=== PATIENT | female | born 1975 | race American Indian/Alaskan Native ===

== ENCOUNTER 2016-09-28 01:53 | Emergency (ER) | payer MEDICAID, OTHER ==
[2016-09-28] MEDS ORDERED: LORazepam 0.5 MG Tab PO ONE (02:17)
--- NOTE | 2016-09-28 02:38 | EDM.PDOC ---
ED HISTORY OF PRESENT ILLNESS - General Chief Complaint: Chest Pain Stated Complaint: CHEST PAINS Time Seen by Provider: 09/28/16 02:25 Source of Information: Reports: Patient History Limitations: Reports: No limitations - History of Present Illness INITIAL COMMENTS - FREE TEXT/NARRATIVE: This 40 yo female patient reports to the ED due to chest pain. The patient reports her chest pain started at about 2300 last night while she was at home. The patient reports she started to get anxious about her pains and they got worse. The patient reports she had similar pain last Wednesday prior to getting dialysis. The pain on Wednesday went away as soon as she started to get dialysis. The patient reports she thinks she is over on her amount of fluid causing increased shortness of breath and chest pain. The patient describes her chest pain as a sharp pain in the inside of her left chest. The patient is scheduled to have dialysis this morning at 0600. Symptom Onset Date: 09/27/16 Symptom Onset Time: 23:00 Timing/Duration: Reports: Constant, Getting worse Severity: moderate Location, General: Reports: chest (left lateral chest, spreading to the middle of her chest) Quality: Reports: Ache, Dull Improves with: Reports: None Worsens with: Reports: Other (increased anxiety) Context, General: Reports: Other Associated Symptoms (General): Reports: chest pain - Related Data Allergies/ADRs: Allergies Allergy/AdvReac Type Severity Reaction Status Date / Time acetaminophen Allergy Rash Verified 09/28/16 02:05 [From Darvocet-N 100] aspirin Allergy Hives Verified 09/28/16 02:05 naproxen [From Naprosyn] Allergy Rash Verified 09/28/16 02:05 Penicillins Allergy Rash Verified 09/28/16 02:05 propoxyphene napsylate Allergy Rash Verified 09/28/16 02:05 [From Darvocet-N 100] Home Meds: Home Meds Insulin Aspart [NovoLOG] 6 units SQ TID 10/08/13 [History] Insulin Detemir [Levemir Flexpen] 10 unit SQ DAILY 10/08/13 [History] Rosuvastatin [Crestor] 20 mg PO BEDTIME 03/09/14 [History] Metoprolol Succinate 50 mg PO BID 05/20/14 [History] Furosemide [Lasix] 80 mg PO BID 12/09/14 [History] Sevelamer Carbonate 2 tab PO TID 07/03/14 [History] Lisinopril 5 mg PO DAILY 08/13/14 [History] amLODIPine [Norvasc] 2.5 mg PO DAILY 08/20/14 [History] Omeprazole [Omeprazole] 20 mg PO DAILY 06/02/15 [History] Vitamin B Complex 1 tab PO ASDIRECTED 06/02/15 [History] hydrALAZINE [Apresoline] 100 mg PO BID 01/26/16 [History] Past Medical History HEENT History: Reports: None Cardiovascular History: Reports: Heart Failure, Heart murmur, High cholesterol, Hypertension Respiratory History: Reports: PE Gastrointestinal History: Reports: GERD Genitourinary History: Reports: Acute renal failure, Chronic renal insuffiency, Dialysis, Renal disease Psychiatric History: Reports: Anxiety Endocrine/Metabolic History: Reports: Diabetes, type II - Infectious Disease History Infectious Disease History: Reports: MRSA - Past Surgical History Female Surgical History: Reports: section Social & Family History - Family History Endocrine/Metabolic: Reports: Diabetes, type II - Tobacco Use Smoking Status *Q: Current Some Day Smoker Years of Tobacco use: 1 Packs/Tins Daily: 0.1 Used Tobacco, but Quit: No Month Tobacco Last Used: nov Second Hand Smoke Exposure: No - Caffeine Use Caffeine Use: Reports: Soda - Alcohol Use Days Per Week of Alcohol Use: 1 Number of Drinks Per Day: 6 Total Drinks Per Week: 6 - Recreational Drug Use Recreational Drug Use: No Drug Use in Last 12 Months: Yes Recreational Drug Type: Reports: Marijuana/Hashish Recreational Drug Use Frequency: Socially Recreational Drug Last Use: 02/29/2016 - Living Situation & Occupation Living situation: Reports: with family Occupation: disabled ED ROS GENERAL - Review of Systems Review Of Systems: ROS reveals no pertinent complaints other than HPI. ED EXAM, GENERAL - Physical Exam Exam: See Below Exam Limited By: No limitations General Appearance: alert, WD/WN, anxious, moderate distress, obese Eye Exam: bilateral eye: EOMI, normal inspection, PERRL Ears: normal external exam, normal canal, hearing grossly normal, normal TMs Nose: normal inspection, normal mucosa, no blood Throat/Mouth: Normal inspection, Normal lips, Normal teeth, Normal gums, Normal oropharynx, Normal voice, No airway compromise Head: atraumatic, normocephalic Neck: normal inspection, supple, non-tender, full range of motion Respiratory/Chest: no respiratory distress, lungs clear, normal breath sounds, no accessory muscle use, chest non-tender Cardiovascular: normal peripheral pulses, regular rate, rhythm, no edema, no gallop, no JVD, no rub, systolic murmur GI/Abdominal: normal bowel sounds, soft, non tender, no organomegaly, no distention, no abnormal bruit, no mass, other (obese) (Female) Exam: Deferred Rectal (Female) Exam: Deferred Back Exam: normal inspection, full range of motion, NT Extremities: normal inspection, normal range of motion, non-tender, normal capillary refill, no pedal edema Neurological: alert, oriented, CN II-XII intact, normal cognition, normal gait, normal reflexes, no motor/sensory deficits Psychiatric: anxious Skin Exam: Warm, Dry, Intact, Normal color, No rash Lymphatic: no adenopathy Course - Vital Signs Last Recorded V/S: Last Vital Signs Temp 36.8 C 09/28/16 02:46 Pulse 84 09/28/16 02:46 Resp 18 09/28/16 02:46 BP 186/92 H 09/28/16 02:46 Pulse Ox 98 09/28/16 02:46 - Orders/Labs/Meds Orders: Active Orders 24 hr Category Date Time Status EKG Documentation Completion [RC] URGENT Care 09/28/16 01:56 Active Chest 1V Frontal [CR] Urgent Exams 09/28/16 02:32 Taken DRUG SCREEN URINE BIORAD [URCHEM] Stat Lab 09/28/16 02:41 Ordered Labs: Laboratory Tests 09/28/16 09/28/16 09/28/16 Range/Units 02:18 02:18 02:40 WBC 15.6 H (5.0-10.0) 10^3/uL RBC 3.47 L (4.2-5.4) 10^6/uL Hgb 10.9 L (12.0-16.0) g/dL Hct 33.6 L (37.0-47.0) % MCV 96.8 (80-100) fL MCH 31.4 (27.0-34.0) pg MCHC 32.4 L (33.0-35.0) g/dL Plt Count 221 (150-450) 10^3/uL Neut % (Auto) 84.1 H (42.2-75.2) % Lymph % (Auto) 8.0 L (20.5-50.1) % [place] % (Auto) 4.5 (2-8) % Eos % (Auto) 3.1 H (1.0-3.0) % Baso % (Auto) 0.3 (0.0-1.0) % Sodium 137 (135-145) mmol/L Potassium 6.8 H* (3.6-5.0) mmol/L Chloride 102 (101-111) mmol/L Carbon Dioxide 19.0 L (21.0-31.0) mmol/L Anion Gap 22.8 BUN 76 H (7-18) mg/dL Creatinine 10.9 H (0.6-1.3) mg/dL Est Cr Clr Drug Dosing TNP Estimated GFR (MDRD) 4 BUN/Creatinine Ratio 6.97 Glucose 130 H (74-105) mg/dL Calcium 7.0 L (8.4-10.2) mg/dl Total Bilirubin 0.7 (0.2-1.0) mg/dL AST 25 (10-42) IU/L ALT 19 (10-60) IU/L Alkaline Phosphatase 117 (42-121) IU/L Troponin I 0.03 H* (0.00-0.02) ng/ml Total Protein 7.9 (6.7-8.2) g/dl Albumin 3.8 (3.2-5.5) g/dl Globulin 4.1 Albumin/Globulin Ratio 0.93 Urine Color Yellow (YELLOW) Urine Appearance Slightly cloudy (CLEAR) Urine pH >= 9.0 (5.0-9.0) Ur Specific [place] 1.020 (1.005-1.030) Urine Protein >=300 H (NEGATIVE) Urine Glucose (UA) 100 H (NEGATIVE) Urine Ketones Negative (NEGATIVE) Urine Occult Blood Small H (NEGATIVE) Urine Nitrite Negative (NEGATIVE) Urine Bilirubin Negative (NEGATIVE) Urine Urobilinogen 0.2 (0.2-1.0) mg/dL Ur Leukocyte Esterase Trace H (NEGATIVE) Meds: Medications Discontinued Medications Generic Name Dose Route Start Last Admin Trade Name Freq PRN Reason Stop Dose Admin Lorazepam 0.5 mg 09/28/16 02:17 09/28/16 02:22 Ativan PO 09/28/16 02:18 0.5 mg ONETIME ONE Administration - Re-Assessments/Exams Free Text/Narrative Re-Assessment/Exam: 09/28/16 02:39 The patient was given an oral dose of Ativan (0.5 mg) which improved her symptoms. After the Ativan, the patient reports some mild pain in her left chest , but the pain went away in the middle of her chest and her legs are feeling normal. Departure - Departure Time of Disposition: 03:01 Disposition: Home, Self-Care 01 Condition: fair Clinical Impression: Anxiety about health, Hyperkalemia, Bronchitis Instructions: Acute Bronchitis, Jrnu-rh-Tktc, Hyperkalemia, Kqez-gy-Tron, Panic Attacks, [id number]-jq-[id number] Forms: ED Department Discharge Care Plan Goals: The patient was advised of the examination, EKG, lab and x-ray results during the visit. The patient was given an oral dose of Ativan (0.5 mg) while in the ED. The patient was discharged with a script for Levaquin (500 mg) #7 to take 1 by mouth daily for 7 days. The patient was discharged to dialysis for continued treatment. If the patient has any additional symptoms or concerns, the patient should follow-up with her primary care facility or return to the emergency department. - My Orders Last 24 Hours: My Active Orders 09/28/16 01:56 EKG Documentation Completion [RC] URGENT 09/28/16 02:32 Chest 1V Frontal [CR] Urgent 09/28/16 02:41 DRUG SCREEN URINE BIORAD [URCHEM] Stat - Assessment/Plan Last 24 Hours: My Active Orders 09/28/16 01:56 EKG Documentation Completion [RC] URGENT 09/28/16 02:32 Chest 1V Frontal [CR] Urgent 09/28/16 02:41 DRUG SCREEN URINE BIORAD [URCHEM] Stat
[2016-09-28 02:44] LABS: CHLORIDE,CL 102 mmol/L (101-111); SODIUM,NA 137 mmol/L (135-145)
[2016-09-28 02:47] VITALS: BP 186/92
--- NOTE | 2016-09-28 20:54 | EKG ---
09/28/2016 - LATOYA JUNE - TIME: 0158 a.m. EKG per my reading shows sinus rhythm at the rate of 80s, QTc interval of 517. [facility] /[id number]
== END 2016-09-28 04:11 | disposition home or self-care (01) ==
LOC: DL.ED 01:53
DX: J40 Bronchitis, not specified as acute or chronic (principal); F41.9 Anxiety disorder, unspecified; E87.5 Hyperkalemia; I13.0 Hypertensive heart and chronic kidney disease with heart failure and stage 1 through stage 4 chronic kidney disease, or unspecified chronic kidney disease; E11.22 Type 2 diabetes mellitus with diabetic chronic kidney disease; N18.9 Chronic kidney disease, unspecified; I50.9 Heart failure, unspecified; K21.9 Gastro-esophageal reflux disease without esophagitis; R01.1 Cardiac murmur, unspecified; E78.00 Pure hypercholesterolemia, unspecified; Z88.6 Allergy status to analgesic agent; Z88.0 Allergy status to penicillin; Z79.4 Long term (current) use of insulin; Z79.899 Other long term (current) drug therapy
CPT/HCPCS: 36415; 71010; 80053; 81003; 84484; 85025; 93005; 99285; A9270

== ENCOUNTER 2016-11-15 21:43 | Emergency (ER) | payer MEDICAID, OTHER ==
[2016-11-15 22:10] VITALS: BP 142/88
[2016-11-15] MEDS ORDERED: Ondansetron 4 MG Tab.DIS PO ONE (22:39)
[2016-11-15] MEDS ORDERED: GI Cocktail Oral Solution 30 ML PO ONE (23:33)
--- NOTE | 2016-11-15 23:35 | EDM.PDOC ---
ED HPI GI/ABDOMINAL - General Chief Complaint: Chest Pain Stated Complaint: CHEST PAIN [id number] Time Seen by Provider: 11/15/16 22:00 Source of Information: Reports: Patient History Limitations: Reports: No limitations - History of Present Illness INITIAL COMMENTS - FREE TEXT/NARRATIVE: c/o vomiting tonight 3-4 times. RUQ pain and bilateral upper rib pain, burning in stomach. diarrhea also. Timing/Duration: Reports: Hour(s): Quality: Reports: burning, cramping Severity: moderate - Related Data Allergies/ADRs: Allergies Allergy/AdvReac Type Severity Reaction Status Date / Time acetaminophen Allergy Rash Verified 11/15/16 22:07 [From Darvocet-N 100] aspirin Allergy Hives Verified 11/15/16 22:07 naproxen [From Naprosyn] Allergy Rash Verified 11/15/16 22:07 Penicillins Allergy Rash Verified 11/15/16 22:07 propoxyphene napsylate Allergy Rash Verified 11/15/16 22:07 [From Darvocet-N 100] Home Meds: Home Meds Insulin Aspart [NovoLOG] 6 units SQ TID 10/08/13 [History] Insulin Detemir [Levemir Flexpen] 10 unit SQ DAILY 10/08/13 [History] Rosuvastatin [Crestor] 20 mg PO BEDTIME 03/09/14 [History] Metoprolol Succinate 50 mg PO BID 05/20/14 [History] Furosemide [Lasix] 80 mg PO BID 07/03/14 [History] Sevelamer Carbonate 2 tab PO TID 07/03/14 [History] Lisinopril 5 mg PO DAILY 08/13/14 [History] amLODIPine [Norvasc] 2.5 mg PO DAILY 08/20/14 [History] Omeprazole [Omeprazole] 20 mg PO DAILY 06/02/15 [History] Vitamin B Complex 1 tab PO ASDIRECTED 06/02/15 [History] hydrALAZINE [Apresoline] 100 mg PO BID 01/26/16 [History] Past Medical History HEENT History: Reports: None Cardiovascular History: Reports: Heart Failure, Heart murmur, High cholesterol, Hypertension Respiratory History: Reports: PE Gastrointestinal History: Reports: GERD Genitourinary History: Reports: Acute renal failure, Chronic renal insuffiency, Dialysis, Renal disease Psychiatric History: Reports: Anxiety Endocrine/Metabolic History: Reports: Diabetes, type II - Infectious Disease History Infectious Disease History: Reports: MRSA - Past Surgical History Female Surgical History: Reports: section Social & Family History - Family History Endocrine/Metabolic: Reports: Diabetes, type II - Tobacco Use Smoking Status *Q: Current Every Day Smoker Years of Tobacco use: 20 Packs/Tins Daily: 6 Used Tobacco, but Quit: No Month Tobacco Last Used: nov Second Hand Smoke Exposure: No - Caffeine Use Caffeine Use: Reports: Coffee, Soda, Tea - Alcohol Use Days Per Week of Alcohol Use: 1 Number of Drinks Per Day: 6 Total Drinks Per Week: 6 - Recreational Drug Use Recreational Drug Use: No Drug Use in Last 12 Months: Yes Recreational Drug Type: Reports: Marijuana/Hashish Recreational Drug Use Frequency: Socially Recreational Drug Last Use: 02/29/2016 - Living Situation & Occupation Living situation: Reports: with family Occupation: disabled ED ROS GENERAL - Review of Systems Review Of Systems: See Below Constitutional: Reports: no symptoms HEENT: Reports: No symptoms Respiratory: Reports: No Symptoms Cardiovascular: Reports: No symptoms Endocrine: Reports: no symptoms GI/Abdominal: Reports: Abdominal pain, Nausea, Vomiting Musculoskeletal: Reports: no symptoms Skin: Reports: no symptoms Neurological: Reports: No Symptoms ED EXAM, GI/ABD - Physical Exam Exam: See Below Exam Limited By: No limitations General Appearance: alert, mild distress Eyes: bilateral: EOMI Ears: normal external exam Nose: normal inspection Throat/Mouth: Normal inspection Head: atraumatic, normocephalic Neck: normal inspection, supple, non-tender Respiratory/Chest: no respiratory distress, lungs clear Cardiovascular: normal peripheral pulses, regular rate, rhythm GI/Abdominal: normal bowel sounds, soft, hyperactive bowel sounds Back Exam: normal inspection, full range of motion Extremities: normal inspection, normal range of motion Neurological: alert, oriented, normal cognition Psychiatric: normal affect, normal mood Skin Exam: Warm, Dry, Intact, Normal color, No rash Course - Vital Signs Last Recorded V/S: Last Vital Signs Temp 97.6 F 11/15/16 21:57 Pulse 91 11/15/16 21:57 Resp 16 11/15/16 21:57 BP 142/88 H 11/15/16 21:57 Pulse Ox 100 11/15/16 21:57 - Orders/Labs/Meds Orders: Active Orders 24 hr Category Date Time Status EKG 12 Lead [EKG Documentation Completion] [] URGENT Care 11/15/16 21:54 Active Glucose [Blood Glucose Check, Bedside] [] ONETIME Care 11/16/16 00:28 Active Labs: Laboratory Tests 11/15/16 11/15/16 11/16/16 Range/Units 22:29 22:29 00:34 WBC 10.1 H (5.0-10.0) 10^3/uL RBC 3.62 L (4.2-5.4) 10^6/uL Hgb 11.5 L (12.0-16.0) g/dL Hct 35.2 L (37.0-47.0) % MCV 97.2 (80-100) fL MCH 31.8 (27.0-34.0) pg MCHC 32.7 L (33.0-35.0) g/dL Plt Count 201 (150-450) 10^3/uL Neut % (Auto) 77.7 H (42.2-75.2) % Lymph % (Auto) 12.4 L (20.5-50.1) % [place] % (Auto) 7.2 (2-8) % Eos % (Auto) 2.3 (1.0-3.0) % Baso % (Auto) 0.4 (0.0-1.0) % Sodium 132 L (135-145) mmol/L Potassium 5.5 H (3.6-5.0) mmol/L Chloride 96 L (101-111) mmol/L Carbon Dioxide 22.0 (21.0-31.0) mmol/L Anion Gap 19.5 BUN 61 H (7-18) mg/dL Creatinine 9.6 H (0.6-1.3) mg/dL Est Cr Clr Drug Dosing 7.07 mL/min Estimated GFR (MDRD) 4 BUN/Creatinine Ratio 6.35 Glucose 91 (74-105) mg/dL POC Glucose 80 (70-105) mg/dl Calcium 8.0 L (8.4-10.2) mg/dl Total Bilirubin 0.8 (0.2-1.0) mg/dL AST 31 (10-42) IU/L ALT 22 (10-60) IU/L Alkaline Phosphatase 102 (42-121) IU/L Total Protein 7.0 (6.7-8.2) g/dl Albumin 3.4 (3.2-5.5) g/dl Globulin 3.6 Albumin/Globulin Ratio 0.94 Meds: Medications Discontinued Medications Generic Name Dose Route Start Last Admin Trade Name Paddy PRN Reason Stop Dose Admin Al Hydroxide/Mg Hydroxide 30 ml 11/15/16 23:33 11/15/16 23:38 Gi Cocktail PO 11/15/16 23:34 30 ml ONETIME ONE Administration Hydromorphone HCl 1 mg 11/16/16 00:41 11/16/16 00:48 Dilaudid IM 11/16/16 00:42 1 mg ONETIME ONE Administration Lorazepam 1 mg 11/15/16 23:53 11/15/16 23:59 Ativan PO 11/15/16 23:54 1 mg ONETIME ONE Administration Ondansetron HCl 4 mg 11/15/16 22:39 11/15/16 22:43 Zofran Odt PO 11/15/16 22:40 4 mg ONETIME ONE Administration Ondansetron HCl Confirm 11/16/16 02:05 11/16/16 02:09 Zofran Odt Administered 11/16/16 02:06 Not Given Dose 8 mg .ROUTE .STK-MED ONE Promethazine HCl 25 mg 11/16/16 00:24 11/16/16 00:32 Phenergan IM 11/16/16 00:25 25 mg ONETIME ONE Administration - Radiology Interpretation Free Text/Narrative:: CT abdomen negative. Departure - Departure Time of Disposition: 01:55 Disposition: Home, Self-Care 01 Condition: good Clinical Impression: Gastroenteritis, Diabetes mellitus, Acute renal failure syndrome, End stage renal disease on dialysis Vomiting Qualifiers: Vomiting type: bilious vomiting Nausea presence: with nausea Qualified Code(s) : R11.14 - Bilious vomiting Instructions: Nausea, Adult Referrals: Lokesh Nesbitt MD [Primary Care Provider] - Forms: ED Department Discharge Additional Instructions: zofran odt 4mg one every 6 hours as needed for vomiting. dialysis as scheduled #32 follow up if vomiting worsens, fevers - My Orders Last 24 Hours: My Active Orders 11/15/16 21:54 EKG 12 Lead [EKG Documentation Completion] [RC] URGENT 11/16/16 00:28 Glucose [Blood Glucose Check, Bedside] [RC] ONETIME - Assessment/Plan Last 24 Hours: My Active Orders 11/15/16 21:54 EKG 12 Lead [EKG Documentation Completion] [RC] URGENT 11/16/16 00:28 Glucose [Blood Glucose Check, Bedside] [RC] ONETIME
[2016-11-15] MEDS ORDERED: LORazepam 1 MG Tab PO ONE (23:53)
[2016-11-16] MEDS ORDERED: Promethazine 25 MG/ML SDV IM ONE (00:24)
[2016-11-16] MEDS ORDERED: HYDROmorphone 1 MG/ML Syringe IM ONE (00:41)
[2016-11-16] MEDS ORDERED: Ondansetron 4 MG Tab.DIS ONE (02:05)
[2016-11-16] MEDS ORDERED: Ondansetron 4 MG Tab.DIS PO ONE (02:05)
--- NOTE | 2016-11-17 14:24 | EKG ---
11/15/2016 - LATOYA JUNE - Twelve-lead EKG shows normal sinus rhythm with heart rate of 84. No significant ST elevation or ST depression noted on this 12-lead EKG, but nonspecific ST changes noted diffusely, but mostly in lead V2, V3, and V4. Twelve-lead EKG suggestive of possible left ventricular hypertrophy. T-wave changes noted on lead 2 and 3 also. [facility] /[id number]
== END 2016-11-16 02:08 | disposition home or self-care (01) ==
LOC: DL.ED 21:43
DX: K52.9 Noninfective gastroenteritis and colitis, unspecified (principal); I13.2 Hypertensive heart and chronic kidney disease with heart failure and with stage 5 chronic kidney disease, or end stage renal disease; N18.6 End stage renal disease; I50.9 Heart failure, unspecified; N17.9 Acute kidney failure, unspecified; Z99.2 Dependence on renal dialysis; E11.9 Type 2 diabetes mellitus without complications; K21.9 Gastro-esophageal reflux disease without esophagitis; R01.1 Cardiac murmur, unspecified; E78.00 Pure hypercholesterolemia, unspecified; F17.210 Nicotine dependence, cigarettes, uncomplicated; Z79.899 Other long term (current) drug therapy; Z79.4 Long term (current) use of insulin; Z88.6 Allergy status to analgesic agent; Z88.0 Allergy status to penicillin; Z88.8 Allergy status to other drugs, medicaments and biological substances
CPT/HCPCS: 36415; 74176; 80053; 82962; 85025; 93005; 96372; 99285; A9270; J1170; J2550

== ENCOUNTER 2017-01-22 19:40 | Emergency (ER) | payer MEDICAID ==
--- NOTE | 2017-01-22 20:00 | EDM.PDOC ---
[id number] BY AMBULANCE Time Seen by Provider: 01/22/17 19:57 Source of Information: Reports: Patient History Limitations: Reports: No Limitations - History of Present Illness INITIAL COMMENTS - FREE TEXT/NARRATIVE: states had dialysis this am took out 4 litres, ~ 1 hours ago started SOB/CP/abd ' pain/back pain. occurred while doing dishes. Left Chest Pain Score (Numeric/FACES): 4 - Related Data Allergies Allergy/AdvReac Type Severity Reaction Status Date / Time acetaminophen Allergy Rash Verified 01/22/17 19:54 [From Darvocet-N 100] aspirin Allergy Hives Verified 01/22/17 19:54 naproxen [From Naprosyn] Allergy Rash Verified 01/22/17 19:54 Penicillins Allergy Rash Verified 01/22/17 19:54 propoxyphene napsylate Allergy Rash Verified 01/22/17 19:54 [From Darvocet-N 100] Home Meds: Home Meds Insulin Aspart [NovoLOG] 6 units SQ TID 10/08/13 [History] Insulin Detemir [Levemir Flexpen] 10 unit SQ DAILY 10/08/13 [History] Rosuvastatin [Crestor] 20 mg PO BEDTIME 03/09/14 [History] Metoprolol Succinate 50 mg PO BID 05/20/14 [History] Furosemide [Lasix] 80 mg PO BID 07/03/14 [History] Sevelamer Carbonate 2 tab PO TID 07/03/14 [History] Lisinopril 5 mg PO DAILY 08/13/14 [History] amLODIPine [Norvasc] 2.5 mg PO DAILY 08/20/14 [History] Omeprazole [Omeprazole] 20 mg PO DAILY 06/02/15 [History] Vitamin B Complex 1 tab PO ASDIRECTED 06/02/15 [History] hydrALAZINE [Apresoline] 100 mg PO BID 01/26/16 [History] Past Medical History HEENT History: Reports: None Cardiovascular History: Reports: Heart Failure, Heart Murmur, High Cholesterol, Hypertension Respiratory History: Reports: PE Gastrointestinal History: Reports: GERD Genitourinary History: Reports: Acute Renal Failure, Chronic Renal Insuffiency, Dialysis, Renal Disease Psychiatric History: Reports: Anxiety Endocrine/Metabolic History: Reports: Diabetes, Type II - Infectious Disease History Infectious Disease History: Reports: MRSA - Past Surgical History Female Surgical History: Reports: Section Social & Family History - Family History Endocrine/Metabolic: Reports: Diabetes, type II - Tobacco Use Smoking Status *Q: Current Every Day Smoker Years of Tobacco use: 20 Packs/Tins Daily: 6 Used Tobacco, but Quit: No Month Tobacco Last Used: nov Second Hand Smoke Exposure: No - Caffeine Use Caffeine Use: Reports: Coffee, Soda, Tea - Alcohol Use Days Per Week of Alcohol Use: 1 Number of Drinks Per Day: 6 Total Drinks Per Week: 6 - Recreational Drug Use Recreational Drug Use: No Drug Use in Last 12 Months: Yes Recreational Drug Type: Reports: Marijuana/Hashish Recreational Drug Use Frequency: Socially Recreational Drug Last Use: 02/29/2016 - Living Situation & Occupation Living situation: Reports: with Family Occupation: Disabled ED ROS GENERAL - Review of Systems Review Of Systems: ROS reveals no pertinent complaints other than HPI. ED EXAM, GENERAL - Physical Exam Exam: See Below Exam Limited By: No Limitations General Appearance: Alert, WD/WN, Mild Distress, Other (generalized discomfort) Ears: Hearing Grossly Normal Throat/Mouth: Normal Voice, No Airway Compromise Head: Atraumatic Neck: Non-Tender, Full Range of Motion Respiratory/Chest: No Respiratory Distress, Rhonchi, Other (basilar). No: Decreased Breath Sounds, Accessory Muscle Use, Retractions Cardiovascular: Regular Rate, Rhythm GI/Abdominal: Tender, Other (epiG-periumb). No: Distended, Guarding, Rigid, Rebound Neurological: Alert, Oriented, Normal Cognition, Normal Gait, No Motor/Sensory Deficits Psychiatric: Tearful Skin Exam: Warm, Dry Lymphatic: No Adenopathy Course - Vital Signs Last Recorded V/S: Last Vital Signs Temp 36.7 C 01/23/17 02:09 Pulse 73 01/23/17 02:09 Resp 14 01/23/17 02:09 BP 115/56 L 01/23/17 02:09 Pulse Ox 96 01/23/17 02:09 - Orders/Labs/Meds Orders: Active Orders 24 hr Category Date Time Status EKG 12 Lead [EKG Documentation Completion] [RC] ROUTINE Care 01/23/17 00:01 Active EKG 12 Lead [EKG Documentation Completion] [RC] STAT Care 01/22/17 19:53 Active Labs: Laboratory Tests 0601/22/17 01/23/17 Range/Units 20:05 20:05 00:50 WBC 6.6 (5.0-10.0) 10^3/uL RBC 4.29 (4.2-5.4) 10^6/uL Hgb 13.5 (12.0-16.0) g/dL Hct 42.1 (37.0-47.0) % MCV 98.1 (80-100) fL MCH 31.5 (27.0-34.0) pg MCHC 32.1 L (33.0-35.0) g/dL Plt Count 171 (150-450) 10^3/uL Neut % (Auto) 63.5 (42.2-75.2) % Lymph % (Auto) 22.7 (20.5-50.1) % [place] % (Auto) 9.1 H (2-8) % Eos % (Auto) 4.2 H (1.0-3.0) % Baso % (Auto) 0.5 (0.0-1.0) % Sodium 138 140 (135-145) mmol/L Potassium 6.1 H 4.9 (3.6-5.0) mmol/L Chloride 99 L 100 L (101-111) mmol/L Carbon Dioxide 25.0 25.0 (21.0-31.0) mmol/L Anion Gap 20.1 19.9 BUN 33 H 33 H (7-18) mg/dL Creatinine 6.3 H 6.8 H (0.6-1.3) mg/dL Est Cr Clr Drug Dosing 10.78 9.99 mL/min Estimated GFR (MDRD) 7 7 BUN/Creatinine Ratio 5.23 Glucose 151 H 118 H (74-105) mg/dL Calcium 7.4 L 7.3 L (8.4-10.2) mg/dl Total Bilirubin 0.5 (0.2-1.0) mg/dL AST 20 (10-42) IU/L ALT 16 (10-60) IU/L Alkaline Phosphatase 113 (42-121) IU/L Troponin I 0.03 H* 0.03 H* (0.00-0.02) ng/ml B-Natriuretic Peptide 176 H (0-100) pg/ml Total Protein 7.8 (6.7-8.2) g/dl Albumin 3.8 (3.2-5.5) g/dl Globulin 4.0 Albumin/Globulin Ratio 0.95 Amylase 57 (28-100) U/L Lipase 26 (22-51) U/L Meds: Medications Discontinued Medications Generic Name Dose Route Start Last Admin Trade Name Paddy PRN Reason Stop Dose Admin Lorazepam 1 mg 01/22/17 20:50 01/22/17 20:55 Ativan PO 01/22/17 20:51 1 mg ONETIME ONE Administration Sodium Polystyrene Sulfonate 15 gm 01/22/17 21:08 01/22/17 21:16 Kayexalate PO 01/22/17 21:09 15 gm ONETIME ONE Administration - Re-Assessments/Exams Free Text/Narrative Re-Assessment/Exam: 01/22/17 20:52 results discussed with Pt who states she gets anxiety and wish a pill. 01/23/17 01:49 re-exam; sleeping arousable states feels fine now. states mother on her way from [place] to get her. Departure - Departure Time of Disposition: 02:00 Disposition: Home, Self-Care 01 Condition: Good Clinical Impression: Anxiety about health, Anxiety, Chest wall pain Instructions: Nonspecific Chest Pain, [id number] Forms: ED Department Discharge Additional Instructions: 1) rest 2) continue with home meds 3) follow up at clinic or recheck as needed - My Orders Last 24 Hours: My Active Orders 01/22/17 19:53 EKG 12 Lead [EKG Documentation Completion] [RC] STAT 01/23/17 00:01 EKG 12 Lead [EKG Documentation Completion] [RC] ROUTINE - Assessment/Plan Last 24 Hours: My Active Orders 01/22/17 19:53 EKG 12 Lead [EKG Documentation Completion] [RC] STAT 01/23/17 00:01 EKG 12 Lead [EKG Documentation Completion] [RC] ROUTINE
[2017-01-22] MEDS ORDERED: LORazepam 1 MG Tab PO ONE (20:50)
[2017-01-22] MEDS ORDERED: Sodium Polystyrene Sulfonate 15 GM/60 ML Susp 60 ML Bot PO ONE (21:08)
[2017-01-23 02:10] VITALS: BP 115/56
--- NOTE | 2017-03-08 10:16 | EKG ---
01/22/2017- LATOYA JUNE - This is a standard 12-lead EKG showing normal sinus rhythm. Ventricular rate 72 beats per minute. Left ventricular hypertrophy by voltage criteria. Nonspecific T-wave abnormalities in the lateral leads. Some ST elevation per normal [place] interval. Probable need to correlate with hyperkalemia with ST changes and T-wave tenting. [facility] /[id number]
--- NOTE | 2017-03-08 10:19 | EKG ---
01/23/2017- LATOYA JUNE - This is a standard 12-lead EKG showing normal sinus rhythm with ventricular rate 73 beats per minute. Left ventricular hypertrophy. Peaked T-waves with ST changes. Normal [place] interval and QRS duration. [facility] /[id number]
== END 2017-01-23 02:00 | disposition home or self-care (01) ==
LOC: DL.ED 19:40
DX: R07.89 Other chest pain (principal); F41.9 Anxiety disorder, unspecified; I13.0 Hypertensive heart and chronic kidney disease with heart failure and stage 1 through stage 4 chronic kidney disease, or unspecified chronic kidney disease; N18.9 Chronic kidney disease, unspecified; I50.9 Heart failure, unspecified; E78.00 Pure hypercholesterolemia, unspecified; K21.9 Gastro-esophageal reflux disease without esophagitis; F17.210 Nicotine dependence, cigarettes, uncomplicated; Z88.8 Allergy status to other drugs, medicaments and biological substances; Z88.0 Allergy status to penicillin; Z79.4 Long term (current) use of insulin; Z79.899 Other long term (current) drug therapy
CPT/HCPCS: 36415; 71010; 80048; 80053; 82150; 83690; 83880; 84484; 85025; 93005; 99285; A9270; 93010; 99283

== ENCOUNTER 2017-04-01 00:20 | Emergency (ER) | payer MEDICAID ==
[2017-04-01 00:26] VITALS: BP 129/71
--- NOTE | 2017-04-01 00:52 | EDM.PDOC ---
ED HPI GENERAL MEDICAL PROBLEM - General Chief Complaint: Respiratory Problem Stated Complaint: HURTS TO BREATHE Time Seen by Provider: 04/01/17 00:45 Source of Information: Reports: Patient History Limitations: Reports: No Limitations - History of Present Illness INITIAL COMMENTS - FREE TEXT/NARRATIVE: This 41 yo female patient reports to the ED with a 4 day history of increasing cough and chest congestion. The patient reports this evening her breathing got worse and the patient has been experiencing increased left sided lung pain with coughing. The patient reports she had a full run of dialysis this morning, but did not see her primary care facility nor attempt to get an appointment. The patient reports she took a shower prior to coming to the ED and started to feel generalized weakness. The patient was brought to the ED by her father (waiting in the vehicle). Onset Date: 03/28/17 Duration: Constant, Getting Worse Location: Reports: Chest Quality: Reports: Ache, Dull Severity: Moderate Improves with: Reports: None Worsens with: Reports: None Associated Symptoms: Reports: Cough, Shortness of Breath Left Thoracic Pain Score (Numeric/FACES): 8 - Related Data Allergies Allergy/AdvReac Type Severity Reaction Status Date / Time acetaminophen Allergy Rash Verified 04/01/17 00:26 [From Darvocet-N 100] aspirin Allergy Hives Verified 04/01/17 00:26 naproxen [From Naprosyn] Allergy Rash Verified 04/01/17 00:26 Penicillins Allergy Rash Verified 04/01/17 00:26 propoxyphene napsylate Allergy Rash Verified 04/01/17 00:26 [From Darvocet-N 100] Home Meds: Home Meds Insulin Aspart [NovoLOG] 6 units SQ TID 10/08/13 [History] Insulin Detemir [Levemir Flexpen] 10 unit SQ DAILY 10/08/13 [History] Rosuvastatin [Crestor] 20 mg PO BEDTIME 03/09/14 [History] Metoprolol Succinate 50 mg PO BID 05/20/14 [History] Furosemide [Lasix] 80 mg PO BID 07/03/14 [History] Sevelamer Carbonate 2 tab PO TID 07/03/14 [History] Lisinopril 5 mg PO DAILY 08/13/14 [History] amLODIPine [Norvasc] 2.5 mg PO DAILY 08/20/14 [History] Omeprazole [Omeprazole] 20 mg PO DAILY 06/02/15 [History] Vitamin B Complex 1 tab PO ASDIRECTED 06/02/15 [History] hydrALAZINE [Apresoline] 100 mg PO BID 01/26/16 [History] Past Medical History HEENT History: Reports: None Cardiovascular History: Reports: Heart Failure, Heart Murmur, High Cholesterol, Hypertension Respiratory History: Reports: PE Gastrointestinal History: Reports: GERD Genitourinary History: Reports: Acute Renal Failure, Chronic Renal Insuffiency, Dialysis, Renal Disease Psychiatric History: Reports: Anxiety Endocrine/Metabolic History: Reports: Diabetes, Type II, Obesity/BMI 30+ - Infectious Disease History Infectious Disease History: Reports: MRSA - Past Surgical History Female Surgical History: Reports: Section Social & Family History - Family History Endocrine/Metabolic: Reports: Diabetes, type II - Tobacco Use Smoking Status *Q: Never Smoker Years of Tobacco use: 20 Packs/Tins Daily: 6 Used Tobacco, but Quit: No Month Tobacco Last Used: nov Second Hand Smoke Exposure: No - Caffeine Use Caffeine Use: Reports: Coffee, Soda, Tea - Alcohol Use Days Per Week of Alcohol Use: 1 Number of Drinks Per Day: 6 Total Drinks Per Week: 6 - Recreational Drug Use Recreational Drug Use: No Drug Use in Last 12 Months: Yes Recreational Drug Type: Reports: Marijuana/Hashish Recreational Drug Use Frequency: Socially Recreational Drug Last Use: 02/29/2016 - Living Situation & Occupation Living situation: Reports: with Family Occupation: Disabled ED ROS GENERAL - Review of Systems Review Of Systems: ROS reveals no pertinent complaints other than HPI. ED EXAM, GENERAL - Physical Exam Exam: See Below Exam Limited By: No Limitations General Appearance: Alert, WD/WN, Moderate Distress, Obese Eye Exam: Bilateral Eye: EOMI, Normal Inspection, PERRL Ears: Normal External Exam, Normal Canal, Hearing Grossly Normal, Normal TMs Nose: Normal Inspection, Normal Mucosa, No Blood Throat/Mouth: Normal Inspection, Normal Lips, Normal Teeth, Normal Gums, Normal Oropharynx, Normal Voice, No Airway Compromise Head: Atraumatic, Normocephalic Neck: Normal Inspection, Supple, Non-Tender, Full Range of Motion Respiratory/Chest: No Respiratory Distress, No Accessory Muscle Use, Chest Non- Tender, Rhonchi (left base) Cardiovascular: Normal Peripheral Pulses, Regular Rate, Rhythm, No Edema, No Gallop, No JVD, No Murmur, No Rub GI/Abdominal: Normal Bowel Sounds, Soft, Non-Tender, No Organomegaly, No Distention, No Abnormal Bruit, No Mass (Female) Exam: Deferred Rectal (Female) Exam: Deferred Back Exam: Normal Inspection, Full Range of Motion, NT Extremities: Normal Inspection, Normal Range of Motion, Non-Tender, Normal Capillary Refill, No Pedal Edema Neurological: Alert, Oriented, CN II-XII Intact, Normal Cognition, Normal Gait, Normal Reflexes, No Motor/Sensory Deficits Psychiatric: Normal Affect Skin Exam: Warm, Dry, Intact, Normal Color, No Rash Lymphatic: No Adenopathy Course - Vital Signs Last Recorded V/S: Last Vital Signs Temp 35.8 C 04/01/17 00:23 Pulse 87 04/01/17 00:23 Resp 18 04/01/17 00:23 BP 129/71 04/01/17 00:23 Pulse Ox 100 04/01/17 00:23 - Orders/Labs/Meds Orders: Active Orders 24 hr Category Date Time Status CULTURE BLOOD [BC] Stat Lab 04/01/17 00:30 Ordered CULTURE BLOOD [BC] Stat Lab 04/01/17 00:30 Ordered Blood Culture x2 Reflex Set [OM.PC] Stat Oth 04/01/17 00:30 Ordered Labs: Laboratory Tests 04/01/17 04/01/17 04/01/17 Range/Units 00:38 00:38 00:38 WBC 6.4 (5.0-10.0) 10^3/uL RBC 4.58 (4.2-5.4) 10^6/uL Hgb 14.5 (12.0-16.0) g/dL Hct 44.6 (37.0-47.0) % MCV 97.4 (80-100) fL MCH 31.7 (27.0-34.0) pg MCHC 32.5 L (33.0-35.0) g/dL Plt Count 217 (150-450) 10^3/uL Neut % (Auto) 54.8 (42.2-75.2) % Lymph % (Auto) 21.8 (20.5-50.1) % [place] % (Auto) 14.6 H (2-8) % Eos % (Auto) 8.3 H (1.0-3.0) % Baso % (Auto) 0.5 (0.0-1.0) % Sodium (135-145) mmol/L Potassium (3.6-5.0) mmol/L Chloride (101-111) mmol/L Carbon Dioxide (21.0-31.0) mmol/L Anion Gap BUN (7-18) mg/dL Creatinine (0.6-1.3) mg/dL Est Cr Clr Drug Dosing mL/min Estimated GFR (MDRD) BUN/Creatinine Ratio Glucose (74-105) mg/dL Lactic Acid 1.5 (0.5-2.2) mmol/L Calcium (8.4-10.2) mg/dl Total Bilirubin (0.2-1.0) mg/dL AST (10-42) IU/L ALT (10-60) IU/L Alkaline Phosphatase (42-121) IU/L B-Natriuretic Peptide 167 H (0-100) pg/ml Total Protein (6.7-8.2) g/dl Albumin (3.2-5.5) g/dl Globulin Albumin/Globulin Ratio 04/01/ Range/Units 00:38 WBC (5.0-10.0) 10^3/uL RBC (4.2-5.4) 10^6/uL Hgb (12.0-16.0) g/dL Hct (37.0-47.0) % MCV (80-100) fL MCH (27.0-34.0) pg MCHC (33.0-35.0) g/dL Plt Count (150-450) 10^3/uL Neut % (Auto) (42.2-75.2) % Lymph % (Auto) (20.5-50.1) % [place] % (Auto) (2-8) % Eos % (Auto) (1.0-3.0) % Baso % (Auto) (0.0-1.0) % Sodium 136 (135-145) mmol/L Potassium 4.1 (3.6-5.0) mmol/L Chloride 95 L (101-111) mmol/L Carbon Dioxide 24.0 (21.0-31.0) mmol/L Anion Gap 21.1 BUN 26 H (7-18) mg/dL Creatinine 7.9 H (0.6-1.3) mg/dL Est Cr Clr Drug Dosing 8.60 mL/min Estimated GFR (MDRD) 6 BUN/Creatinine Ratio 3.29 Glucose 185 H (74-105) mg/dL Lactic Acid (0.5-2.2) mmol/L Calcium 8.6 (8.4-10.2) mg/dl Total Bilirubin 0.6 (0.2-1.0) mg/dL AST 19 (10-42) IU/L ALT 11 (10-60) IU/L Alkaline Phosphatase 96 (42-121) IU/L B-Natriuretic Peptide (0-100) pg/ml Total Protein 8.5 H (6.7-8.2) g/dl Albumin 3.7 (3.2-5.5) g/dl Globulin 4.8 Albumin/Globulin Ratio 0.77 Meds: Medications Discontinued Medications Generic Name Dose Route Start Last Admin Trade Name Freq PRN Reason Stop Dose Admin Levofloxacin 500 mg 04/01/17 01:15 Levaquin PO 04/01/17 01:16 ONETIME ONE Departure - Departure Time of Disposition: 01:16 Disposition: Home, Self-Care 01 Condition: Fair Clinical Impression: Bronchitis - Discharge Information Instructions: Acute Bronchitis, [id number] Forms: ED Department Discharge Care Plan Goals: The patient was advised of the examination, lab and x-ray results during the visit. The patient was given an oral dose of Levaquin (500 mg) while in the ED. The patient was discharged with a script for Levaquin (500 mg) #6 to take 1 by mouth daily (start 04/02/17). If the patient has any additional symptoms or concerns, the patient should follow-up with her primary care facility or return to the emergency department. - My Orders Last 24 Hours: My Active Orders 04/01/17 00:30 CULTURE BLOOD [BC] Stat CULTURE BLOOD [BC] Stat Blood Culture x2 Reflex Set [OM.PC] Stat - Assessment/Plan Last 24 Hours: My Active Orders 04/01/17 00:30 CULTURE BLOOD [BC] Stat CULTURE BLOOD [BC] Stat Blood Culture x2 Reflex Set [OM.PC] Stat
[2017-04-01] MEDS ORDERED: Levofloxacin 500 MG Tab PO ONE (01:15)
== END 2017-04-01 01:23 | disposition home or self-care (01) ==
LOC: DL.ED 00:20
DX: J40 Bronchitis, not specified as acute or chronic (principal); E78.00 Pure hypercholesterolemia, unspecified; I13.0 Hypertensive heart and chronic kidney disease with heart failure and stage 1 through stage 4 chronic kidney disease, or unspecified chronic kidney disease; I50.9 Heart failure, unspecified; E66.9 Obesity, unspecified; E11.22 Type 2 diabetes mellitus with diabetic chronic kidney disease; K21.9 Gastro-esophageal reflux disease without esophagitis; N18.9 Chronic kidney disease, unspecified; Z86.711 Personal history of pulmonary embolism; Z88.8 Allergy status to other drugs, medicaments and biological substances; Z88.0 Allergy status to penicillin; Z79.4 Long term (current) use of insulin; Z79.899 Other long term (current) drug therapy
CPT/HCPCS: 36415; 71020; 80053; 83605; 83880; 85025; 87040; 99285; A9270

== ENCOUNTER 2017-05-19 10:19 | Emergency (ER) | payer MEDICAID ==
--- NOTE | 2017-05-19 10:28 | EDM.PDOC ---
ED HPI GENERAL MEDICAL PROBLEM - General Stated Complaint: SEVERE CHEST PAIN Time Seen by Provider: 05/19/17 10:19 Source of Information: Reports: Patient History Limitations: Reports: No Limitations - History of Present Illness INITIAL COMMENTS - FREE TEXT/NARRATIVE: This 41 yo female patient reports to the ED with chest pain. The patient reports she went to dialysis this morning, but when she completed her run of dialysis she started to have chest pains. The patient reports that she sat in the lobby for a while, but her pain continued. The patient also reports increased shortness of breath. The patient has not taken anything at this time for temporary symptom relief. The patient is allergic to aspirin, Tylenol and naproxen. 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: Acetaminophen, Aspirin, NSAIDS Bilateral Chest Pain Score (Numeric/FACES): 7 - Related Data Allergies Allergy/AdvReac Type Severity Reaction Status Date / Time acetaminophen Allergy Rash Verified 06/21/17 11:02 [From Darvocet-N 100] aspirin Allergy Hives Verified 06/21/17 11:02 naproxen [From Naprosyn] Allergy Rash Verified 06/21/17 11:02 Penicillins Allergy Rash Verified 06/21/17 11:02 propoxyphene napsylate Allergy Rash Verified 06/21/17 11:02 [From Darvocet-N 100] Home Meds: Home Meds Insulin Aspart [NovoLOG] 6 units SQ TID 10/08/13 [History] Insulin Detemir [Levemir Flexpen] 10 unit SQ DAILY 10/08/13 [History] Rosuvastatin [Crestor] 20 mg PO BEDTIME 03/09/14 [History] Metoprolol Succinate 50 mg PO BID 05/20/14 [History] Furosemide [Lasix] 80 mg PO BID 07/03/14 [History] Sevelamer Carbonate 2 tab PO TID 07/03/14 [History] Lisinopril 5 mg PO DAILY 08/13/14 [History] amLODIPine [Norvasc] 2.5 mg PO DAILY 08/20/14 [History] Omeprazole [Omeprazole] 20 mg PO DAILY 06/02/15 [History] Vitamin B Complex 1 tab PO ASDIRECTED 06/02/15 [History] hydrALAZINE [Apresoline] 100 mg PO BID 01/26/16 [History] Past Medical History HEENT History: Reports: None Cardiovascular History: Reports: Heart Failure, Heart Murmur, High Cholesterol, Hypertension Respiratory History: Reports: PE Gastrointestinal History: Reports: GERD Genitourinary History: Reports: Acute Renal Failure, Chronic Renal Insuffiency, Dialysis, Renal Disease Psychiatric History: Reports: Anxiety Endocrine/Metabolic History: Reports: Diabetes, Type II, Obesity/BMI 30+ - Infectious Disease History Infectious Disease History: Reports: MRSA - Past Surgical History Female Surgical History: Reports: Section Social & Family History - Family History Endocrine/Metabolic: Reports: Diabetes, type II - Tobacco Use Smoking Status *Q: Never Smoker Years of Tobacco use: 20 Packs/Tins Daily: 6 Used Tobacco, but Quit: No Month Tobacco Last Used: nov Second Hand Smoke Exposure: No - Caffeine Use Caffeine Use: Reports: Coffee, Soda, Tea - Alcohol Use Days Per Week of Alcohol Use: 1 Number of Drinks Per Day: 6 Total Drinks Per Week: 6 - Recreational Drug Use Recreational Drug Use: No Drug Use in Last 12 Months: Yes Recreational Drug Type: Reports: Marijuana/Hashish Recreational Drug Use Frequency: Socially Recreational Drug Last Use: 02/29/2016 - Living Situation & Occupation Living situation: Reports: with Family Occupation: Disabled ED ROS GENERAL - Review of Systems Review Of Systems: ROS reveals no pertinent complaints other than HPI. ED EXAM, GENERAL - Physical Exam Exam: See Below Exam Limited By: No Limitations General Appearance: Alert, WD/WN, Severe Distress, Obese Eye Exam: Bilateral Eye: EOMI, Normal Inspection, PERRL Ears: Normal External Exam, Normal Canal, Hearing Grossly Normal, Normal TMs Nose: Normal Inspection, Normal Mucosa, No Blood Throat/Mouth: Normal Inspection, Normal Lips, Normal Teeth, Normal Gums, Normal Oropharynx, Normal Voice, No Airway Compromise Head: Atraumatic, Normocephalic Neck: Normal Inspection, Supple, Non-Tender, Full Range of Motion Respiratory/Chest: No Respiratory Distress, Lungs Clear, Normal Breath Sounds, No Accessory Muscle Use, Chest Non-Tender Cardiovascular: Normal Peripheral Pulses, Regular Rate, Rhythm, No Edema, No Gallop, No JVD, No Rub GI/Abdominal: Normal Bowel Sounds, Soft, Non-Tender, No Organomegaly, No Distention, No Abnormal Bruit, No Mass (Female) Exam: Deferred Rectal (Female) Exam: Deferred Back Exam: Normal Inspection, Full Range of Motion, NT Extremities: Normal Inspection, Normal Range of Motion, Non-Tender, Normal Capillary Refill, No Pedal Edema Neurological: Alert, Oriented, CN II-XII Intact, Normal Cognition, Normal Gait, Normal Reflexes, No Motor/Sensory Deficits Psychiatric: Normal Affect, Normal Mood Skin Exam: Warm, Dry, Intact, Normal Color, No Rash Lymphatic: No Adenopathy Course - Vital Signs Last Recorded V/S: Last Vital Signs Temp 36.6 C 05/19/17 10:19 Pulse 92 05/19/17 10:19 Resp 16 05/19/17 10:19 BP 105/62 05/19/17 10:19 Pulse Ox 100 05/19/17 10:19 Orthostatic Blood Pressure [ 85/37 Standing] Orthostatic Blood Pressure [ 101/64 Supine] - Orders/Labs/Meds Labs: Laboratory Tests 05/19/17 05/19/17 Range/Units 10:38 10:38 WBC 6.8 (5.0-10.0) 10^3/uL RBC 4.91 (4.2-5.4) 10^6/uL Hgb 15.6 (12.0-16.0) g/dL Hct 47.8 H (37.0-47.0) % MCV 97.4 (80-100) fL MCH 31.8 (27.0-34.0) pg MCHC 32.6 L (33.0-35.0) g/dL Plt Count 219 (150-450) 10^3/uL Neut % (Auto) 60.5 (42.2-75.2) % Lymph % (Auto) 23.0 (20.5-50.1) % [place] % (Auto) 10.3 H (2-8) % Eos % (Auto) 5.6 H (1.0-3.0) % Baso % (Auto) 0.6 (0.0-1.0) % Sodium 135 (135-145) mmol/L Potassium 4.6 (3.6-5.0) mmol/L Chloride 96 L (101-111) mmol/L Carbon Dioxide 25.0 (21.0-31.0) mmol/L Anion Gap 18.6 BUN 24 H (7-18) mg/dL Creatinine 4.9 H D (0.6-1.3) mg/dL Est Cr Clr Drug Dosing 13.86 mL/min Estimated GFR (MDRD) 10 BUN/Creatinine Ratio 4.89 Glucose 228 H (74-105) mg/dL Calcium 8.0 L (8.4-10.2) mg/dl Total Bilirubin 0.8 (0.2-1.0) mg/dL AST 25 (10-42) IU/L ALT 13 (10-60) IU/L Alkaline Phosphatase 113 (42-121) IU/L Troponin I < 0.02 (0.00-0.02) ng/ml B-Natriuretic Peptide 160 H (0-100) pg/ml Total Protein 8.6 H (6.7-8.2) g/dl Albumin 4.0 (3.2-5.5) g/dl Globulin 4.6 Albumin/Globulin Ratio 0.87 Meds: Medications Discontinued Medications Generic Name Dose Route Start Last Admin Trade Name Freq PRN Reason Stop Dose Admin Sodium Chloride 500 mls @ 999 mls/hr 05/19/17 11:45 05/19/17 11:45 Normal Saline IV 999 mls/hr .BOLUS SREEKANTH Administration - Re-Assessments/Exams Free Text/Narrative Re-Assessment/Exam: 05/19/17 11:36 The patient had orthostatic hypotension with a significant drop in her blood pressure while standing. The patient was given a 500 mL bolus of Normal Saline. Departure - Departure Time of Disposition: 12:50 Disposition: Home, Self-Care 01 Condition: Fair Clinical Impression: Non-cardiac chest pain Referrals: Lokesh Nesbitt MD [Primary Care Provider] - Forms: ED Department Discharge Care Plan Goals: See paper charting
[2017-05-19 10:38] VITALS: BP 105/62
[2017-05-19 11:05] LABS: CHLORIDE,CL 96 mmol/L (101-111); SODIUM,NA 135 mmol/L (135-145)
--- NOTE | 2017-05-19 11:14 | CR ---
Clinical history: 41-year-old chest pain. Interpretation: Reasonable inspiratory effort obese female with normal cardiac silhouette and bony th orax. Upright AP film reveals no signs of alveolar edema, dependent effusion, lung mass, hilar lymphadenopa thy and no current evidence focal lobar pneumonia. No atelectasis/collapse. No pneumothorax. CONCLUSION: No acute cardiopulmonary abnormality. Unchanged except for technique since April 14 exam.
[2017-05-19] MEDS ORDERED: Sodium Chloride 0.9% 500 ML IV SCH (11:45)
--- NOTE | 2017-05-19 22:35 | EKG ---
05/19/2017 - LATOYA JUNE - TIME: 10:26 a.m. EKG shows normal sinus rhythm. There are nonspecific T-wave abnormalities in lateral leads. [facility] /[id number]
== END 2017-05-19 12:50 | disposition home or self-care (01) ==
LOC: DL.ED 10:19
DX: R07.9 Chest pain, unspecified (principal); R25.2 Cramp and spasm; I13.0 Hypertensive heart and chronic kidney disease with heart failure and stage 1 through stage 4 chronic kidney disease, or unspecified chronic kidney disease; E11.22 Type 2 diabetes mellitus with diabetic chronic kidney disease; N18.9 Chronic kidney disease, unspecified; I50.9 Heart failure, unspecified; E78.00 Pure hypercholesterolemia, unspecified; Z99.2 Dependence on renal dialysis; Z79.4 Long term (current) use of insulin; Z88.6 Allergy status to analgesic agent; Z88.0 Allergy status to penicillin; Z88.8 Allergy status to other drugs, medicaments and biological substances; Z79.899 Other long term (current) drug therapy
CPT/HCPCS: 36415; 71010; 80053; 83880; 84484; 85025; 93005; 96360; 99285; J7040

== ENCOUNTER 2017-06-06 18:02 | Emergency (ER) | payer MEDICAID ==
[2017-06-06] MEDS ORDERED: diphenhydrAMINE 25 MG Tab PO ONE (18:03)
[2017-06-06 18:55] VITALS: BP 145/80
[2017-06-06] MEDS ORDERED: diphenhydrAMINE 25 MG Tab ONE (19:48)
--- NOTE | 2017-06-06 19:51 | EDM.PDOC ---
ED HPI GENERAL MEDICAL PROBLEM - General Chief Complaint: Skin Complaint Stated Complaint: HIVES,HARD TO BREATH, [id number] Time Seen by Provider: 06/06/17 19:35 Source of Information: Reports: Patient History Limitations: Reports: No Limitations - History of Present Illness INITIAL COMMENTS - FREE TEXT/NARRATIVE: C/o hive to ears and scalp. Admitted new sop yesterday. No other areas on body, Itching previously controlled with Benadryl. Ran out oat noon today. No respiratory difficulty. 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: Other Medication(s) - Related Data Allergies Allergy/AdvReac Type Severity Reaction Status Date / Time acetaminophen Allergy Rash Verified 06/06/17 19:07 [From Darvocet-N 100] aspirin Allergy Hives Verified 06/06/17 19:07 naproxen [From Naprosyn] Allergy Rash Verified 06/06/17 19:07 Penicillins Allergy Rash Verified 06/06/17 19:07 propoxyphene napsylate Allergy Rash Verified 06/06/17 19:07 [From Darvocet-N 100] Home Meds: Home Meds Insulin Aspart [NovoLOG] 6 units SQ TID 10/08/13 [History] Insulin Detemir [Levemir Flexpen] 10 unit SQ DAILY 10/08/13 [History] Rosuvastatin [Crestor] 20 mg PO BEDTIME 03/09/14 [History] Metoprolol Succinate 50 mg PO BID 05/20/14 [History] Furosemide [Lasix] 80 mg PO BID 07/03/14 [History] Sevelamer Carbonate 2 tab PO TID 07/03/14 [History] Lisinopril 5 mg PO DAILY 08/13/14 [History] amLODIPine [Norvasc] 2.5 mg PO DAILY 08/20/14 [History] Omeprazole [Omeprazole] 20 mg PO DAILY 06/02/15 [History] Vitamin B Complex 1 tab PO ASDIRECTED 06/02/15 [History] hydrALAZINE [Apresoline] 100 mg PO BID 01/26/16 [History] Past Medical History HEENT History: Reports: None Cardiovascular History: Reports: Heart Failure, Heart Murmur, High Cholesterol, Hypertension Respiratory History: Reports: PE Gastrointestinal History: Reports: GERD Genitourinary History: Reports: Acute Renal Failure, Chronic Renal Insuffiency, Dialysis, Renal Disease Neurological History: Reports: Neuropathy, Diabetic Psychiatric History: Reports: Anxiety Endocrine/Metabolic History: Reports: Diabetes, Type II, Obesity/BMI 30+ Hematologic History: Reports: Blood Transfusion(s) - Infectious Disease History Infectious Disease History: Reports: MRSA - Past Surgical History Female Surgical History: Reports: Section Musculoskeletal Surgical History: Reports: Other (See Below) Other Musculoskeletal Surgeries/Procedures:: Ankle surgery Social & Family History - Family History Family Medical History: Noncontributory Endocrine/Metabolic: Reports: Diabetes, type II - Tobacco Use Smoking Status *Q: Current Some Day Smoker Years of Tobacco use: 21 Packs/Tins Daily: 0.1 Used Tobacco, but Quit: No Month Tobacco Last Used: nov Second Hand Smoke Exposure: Yes - Caffeine Use Caffeine Use: Reports: Soda - Alcohol Use Days Per Week of Alcohol Use: 1 Number of Drinks Per Day: 6 Total Drinks Per Week: 6 - Recreational Drug Use Recreational Drug Use: Yes Drug Use in Last 12 Months: Yes Recreational Drug Type: Reports: Marijuana/Hashish Recreational Drug Use Frequency: Socially Recreational Drug Last Use: 02/29/2016 - Living Situation & Occupation Living situation: Reports: with Family Occupation: Disabled ED ROS GENERAL - Review of Systems Review Of Systems: See Below ED EXAM, SKIN/RASH Exam: See Below Exam Limited By: No Limitations General Appearance: Alert, Mild Distress Eye Exam: Bilateral Eye: EOMI Ears: Other (mild warmth and rednss to aurical) Nose: Normal Inspection Throat/Mouth: Normal Inspection Head: Atraumatic, Other (scalp line mild uticaria, face clear) Neck: Normal Inspection Respiratory/Chest: No Respiratory Distress, Lungs Clear, Normal Breath Sounds GI/Abdominal: Normal Bowel Sounds Extremities: Normal Inspection Neurological: Alert, Oriented, Normal Cognition Psychiatric: Anxious Skin: Warm, Dry, Intact, Rash (urticaria to top of ears and scalp, greater on outer nape) Location, Skin: Head Characteristics: Urticarial Associated features: Warmth Lymphatic: No Adenopathy Course - Vital Signs Last Recorded V/S: Last Vital Signs Temp 98.8 F 06/06/17 18:54 Pulse 72 06/06/17 18:54 Resp 16 06/06/17 18:54 BP 145/80 H 06/06/17 18:54 Pulse Ox 97 06/06/17 18:54 Departure - Departure Time of Disposition: 19:46 Disposition: Home, Self-Care 01 Condition: Good Clinical Impression: Contact urticaria, Diabetes mellitus, End stage renal disease on dialysis - Discharge Information Instructions: Hives, [id number] Additional Instructions: benadryl 25mg-50mg every 6 hours as needed for itching cool shower tonight without soap or shampoo. follow up if worsening or breathing difficulty
== END 2017-06-06 19:55 | disposition home or self-care (01) ==
LOC: DL.ED 18:02
DX: L50.6 Contact urticaria (principal); E11.22 Type 2 diabetes mellitus with diabetic chronic kidney disease; N18.6 End stage renal disease; F17.210 Nicotine dependence, cigarettes, uncomplicated; Z88.6 Allergy status to analgesic agent; Z88.5 Allergy status to narcotic agent; Z88.0 Allergy status to penicillin; Z79.4 Long term (current) use of insulin; Z99.2 Dependence on renal dialysis
CPT/HCPCS: 99282; A9270-GY

== ENCOUNTER 2017-06-08 16:55 | Emergency (ER) | payer MEDICAID ==
--- NOTE | 2017-06-08 17:25 | EDM.PDOC ---
ED HPI GENERAL MEDICAL PROBLEM - General Chief Complaint: Syncope Stated Complaint: [id number] CHEST TIGHT AND BLACKING IN VISION Time Seen by Provider: 06/08/17 17:20 Source of Information: Reports: Patient, Family () History Limitations: Reports: No Limitations - History of Present Illness INITIAL COMMENTS - FREE TEXT/NARRATIVE: 41 yo [place] Female c/o light headiness X 2 days w/ PMHx. CKD on Dialysis and Iron Def Anemia. Pt. last dialysis yesterday and was also given intravenous iron. Pt. states symptoms today @ 3pm w/ sweating and chest tightness Onset: Today Onset Date: 06/08/17 Onset Time: 15:30 Duration: Hour(s): Location: Reports: Chest, Generalized Quality: Reports: Same as Previous Episode (yesterday after dialysis) Severity: Moderate Improves with: Reports: Rest Worsens with: Reports: Movement Context: Reports: Other (PMHx. CKD w/ Dialysis) Associated Symptoms: Reports: Syncope, Weakness - Related Data Allergies Allergy/AdvReac Type Severity Reaction Status Date / Time acetaminophen Allergy Rash Verified 06/06/17 19:07 [From Darvocet-N 100] aspirin Allergy Hives Verified 06/06/17 19:07 naproxen [From Naprosyn] Allergy Rash Verified 06/06/17 19:07 Penicillins Allergy Rash Verified 06/06/17 19:07 propoxyphene napsylate Allergy Rash Verified 06/06/17 19:07 [From Darvocet-N 100] Home Meds: Home Meds Insulin Aspart [NovoLOG] 6 units SQ TID 10/08/13 [History] Insulin Detemir [Levemir Flexpen] 10 unit SQ DAILY 10/08/13 [History] Rosuvastatin [Crestor] 20 mg PO BEDTIME 03/09/14 [History] Metoprolol Succinate 50 mg PO BID 05/20/14 [History] Furosemide [Lasix] 80 mg PO BID 07/03/14 [History] Sevelamer Carbonate 2 tab PO TID 07/03/14 [History] Lisinopril 5 mg PO DAILY 08/13/14 [History] amLODIPine [Norvasc] 2.5 mg PO DAILY 08/20/14 [History] Omeprazole [Omeprazole] 20 mg PO DAILY 06/02/15 [History] Vitamin B Complex 1 tab PO ASDIRECTED 06/02/15 [History] hydrALAZINE [Apresoline] 100 mg PO BID 01/26/16 [History] Past Medical History HEENT History: Reports: None Cardiovascular History: Reports: Heart Failure, Heart Murmur, High Cholesterol, Hypertension Respiratory History: Reports: PE Gastrointestinal History: Reports: GERD Genitourinary History: Reports: Acute Renal Failure, Chronic Renal Insuffiency, Dialysis, Renal Disease Neurological History: Reports: Neuropathy, Diabetic Psychiatric History: Reports: Anxiety Endocrine/Metabolic History: Reports: Diabetes, Type II, Obesity/BMI 30+ Hematologic History: Reports: Blood Transfusion(s) - Infectious Disease History Infectious Disease History: Reports: MRSA - Past Surgical History Female Surgical History: Reports: Section Musculoskeletal Surgical History: Reports: Other (See Below) Other Musculoskeletal Surgeries/Procedures:: Ankle surgery Social & Family History - Family History Family Medical History: Noncontributory Endocrine/Metabolic: Reports: Diabetes, type II - Tobacco Use Smoking Status *Q: Current Some Day Smoker Years of Tobacco use: 21 Packs/Tins Daily: 0.1 Used Tobacco, but Quit: No Month Tobacco Last Used: nov Second Hand Smoke Exposure: Yes - Caffeine Use Caffeine Use: Reports: Soda - Alcohol Use Days Per Week of Alcohol Use: 1 Number of Drinks Per Day: 6 Total Drinks Per Week: 6 - Recreational Drug Use Recreational Drug Use: Yes Drug Use in Last 12 Months: Yes Recreational Drug Type: Reports: Marijuana/Hashish Recreational Drug Use Frequency: Socially Recreational Drug Last Use: 02/29/2016 - Living Situation & Occupation Living situation: Reports: with Family Occupation: Disabled ED ROS GENERAL - Review of Systems Review Of Systems: See Below Constitutional: Reports: Weakness, Fatigue, Diaphoresis HEENT: Reports: No Symptoms Respiratory: Reports: No Symptoms Cardiovascular: Reports: Chest Pain GI/Abdominal: Reports: No Symptoms : Reports: No Symptoms Musculoskeletal: Reports: No Symptoms Skin: Reports: No Symptoms Neurological: Reports: Dizziness Psychiatric: Reports: No Symptoms Hematologic/Lymphatic: Reports: Anemia Immunologic: Reports: No Symptoms ED EXAM, GENERAL - Physical Exam Exam: See Below Exam Limited By: No Limitations General Appearance: Alert, No Apparent Distress, Obese Eye Exam: Bilateral Eye: EOMI, PERRL Ears: Normal External Exam Nose: Normal Inspection Throat/Mouth: Normal Inspection Head: Atraumatic, Normocephalic Neck: Normal Inspection, Supple Respiratory/Chest: No Respiratory Distress, Lungs Clear Cardiovascular: Normal Peripheral Pulses, Regular Rate, Rhythm, No Edema GI/Abdominal: Normal Bowel Sounds Back Exam: Normal Inspection Extremities: Normal Inspection, Normal Range of Motion Neurological: Alert, Oriented, CN II-XII Intact, Normal Cognition Psychiatric: Normal Affect, Normal Mood Skin Exam: Warm, Dry, Intact, Normal Color Lymphatic: No Adenopathy Course - Vital Signs Last Recorded V/S: Last Vital Signs Temp 36.6 C 06/08/17 17:09 Pulse 87 06/08/17 17:09 Resp 18 06/08/17 17:09 BP 111/69 06/08/17 17:09 Pulse Ox 100 06/08/17 17:09 - Orders/Labs/Meds Orders: Active Orders 24 hr Category Date Time Status EKG Documentation Completion [RC] STAT Care 06/08/17 17:22 Active IRON & TIBC [REF] Stat Lab 06/08/17 17:37 Received Labs: Laboratory Tests 06/08/17 06/08/17 Range/Units 17:37 17:37 WBC 8.2 (5.0-10.0) 10^3/uL RBC 5.01 (4.2-5.4) 10^6/uL Hgb 15.8 (12.0-16.0) g/dL Hct 48.5 H (37.0-47.0) % MCV 96.8 (80-100) fL MCH 31.5 (27.0-34.0) pg MCHC 32.6 L (33.0-35.0) g/dL Plt Count 244 (150-450) 10^3/uL Neut % (Auto) 67.0 (42.2-75.2) % Lymph % (Auto) 20.9 (20.5-50.1) % [place] % (Auto) 10.0 H (2-8) % Eos % (Auto) 1.7 (1.0-3.0) % Baso % (Auto) 0.4 (0.0-1.0) % Sodium 133 L (135-145) mmol/L Potassium 5.7 H (3.6-5.0) mmol/L Chloride 93 L (101-111) mmol/L Carbon Dioxide 20.0 L (21.0-31.0) mmol/L Anion Gap 25.7 BUN 54 H D (7-18) mg/dL Creatinine 10.7 H D (0.6-1.3) mg/dL Est Cr Clr Drug Dosing 6.35 mL/min Estimated GFR (MDRD) 4 BUN/Creatinine Ratio 5.04 Glucose 262 H (74-105) mg/dL Calcium 7.2 L (8.4-10.2) mg/dl Total Bilirubin 0.5 (0.2-1.0) mg/dL AST 28 (10-42) IU/L ALT 12 (10-60) IU/L Alkaline Phosphatase 107 (42-121) IU/L Troponin I 0.03 H* (0.00-0.02) ng/ml Total Protein 8.4 H (6.7-8.2) g/dl Albumin 4.0 (3.2-5.5) g/dl Globulin 4.4 Albumin/Globulin Ratio 0.91 Departure - Departure Time of Disposition: 19:36 Disposition: DC/Tfer to Acute Hospital 02 Condition: Fair Clinical Impression: Hyperkalemia, CKD (chronic kidney disease) stage 4, GFR 15-29 ml/min, Elevated troponin Chest pain Qualifiers: Chest pain type: chest pain due to myocardial ischemia Qualified Code(s): I20.9 - Angina pectoris, unspecified - Discharge Information Forms: ED Department Discharge, Interfacility Transfer EMTALA - My Orders Last 24 Hours: My Active Orders 06/08/17 17:22 EKG Documentation Completion [RC] STAT 06/08/17 17:37 IRON & TIBC [REF] Stat - Assessment/Plan Last 24 Hours: My Active Orders 06/08/17 17:22 EKG Documentation Completion [RC] STAT 06/08/17 17:37 IRON & TIBC [REF] Stat
[2017-06-08 19:36] VITALS: BP 135/103
[2017-06-08] MEDS ORDERED: LORazepam 2 MG/ML Syringe IVPUSH ONE (20:00)
--- NOTE | 2017-07-09 11:33 | EKG ---
06/08/2017 - LATOYA JUNE - TIME: 1725 hours. FINDINGS: I reviewed the EKG and agree with the machine's reading. I also reviewed the EKG of the same patient on 06/08/2017 at 1955 hours and agree with the machine's reading. [facility] /[id number]
== END 2017-06-08 20:30 ==
LOC: DL.ED 16:55
DX: I20.9 Angina pectoris, unspecified (principal); I13.0 Hypertensive heart and chronic kidney disease with heart failure and stage 1 through stage 4 chronic kidney disease, or unspecified chronic kidney disease; E11.22 Type 2 diabetes mellitus with diabetic chronic kidney disease; E11.40 Type 2 diabetes mellitus with diabetic neuropathy, unspecified; N18.9 Chronic kidney disease, unspecified; F17.210 Nicotine dependence, cigarettes, uncomplicated; E78.00 Pure hypercholesterolemia, unspecified; K21.9 Gastro-esophageal reflux disease without esophagitis; Z79.4 Long term (current) use of insulin; Z79.899 Other long term (current) drug therapy; Z88.0 Allergy status to penicillin; Z88.6 Allergy status to analgesic agent; Z88.8 Allergy status to other drugs, medicaments and biological substances
CPT/HCPCS: 80053; 83540; 83550; 84484; 85025; 85379; 93005; 96374; 99285; J2060; 36415

== ENCOUNTER 2017-06-16 12:32 | Emergency (ER) | payer MEDICAID ==
[2017-06-16] MEDS ORDERED: Ondansetron 4 MG Tab.DIS PO ONE (13:12)
[2017-06-16 13:24] LABS: CHLORIDE,CL 95 mmol/L (101-111); SODIUM,NA 136 mmol/L (135-145)
--- NOTE | 2017-06-16 13:26 | EDM.PDOC ---
ED HPI GENERAL MEDICAL PROBLEM - General Stated Complaint: DIZZY SPELLS, FAINTING Time Seen by Provider: 06/16/17 13:10 Source of Information: Reports: Patient History Limitations: Reports: No Limitations - History of Present Illness INITIAL COMMENTS - FREE TEXT/NARRATIVE: This 41 yo female patient reports to the ED with dizziness after having dialysis. The patient reports she has had nausea/vomiting and diarrhea over the past 24 hours. The patient reports she almost "passed out" when she got home from dialysis. Onset: Today Duration: Constant Location: Reports: Generalized Quality: Reports: Other Severity: Moderate Improves with: Reports: None Worsens with: Reports: None Associated Symptoms: Reports: No Other Symptoms Chest Pain Score (Numeric/FACES): 2 - Related Data Allergies Allergy/AdvReac Type Severity Reaction Status Date / Time acetaminophen Allergy Rash Verified 06/06/17 19:07 [From Darvocet-N 100] aspirin Allergy Hives Verified 06/06/17 19:07 naproxen [From Naprosyn] Allergy Rash Verified 06/06/17 19:07 Penicillins Allergy Rash Verified 06/06/17 19:07 propoxyphene napsylate Allergy Rash Verified 06/06/17 19:07 [From Darvocet-N 100] Home Meds: Home Meds Insulin Aspart [NovoLOG] 6 units SQ TID 10/08/13 [History] Insulin Detemir [Levemir Flexpen] 10 unit SQ DAILY 10/08/13 [History] Rosuvastatin [Crestor] 20 mg PO BEDTIME 03/09/14 [History] Metoprolol Succinate 50 mg PO BID 05/20/14 [History] Furosemide [Lasix] 80 mg PO BID 07/03/14 [History] Sevelamer Carbonate 2 tab PO TID 07/03/14 [History] Lisinopril 5 mg PO DAILY 08/13/14 [History] amLODIPine [Norvasc] 2.5 mg PO DAILY 08/20/14 [History] Omeprazole [Omeprazole] 20 mg PO DAILY 06/02/15 [History] Vitamin B Complex 1 tab PO ASDIRECTED 06/02/15 [History] hydrALAZINE [Apresoline] 100 mg PO BID 01/26/16 [History] Past Medical History HEENT History: Reports: None Cardiovascular History: Reports: Heart Failure, Heart Murmur, High Cholesterol, Hypertension Respiratory History: Reports: PE Gastrointestinal History: Reports: GERD Genitourinary History: Reports: Acute Renal Failure, Chronic Renal Insuffiency, Dialysis, Renal Disease Neurological History: Reports: Neuropathy, Diabetic Psychiatric History: Reports: Anxiety Endocrine/Metabolic History: Reports: Diabetes, Type II, Obesity/BMI 30+ Hematologic History: Reports: Blood Transfusion(s) - Infectious Disease History Infectious Disease History: Reports: MRSA - Past Surgical History Female Surgical History: Reports: Section Musculoskeletal Surgical History: Reports: Other (See Below) Other Musculoskeletal Surgeries/Procedures:: Ankle surgery Social & Family History - Family History Family Medical History: Noncontributory Endocrine/Metabolic: Reports: Diabetes, type II - Tobacco Use Smoking Status *Q: Current Some Day Smoker Years of Tobacco use: 21 Packs/Tins Daily: 0.1 Used Tobacco, but Quit: No Month Tobacco Last Used: nov Second Hand Smoke Exposure: Yes - Caffeine Use Caffeine Use: Reports: Soda - Alcohol Use Days Per Week of Alcohol Use: 1 Number of Drinks Per Day: 6 Total Drinks Per Week: 6 - Recreational Drug Use Recreational Drug Use: Yes Drug Use in Last 12 Months: Yes Recreational Drug Type: Reports: Marijuana/Hashish Recreational Drug Use Frequency: Socially Recreational Drug Last Use: 02/29/2016 - Living Situation & Occupation Living situation: Reports: with Family Occupation: Disabled ED ROS GENERAL - Review of Systems Review Of Systems: ROS reveals no pertinent complaints other than HPI. ED EXAM, GENERAL - Physical Exam Exam: See Below Exam Limited By: No Limitations General Appearance: Alert, WD/WN, Mild Distress Eye Exam: Bilateral Eye: EOMI, Normal Inspection, PERRL Ears: Normal External Exam, Normal Canal, Hearing Grossly Normal, Normal TMs Nose: Normal Inspection, Normal Mucosa, No Blood Throat/Mouth: Normal Inspection, Normal Lips, Normal Teeth, Normal Gums, Normal Oropharynx, Normal Voice, No Airway Compromise Head: Atraumatic, Normocephalic Neck: Normal Inspection, Supple, Non-Tender, Full Range of Motion Respiratory/Chest: No Respiratory Distress, Lungs Clear, Normal Breath Sounds, No Accessory Muscle Use, Chest Non-Tender Cardiovascular: Normal Peripheral Pulses, Regular Rate, Rhythm, No Edema, No Gallop, No JVD, No Murmur, No Rub GI/Abdominal: Normal Bowel Sounds, Soft, Non-Tender, No Organomegaly, No Distention, No Abnormal Bruit, No Mass (Female) Exam: Deferred Rectal (Female) Exam: Deferred Back Exam: Normal Inspection, Full Range of Motion, NT Extremities: Normal Inspection, Normal Range of Motion, Non-Tender, Normal Capillary Refill, No Pedal Edema Neurological: Alert, Oriented, CN II-XII Intact, Normal Cognition, Normal Gait, Normal Reflexes, No Motor/Sensory Deficits Psychiatric: Normal Affect, Normal Mood Skin Exam: Warm, Dry, Intact, Normal Color, No Rash Lymphatic: No Adenopathy Course - Vital Signs Last Recorded V/S: Last Vital Signs Temp 36.7 C 06/16/17 12:35 Pulse 87 06/16/17 12:35 Resp 16 06/16/17 12:35 BP 94/58 L 06/16/17 12:35 Pulse Ox 97 06/16/17 12:35 Orthostatic Blood Pressure [ 89/56 Standing] Orthostatic Blood Pressure [ 100/59 Sitting] Orthostatic Blood Pressure [ 95/54 Supine] - Orders/Labs/Meds Labs: Laboratory Tests 06/16/17 06/16/17 Range/Units 12:59 12:59 WBC 5.3 (5.0-10.0) 10^3/uL RBC 4.83 (4.2-5.4) 10^6/uL Hgb 15.2 (12.0-16.0) g/dL Hct 47.0 (37.0-47.0) % MCV 97.3 (80-100) fL MCH 31.5 (27.0-34.0) pg MCHC 32.3 L (33.0-35.0) g/dL Plt Count 181 (150-450) 10^3/uL Neut % (Auto) 60.7 (42.2-75.2) % Lymph % (Auto) 24.4 (20.5-50.1) % [place] % (Auto) 10.7 H (2-8) % Eos % (Auto) 3.8 H (1.0-3.0) % Baso % (Auto) 0.4 (0.0-1.0) % Sodium 136 (135-145) mmol/L Potassium 4.5 (3.6-5.0) mmol/L Chloride 95 L (101-111) mmol/L Carbon Dioxide 26.0 (21.0-31.0) mmol/L Anion Gap 19.5 BUN 25 H D (7-18) mg/dL Creatinine 6.5 H D (0.6-1.3) mg/dL Est Cr Clr Drug Dosing TNP Estimated GFR (MDRD) 7 BUN/Creatinine Ratio 3.84 Glucose 200 H (74-105) mg/dL Calcium 7.6 L (8.4-10.2) mg/dl Total Bilirubin 0.7 (0.2-1.0) mg/dL AST 20 (10-42) IU/L ALT 15 (10-60) IU/L Alkaline Phosphatase 90 (42-121) IU/L Total Protein 8.2 (6.7-8.2) g/dl Albumin 3.8 (3.2-5.5) g/dl Globulin 4.4 Albumin/Globulin Ratio 0.86 Meds: Medications Discontinued Medications Generic Name Dose Route Start Last Admin Trade Name Freq PRN Reason Stop Dose Admin Ondansetron HCl 4 mg 06/16/17 13:12 06/16/17 13:17 Zofran Odt PO 06/16/17 13:13 4 mg ONETIME ONE Administration Departure - Departure Time of Disposition: 13:51 Disposition: Home, Self-Care 01 Condition: Fair Clinical Impression: Vasovagal near syncope - Discharge Information Instructions: Near-Syncope, [id number] Care Plan Goals: The patient was advised of the examination and lab results during the visit. The patient was encouraged to rest throughout the day. The patient should inform her dialysis nurses of her symptoms. If the patient has any additional symptoms or concerns, the patient should follow-up with her primary care facility or return to the emergency department.
[2017-06-16 13:49] VITALS: BP 94/58
== END 2017-06-16 14:08 | disposition home or self-care (01) ==
LOC: DL.ED 12:32
DX: R55 Syncope and collapse (principal); I13.0 Hypertensive heart and chronic kidney disease with heart failure and stage 1 through stage 4 chronic kidney disease, or unspecified chronic kidney disease; E11.22 Type 2 diabetes mellitus with diabetic chronic kidney disease; N18.9 Chronic kidney disease, unspecified; I50.9 Heart failure, unspecified; E11.40 Type 2 diabetes mellitus with diabetic neuropathy, unspecified; K21.9 Gastro-esophageal reflux disease without esophagitis; F17.210 Nicotine dependence, cigarettes, uncomplicated; Z99.2 Dependence on renal dialysis; Z79.4 Long term (current) use of insulin; Z79.899 Other long term (current) drug therapy; Z88.0 Allergy status to penicillin; Z88.6 Allergy status to analgesic agent; Z88.8 Allergy status to other drugs, medicaments and biological substances
CPT/HCPCS: 36415; 80053; 85025; 99284; A9270

== ENCOUNTER 2017-06-21 10:56 | Emergency (ER) | payer MEDICAID ==
[2017-06-21 11:13] VITALS: BP 98/55
--- NOTE | 2017-06-21 11:43 | EDM.PDOC ---
ED HPI GENERAL MEDICAL PROBLEM - General Chief Complaint: General Stated Complaint: [id number] FROM DIALYSIS Time Seen by Provider: 06/21/17 11:15 Source of Information: Reports: Patient, RN (from dialysis ) History Limitations: Reports: No Limitations - History of Present Illness INITIAL COMMENTS - FREE TEXT/NARRATIVE: This 41 yo female patient reports to the ED directly from dialysis due to chest pain, light headedness and low blood pressure. This is the patient's 5th visit to the ED in just over a 1 month time period related to post dialysis hypotension. The patient reported that her symptoms have mostly resolved. Onset: Today, Sudden Duration: Constant Location: Reports: Chest, Generalized Quality: Reports: Dull Severity: Moderate Improves with: Reports: Rest Worsens with: Reports: None Associated Symptoms: Reports: Chest Pain, Shortness of Breath, Syncope - Related Data Allergies Allergy/AdvReac Type Severity Reaction Status Date / Time acetaminophen Allergy Rash Verified 06/21/17 11:02 [From Darvocet-N 100] aspirin Allergy Hives Verified 06/21/17 11:02 naproxen [From Naprosyn] Allergy Rash Verified 06/21/17 11:02 Penicillins Allergy Rash Verified 06/21/17 11:02 propoxyphene napsylate Allergy Rash Verified 06/21/17 11:02 [From Darvocet-N 100] Home Meds: Home Meds Insulin Aspart [NovoLOG] 6 units SQ TID 10/08/13 [History] Insulin Detemir [Levemir Flexpen] 10 unit SQ DAILY 10/08/13 [History] Rosuvastatin [Crestor] 20 mg PO BEDTIME 03/09/14 [History] Metoprolol Succinate 50 mg PO BID 05/20/14 [History] Furosemide [Lasix] 80 mg PO BID 07/03/14 [History] Sevelamer Carbonate 2 tab PO TID 07/03/14 [History] Lisinopril 5 mg PO DAILY 08/13/14 [History] amLODIPine [Norvasc] 2.5 mg PO DAILY 08/20/14 [History] Omeprazole [Omeprazole] 20 mg PO DAILY 06/02/15 [History] Vitamin B Complex 1 tab PO ASDIRECTED 06/02/15 [History] hydrALAZINE [Apresoline] 100 mg PO BID 01/26/16 [History] Past Medical History HEENT History: Reports: None Cardiovascular History: Reports: Heart Failure, Heart Murmur, High Cholesterol, Hypertension Respiratory History: Reports: PE Gastrointestinal History: Reports: GERD Genitourinary History: Reports: Acute Renal Failure, Chronic Renal Insuffiency, Dialysis, Renal Disease Neurological History: Reports: Neuropathy, Diabetic Psychiatric History: Reports: Anxiety Endocrine/Metabolic History: Reports: Diabetes, Type II, Obesity/BMI 30+ Hematologic History: Reports: Blood Transfusion(s) - Infectious Disease History Infectious Disease History: Reports: MRSA - Past Surgical History Female Surgical History: Reports: Section Musculoskeletal Surgical History: Reports: Other (See Below) Other Musculoskeletal Surgeries/Procedures:: Ankle surgery Social & Family History - Family History Family Medical History: Noncontributory Endocrine/Metabolic: Reports: Diabetes, type II - Tobacco Use Smoking Status *Q: Current Some Day Smoker Years of Tobacco use: 25 Packs/Tins Daily: 0.5 Used Tobacco, but Quit: No Month Tobacco Last Used: nov Second Hand Smoke Exposure: Yes - Caffeine Use Caffeine Use: Reports: Coffee, Soda - Alcohol Use Days Per Week of Alcohol Use: 1 Number of Drinks Per Day: 6 Total Drinks Per Week: 6 - Recreational Drug Use Recreational Drug Use: Yes Drug Use in Last 12 Months: Yes Recreational Drug Type: Reports: Marijuana/Hashish Recreational Drug Use Frequency: Socially Recreational Drug Last Use: 02/29/2016 - Living Situation & Occupation Living situation: Reports: with Family Occupation: Disabled ED ROS GENERAL - Review of Systems Review Of Systems: ROS reveals no pertinent complaints other than HPI. ED EXAM, GENERAL - Physical Exam Exam: See Below Exam Limited By: No Limitations General Appearance: Alert, WD/WN, No Apparent Distress, Obese Eye Exam: Bilateral Eye: EOMI, Normal Inspection, PERRL Ears: Normal External Exam, Normal Canal, Hearing Grossly Normal, Normal TMs Nose: Normal Inspection, Normal Mucosa, No Blood Throat/Mouth: Normal Inspection, Normal Lips, Normal Teeth, Normal Gums, Normal Oropharynx, Normal Voice, No Airway Compromise Head: Atraumatic, Normocephalic Neck: Normal Inspection, Supple, Non-Tender, Full Range of Motion Respiratory/Chest: No Respiratory Distress, Lungs Clear, Normal Breath Sounds, No Accessory Muscle Use, Chest Non-Tender Cardiovascular: Normal Peripheral Pulses, Regular Rate, Rhythm, No Edema, No Gallop, No JVD, No Murmur, No Rub GI/Abdominal: Normal Bowel Sounds, Soft, Non-Tender, No Organomegaly, No Distention, No Abnormal Bruit, No Mass (Female) Exam: Deferred Rectal (Female) Exam: Deferred Back Exam: Normal Inspection, Full Range of Motion, NT Extremities: Normal Inspection, Normal Range of Motion, Non-Tender, Normal Capillary Refill, No Pedal Edema Neurological: Alert, Oriented, CN II-XII Intact, Normal Cognition, Normal Gait, Normal Reflexes, No Motor/Sensory Deficits Psychiatric: Normal Affect, Normal Mood Skin Exam: Warm, Dry, Intact, Normal Color, No Rash Lymphatic: No Adenopathy Course - Vital Signs Last Recorded V/S: Last Vital Signs Temp 36.5 C 06/21/17 11:10 Pulse 77 06/21/17 11:10 Resp 16 06/21/17 11:10 BP 98/55 L 06/21/17 11:10 Pulse Ox 100 06/21/17 11:10 Orthostatic Blood Pressure [ 107/61 Standing] Orthostatic Blood Pressure [ 100/65 Sitting] Orthostatic Blood Pressure [ 92/62 Supine] Departure - Departure Time of Disposition: 11:38 Disposition: Home, Self-Care 01 Condition: Fair Clinical Impression: CKD (chronic kidney disease) stage 4, GFR 15-29 ml/min Hypotension Qualifiers: Hypotension type: hemodialysis-associated hypotension Qualified Code(s): I95.3 - Hypotension of hemodialysis - Discharge Information Instructions: Hypotension, [id number], Near-Syncope, [id number] Forms: ED Department Discharge Care Plan Goals: The patient was advised of the examination results and the blood pressure readings during the visit. The patient reports her symptoms reversed while she was getting registered. The patient's blood pressure stabilized with no significant change between lying, sitting and standing. An attempt to contact dialyses was made during the visit to review the number of ED visits relating to dialysis. Spoke with nursing from the dialysis unit regarding concern for the patient's safety. If the patient has any additional symptoms or concerns, the patient should follow-up with her primary care facility or return to the emergency department.
== END 2017-06-21 11:45 | disposition home or self-care (01) ==
LOC: DL.ED 10:56
DX: I95.3 Hypotension of hemodialysis (principal); I13.0 Hypertensive heart and chronic kidney disease with heart failure and stage 1 through stage 4 chronic kidney disease, or unspecified chronic kidney disease; E11.22 Type 2 diabetes mellitus with diabetic chronic kidney disease; N18.4 Chronic kidney disease, stage 4 (severe); I50.9 Heart failure, unspecified; E11.40 Type 2 diabetes mellitus with diabetic neuropathy, unspecified; K21.9 Gastro-esophageal reflux disease without esophagitis; E78.00 Pure hypercholesterolemia, unspecified; F17.210 Nicotine dependence, cigarettes, uncomplicated; Z99.2 Dependence on renal dialysis; Z79.4 Long term (current) use of insulin; Z79.899 Other long term (current) drug therapy; Z88.0 Allergy status to penicillin; Z88.6 Allergy status to analgesic agent; Z88.8 Allergy status to other drugs, medicaments and biological substances
CPT/HCPCS: 99284

== ENCOUNTER 2017-08-16 02:41 | Emergency (ER) | payer MEDICARE, MEDICAID ==
[2017-08-16 02:57] VITALS: BP 192/74
--- NOTE | 2017-08-16 03:02 | EDM.PDOC ---
ED HPI GENERAL MEDICAL PROBLEM - General Chief Complaint: Chest Pain Stated Complaint: AMBULANCE Time Seen by Provider: 08/16/17 02:57 Source of Information: Reports: Patient History Limitations: Reports: No Limitations - History of Present Illness INITIAL COMMENTS - FREE TEXT/NARRATIVE: states been having constant sharp left chest pain since yesterday while taking a walk. has dialysis M-W-F but unable to wait till 6am to come in for check so called EMS. Left Anterior Chest Pain Score (Numeric/FACES): 7 - Related Data Allergies Allergy/AdvReac Type Severity Reaction Status Date / Time acetaminophen Allergy Rash Verified 08/16/17 02:58 [From Darvocet-N 100] aspirin Allergy Hives Verified 08/16/17 02:58 naproxen [From Naprosyn] Allergy Rash Verified 08/16/17 02:58 Penicillins Allergy Rash Verified 08/16/17 02:58 propoxyphene napsylate Allergy Rash Verified 08/16/17 02:58 [From Darvocet-N 100] Home Meds: Home Meds Insulin Aspart [NovoLOG] 6 units SQ TID 10/08/13 [History] Insulin Detemir [Levemir Flexpen] 10 unit SQ DAILY 10/08/13 [History] Rosuvastatin [Crestor] 20 mg PO BEDTIME 03/09/14 [History] Metoprolol Succinate 50 mg PO BID 05/20/14 [History] Furosemide [Lasix] 80 mg PO BID 07/03/14 [History] Sevelamer Carbonate 2 tab PO TID 07/03/14 [History] Lisinopril 5 mg PO DAILY 08/13/14 [History] amLODIPine [Norvasc] 2.5 mg PO DAILY 08/20/14 [History] Omeprazole [Omeprazole] 20 mg PO DAILY 06/02/15 [History] Vitamin B Complex 1 tab PO ASDIRECTED 06/02/15 [History] hydrALAZINE [Apresoline] 100 mg PO BID 01/26/16 [History] Past Medical History HEENT History: Reports: None Cardiovascular History: Reports: Heart Failure, Heart Murmur, High Cholesterol, Hypertension Respiratory History: Reports: PE Gastrointestinal History: Reports: GERD Genitourinary History: Reports: Acute Renal Failure, Chronic Renal Insuffiency, Dialysis, Renal Disease Neurological History: Reports: Neuropathy, Diabetic Psychiatric History: Reports: Anxiety Endocrine/Metabolic History: Reports: Diabetes, Type II, Obesity/BMI 30+ Hematologic History: Reports: Blood Transfusion(s) - Infectious Disease History Infectious Disease History: Reports: MRSA - Past Surgical History Female Surgical History: Reports: Section Musculoskeletal Surgical History: Reports: Other (See Below) Other Musculoskeletal Surgeries/Procedures:: Ankle surgery Social & Family History - Family History Family Medical History: Noncontributory Endocrine/Metabolic: Reports: Diabetes, type II - Tobacco Use Smoking Status *Q: Current Some Day Smoker Years of Tobacco use: 10 Packs/Tins Daily: 2 Used Tobacco, but Quit: No Month Tobacco Last Used: nov Second Hand Smoke Exposure: Yes - Caffeine Use Caffeine Use: Reports: Tea - Alcohol Use Days Per Week of Alcohol Use: 1 Number of Drinks Per Day: 6 Total Drinks Per Week: 6 - Recreational Drug Use Recreational Drug Use: No Drug Use in Last 12 Months: Yes Recreational Drug Type: Reports: Marijuana/Hashish Recreational Drug Use Frequency: Socially Recreational Drug Last Use: 02/29/2016 - Living Situation & Occupation Living situation: Reports: with Family Occupation: Disabled ED ROS GENERAL - Review of Systems Review Of Systems: ROS reveals no pertinent complaints other than HPI. ED EXAM, GENERAL - Physical Exam Exam: See Below Exam Limited By: No Limitations General Appearance: Alert, WD/WN, Anxious Ears: Hearing Grossly Normal Throat/Mouth: Normal Voice, No Airway Compromise Head: Atraumatic Neck: Non-Tender, Full Range of Motion Respiratory/Chest: No Respiratory Distress Cardiovascular: Regular Rate, Rhythm GI/Abdominal: Soft, Non-Tender Neurological: Alert, Oriented, Normal Cognition, Normal Gait, No Motor/Sensory Deficits Psychiatric: Anxious Skin Exam: Warm, Intact Lymphatic: No Adenopathy Course - Vital Signs Last Recorded V/S: Last Vital Signs Temp 36.0 C 08/16/17 02:46 Pulse 96 08/16/17 02:46 Resp 21 H 08/16/17 02:46 BP 192/74 H 08/16/17 02:46 Pulse Ox 98 08/16/17 02:46 - Orders/Labs/Meds Orders: Active Orders 24 hr Category Date Time Status EKG Documentation Completion [RC] STAT Care 08/16/17 02:44 Active Labs: Laboratory Tests 01/22/18 01/22/18 01/22/18 Range/Units 02:53 02:53 02:53 WBC 12.7 H (5.0-10.0) 10^3/uL RBC 4.25 (4.2-5.4) 10^6/uL Hgb 13.3 D (12.0-16.0) g/dL Hct 40.9 (37.0-47.0) % MCV 96.2 (80-100) fL MCH 31.3 (27.0-34.0) pg MCHC 32.5 L (33.0-35.0) g/dL Plt Count 183 (150-450) 10^3/uL Neut % (Auto) 77.6 H (42.2-75.2) % Lymph % (Auto) 13.6 L (20.5-50.1) % [place] % (Auto) 4.9 (2-8) % Eos % (Auto) 3.7 H (1.0-3.0) % Baso % (Auto) 0.2 (0.0-1.0) % Sodium 135 (135-145) mmol/L Potassium 5.5 H (3.6-5.0) mmol/L Chloride 98 L (101-111) mmol/L Carbon Dioxide 25.0 (21.0-31.0) mmol/L Anion Gap 17.5 BUN 50 H D (7-18) mg/dL Creatinine 9.1 H D (0.6-1.3) mg/dL Est Cr Clr Drug Dosing 7.46 mL/min Estimated GFR (MDRD) 5 BUN/Creatinine Ratio 5.49 Glucose 120 H (74-105) mg/dL Lactic Acid 1.5 (0.5-2.2) mmol/L Calcium 8.4 (8.4-10.2) mg/dl Total Bilirubin 1.0 (0.2-1.0) mg/dL AST 21 (10-42) IU/L ALT 13 (10-60) IU/L Alkaline Phosphatase 104 (42-121) IU/L Troponin I 0.03 H* (0.00-0.02) ng/ml Total Protein 7.8 (6.7-8.2) g/dl Albumin 3.9 (3.2-5.5) g/dl Globulin 3.9 Albumin/Globulin Ratio 1.00 Meds: Medications Discontinued Medications Generic Name Dose Route Start Last Admin Trade Name Paddy PRN Reason Stop Dose Admin Ondansetron HCl 4 mg 08/16/17 03:07 08/16/17 03:12 Zofran IV 08/16/17 03:08 4 mg ONETIME ONE Administration - Re-Assessments/Exams Free Text/Narrative Re-Assessment/Exam: 08/16/17 04:54 results discussed with pt who will be going to floor then to dialysis. Departure - Departure Time of Disposition: 05:20 Disposition: Home, Self-Care 01 Condition: Fair Clinical Impression: End stage renal disease on dialysis, Atypical chest pain Instructions: Nonspecific Chest Pain, [id number] Referrals: PCP,Unobtain [Primary Care Provider] - Forms: ED Department Discharge Additional Instructions: 1) follow up at clinic 2) recheck as needed - My Orders Last 24 Hours: My Active Orders 08/16/17 02:44 EKG Documentation Completion [RC] STAT - Assessment/Plan Last 24 Hours: My Active Orders 08/16/17 02:44 EKG Documentation Completion [RC] STAT
[2017-08-16] MEDS ORDERED: Ondansetron 4 MG/2 ML SDV IV ONE (03:07)
[2017-08-16 03:21] LABS: ANION GAP 17.5
--- NOTE | 2017-08-17 14:46 | EKG ---
08/16/2017- LATOYA JUNE - FINDINGS: EKG, per my reading, shows sinus tachycardia at the rate of 96. MODL /[id number]
== END 2017-08-16 05:20 | disposition home or self-care (01) ==
LOC: DL.ED 02:41
DX: R07.89 Other chest pain (principal); I13.2 Hypertensive heart and chronic kidney disease with heart failure and with stage 5 chronic kidney disease, or end stage renal disease; E11.22 Type 2 diabetes mellitus with diabetic chronic kidney disease; N18.6 End stage renal disease; I50.9 Heart failure, unspecified; Z99.2 Dependence on renal dialysis; K21.9 Gastro-esophageal reflux disease without esophagitis; F17.210 Nicotine dependence, cigarettes, uncomplicated; Z79.899 Other long term (current) drug therapy; Z79.4 Long term (current) use of insulin; Z88.0 Allergy status to penicillin; Z88.6 Allergy status to analgesic agent; Z88.8 Allergy status to other drugs, medicaments and biological substances
CPT/HCPCS: 36415; 71045; 80053; 83605; 84484; 85025; 93005; 93010; 96374; 99283; 99285; J2405

== ENCOUNTER 2017-12-26 15:33 | Emergency (ER) | payer MEDICAID, MEDICARE ==
[2017-12-26 15:59] VITALS: BP 158/97
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
[2017-12-26] MEDS: Bacitracin Oint 1 GM U/D Packet TOP ONE (17:46)
== END 2017-12-26 17:55 | disposition home or self-care (01) ==
LOC: DL.ED 15:33
DX: T20.03XA Burn of unspecified degree of chin, initial encounter (principal); T20.06XA Burn of unspecified degree of forehead and cheek, initial encounter; I13.0 Hypertensive heart and chronic kidney disease with heart failure and stage 1 through stage 4 chronic kidney disease, or unspecified chronic kidney disease; I50.9 Heart failure, unspecified; N18.9 Chronic kidney disease, unspecified; K21.9 Gastro-esophageal reflux disease without esophagitis; E11.40 Type 2 diabetes mellitus with diabetic neuropathy, unspecified; E78.00 Pure hypercholesterolemia, unspecified; F17.210 Nicotine dependence, cigarettes, uncomplicated; Z88.6 Allergy status to analgesic agent; Z88.0 Allergy status to penicillin; Z88.8 Allergy status to other drugs, medicaments and biological substances; Z79.4 Long term (current) use of insulin; Z79.899 Other long term (current) drug therapy; X10.1XXA Contact with hot food, initial encounter
CPT/HCPCS: 99282

== ENCOUNTER 2018-01-07 15:57 | Emergency (ER) | payer MEDICARE ==
[~2018-01-07 15:57] MED LIST: HYDROmorphone 0.5 MG/0.5 ML Syringe IVPUSH ONE; Ondansetron 8 MG in Sodium Chloride 0.9% 50 ML IV ONE; Sodium Chloride 0.9% 10 ML Syringe FLUSH PRN
[2018-01-07 16:05] VITALS: BP 149/63
--- NOTE | 2018-01-07 17:02 | CR ---
Clinical history: 42-year-old hypertensive, diabetic renal dialysis patient presents with chest pain. Interpretation: No acute new cardiopulmonary abnormality identified in the interval since 16 August 2017 or 19 May 2017. Reasonable inspiratory effort obese female with normal cardiac silhouette. No cephalization of flow o r new signs of alveolar edema. No dependent pleural fluid accumulation (effusion). No new lung mass, hilar lymphadenopathy, focal lobar pneumonia or atelectasis/collapse. No pneumothorax.
[2018-01-07] MEDS ORDERED: Ondansetron 4 MG Tab.DIS PO ONE (17:07)
[2018-01-07] MEDS ORDERED: HYDROmorphone 0.5 MG/0.5 ML Syringe SUBCUT ONE (17:07)
[2018-01-07] MEDS ORDERED: LORazepam 2 MG/ML Syringe IM ONE (17:50)
--- NOTE | 2018-01-07 23:11 | ER ---
SUBJECTIVE: The patient is a 42-year-old female with multiple chronic issues, including end-stage renal disease, she was just dialyzed. She comes in because she has abdominal crampy pain. It goes up into her abdomen, her midepigastric, and up into her chest somewhat as well. It is all one pain and not . She denies any falls or trauma. No fevers. No recent illness. She called an ambulance and comes in because of the above. She is anxious. She has had this before. PAST MEDICAL HISTORY: Significant for: 1. Heart failure. 2. Heart murmur. 3. Hyperlipidemia. 4. Hypertension. 5. End-stage renal disease, dialysis. 6. PE. 7. GERD. 8. C-sections. 9. Pregnancies. 10.Morbid obesity. 11.Diabetes. 12.Ankle surgery. 13.Blood transfusions. 14.AV fistula. 15.MRSA. 16.Anxiety. CURRENT MEDICINES: Include: 1. NovoLog 6 units subcutaneous t.i.d. 2. Levemir FlexPen 10 units subcutaneous daily. 3. Crestor 20 mg p.o. at bedtime. 4. Sevelamer 2 tablets p.o. t.i.d. 5. Amlodipine 2.5 mg p.o. daily. 6. Omeprazole 20 mg p.o. daily. 7. Vitamin B complex 1 tablet p.o. daily. 8. Hydralazine 100 mg p.o. b.i.d. 9. Losartan 25 mg p.o. daily. ALLERGIES: Tylenol and Darvocet, causes a rash. Naproxen causes a rash. Aspirin causes hives. Penicillin causes a rash. SOCIAL HISTORY: She denies alcohol. She does use tobacco and has done so for 20 years. She does take coffee. REVIEW OF SYSTEMS: No fevers. No shortness of breath. She does have the crampy abdominal and lower chest discomfort that came as a whole after being dialyzed. No new bowel or bladder changes or bleeding. No trauma or falls. She takes and tolerates her medicines okay. OBJECTIVE: Vital Signs: Height is 1.68 meters, weight is 115.2 kg. She is afebrile. Heart rate 76, blood pressure 149/63, respiratory rate 20, and oxygen 100% on room air. General: Morbidly obese. Comes in very anxious holding her abdomen, moaning back and forth. However, soon she falls asleep and is napping and quiet. The ER staff had to take care of an acute chest pain with her having a myocardial infarction. She remained stable with stable vitals. She is normocephalic and atraumatic. She initially is very anxious and then she relaxes. Chest: Clear. Cardiovascular: RRR. Abdomen: Morbidly obese. She does not have an acute abdomen. Once she relaxes and is napping, her abdomen was soft and fairly benign. She has some mild midepigastric tenderness. Skin: Clear. She appears older than stated age. EMERGENCY ROOM COURSE: She was given an injection of hydromorphone, also ondansetron, also lorazepam. An EKG was performed, it showed normal sinus rhythm, normal axis, she had some mild ST changes, nothing else of concern. Her workup also showed a normal white count, no anemia, differential unremarkable. Electrolytes are quite unremarkable with the exception of BUN and creatinine which was elevated to 33 and 6.7, respectively and as expected. Her glucose was elevated at 231. Her lactate was normal at 2.0. Her liver function tests were unremarkable. Her cardiac enzymes were also unremarkable. She could not give us a urine as she was just dialyzed today and does not always urinate. Overall, she remains stable and improved and ready for discharge. ASSESSMENT: 1. Abdominal pain cramping with some radiation to the chest after being dialyzed this morning. 2. End-stage renal disease with dialysis. 3. Anxiety, improved. PLAN: Discharged to home in stable and improved condition. Continue with meds. Stay with family. Follow up with PCP in clinic. Continue with dialysis. [facility] /[id number]
--- NOTE | 2018-01-11 07:19 | EKG ---
01/07/2018- LATOYA JUNE - FINDINGS: EKG, per my reading, shows sinus rhythm at the rate of 73. No acute ST changes. MODL /[id number]
== END 2018-01-07 18:21 ==
LOC: DL.ED 15:57
DX: F41.9 Anxiety disorder, unspecified (principal); R10.13 Epigastric pain; I13.2 Hypertensive heart and chronic kidney disease with heart failure and with stage 5 chronic kidney disease, or end stage renal disease; I50.9 Heart failure, unspecified; N18.6 End stage renal disease; E11.22 Type 2 diabetes mellitus with diabetic chronic kidney disease; K21.9 Gastro-esophageal reflux disease without esophagitis; E66.8 Other obesity; Z79.899 Other long term (current) drug therapy; Z88.8 Allergy status to other drugs, medicaments and biological substances; Z88.6 Allergy status to analgesic agent; Z88.0 Allergy status to penicillin; Z68.41 Body mass index [BMI] 40.0-44.9, adult
CPT/HCPCS: 36415; 71045; 80053; 82550; 82553; 83605; 83880; 84484; 85025; 93005; 96372; 99285; A9270; J1170; J2060; 93010

== ENCOUNTER 2018-03-12 16:12 | Emergency (ER) | payer MEDICARE ==
[2018-03-12 16:40] VITALS: BP 169/92
--- NOTE | 2018-03-12 17:24 | EDM.PDOC ---
ED HPI GENERAL MEDICAL PROBLEM - General Chief Complaint: Abdominal Pain Stated Complaint: BY AMBULANCE Time Seen by Provider: 03/12/18 17:01 Source of Information: Reports: Patient, EMS, EMS Notes Reviewed, RN, RN Notes Reviewed History Limitations: Reports: No Limitations - History of Present Illness INITIAL COMMENTS - FREE TEXT/NARRATIVE: Pt to ER per [facility] with c/o pain in the chest, left arm, back and has now moved to left leg. Pain began about lunch time. She states she had some cramping last evening as well in the right back. Patient states last dialysis was yesterday and she was taken to her dry weight. Patient admits to some N/V, chills, SOB with the CP. Denies diarrhea, fever. - Related Data Allergies Allergy/AdvReac Type Severity Reaction Status Date / Time acetaminophen Allergy Rash Verified 03/12/18 16:27 [From Darvocet-N 100] aspirin Allergy Hives Verified 03/12/18 16:27 naproxen [From Naprosyn] Allergy Rash Verified 03/12/18 16:27 Penicillins Allergy Rash Verified 03/12/18 16:27 propoxyphene napsylate Allergy Rash Verified 03/12/18 16:27 [From Darvocet-N 100] Home Meds: Home Meds Losartan [Cozaar] 25 mg PO DAILY 01/07/18 [History] Calcium Acetate [PhosLo] 3 cap PO TID 03/12/18 [History] Past Medical History HEENT History: Reports: None Cardiovascular History: Reports: Heart Failure, Heart Murmur, High Cholesterol, Hypertension Respiratory History: Reports: PE Gastrointestinal History: Reports: GERD Genitourinary History: Reports: Acute Renal Failure, Chronic Renal Insuffiency, Dialysis, Renal Disease Neurological History: Reports: Neuropathy, Diabetic Psychiatric History: Reports: Anxiety Endocrine/Metabolic History: Reports: Diabetes, Type II, Obesity/BMI 30+ Hematologic History: Reports: Blood Transfusion(s) - Infectious Disease History Infectious Disease History: Reports: MRSA - Past Surgical History Female Surgical History: Reports: Section Musculoskeletal Surgical History: Reports: Other (See Below) Other Musculoskeletal Surgeries/Procedures:: Ankle surgery Social & Family History - Family History Family Medical History: Noncontributory Endocrine/Metabolic: Reports: Diabetes, type II - Tobacco Use Smoking Status *Q: Current Every Day Smoker Years of Tobacco use: 20 Packs/Tins Daily: 0.5 - Caffeine Use Caffeine Use: Reports: Coffee, Soda - Living Situation & Occupation Living situation: Reports: with Family Occupation: Disabled ED ROS GENERAL - Review of Systems Review Of Systems: ROS reveals no pertinent complaints other than HPI. ED EXAM, GENERAL - Physical Exam Exam: See Below Exam Limited By: No Limitations General Appearance: Alert, WD/WN, Moderate Distress Eye Exam: Bilateral Eye: EOMI, Normal Inspection Ears: Normal External Exam, Hearing Grossly Normal Nose: Normal Inspection Throat/Mouth: Normal Inspection, Normal Voice, No Airway Compromise Head: Atraumatic, Normocephalic Neck: Normal Inspection, Supple, Non-Tender, Full Range of Motion Respiratory/Chest: No Respiratory Distress, No Accessory Muscle Use, Decreased Breath Sounds Cardiovascular: Normal Peripheral Pulses, Regular Rate, Rhythm, No Edema, No Gallop, No JVD, No Murmur, No Rub Peripheral Pulses: 2+: Radial (L), Radial (R) GI/Abdominal: Normal Bowel Sounds, Soft, Non-Tender, No Organomegaly, No Distention, No Abnormal Bruit, No Mass, Pelvis Stable (Female) Exam: Deferred Rectal (Female) Exam: Deferred Back Exam: Normal Inspection, Full Range of Motion Extremities: Normal Inspection, Normal Range of Motion, Non-Tender, No Pedal Edema, Normal Capillary Refill, Leg Pain (cramps on and off) Neurological: Alert, Oriented, CN II-XII Intact, Normal Cognition, Normal Gait, Normal Reflexes, No Motor/Sensory Deficits Psychiatric: Normal Affect, Normal Mood Skin Exam: Warm, Dry, Intact, Normal Color, No Rash Lymphatic: No Adenopathy EKG INTERPRETATION EKG Date: 03/12/18 Time: 16:29 Rhythm: NSR Rate (Beats/Min): 65 Comparison: No Change Course - Vital Signs Last Recorded V/S: Last Vital Signs Temp 98.3 F 03/12/18 16:39 Pulse 68 03/12/18 16:39 Resp 20 03/12/18 16:39 BP 169/92 H 03/12/18 16:39 Pulse Ox 100 03/12/18 16:39 - Orders/Labs/Meds Orders: Active Orders 24 hr Category Date Time Status EKG Documentation Completion [RC] STAT Care 03/12/18 16:33 Active HCG QUALITATIVE,URINE [URCHEM] Stat Lab 03/12/18 16:35 Ordered UA W/MICROSCOPIC [URIN] Stat Lab 03/12/18 16:33 Ordered Labs: Laboratory Tests 03/12/18 03/12/18 Range/Units 16:56 16:56 WBC 7.3 (5.0-10.0) 10^3/uL RBC 4.19 L (4.2-5.4) 10^6/uL Hgb 13.5 (12.0-16.0) g/dL Hct 41.8 (37.0-47.0) % MCV 99.8 (80-100) fL MCH 32.2 (27.0-34.0) pg MCHC 32.3 L (33.0-35.0) g/dL Plt Count 157 D (150-450) 10^3/uL Neut % (Auto) 62.4 (42.2-75.2) % Lymph % (Auto) 24.6 (20.5-50.1) % [place] % (Auto) 10.0 H (2-8) % Eos % (Auto) 2.7 (1.0-3.0) % Baso % (Auto) 0.3 (0.0-1.0) % Sodium 136 (135-145) mmol/L Potassium 4.5 (3.6-5.0) mmol/L Chloride 99 L (101-111) mmol/L Carbon Dioxide 23.0 (21.0-31.0) mmol/L Anion Gap 18.5 BUN 50 H (7-18) mg/dL Creatinine 8.1 H (0.6-1.3) mg/dL Est Cr Clr Drug Dosing 8.30 mL/min Estimated GFR (MDRD) 5 BUN/Creatinine Ratio 6.17 Glucose 132 H (74-105) mg/dL Calcium 7.5 L (8.4-10.2) mg/dl Total Bilirubin 0.5 (0.2-1.0) mg/dL AST 16 (10-42) IU/L ALT 11 (10-60) IU/L Alkaline Phosphatase 76 (42-121) IU/L Troponin I < 0.02 (0.00-0.02) ng/ml B-Natriuretic Peptide 233 H (0-100) pg/ml Total Protein 7.1 (6.7-8.2) g/dl Albumin 3.3 (3.2-5.5) g/dl Globulin 3.8 Albumin/Globulin Ratio 0.87 Amylase 57 (28-100) U/L Lipase 41 (22-51) U/L Meds: Medications Discontinued Medications Generic Name Dose Route Start Last Admin Trade Name Freq PRN Reason Stop Dose Admin Hydromorphone HCl 0.5 mg 03/12/18 18:03 03/12/18 18:10 Dilaudid IM 03/12/18 18:04 0.5 mg ONETIME ONE Administration - Radiology Interpretation Free Text/Narrative:: Portable Chest xray: IMPRESSION: Normal chest x-ray. Thank you for allowing us to participate in the care of your patient. Dictated and Authenticated by: Lev Hirsch MD 03/12/2018 5:17 PM Central Time ([place] & [place]) See rad report Departure - Departure Time of Disposition: 18:17 Disposition: Home, Self-Care 01 Condition: Fair Clinical Impression: Muscle cramping, CKD (chronic kidney disease) requiring chronic dialysis Instructions: Muscle Cramps and Spasms, [id number], Food Basics for Chronic Kidney Disease, Chronic Kidney Disease, Adult, [id number] Forms: ED Department Discharge Additional Instructions: Follow up with dialysis on Wednesday - My Orders Last 24 Hours: My Active Orders 03/12/18 16:33 EKG Documentation Completion [RC] STAT UA W/MICROSCOPIC [URIN] Stat 03/12/18 16:35 HCG QUALITATIVE,URINE [URCHEM] Stat - Assessment/Plan Last 24 Hours: My Active Orders 03/12/18 16:33 EKG Documentation Completion [RC] STAT UA W/MICROSCOPIC [URIN] Stat 03/12/18 16:35 HCG QUALITATIVE,URINE [URCHEM] Stat
[2018-03-12 17:25] LABS: ANION GAP 18.5; CHLORIDE,CL 99 mmol/L (101-111); SODIUM,NA 136 mmol/L (135-145)
[2018-03-12] MEDS ORDERED: HYDROmorphone 0.5 MG/0.5 ML Syringe IM ONE (18:03)
== END 2018-03-12 18:25 | disposition home or self-care (01) ==
LOC: DL.ED 16:12
DX: I13.2 Hypertensive heart and chronic kidney disease with heart failure and with stage 5 chronic kidney disease, or end stage renal disease (principal); E11.22 Type 2 diabetes mellitus with diabetic chronic kidney disease; N18.6 End stage renal disease; I50.9 Heart failure, unspecified; E11.40 Type 2 diabetes mellitus with diabetic neuropathy, unspecified; F17.210 Nicotine dependence, cigarettes, uncomplicated; E78.00 Pure hypercholesterolemia, unspecified; Z99.2 Dependence on renal dialysis; Z79.899 Other long term (current) drug therapy; Z88.6 Allergy status to analgesic agent; Z88.0 Allergy status to penicillin; Z88.8 Allergy status to other drugs, medicaments and biological substances
CPT/HCPCS: 36415; 71045; 80053; 82150; 83690; 83880; 84484; 85025; 93005; 93010; 96372; 99285; J1170; 99284

== ENCOUNTER 2018-04-17 21:39 | Emergency (ER) | payer MEDICARE ==
[2018-04-17 21:49] VITALS: BP 154/60
--- NOTE | 2018-04-17 21:53 | EDM.PDOC ---
ED HPI GENERAL MEDICAL PROBLEM - General Chief Complaint: Skin Complaint Stated Complaint: INFECTION ON STOMACH, SWOLLEN Time Seen by Provider: 04/17/18 21:50 Source of Information: Reports: Patient History Limitations: Reports: No Limitations - History of Present Illness INITIAL COMMENTS - FREE TEXT/NARRATIVE: s/p abscess removal from [facility] been hurting past few days got worse tonight. 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 Lower Abdomen Pain Score (Numeric/FACES): 7 - Related Data Allergies Allergy/AdvReac Type Severity Reaction Status Date / Time acetaminophen Allergy Rash Verified 04/17/18 21:45 [From Darvocet-N 100] aspirin Allergy Hives Verified 04/17/18 21:45 naproxen [From Naprosyn] Allergy Rash Verified 04/17/18 21:45 Penicillins Allergy Rash Verified 04/17/18 21:45 propoxyphene napsylate Allergy Rash Verified 04/17/18 21:45 [From Darvocet-N 100] Home Meds: Home Meds Losartan [Cozaar] 25 mg PO DAILY 01/07/18 [History] Calcium Acetate [PhosLo] 3 cap PO TID 03/12/18 [History] Past Medical History HEENT History: Reports: None Cardiovascular History: Reports: Heart Failure, Heart Murmur, High Cholesterol, Hypertension Respiratory History: Reports: PE Gastrointestinal History: Reports: GERD Genitourinary History: Reports: Acute Renal Failure, Chronic Renal Insuffiency, Dialysis, Renal Disease Neurological History: Reports: Neuropathy, Diabetic Psychiatric History: Reports: Anxiety Endocrine/Metabolic History: Reports: Diabetes, Type II, Obesity/BMI 30+ Hematologic History: Reports: Blood Transfusion(s) - Infectious Disease History Infectious Disease History: Reports: MRSA - Past Surgical History Female Surgical History: Reports: Section Musculoskeletal Surgical History: Reports: Other (See Below) Other Musculoskeletal Surgeries/Procedures:: Ankle surgery Social & Family History - Family History Family Medical History: Noncontributory Endocrine/Metabolic: Reports: Diabetes, type II - Caffeine Use Caffeine Use: Reports: Coffee, Soda - Living Situation & Occupation Living situation: Reports: with Family Occupation: Disabled ED ROS GENERAL - Review of Systems Review Of Systems: ROS reveals no pertinent complaints other than HPI. ED EXAM, SKIN/RASH Exam: See Below Exam Limited By: No Limitations General Appearance: Alert, WD/WN, Mild Distress, Other ([place]) Ears: Hearing Grossly Normal Throat/Mouth: Normal Voice, No Airway Compromise Head: Atraumatic Neck: Non-Tender, Full Range of Motion Respiratory/Chest: No Respiratory Distress Cardiovascular: Regular Rate, Rhythm GI/Abdominal: Other (cellulitis right lower abd) Neurological: Alert, Oriented, Normal Cognition, Normal Gait, No Motor/Sensory Deficits Psychiatric: Tearful Skin: Warm, Dry, Normal Color Location, Skin: Abdomen Associated features: Warmth, Tenderness, Inflammation, Weeping Course - Vital Signs Last Recorded V/S: Last Vital Signs Temp 36.4 C 04/17/18 21:48 Pulse 71 04/17/18 21:48 Resp 21 H 04/17/18 21:48 BP 154/60 H 04/17/18 21:48 Pulse Ox 100 04/17/18 21:48 - Orders/Labs/Meds Orders: Active Orders 24 hr Category Date Time Status CULTURE BLOOD [BC] Stat Lab 04/17/18 21:58 Received CULTURE WOUND [RM] Stat Lab 04/17/18 21:49 Received Labs: Laboratory Tests 04/17/18 04/17/18 04/17/18 Range/Units 21:58 21:58 21:58 WBC 9.7 (5.0-10.0) 10^3/uL RBC 3.86 L (4.2-5.4) 10^6/uL Hgb 12.7 (12.0-16.0) g/dL Hct 38.1 (37.0-47.0) % MCV 98.7 (80-100) fL MCH 32.9 (27.0-34.0) pg MCHC 33.3 (33.0-35.0) g/dL Plt Count 257 D (150-450) 10^3/uL Neut % (Auto) 71.5 (42.2-75.2) % Lymph % (Auto) 16.0 L (20.5-50.1) % [place] % (Auto) 9.7 H (2-8) % Eos % (Auto) 2.5 (1.0-3.0) % Baso % (Auto) 0.3 (0.0-1.0) % Sodium 131 L (135-145) mmol/L Potassium 5.5 H (3.6-5.0) mmol/L Chloride 94 L (101-111) mmol/L Carbon Dioxide 23.0 (21.0-31.0) mmol/L Anion Gap 19.5 BUN 52 H (7-18) mg/dL Creatinine 11.7 H D (0.6-1.3) mg/dL Est Cr Clr Drug Dosing 5.74 mL/min Estimated GFR (MDRD) 4 BUN/Creatinine Ratio 4.44 Glucose 214 H (74-105) mg/dL Lactic Acid 1.5 (0.5-2.2) mmol/L Calcium 7.9 L (8.4-10.2) mg/dl Total Bilirubin 0.8 (0.2-1.0) mg/dL AST 18 (10-42) IU/L ALT 11 (10-60) IU/L Alkaline Phosphatase 71 (42-121) IU/L Total Protein 7.6 (6.7-8.2) g/dl Albumin 3.0 L (3.2-5.5) g/dl Globulin 4.6 Albumin/Globulin Ratio 0.65 Meds: Medications Discontinued Medications Generic Name Dose Route Start Last Admin Trade Name Freq PRN Reason Stop Dose Admin Hydrocodone Bitart/Acetaminophen 1 tab 04/17/18 22:47 04/17/18 22:59 [place] 325-10 Mg PO 04/17/18 22:48 1 tab ONETIME ONE Administration Clindamycin Phosphate 900 mg/ 106 mls @ 200 mls/hr 04/17/18 22:42 04/17/18 22 :59 Sodium Chloride IV 04/17/18 23:13 200 mls/hr ONETIME ONE Administration - Re-Assessments/Exams Free Text/Narrative Re-Assessment/Exam: 04/17/18 22:48 results discussed with pt. Departure - Departure Time of Disposition: 23:41 Disposition: Home, Self-Care 01 Condition: Fair Clinical Impression: Cellulitis Qualifiers: Site of cellulitis: trunk Site of cellulitis of trunk: abdominal wall Qualified Code(s): L03.311 - Cellulitis of abdominal wall - Discharge Information Instructions: Cellulitis, Adult, [id number] Forms: ED Department Discharge Additional Instructions: 1) follow up with clinic 2) recheck as needed 3) keep wound clean dry covered rx given; clindamycin 150mg qid x 40 vicodin 5.325mg bid prn x 6 - My Orders Last 24 Hours: My Active Orders 04/17/18 21:49 CULTURE WOUND [RM] Stat 04/17/18 21:58 CULTURE BLOOD [BC] Stat - Assessment/Plan Last 24 Hours: My Active Orders 04/17/18 21:49 CULTURE WOUND [RM] Stat 04/17/18 21:58 CULTURE BLOOD [BC] Stat
[2018-04-17 22:28] LABS: ANION GAP 19.5
[2018-04-17] MEDS ORDERED: Clindamycin Phosphate 900 MG in Sodium Chloride 0.9% 100 ML IV ONE (22:42)
[2018-04-17] MEDS ORDERED: Acetaminophen/HYDROcodone 325-10 MG Tab PO ONE (22:47)
== END 2018-04-17 23:40 | disposition home or self-care (01) ==
LOC: EEVIPCON 21:39 → DL.ED 21:39
DX: L03.311 Cellulitis of abdominal wall (principal); I13.0 Hypertensive heart and chronic kidney disease with heart failure and stage 1 through stage 4 chronic kidney disease, or unspecified chronic kidney disease; N18.9 Chronic kidney disease, unspecified; E11.22 Type 2 diabetes mellitus with diabetic chronic kidney disease; E66.9 Obesity, unspecified; Z88.8 Allergy status to other drugs, medicaments and biological substances; Z88.0 Allergy status to penicillin
CPT/HCPCS: 36415; 80053; 83605; 85025; 87040; 87070; 96365; 99283; A9270; J3490; J7050; 87077; 87186

== ENCOUNTER 2019-03-27 11:04 | Emergency (ER) | payer MEDICARE, MEDICAID ==
[2019-03-27] MEDS ORDERED: Sodium Chloride 0.9% 10 ML Syringe FLUSH PRN (11:16)
[2019-03-27] MEDS ORDERED: Ondansetron 4 MG/2 ML SDV IV ONE ×2 (11:34→12:34)
[2019-03-27] MEDS: Nitroglycerin 0.4 MG Tab.SL SL PRN ×2 (11:35→11:46)
[2019-03-27 11:51] LABS: ANION GAP 15.3
[2019-03-27 11:54] VITALS: BP 170/99
[2019-03-27] MEDS ORDERED: Famotidine 20 MG/2 ML SDV IVPUSH ONE (12:33)
--- NOTE | 2019-03-27 12:40 | EDM.PDOC ---
Scribed by Suzy Adam 03/27/19 1126 for Kimo Dunlap MD ED HPI GENERAL MEDICAL PROBLEM - General Chief Complaint: Chest Pain Stated Complaint: HIGH BP, CHEST PAIN Time Seen by Provider: 03/27/19 11:06 Source of Information: Reports: Patient, Old Records, RN, RN Notes Reviewed History Limitations: Reports: No Limitations - History of Present Illness INITIAL COMMENTS - FREE TEXT/NARRATIVE: Patient presents to ER from dialysis with c/o high blood pressure and chest pain /pressure. Pt states she took her BP meds this morning prior to dialysis and her BP in dialysis was 217/72. She states that she began to develop chest pain while in dialysis. She denies shortness of breath, cough, fever, chills, palpitations, edema, or orthopnea. Pt states she had a fever last week associated with nausea and vomiting, but has been better the last several days. Yesterday she did become nauseated but had no other symptoms. Currently the pt states the chest pain/pressure has gone away, but she admits to mild nausea. Onset: Today, Gradual Duration: Constant Location: Reports: Chest Quality: Reports: Pressure Severity: Moderate Improves with: Reports: None Worsens with: Reports: None Associated Symptoms: Reports: No Other Symptoms Left Chest Pain Score (Numeric/FACES): 6 - Related Data Allergies Allergy/AdvReac Type Severity Reaction Status Date / Time aspirin Allergy Hives Verified 02/22/19 15:57 naproxen [From Naprosyn] Allergy Rash Verified 02/22/19 15:57 Penicillins Allergy Rash Verified 02/22/19 15:57 propoxyphene napsylate Allergy Rash Verified 02/22/19 15:57 [From Darvocet-N 100] Home Meds: Home Meds Losartan [Cozaar] 25 mg PO DAILY 01/07/18 [History] Calcium Acetate [PhosLo] 4 cap PO TID 03/12/18 [History] Calcium Carbonate 3 gm PO TID 02/22/19 [History] Sodium Polystyrene Sulfonate [Kayexalate] 15 gm PO ASDIRECTED 02/22/19 [History] Past Medical History HEENT History: Reports: None, Impaired Vision Other HEENT History: wears glasses Cardiovascular History: Reports: Heart Failure, Heart Murmur, High Cholesterol, Hypertension Respiratory History: Reports: PE Gastrointestinal History: Reports: GERD Genitourinary History: Reports: Acute Renal Failure, Chronic Renal Insuffiency, Dialysis, Renal Disease 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: Neurological History: Reports: Neuropathy, Diabetic Psychiatric History: Reports: Anxiety Endocrine/Metabolic History: Reports: Diabetes, Type II, Obesity/BMI 30+ Hematologic History: Reports: Blood Transfusion(s) Immunologic History: Reports: None Oncologic (Cancer) History: Reports: None Dermatologic History: Reports: Other (See Below) Other Dermatologic History: boil - Infectious Disease History Infectious Disease History: Reports: MRSA - Past Surgical History Female Surgical History: Reports: Section Musculoskeletal Surgical History: Reports: Other (See Below) Other Musculoskeletal Surgeries/Procedures:: Ankle surgery Social & Family History - Family History Family Medical History: Noncontributory Endocrine/Metabolic: Reports: Diabetes, type II - Caffeine Use Caffeine Use: Reports: None - Living Situation & Occupation Living situation: Reports: with Family Occupation: Disabled ED ROS GENERAL - Review of Systems Review Of Systems: ROS reveals no pertinent complaints other than HPI. ED EXAM, GENERAL - Physical Exam Exam: See Below Exam Limited By: No Limitations General Appearance: Alert, No Apparent Distress, Obese Eye Exam: Bilateral Eye: Normal Inspection Nose: Normal Inspection, Normal Mucosa, No Blood Throat/Mouth: Normal Inspection, Normal Lips, Normal Oropharynx, Normal Voice, No Airway Compromise Head: Atraumatic, Normocephalic Neck: Normal Inspection, Supple, Non-Tender, Full Range of Motion Respiratory/Chest: No Respiratory Distress, Lungs Clear, Normal Breath Sounds, No Accessory Muscle Use, Chest Non-Tender Cardiovascular: Regular Rate, Rhythm, No Edema GI/Abdominal: Normal Bowel Sounds, Soft, Non-Tender, No Distention, Other ( Benign obese abdomen) Back Exam: Normal Inspection Extremities: Normal Inspection, Non-Tender, No Pedal Edema. No: Joint Swelling Neurological: Alert, Oriented, CN II-XII Intact, No Motor/Sensory Deficits Psychiatric: Normal Mood Skin Exam: Warm, Dry, Intact, Normal Color EKG INTERPRETATION EKG Date: 03/27/19 Time: 11:05 Rhythm: Other (sinus rhythm) Rate (Beats/Min): 85 [place]: Normal P-Wave: Present QRS: Other (Late precordial R/S transition. LVH with secondary repolization abnormality.) ST-T: Other (anterior ST elevation, probably due to LVH.) QT: Normal Comparison: No Change Course - Vital Signs Last Recorded V/S: Last Vital Signs Temp 97.1 F 03/27/19 11:17 Pulse 83 03/27/19 11:17 Resp 16 03/27/19 11:17 BP 170/99 H 03/27/19 11:53 Pulse Ox 100 03/27/19 11:17 - Orders/Labs/Meds Orders: Active Orders 24 hr Category Date Time Status EKG 12 Lead [EKG Documentation Completion] [RC] STAT Care 03/27/19 11:15 Active Peripheral IV Care [RC] . DIRECTED Care 03/27/19 11:16 Active Chest 1V Frontal [CR] Stat Exams 03/27/19 11:15 Taken Nitroglycerin [Nitrostat] Med 03/27/19 11:22 Active 0.4 mg SL Q5M PRN Sodium Chloride 0.9% [Saline Flush] Med 03/27/19 11:16 Active 10 ml FLUSH ASDIRECTED PRN Peripheral IV Insertion Adult [OM.PC] Stat Oth 03/27/19 11:15 Ordered Medication Orders Nitroglycerin (Nitrostat) 0.4 mg SL Q5M PRN PRN Reason: Chest Pain Last Admin: 03/27/19 11:46 Dose: 0.4 mg Admin: 03/27/19 11:35 Dose: 0.4 mg Sodium Chloride (Saline Flush) 10 ml FLUSH ASDIRECTED PRN PRN Reason: Keep Vein Open Last Admin: 03/27/19 11:32 Dose: 10 ml Labs: Laboratory Tests 03/27/19 03/27/19 03/27/19 Range/Units 11:24 11:24 11:26 WBC 7.9 (5.0-10.0) 10^3/uL RBC 4.67 (4.2-5.4) 10^6/uL Hgb 14.6 (12.0-16.0) g/dL Hct 43.6 (37.0-47.0) % MCV 93.4 D (80-100) fL MCH 31.3 (27.0-34.0) pg MCHC 33.5 (33.0-35.0) g/dL Plt Count 199 (150-450) 10^3/uL Neut % (Auto) 79.2 H (42.2-75.2) % Lymph % (Auto) 11.7 L (20.5-50.1) % [place] % (Auto) 6.9 (2-8) % Eos % (Auto) 1.8 (1.0-3.0) % Baso % (Auto) 0.4 (0.0-1.0) % Sodium 135 (135-145) mmol/L Potassium 4.3 D (3.6-5.0) mmol/L Chloride 99 L (101-111) mmol/L Carbon Dioxide 25.0 (21.0-31.0) mmol/L Anion Gap 15.3 BUN 21 H (7-18) mg/dL Creatinine 6.7 H (0.6-1.3) mg/dL Est Cr Clr Drug Dosing 9.93 mL/min Estimated GFR (MDRD) 7 BUN/Creatinine Ratio 3.13 Glucose 189 H (74-105) mg/dL Calcium 9.4 (8.4-10.2) mg/dl Phosphorus 4.0 (2.5-4.6) mg/dL Magnesium 1.7 L (1.8-2.5) mg/dL Total Bilirubin 1.1 H (0.2-1.0) mg/dL AST 22 (10-42) IU/L ALT 16 (10-60) IU/L Alkaline Phosphatase 79 (42-121) IU/L Troponin I 0.03 H* (0.00-0.02) ng/ml B-Natriuretic Peptide 696 H (0-100) pg/ml Total Protein 7.9 (6.7-8.2) g/dl Albumin 3.6 (3.2-5.5) g/dl Globulin 4.3 Albumin/Globulin Ratio 0.84 Meds: Medications Generic Name Dose Route Start Last Admin Trade Name Freq PRN Reason Stop Dose Admin Nitroglycerin 0.4 mg 03/27/19 11:22 03/27/19 11:46 Nitrostat SL 0.4 mg Q5M PRN Administration Chest Pain Sodium Chloride 10 ml 03/27/19 11:16 03/27/19 11:32 Saline Flush FLUSH 10 ml ASDIRECTED PRN Administration Keep Vein Open Discontinued Medications Generic Name Dose Route Start Last Admin Trade Name Freq PRN Reason Stop Dose Admin Famotidine 20 mg 09/02/19 12:33 Pepcid IVPUSH 03/27/19 12:34 ONETIME ONE Ondansetron HCl 4 mg 03/27/19 11:34 03/27/19 11:37 Zofran IV 03/27/19 11:35 4 mg ONETIME ONE Administration Ondansetron HCl 4 mg 03/27/19 12:34 Zofran IV 03/27/19 12:35 ONETIME ONE Departure - Departure Time of Disposition: 12:35 Disposition: Home, Self-Care 01 Condition: Good Clinical Impression: Atypical chest pain, Nausea, Chronic hypertension, ESRD on hemodialysis Instructions: Nonspecific Chest Pain, [id number], Nausea, Adult, Hypertension Forms: ED Department Discharge Additional Instructions: Rx: Zofran 4mg Rx: Ranitidine 150mg Follow up with your doctor this week for blood pressure management. - My Orders Last 24 Hours: My Active Orders 03/27/19 11:15 EKG 12 Lead [EKG Documentation Completion] [RC] STAT Chest 1V Frontal [CR] Stat Peripheral IV Insertion Adult [OM.PC] Stat 03/27/19 11:16 Peripheral IV Care [RC] . DIRECTED Sodium Chloride 0.9% [Saline Flush] 10 ml FLUSH ASDIRECTED PRN 03/27/19 11:22 Nitroglycerin [Nitrostat] 0.4 mg SL Q5M PRN - Assessment/Plan Last 24 Hours: My Active Orders 03/27/19 11:15 EKG 12 Lead [EKG Documentation Completion] [RC] STAT Chest 1V Frontal [CR] Stat Peripheral IV Insertion Adult [OM.PC] Stat 03/27/19 11:16 Peripheral IV Care [RC] . DIRECTED Sodium Chloride 0.9% [Saline Flush] 10 ml FLUSH ASDIRECTED PRN 03/27/19 11:22 Nitroglycerin [Nitrostat] 0.4 mg SL Q5M PRN I have read and agree with the documentation that has been completed regarding this visit. By signing this record, I attest that the documentation was completed in my physical presence and is an accurate record of the encounter.
== END 2019-03-27 12:45 | disposition home or self-care (01) ==
LOC: DL.ED 11:04
DX: I13.2 Hypertensive heart and chronic kidney disease with heart failure and with stage 5 chronic kidney disease, or end stage renal disease (principal); N18.6 End stage renal disease; I50.9 Heart failure, unspecified; R11.0 Nausea; E11.22 Type 2 diabetes mellitus with diabetic chronic kidney disease; E11.40 Type 2 diabetes mellitus with diabetic neuropathy, unspecified; Z99.2 Dependence on renal dialysis; Z79.899 Other long term (current) drug therapy; Z88.6 Allergy status to analgesic agent; Z88.8 Allergy status to other drugs, medicaments and biological substances; Z88.0 Allergy status to penicillin
CPT/HCPCS: 36415; 71045; 80053; 83735; 83880; 84100; 84484; 85025; 93005; 96374; 96375; 96376; 99285; A9270; J2405; J3490

== ENCOUNTER 2019-05-06 22:07 | Emergency (ER) | payer MEDICARE, MEDICAID ==
[2019-05-06 22:44] LABS: ANION GAP 20.7
[2019-05-06] MEDS ORDERED: Furosemide 20 MG/2 ML VIAL IVPUSH ONE (23:39)
[2019-05-06] MEDS ORDERED: Sodium Polystyrene Sulfonate 15 GM/60 ML Susp 60 ML Bot PO ONE (23:39)
--- NOTE | 2019-05-06 23:47 | EDM.PDOC ---
ED HPI GENERAL MEDICAL PROBLEM - General Chief Complaint: Chest Pain Stated Complaint: AMBULANCE Time Seen by Provider: 05/06/19 23:42 Source of Information: Reports: Patient History Limitations: Reports: No Limitations - History of Present Illness INITIAL COMMENTS - FREE TEXT/NARRATIVE: states get dialysis M-W-F and missed yesterday due to snow closure of roads. c/ o CP-SOB- leg swelling tonight after doing some house cleaning. Left Anterior Chest Pain Score (Numeric/FACES): 6 - Related Data Allergies Allergy/AdvReac Type Severity Reaction Status Date / Time aspirin Allergy Hives Verified 02/22/19 15:57 naproxen [From Naprosyn] Allergy Rash Verified 02/22/19 15:57 Penicillins Allergy Rash Verified 02/22/19 15:57 propoxyphene napsylate Allergy Rash Verified 02/22/19 15:57 [From Darvocet-N 100] Home Meds: Home Meds Losartan [Cozaar] 25 mg PO DAILY 01/07/18 [History] Calcium Acetate [PhosLo] 4 cap PO TID 03/12/18 [History] Calcium Carbonate 3 gm PO TID 02/22/19 [History] Sodium Polystyrene Sulfonate [Kayexalate] 15 gm PO ASDIRECTED 02/22/19 [History] Past Medical History HEENT History: Reports: None, Impaired Vision Other HEENT History: wears glasses Cardiovascular History: Reports: Heart Failure, Heart Murmur, High Cholesterol, Hypertension Respiratory History: Reports: PE Gastrointestinal History: Reports: GERD Genitourinary History: Reports: Acute Renal Failure, Chronic Renal Insuffiency, Dialysis, Renal Disease C[employer]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: Neurological History: Reports: Neuropathy, Diabetic Psychiatric History: Reports: Anxiety Endocrine/Metabolic History: Reports: Diabetes, Type II, Obesity/BMI 30+ Hematologic History: Reports: Blood Transfusion(s) Immunologic History: Reports: None Oncologic (Cancer) History: Reports: None Dermatologic History: Reports: Other (See Below) Other Dermatologic History: boil - Infectious Disease History Infectious Disease History: Reports: MRSA - Past Surgical History Female Surgical History: Reports: Section Musculoskeletal Surgical History: Reports: Other (See Below) Other Musculoskeletal Surgeries/Procedures:: Ankle surgery Social & Family History - Family History Family Medical History: Noncontributory Endocrine/Metabolic: Reports: Diabetes, type II - Tobacco Use Smoking Status *Q: Current Some Day Smoker Years of Tobacco use: 33 Packs/Tins Daily: 2 - Caffeine Use Caffeine Use: Reports: Coffee - Recreational Drug Use Recreational Drug Use: No - Living Situation & Occupation Living situation: Reports: with Family Occupation: Disabled ED ROS GENERAL - Review of Systems Review Of Systems: ROS reveals no pertinent complaints other than HPI. ED EXAM, GENERAL - Physical Exam Exam: See Below Exam Limited By: No Limitations General Appearance: Alert, WD/WN, Anxious, Mild Distress, Other (upset) Ears: Hearing Grossly Normal Throat/Mouth: Normal Voice, No Airway Compromise Head: Atraumatic Neck: Non-Tender, Full Range of Motion Respiratory/Chest: No Respiratory Distress, No Accessory Muscle Use, Rhonchi. No: Decreased Breath Sounds Cardiovascular: Regular Rate, Rhythm GI/Abdominal: Soft, Non-Tender Extremities: Pedal Edema, Other (2+) Neurological: Alert, Oriented, Normal Cognition, No Motor/Sensory Deficits Psychiatric: Flat Affect Skin Exam: Warm, Dry, Normal Color Lymphatic: No Adenopathy Course - Vital Signs Last Recorded V/S: Last Vital Signs Temp 36.7 C 05/07/19 08:14 Pulse 72 05/07/19 08:14 Resp 20 05/07/19 08:14 BP 161/86 H 05/07/19 08:14 Pulse Ox 95 05/07/19 08:14 - Orders/Labs/Meds Labs: Laboratory Tests 05/06/19 05/06/19 Range/Units 22:18 22:18 WBC 8.0 (5.0-10.0) 10^3/uL RBC 3.91 L (4.2-5.4) 10^6/uL Hgb 12.2 D (12.0-16.0) g/dL Hct 37.4 (37.0-47.0) % MCV 95.7 (80-100) fL MCH 31.2 (27.0-34.0) pg MCHC 32.6 L (33.0-35.0) g/dL Plt Count 173 (150-450) 10^3/uL Neut % (Auto) 69.7 (42.2-75.2) % Lymph % (Auto) 17.4 L (20.5-50.1) % [place] % (Auto) 6.3 (2-8) % Eos % (Auto) 6.0 H (1.0-3.0) % Baso % (Auto) 0.6 (0.0-1.0) % Sodium 134 L (135-145) mmol/L Potassium 5.7 H (3.6-5.0) mmol/L Chloride 99 L (101-111) mmol/L Carbon Dioxide 20.0 L (21.0-31.0) mmol/L Anion Gap 20.7 BUN 87 H D (7-18) mg/dL Creatinine 11.7 H D (0.6-1.3) mg/dL Est Cr Clr Drug Dosing 5.68 mL/min Estimated GFR (MDRD) 4 BUN/Creatinine Ratio 7.43 Glucose 184 H (74-105) mg/dL Calcium 7.0 L D (8.4-10.2) mg/dl Total Bilirubin 0.6 (0.2-1.0) mg/dL AST 18 (10-42) IU/L ALT 13 (10-60) IU/L Alkaline Phosphatase 81 (42-121) IU/L Troponin I 0.03 H* (0.00-0.02) ng/ml B-Natriuretic Peptide 842 H (0-100) pg/ml Total Protein 6.9 (6.7-8.2) g/dl Albumin 3.4 (3.2-5.5) g/dl Globulin 3.5 Albumin/Globulin Ratio 0.97 Meds: Medications Discontinued Medications Generic Name Dose Route Start Last Admin Trade Name Freq PRN Reason Stop Dose Admin Furosemide 20 mg 05/06/19 23:39 05/06/19 23:52 Lasix IVPUSH 05/06/19 23:40 20 mg ONETIME ONE Administration Sodium Polystyrene Sulfonate 15 gm 05/06/19 23:39 05/06/19 23:53 Kayexalate PO 05/06/19 23:40 Not Given ONETIME ONE - Re-Assessments/Exams Free Text/Narrative Re-Assessment/Exam: 05/06/19 23:44 results discussed with pt who is feeling better presently. case discussed with Dr Guerrero @ who kindly accepted pt. Departure - Departure Time of Disposition: 08:40 Disposition: DC/Tfer to Acute Hospital 02 Reason for Transfer *Q: Other Condition: Fair Clinical Impression: CKD (chronic kidney disease) stage 4, GFR 15-29 ml/min, Chronic hypertension, Chest wall pain, CHF, Congestive heart failure, Hyperkalemia, diminished renal excretion, Anxiety about health Referrals: PCP,None [Primary Care Provider] - Forms: Interfacility Transfer JONELLE
[2019-05-07 08:15] VITALS: BP 161/86; PULSE 72
== END 2019-05-07 08:40 ==
LOC: DL.ED 22:07
DX: I13.0 Hypertensive heart and chronic kidney disease with heart failure and stage 1 through stage 4 chronic kidney disease, or unspecified chronic kidney disease (principal); I50.9 Heart failure, unspecified; E11.22 Type 2 diabetes mellitus with diabetic chronic kidney disease; N18.4 Chronic kidney disease, stage 4 (severe); F41.9 Anxiety disorder, unspecified; E87.5 Hyperkalemia; E11.40 Type 2 diabetes mellitus with diabetic neuropathy, unspecified; E66.9 Obesity, unspecified; Z68.42 Body mass index [BMI] 45.0-49.9, adult; Z86.711 Personal history of pulmonary embolism; E78.00 Pure hypercholesterolemia, unspecified; F17.210 Nicotine dependence, cigarettes, uncomplicated; Z88.6 Allergy status to analgesic agent; Z88.0 Allergy status to penicillin; Z88.8 Allergy status to other drugs, medicaments and biological substances; Z99.2 Dependence on renal dialysis
CPT/HCPCS: 36415; 71045; 80053; 83880; 84484; 85025; 93005; 96374; 99284; 99285; J1940

== ENCOUNTER 2019-08-16 05:38 | Emergency (ER) | payer MEDICARE, MEDICAID ==
--- NOTE | 2019-08-16 05:55 | EDM.PDOC ---
<Samira Smith - Last Filed: 08/16/19 07:47> ED HPI GENERAL MEDICAL PROBLEM - General Chief Complaint: Back Pain or Injury Stated Complaint: BACK PAIN AND DIZZY Time Seen by Provider: 08/16/19 05:55 Source of Information: Reports: Patient, RN, RN Notes Reviewed History Limitations: Reports: No Limitations - History of Present Illness INITIAL COMMENTS - FREE TEXT/NARRATIVE: patient presents to ER with complaint of right upper back pain, right flank pain , and dizziness. Patient states the pain began yesterday morning, states she took Tylenol throughout the day for the pain. Patient states this morning when she got up to go to dialysis she felt very dizzy, and that has not resolved. Patient is on chronic hemodialysis, running Wednesday, Wednesday, Fridays. Last dialysis run was on Wednesday of this week, dialysis nurses state the patient was 10 kg over her dry weight when she arrived at dialysis on Wednesday. Patient admits to a fever yesterday. Denies nausea, vomiting, diarrhea. Patient states she did have an IUD placed on August 01, and has been having cramping from that since then. Patient admits to a cough recently. patient states she has had kidney infections in the past. Patient is unsure if she will be able to give any urine as she urinated this morning a little bit, and generally only urinates about once every 4 days. Onset: Gradual Onset Date: 08/15/19 - Related Data Allergies Allergy/AdvReac Type Severity Reaction Status Date / Time aspirin Allergy Hives Verified 07/10/19 11:06 naproxen [From Naprosyn] Allergy Rash Verified 07/10/19 11:06 Penicillins Allergy Rash Verified 07/10/19 11:06 propoxyphene napsylate Allergy Rash Verified 07/10/19 11:06 [From Darvocet-N 100] Home Meds: Home Meds Losartan [Cozaar] 25 mg PO DAILY 01/07/18 [History] Calcium Acetate [PhosLo] 4 cap PO TID 03/12/18 [History] Calcium Carbonate 3 gm PO TID 02/22/19 [History] Sodium Polystyrene Sulfonate [Kayexalate] 15 gm PO ASDIRECTED 02/22/19 [History] Past Medical History HEENT History: Reports: None, Impaired Vision Other HEENT History: wears glasses Cardiovascular History: Reports: Heart Failure, Heart Murmur, High Cholesterol, Hypertension Respiratory History: Reports: PE Gastrointestinal History: Reports: GERD Genitourinary History: Reports: Acute Renal Failure, Chronic Renal Insuffiency, Dialysis, 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: Neurological History: Reports: Neuropathy, Diabetic Psychiatric History: Reports: Anxiety Endocrine/Metabolic History: Reports: Diabetes, Type II, Obesity/BMI 30+ Hematologic History: Reports: Blood Transfusion(s) Immunologic History: Reports: None Oncologic (Cancer) History: Reports: None Dermatologic History: Reports: Other (See Below) Other Dermatologic History: boil - Infectious Disease History Infectious Disease History: Reports: MRSA - Past Surgical History Female Surgical History: Reports: Section Musculoskeletal Surgical History: Reports: Other (See Below) Other Musculoskeletal Surgeries/Procedures:: Ankle surgery Social & Family History - Family History Family Medical History: Noncontributory Endocrine/Metabolic: Reports: Diabetes, type II - Caffeine Use Caffeine Use: Reports: Coffee, Soda - Living Situation & Occupation Living situation: Reports: with Family Occupation: Disabled ED ROS GENERAL - Review of Systems Review Of Systems: Comprehensive ROS is negative, except as noted in HPI. ED EXAM,LOWER BACK PAIN/INJURY - Physical Exam Exam: See Below Exam Limited By: No Limitations General Appearance: Alert, WD/WN, Mild Distress Eye Exam: Bilateral Eye: EOMI, Normal Inspection Ears: Normal External Exam, Hearing Grossly Normal Nose: Normal Inspection Throat/Mouth: Normal Inspection, Normal Voice, No Airway Compromise Head: Atraumatic, Normocephalic Neck: Normal Inspection, Supple, Non-Tender, Full Range of Motion Respiratory/Chest: No Respiratory Distress, No Accessory Muscle Use, Chest Non- Tender, Decreased Breath Sounds Cardiovascular: Normal Peripheral Pulses, Regular Rate, Rhythm, No Edema, No Gallop, No JVD, No Rub, Systolic Murmur GI/Abdominal: Normal Bowel Sounds, Soft, Tender (LLQ, RLQ, RUQ) (Female) Exam: Deferred Rectal (Female) Exam: Deferred Back Exam: Normal Inspection, CVA Tenderness (R) Extremities: Normal Inspection, Normal Range of Motion, Non-Tender, No Pedal Edema, Normal Capillary Refill, Other (upper arm fistula present) Neurological: Alert, Normal Mood/Affect, Normal Dorsiflexion, CN II-XII Intact, Normal Plantar Flexion, Normal Gait, Normal Reflexes, No Motor/Sensory Deficits , Oriented x 3 Psychiatric: Tearful Skin Exam: Warm, Dry, Intact, Normal Color, No Rash Lymphatic: No Adenopathy Course - Vital Signs Last Recorded V/S: Last Vital Signs Temp 97.6 F 08/16/19 05:55 Pulse 85 08/16/19 05:55 Resp 16 08/16/19 05:55 BP 180/91 H 08/16/19 05:55 Pulse Ox 97 08/16/19 05:55 - Orders/Labs/Meds Orders: Active Orders 24 hr Category Date Time Status EKG Documentation Completion [RC] STAT Care 08/16/19 06:01 Active Peripheral IV Care [RC] . DIRECTED Care 08/16/19 06:02 Active Abdomen Pelvis wo Cont [CT] Urgent Exams 08/16/19 07:42 Taken CULTURE BLOOD [BC] Stat Lab 08/16/19 06:10 Received CULTURE BLOOD [BC] Stat Lab 08/16/19 06:12 Results Blood Culture x2 Reflex Set [OM.PC] Stat Oth 08/16/19 06:02 Ordered Peripheral IV Insertion Adult [OM.PC] Stat Oth 08/16/19 06:01 Ordered Labs: Laboratory Tests 08/16/19 08/16/19 08/16/19 Range/Units 06:10 06:10 06:10 WBC 8.5 (5.0-10.0) 10^3/uL RBC 3.47 L (4.2-5.4) 10^6/uL Hgb 10.8 L (12.0-16.0) g/dL Hct 33.6 L (37.0-47.0) % MCV 96.8 (80-100) fL MCH 31.1 (27.0-34.0) pg MCHC 32.1 L (33.0-35.0) g/dL Plt Count 213 (150-450) 10^3/uL Neut % (Auto) 56.3 (42.2-75.2) % Lymph % (Auto) 26.9 (20.5-50.1) % [place] % (Auto) 8.0 (2-8) % Eos % (Auto) 7.7 H (1.0-3.0) % Baso % (Auto) 1.1 H (0.0-1.0) % Sodium 134 L (135-145) mmol/L Potassium 6.2 H D (3.6-5.0) mmol/L Chloride 99 L (101-111) mmol/L Carbon Dioxide 22.0 (21.0-31.0) mmol/L Anion Gap 19.2 BUN 82 H D (7-18) mg/dL Creatinine 11.2 H D (0.6-1.3) mg/dL Est Cr Clr Drug Dosing 5.94 mL/min Estimated GFR (MDRD) 4 BUN/Creatinine Ratio 7.32 Glucose 136 H (74-105) mg/dL Lactic Acid 0.6 (0.5-2.0) mmol/L Calcium 9.4 (8.4-10.2) mg/dl Total Bilirubin 0.7 (0.2-1.0) mg/dL AST 13 (10-42) IU/L ALT 10 (10-60) IU/L Alkaline Phosphatase 64 (42-121) IU/L Troponin I 0.03 H* (0.00-0.02) ng/ml B-Natriuretic Peptide 996 H (0-100) pg/ml Total Protein 7.5 (6.7-8.2) g/dl Albumin 3.7 (3.2-5.5) g/dl Globulin 3.8 Albumin/Globulin Ratio 0.97 Amylase 66 (28-100) U/L Lipase 50 (22-51) U/L Meds: Medications Discontinued Medications Generic Name Dose Route Start Last Admin Trade Name Freq PRN Reason Stop Dose Admin Fentanyl 50 mcg 08/16/19 07:42 08/16/19 07:52 Sublimaze IVPUSH 08/16/19 07:43 50 mcg ONETIME ONE Administration Sodium Chloride 10 ml 08/16/19 06:01 08/16/19 06:24 Saline Flush FLUSH 10 ml ASDIRECTED PRN Administration Keep Vein Open Departure - Departure Disposition: Home, Self-Care 01 Clinical Impression: Right flank pain, CKD (chronic kidney disease) stage 4, GFR 15-29 ml/min, Hyperkalemia - Discharge Information Instructions: Chronic Back Pain Forms: ED Department Discharge Additional Instructions: Follow up with dialysis today. Sepsis Event Note - Focused Exam Vital Signs: Vital Signs Temp Pulse Resp BP Pulse Ox 01/22/20 05:55 97.6 F 85 16 180/91 H 97 Date Exam was Performed: 08/16/19 Time Exam was Performed: 07:47 <Erick Gamez - Last Filed: 08/16/19 10:52> ED HPI GENERAL MEDICAL PROBLEM Right Lower Back Pain Score (Numeric/FACES): 2 Course - Radiology Interpretation Free Text/Narrative:: CT Abdomen And Pelvis Without Contrast IMPRESSION: 1. Nonspecific hepatomegaly. 2. No renal tract stones or hydronephrosis. Increased renal cortical thinning since the previous study. 3. Small left adrenal nodule, stable in the interval. This probably represents an adenoma. 4. Left sided adnexal density is probably an enlarged and possibly cystic ovary. Further evaluation with ultrasound might be helpful, if clinically indicated. - Re-Assessments/Exams Free Text/Narrative Re-Assessment/Exam: Exam and labs results reviewed with patient. Fetanyl 50 mcg administered. 08/16/19 08:52 Ct results reviewed with patient. Patient reports relief as a resolution of pain with fentanyl 50mcg. Recommended patient return to dialysis. Departure - Departure Time of Disposition: 09:35 Condition: Fair - Discharge Information *PRESCRIPTION DRUG MONITORING PROGRAM REVIEWED*: Not Applicable *COPY OF PRESCRIPTION DRUG MONITORING REPORT IN PATIENT LATHA: Not Applicable Sepsis Event Note - Focused Exam Date Exam was Performed: 08/16/19 Time Exam was Performed: 10:45
[2019-08-16 06:08] VITALS: BP 180/91; PULSE 85
[2019-08-16] MEDS: Sodium Chloride 0.9% 10 ML Syringe FLUSH PRN ×2 (06:23→06:24)
[2019-08-16 06:45] LABS: ANION GAP 19.2
[2019-08-16] MEDS ORDERED: fentaNYL 100 MCG/2 ML SDV IVPUSH ONE (07:42)
== END 2019-08-16 09:55 | disposition home or self-care (01) ==
LOC: DL.ED 05:38
DX: R10.9 Unspecified abdominal pain (principal); E87.5 Hyperkalemia; E11.22 Type 2 diabetes mellitus with diabetic chronic kidney disease; I13.0 Hypertensive heart and chronic kidney disease with heart failure and stage 1 through stage 4 chronic kidney disease, or unspecified chronic kidney disease; N18.4 Chronic kidney disease, stage 4 (severe); I50.9 Heart failure, unspecified; E66.9 Obesity, unspecified; Z88.6 Allergy status to analgesic agent; Z88.0 Allergy status to penicillin; Z88.8 Allergy status to other drugs, medicaments and biological substances; Z99.2 Dependence on renal dialysis; Z68.42 Body mass index [BMI] 45.0-49.9, adult; Z79.899 Other long term (current) drug therapy
CPT/HCPCS: 36415; 74176; 80053; 82150; 83605; 83690; 83880; 84484; 85025; 87040; 87804; 93005; 96374; 99284; J3010; 99283

== ENCOUNTER 2019-11-06 05:38 | Emergency (ER) | payer MEDICAID, MEDICARE ==
--- NOTE | 2019-11-06 06:18 | EDM.PDOC ---
ED HPI GENERAL MEDICAL PROBLEM - General Chief Complaint: General Stated Complaint: COUGH/CHEST COLD AND NECK IS HOT Time Seen by Provider: 11/06/19 06:14 Source of Information: Reports: Patient History Limitations: Reports: No Limitations - History of Present Illness INITIAL COMMENTS - FREE TEXT/NARRATIVE: sent from dialysis to r/o infection since pt just had port placed. pt states been having runny nose and might have a cold. denies fever/body aches. no cough. did take tylenol which helps. Left Neck Pain Score (Numeric/FACES): 7 - Related Data Allergies Allergy/AdvReac Type Severity Reaction Status Date / Time aspirin Allergy Hives Verified 11/06/19 06:30 naproxen [From Naprosyn] Allergy Rash Verified 11/06/19 06:30 Penicillins Allergy Rash Verified 11/06/19 06:30 propoxyphene napsylate Allergy Rash Verified 11/06/19 06:30 [From Darvocet-N 100] Home Meds: Home Meds Losartan [Cozaar] 25 mg PO DAILY 01/07/18 [History] Calcium Acetate [PhosLo] 4 cap PO TID 03/12/18 [History] Calcium Carbonate 3 gm PO TID 02/22/19 [History] Sodium Polystyrene Sulfonate [Kayexalate] 15 gm PO ASDIRECTED 02/22/19 [History] Past Medical History HEENT History: Reports: None, Impaired Vision Other HEENT History: wears glasses Cardiovascular History: Reports: Heart Failure, Heart Murmur, High Cholesterol, Hypertension Respiratory History: Reports: PE Gastrointestinal History: Reports: GERD Genitourinary History: Reports: Acute Renal Failure, Chronic Renal Insuffiency, Dialysis, 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: Neurological History: Reports: Neuropathy, Diabetic Psychiatric History: Reports: Anxiety Endocrine/Metabolic History: Reports: Diabetes, Type II, Obesity/BMI 30+ Hematologic History: Reports: Blood Transfusion(s) Immunologic History: Reports: None Oncologic (Cancer) History: Reports: None Dermatologic History: Reports: Other (See Below) Other Dermatologic History: boil - Infectious Disease History Infectious Disease History: Reports: MRSA - Past Surgical History Female Surgical History: Reports: Section Musculoskeletal Surgical History: Reports: Other (See Below) Other Musculoskeletal Surgeries/Procedures:: Ankle surgery Social & Family History - Family History Family Medical History: Noncontributory Endocrine/Metabolic: Reports: Diabetes, type II - Caffeine Use Caffeine Use: Reports: Coffee, Soda - Living Situation & Occupation Living situation: Reports: with Family Occupation: Disabled ED ROS GENERAL - Review of Systems Review Of Systems: Comprehensive ROS is negative, except as noted in HPI. ED EXAM, GENERAL - Physical Exam Exam: See Below Exam Limited By: No Limitations General Appearance: Alert, WD/WN, No Apparent Distress Ears: Hearing Grossly Normal Throat/Mouth: Normal Voice, No Airway Compromise Head: Atraumatic Neck: Non-Tender, Full Range of Motion Respiratory/Chest: No Respiratory Distress Cardiovascular: Regular Rate, Rhythm GI/Abdominal: Soft, Non-Tender Extremities: Other (left shoulder normal ROM, LUE NV wnl. port site without s/s cellulitis) Neurological: Alert, Oriented, Normal Cognition, Normal Gait, No Motor/Sensory Deficits Psychiatric: Normal Affect, Normal Mood Skin Exam: Warm, Dry, Normal Color Lymphatic: No Adenopathy Course - Vital Signs Last Recorded V/S: Last Vital Signs Temp 36.3 C 11/06/19 06:00 Pulse 98 11/06/19 06:00 Resp 20 11/06/19 06:00 BP 153/90 H 11/06/19 06:00 Pulse Ox 98 11/06/19 06:00 - Orders/Labs/Meds Orders: Active Orders 24 hr Category Date Time Status Chest 1V Frontal [CR] Urgent Exams 11/06/19 06:35 Taken Labs: Laboratory Tests 11/06/19 11/06/19 11/06/19 Range/Units 06:13 06:13 06:13 WBC 12.1 H (5.0-10.0) 10^3/uL RBC 3.44 L (4.2-5.4) 10^6/uL Hgb 11.2 L (12.0-16.0) g/dL Hct 33.6 L (37.0-47.0) % MCV 97.7 (80-100) fL MCH 32.6 (27.0-34.0) pg MCHC 33.3 (33.0-35.0) g/dL Plt Count 197 (150-450) 10^3/uL Neut % (Auto) 75.3 H (42.2-75.2) % Lymph % (Auto) 13.3 L (20.5-50.1) % [place] % (Auto) 8.1 H (2-8) % Eos % (Auto) 3.1 H (1.0-3.0) % Baso % (Auto) 0.2 (0.0-1.0) % Sodium 134 L (136-145) mmol/L Potassium 6.1 H (3.5-5.1) mmol/L Chloride 99 (98-107) mmol/L Carbon Dioxide 21 (21-32) mmol/L Anion Gap 20.1 H (7-13) mEq/L BUN 81 H (7-18) mg/dL Creatinine 12.41 H* (0.55-1.02) mg/dL Est Cr Clr Drug Dosing 5.30 mL/min Estimated GFR (MDRD) 3 BUN/Creatinine Ratio 6.5 (No establ ref range) Glucose 155 H (74-99) mg/dL Lactic Acid 0.8 (0.4-2.0) mmol/L Calcium 7.1 L (8.5-10.1) mg/dL Total Bilirubin 0.5 (0.2-1.0) mg/dL AST 12 L (15-37) U/L ALT 14 (14-59) U/L Alkaline Phosphatase 97 (46-116) U/L Total Protein 7.2 (6.4-8.2) g/dL Albumin 3.2 L (3.4-5.0) g/dL Globulin 4.0 Albumin/Globulin Ratio 0.80 - Re-Assessments/Exams Free Text/Narrative Re-Assessment/Exam: 11/06/19 06:53 results discussed with pt. Departure - Departure Time of Disposition: 06:53 Disposition: Home, Self-Care 01 Condition: Good Clinical Impression: CKD (chronic kidney disease) stage 4, GFR 15-29 ml/min Upper respiratory infection Qualifiers: URI type: unspecified URI Qualified Code(s): J06.9 - Acute upper respiratory infection, unspecified - Discharge Information Forms: ED Department Discharge Additional Instructions: 1) do dialysis today 2) recheck as needed Sepsis Event Note - Focused Exam Vital Signs: Vital Signs Temp Pulse Resp BP Pulse Ox 11/06/19 06:00 36.3 C 98 20 153/90 H 98 Date Exam was Performed: 04/13/20 Time Exam was Performed: 06:53 - My Orders Last 24 Hours: My Active Orders 11/06/19 06:35 Chest 1V Frontal [CR] Urgent - Assessment/Plan Last 24 Hours: My Active Orders 11/06/19 06:35 Chest 1V Frontal [CR] Urgent
[2019-11-06 06:21] VITALS: BP 153/90; PULSE 98
[2019-11-06 06:38] LABS: ANION GAP 20.1 mEq/L (7-13)
== END 2019-11-06 07:07 | disposition home or self-care (01) ==
LOC: DL.ED 05:38
DX: J06.9 Acute upper respiratory infection, unspecified (principal); I13.0 Hypertensive heart and chronic kidney disease with heart failure and stage 1 through stage 4 chronic kidney disease, or unspecified chronic kidney disease; N18.4 Chronic kidney disease, stage 4 (severe); I50.9 Heart failure, unspecified; E11.40 Type 2 diabetes mellitus with diabetic neuropathy, unspecified; E66.9 Obesity, unspecified; Z68.42 Body mass index [BMI] 45.0-49.9, adult; Z88.8 Allergy status to other drugs, medicaments and biological substances; Z88.0 Allergy status to penicillin; Z79.899 Other long term (current) drug therapy
CPT/HCPCS: 36415; 71045; 80053; 83605; 85025; 99282; 99283-25

== ENCOUNTER 2019-11-11 22:29 | Emergency (ER) | payer MEDICARE, OTHER ==
[2019-11-11 22:36] VITALS: BP 147/78; PULSE 93
--- NOTE | 2019-11-11 22:43 | EDM.PDOC ---
ED HPI GENERAL MEDICAL PROBLEM - General Chief Complaint: IV Access Related Stated Complaint: AMBULANCE Time Seen by Provider: 11/11/19 22:36 Source of Information: Reports: Patient History Limitations: Reports: No Limitations - History of Present Illness INITIAL COMMENTS - FREE TEXT/NARRATIVE: pt states was sleeping on her side and rolled over and pulled out dialysis cath. EMS arrived applying pressure and bleeding site has stopped for now. Treatments COLD MEAT CHEF: Reports: Dressing(s) Left Upper Chest Pain Score (Numeric/FACES): 5 - Related Data Allergies Allergy/AdvReac Type Severity Reaction Status Date / Time aspirin Allergy Hives Verified 11/06/19 06:30 naproxen [From Naprosyn] Allergy Rash Verified 11/06/19 06:30 Penicillins Allergy Rash Verified 11/06/19 06:30 propoxyphene napsylate Allergy Rash Verified 11/06/19 06:30 [From Darvocet-N 100] Home Meds: Home Meds Losartan [Cozaar] 25 mg PO DAILY 01/07/18 [History] Calcium Acetate [PhosLo] 4 cap PO TID 03/12/18 [History] Calcium Carbonate 3 gm PO TID 02/22/19 [History] Sodium Polystyrene Sulfonate [Kayexalate] 15 gm PO ASDIRECTED 02/22/19 [History] Past Medical History HEENT History: Reports: None, Impaired Vision Other HEENT History: wears glasses Cardiovascular History: Reports: Heart Failure, Heart Murmur, High Cholesterol, Hypertension Respiratory History: Reports: PE Gastrointestinal History: Reports: GERD Genitourinary History: Reports: Acute Renal Failure, Chronic Renal Insuffiency, Dialysis, 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: Neurological History: Reports: Neuropathy, Diabetic Psychiatric History: Reports: Anxiety Endocrine/Metabolic History: Reports: Diabetes, Type II, Obesity/BMI 30+ Hematologic History: Reports: Blood Transfusion(s) Immunologic History: Reports: None Oncologic (Cancer) History: Reports: None Dermatologic History: Reports: Other (See Below) Other Dermatologic History: boil - Infectious Disease History Infectious Disease History: Reports: MRSA - Past Surgical History Female Surgical History: Reports: Section Musculoskeletal Surgical History: Reports: Other (See Below) Other Musculoskeletal Surgeries/Procedures:: Ankle surgery Social & Family History - Family History Family Medical History: Noncontributory Endocrine/Metabolic: Reports: Diabetes, type II - Caffeine Use Caffeine Use: Reports: Coffee, Soda - Living Situation & Occupation Living situation: Reports: with Family Occupation: Disabled ED ROS GENERAL - Review of Systems Review Of Systems: Comprehensive ROS is negative, except as noted in HPI. ED EXAM, GENERAL - Physical Exam Exam: See Below Exam Limited By: No Limitations General Appearance: Alert, WD/WN, Mild Distress, Other (discomfort) Ears: Hearing Grossly Normal Throat/Mouth: Normal Voice, No Airway Compromise Head: Atraumatic Neck: Non-Tender, Full Range of Motion Respiratory/Chest: No Respiratory Distress Cardiovascular: Regular Rate, Rhythm GI/Abdominal: Soft, Non-Tender Extremities: Other (left clavic region potr-cath site with large clot after removal no further bleeding noted at present. NV wnl) Neurological: Alert, Oriented, Normal Cognition, No Motor/Sensory Deficits Psychiatric: Tearful Skin Exam: Warm, Dry, Normal Color Lymphatic: No Adenopathy Course - Vital Signs Last Recorded V/S: Last Vital Signs Temp 36.6 C 11/11/19 22:33 Pulse 93 11/11/19 22:33 Resp 20 11/11/19 22:33 BP 147/78 H 11/11/19 22:33 Pulse Ox 100 11/11/19 22:33 - Orders/Labs/Meds Orders: Active Orders 24 hr Category Date Time Status Chest 1V Frontal [CR] Urgent Exams 11/11/19 22:28 Ordered - Re-Assessments/Exams Free Text/Narrative Re-Assessment/Exam: 11/11/19 22:[address] Barnett @ [facility] who kindly accepted pt. Departure - Departure Time of Disposition: 22:43 Disposition: DC/Tfer to Acute Hospital 02 Condition: Good Clinical Impression: Encounter for care related to Port-a-Cath - Discharge Information Forms: Interfacility Transfer EMTAL[employer] Sepsis Event Note - Evaluation Sepsis Screening Result: No Definite Risk - Focused Exam Vital Signs: Vital Signs Temp Pulse Resp BP Pulse Ox 11/11/19 22:33 36.6 C 93 20 147/78 H 100 Date Exam was Performed: 11/11/19 Time Exam was Performed: 22:36 - My Orders Last 24 Hours: My Active Orders 11/11/19 22:28 Chest 1V Frontal [CR] Urgent - Assessment/Plan Last 24 Hours: My Active Orders 11/11/19 22:28 Chest 1V Frontal [CR] Urgent
[2019-11-11] MEDS ORDERED: fentaNYL 100 MCG/2 ML SDV IVPUSH ONE (23:13)
[2019-11-11 23:41] LABS: ANION GAP 17.1 mEq/L (7-13)
== END 2019-11-12 00:09 ==
LOC: DL.ED 22:29
DX: Z49.01 Encounter for fitting and adjustment of extracorporeal dialysis catheter (principal); I13.2 Hypertensive heart and chronic kidney disease with heart failure and with stage 5 chronic kidney disease, or end stage renal disease; E11.22 Type 2 diabetes mellitus with diabetic chronic kidney disease; N18.6 End stage renal disease; I50.9 Heart failure, unspecified; E11.40 Type 2 diabetes mellitus with diabetic neuropathy, unspecified; E66.9 Obesity, unspecified; Z88.8 Allergy status to other drugs, medicaments and biological substances; Z88.0 Allergy status to penicillin; Z79.899 Other long term (current) drug therapy
CPT/HCPCS: 36415; 71045; 80053; 85025; 96374; 99284; 99285; J3010

== ENCOUNTER 2020-01-10 10:01 | Emergency (ER) | payer MEDICARE ==
--- NOTE | 2020-01-10 10:34 | EDM.PDOC ---
ED HPI GENERAL MEDICAL PROBLEM - General Chief Complaint: Respiratory Problem Stated Complaint: AMBULANCE Time Seen by Provider: 01/10/20 10:20 Source of Information: Reports: Patient History Limitations: Reports: No Limitations - History of Present Illness INITIAL COMMENTS - FREE TEXT/NARRATIVE: This 44 yo female patient reports to the ED due to feeling lightheaded and dizzy after dialysis. The patient also reports she has been having back cramping with shortness of breath. The patient reports she has been eating more and drinking more fluids over the past week. The patient reports she had her normal dialysis run on Wednesday, had an additional run on Wednesday and had a 1/2 run today prior to symptom onset. The patient reports they were doing extra dialysis due to weight gain and increased fluids. The patient reports she was feeling normal at the time of examination. The patient reports she has had a non-productive cough and a runny nose over the past 3-4 days, but denies any fever or chills. The patient admits to smoking marijuana a couple of days ago, but denies any other drug or alcohol use. Onset: Today Duration: Improving Location: Reports: Chest, Abdomen, Back Quality: Reports: Other Severity: Moderate Improves with: Reports: None Worsens with: Reports: None Context: Reports: Other Associated Symptoms: Reports: Other (dizziness) Abdomen Pain Score (Numeric/FACES): 5 - Related Data Allergies Allergy/AdvReac Type Severity Reaction Status Date / Time aspirin Allergy Hives Verified 11/06/19 06:30 naproxen [From Naprosyn] Allergy Rash Verified 11/06/19 06:30 Penicillins Allergy Rash Verified 11/06/19 06:30 propoxyphene napsylate Allergy Rash Verified 11/06/19 06:30 [From Darvocet-N 100] Home Meds: Home Meds Losartan [Cozaar] 25 mg PO DAILY 01/07/18 [History] Calcium Acetate [PhosLo] 4 cap PO TID 03/12/18 [History] Calcium Carbonate 3 gm PO TID 02/22/19 [History] Sodium Polystyrene Sulfonate [Kayexalate] 15 gm PO ASDIRECTED 02/22/19 [History] Past Medical History HEENT History: Reports: None, Impaired Vision Other HEENT History: wears glasses Cardiovascular History: Reports: Heart Failure, Heart Murmur, High Cholesterol, Hypertension Respiratory History: Reports: PE Gastrointestinal History: Reports: GERD Genitourinary History: Reports: Acute Renal Failure, Chronic Renal Insuffiency, Dialysis, 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: Neurological History: Reports: Neuropathy, Diabetic Psychiatric History: Reports: Anxiety Endocrine/Metabolic History: Reports: Diabetes, Type II, Obesity/BMI 30+ Hematologic History: Reports: Blood Transfusion(s) Immunologic History: Reports: None Oncologic (Cancer) History: Reports: None Dermatologic History: Reports: Other (See Below) Other Dermatologic History: boil - Infectious Disease History Infectious Disease History: Reports: MRSA - Past Surgical History Female Surgical History: Reports: Section Musculoskeletal Surgical History: Reports: Other (See Below) Other Musculoskeletal Surgeries/Procedures:: Ankle surgery Social & Family History - Family History Family Medical History: Noncontributory Endocrine/Metabolic: Reports: Diabetes, type II - Caffeine Use Caffeine Use: Reports: Coffee, Soda - Living Situation & Occupation Living situation: Reports: with Family Occupation: Disabled ED ROS GENERAL - Review of Systems Review Of Systems: Comprehensive ROS is negative, except as noted in HPI. ED EXAM, GENERAL - Physical Exam Exam: See Below Exam Limited By: No Limitations General Appearance: Alert, WD/WN, Moderate Distress Eye Exam: Bilateral Eye: EOMI, Normal Inspection, PERRL Ears: Normal External Exam, Normal Canal, Hearing Grossly Normal, Normal TMs Nose: Normal Inspection, Normal Mucosa, No Blood Throat/Mouth: Normal Inspection, Normal Lips, Normal Teeth, Normal Gums, Normal Oropharynx, Normal Voice, No Airway Compromise Head: Atraumatic, Normocephalic Neck: Normal Inspection, Supple, Non-Tender, Full Range of Motion Respiratory/Chest: No Respiratory Distress, Lungs Clear, Normal Breath Sounds, No Accessory Muscle Use, Chest Non-Tender Cardiovascular: Normal Peripheral Pulses, Regular Rate, Rhythm, No Edema, No Gallop, No JVD, No Murmur, No Rub GI/Abdominal: Normal Bowel Sounds, Soft, Non-Tender, No Organomegaly, No Distention, No Abnormal Bruit, No Mass, Other (obese) (Female) Exam: Deferred Rectal (Female) Exam: Deferred Back Exam: Normal Inspection, Full Range of Motion, NT Extremities: Normal Inspection, Normal Range of Motion, Non-Tender, Normal Capillary Refill, No Pedal Edema Neurological: Alert, Oriented, CN II-XII Intact, Normal Cognition, Normal Gait, Normal Reflexes, No Motor/Sensory Deficits Psychiatric: Normal Affect, Normal Mood Skin Exam: Warm, Dry, Intact, Normal Color, No Rash Lymphatic: No Adenopathy Course - Vital Signs Last Recorded V/S: Last Vital Signs Temp 35.9 C L 01/10/20 10:19 Pulse 70 01/10/20 10:19 Resp 20 01/10/20 10:19 BP 90/67 01/10/20 10:19 Pulse Ox 100 01/10/20 10:19 - Orders/Labs/Meds Labs: Laboratory Tests 01/10/20 01/10/20 Range/Units 10:42 10:42 WBC 7.7 (5.0-10.0) 10^3/uL RBC 4.26 (4.2-5.4) 10^6/uL Hgb 13.5 D (12.0-16.0) g/dL Hct 42.0 (37.0-47.0) % MCV 98.6 (80-100) fL MCH 31.7 (27.0-34.0) pg MCHC 32.1 L (33.0-35.0) g/dL Plt Count 225 (150-450) 10^3/uL Neut % (Auto) 66.6 (42.2-75.2) % Lymph % (Auto) 19.5 L (20.5-50.1) % [place] % (Auto) 8.6 H (2-8) % Eos % (Auto) 4.6 H (1.0-3.0) % Baso % (Auto) 0.7 (0.0-1.0) % Sodium 138 (136-145) mmol/L Potassium 3.9 D (3.5-5.1) mmol/L Chloride 99 (98-107) mmol/L Carbon Dioxide 26 (21-32) mmol/L Anion Gap 16.9 H (7-13) mEq/L BUN 22 H D (7-18) mg/dL Creatinine 5.53 H* D (0.55-1.02) mg/dL Est Cr Clr Drug Dosing 11.90 mL/min Estimated GFR (MDRD) 8 BUN/Creatinine Ratio 4.0 (No establ ref range) Glucose 205 H (74-99) mg/dL Calcium 8.5 (8.5-10.1) mg/dL Total Bilirubin 0.7 (0.2-1.0) mg/dL AST 15 (15-37) U/L ALT 19 (14-59) U/L Alkaline Phosphatase 82 (46-116) U/L B-Natriuretic Peptide 167 H (0-100) pg/ml Total Protein 8.2 (6.4-8.2) g/dL Albumin 3.3 L (3.4-5.0) g/dL Globulin 4.9 g/dL Albumin/Globulin Ratio 0.67 Meds: Medications Discontinued Medications Generic Name Dose Route Start Last Admin Trade Name Freq PRN Reason Stop Dose Admin Cyclobenzaprine HCl 10 mg 01/10/20 11:43 Flexeril PO 01/10/20 11:44 ONETIME ONE Departure - Departure Time of Disposition: 11:44 Disposition: Home, Self-Care 01 Condition: Fair Clinical Impression: Muscle spasm of back - Discharge Information *PRESCRIPTION DRUG MONITORING PROGRAM REVIEWED*: Not Applicable *COPY OF PRESCRIPTION DRUG MONITORING REPORT IN PATIENT LATHA: Not Applicable Instructions: Muscle Cramps and Spasms, [id number] Forms: ED Department Discharge Care Plan Goals: The patient was advised of the examination and lab results during the visit. The patient was given an oral dose of Flexeril for the muscle spasms. Dialysis was called with the results for continued management. If the patient has any additional symptoms or concerns, the patient should either return to the emergency department or visit her primary care facility. Sepsis Event Note (ED) - Focused Exam Vital Signs: Vital Signs Temp Pulse Resp BP Pulse Ox 01/10/20 10:19 35.9 C L 70 20 90/67 100
[2020-01-10 10:40] VITALS: BP 90/67; PULSE 70
[2020-01-10 11:29] LABS: ANION GAP 16.9 mEq/L (7-13)
[2020-01-10] MEDS ORDERED: Cyclobenzaprine 10 MG Tab PO ONE (11:43)
== END 2020-01-10 12:15 | disposition home or self-care (01) ==
LOC: DL.ED 10:01
DX: M62.830 Muscle spasm of back (principal); I13.2 Hypertensive heart and chronic kidney disease with heart failure and with stage 5 chronic kidney disease, or end stage renal disease; E11.22 Type 2 diabetes mellitus with diabetic chronic kidney disease; N18.6 End stage renal disease; I50.9 Heart failure, unspecified; Z99.2 Dependence on renal dialysis; E11.40 Type 2 diabetes mellitus with diabetic neuropathy, unspecified; E66.9 Obesity, unspecified; Z68.41 Body mass index [BMI] 40.0-44.9, adult; Z88.8 Allergy status to other drugs, medicaments and biological substances; Z88.0 Allergy status to penicillin; Z79.899 Other long term (current) drug therapy
CPT/HCPCS: 36415; 80053; 83880; 85025; 99284; A9270

== ENCOUNTER 2020-01-10 16:59 | Emergency (ER) | payer MEDICARE, OTHER ==
[2020-01-10 17:35] VITALS: BP 111/56; PULSE 67
--- NOTE | 2020-01-10 17:46 | CR ---
PROCEDURE INFORMATION: Exam: XR Chest, 1 View Exam date and time: 01/10/2020 5:40 PM Age: 44 years old Clinical indication: Chest pain TECHNIQUE: Imaging protocol: XR of the chest Views: 1 view. COMPARISON: CR Chest 1V Frontal 11/11/2019 10:37 PM FINDINGS: Tubes, catheters and devices: Large bore left-sided central venous catheter with tip near junction of right atrium and superior vena cava. Lungs: No suspicious pulmonary nodules or areas of lung consolidation. Pleural space: Costophrenic angles are sharp. No pneumothorax. Heart/Mediastinum: Unremarkable. No cardiomegaly. Bones/joints: Age appropriate. IMPRESSION: 1. No active disease of the chest. 2. No significant interval change when compared to the CR Chest 1V Frontal 11/11/2019 10:37 PM.
[2020-01-10 18:16] LABS: ANION GAP 13.5 mEq/L (7-13); CHLORIDE,CL 99 mmol/L (98-107); SODIUM,NA 137 mmol/L (136-145)
[2020-01-10] MEDS ORDERED: Acetaminophen 325 MG Tab PO ONE (18:22)
--- NOTE | 2020-01-10 18:23 | EDM.PDOC ---
ED HPI GENERAL MEDICAL PROBLEM - General Chief Complaint: Chest Pain Stated Complaint: UNKNOWN Time Seen by Provider: 01/10/20 18:15 Source of Information: Reports: Patient History Limitations: Reports: No Limitations - History of Present Illness INITIAL COMMENTS - FREE TEXT/NARRATIVE: This 44 yo female patient was sent to the ED from the [facility] for her second visit today. The patient reported she was having chest pain while at the [facility]. During assessment, the patient reports she is having shortness of breath since this morning. The patient did have a full run of dialysis on Wednesday and Wednesday. The patient also had a 1/2 dialysis run today. The patient was reporting muscle spasms in her back this morning during the visit and was given a Flexeril. Onset: Today Duration: Intermittent Location: Reports: Chest Quality: Reports: Other Severity: Moderate Improves with: Reports: None Worsens with: Reports: None Context: Reports: Other Associated Symptoms: Reports: Shortness of Breath - Related Data Allergies Allergy/AdvReac Type Severity Reaction Status Date / Time aspirin Allergy Hives Verified 11/06/19 06:30 naproxen [From Naprosyn] Allergy Rash Verified 11/06/19 06:30 Penicillins Allergy Rash Verified 11/06/19 06:30 propoxyphene napsylate Allergy Rash Verified 11/06/19 06:30 [From Darvocet-N 100] Home Meds: Home Meds Losartan [Cozaar] 25 mg PO DAILY 01/07/18 [History] Calcium Acetate [PhosLo] 4 cap PO TID 03/12/18 [History] Calcium Carbonate 3 gm PO TID 02/22/19 [History] Sodium Polystyrene Sulfonate [Kayexalate] 15 gm PO ASDIRECTED 02/22/19 [History] Past Medical History HEENT History: Reports: None, Impaired Vision Other HEENT History: wears glasses Cardiovascular History: Reports: Heart Failure, Heart Murmur, High Cholesterol, Hypertension Respiratory History: Reports: PE Gastrointestinal History: Reports: GERD Genitourinary History: Reports: Acute Renal Failure, Chronic Renal Insuffiency, Dialysis, 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: Neurological History: Reports: Neuropathy, Diabetic Psychiatric History: Reports: Anxiety Endocrine/Metabolic History: Reports: Diabetes, Type II, Obesity/BMI 30+ Hematologic History: Reports: Blood Transfusion(s) Immunologic History: Reports: None Oncologic (Cancer) History: Reports: None Dermatologic History: Reports: Other (See Below) Other Dermatologic History: boil - Infectious Disease History Infectious Disease History: Reports: MRSA - Past Surgical History Female Surgical History: Reports: Section Musculoskeletal Surgical History: Reports: Other (See Below) Other Musculoskeletal Surgeries/Procedures:: Ankle surgery Social & Family History - Family History Family Medical History: Noncontributory Endocrine/Metabolic: Reports: Diabetes, type II - Caffeine Use Caffeine Use: Reports: Coffee, Soda - Living Situation & Occupation Living situation: Reports: with Family Occupation: Disabled ED ROS GENERAL - Review of Systems Review Of Systems: Comprehensive ROS is negative, except as noted in HPI. ED EXAM, GENERAL - Physical Exam Exam: See Below Exam Limited By: No Limitations General Appearance: Alert, WD/WN, Mild Distress, Obese, Other (The patient was sleeping when room was entered and appeared tired throughout the evaluation. ) Eye Exam: Bilateral Eye: EOMI, Normal Inspection, PERRL Ears: Normal External Exam, Normal Canal, Hearing Grossly Normal, Normal TMs Nose: Normal Inspection, Normal Mucosa, No Blood Throat/Mouth: Normal Inspection, Normal Lips, Normal Teeth, Normal Gums, Normal Oropharynx, Normal Voice, No Airway Compromise Head: Atraumatic, Normocephalic Neck: Normal Inspection, Supple, Non-Tender, Full Range of Motion Respiratory/Chest: No Respiratory Distress, Lungs Clear, Normal Breath Sounds, No Accessory Muscle Use, Chest Non-Tender Cardiovascular: Normal Peripheral Pulses, Regular Rate, Rhythm, No Edema, No Gallop, No JVD, No Murmur, No Rub GI/Abdominal: Normal Bowel Sounds, Soft, Non-Tender, No Organomegaly, No Distention, No Abnormal Bruit, No Mass (Female) Exam: Deferred Rectal (Female) Exam: Deferred Back Exam: Normal Inspection, Full Range of Motion, NT Extremities: Normal Inspection, Normal Range of Motion, Non-Tender, Normal Capillary Refill, No Pedal Edema Neurological: Alert, Oriented, CN II-XII Intact, Normal Cognition, Normal Gait, Normal Reflexes, No Motor/Sensory Deficits Psychiatric: Normal Affect, Normal Mood Skin Exam: Warm, Dry, Intact, Normal Color, No Rash Lymphatic: No Adenopathy Course - Orders/Labs/Meds Orders: Active Orders 24 hr Category Date Time Status EKG Documentation Completion [RC] STAT Care 01/10/20 17:23 Ordered CBC WITH AUTO DIFF [HEME] Stat Lab 01/10/20 17:23 Ordered COMPREHENSIVE METABOLIC PN,CMP [CHEM] Stat Lab 01/10/20 17:23 Ordered TROPONIN I [CHEM] Stat Lab 01/10/20 17:23 Ordered Departure - Departure Time of Disposition: 18:27 Disposition: Home, Self-Care 01 Condition: Fair Clinical Impression: Nonspecific chest pain Instructions: Nonspecific Chest Pain, Adult, [id number] Care Plan Goals: The patient was advised of the examination, lab, EKG and x-ray results during the visit. The patient was encouraged to rest throughout today. The patient was given an oral dose of Tylenol while in the ED. If the patient has any additional symptoms or concerns, the patient should either return to the emergency department or visit her primary care facility. - My Orders Last 24 Hours: My Active Orders 01/10/20 17:23 EKG Documentation Completion [RC] STAT CBC WITH AUTO DIFF [HEME] Stat COMPREHENSIVE METABOLIC PN,CMP [CHEM] Stat TROPONIN I [CHEM] Stat - Assessment/Plan Last 24 Hours: My Active Orders 01/10/20 17:23 EKG Documentation Completion [RC] STAT CBC WITH AUTO DIFF [HEME] Stat COMPREHENSIVE METABOLIC PN,CMP [CHEM] Stat TROPONIN I [CHEM] Stat
== END 2020-01-10 18:55 | disposition home or self-care (01) ==
LOC: DL.ED 16:59
DX: R07.9 Chest pain, unspecified (principal); I13.2 Hypertensive heart and chronic kidney disease with heart failure and with stage 5 chronic kidney disease, or end stage renal disease; E11.22 Type 2 diabetes mellitus with diabetic chronic kidney disease; N18.6 End stage renal disease; I50.9 Heart failure, unspecified; Z99.2 Dependence on renal dialysis; E11.40 Type 2 diabetes mellitus with diabetic neuropathy, unspecified; E66.9 Obesity, unspecified; Z88.0 Allergy status to penicillin; Z88.8 Allergy status to other drugs, medicaments and biological substances; Z79.899 Other long term (current) drug therapy; M62.830 Muscle spasm of back
CPT/HCPCS: 36415; 71045; 80053; 83880; 84484; 85025; 93005; 99283; 99284; 99285; A9270

== ENCOUNTER 2020-03-01 17:47 | Emergency (ER) | payer MEDICARE, OTHER ==
[2020-03-01] MEDS ORDERED: Ondansetron 4 MG Tab.DIS PO ONE (17:48)
[2020-03-01 18:00] VITALS: BP 184/93; PULSE 74
--- NOTE | 2020-03-01 18:55 | CR ---
PROCEDURE INFORMATION: Exam: XR Chest, 1 View Exam date and time: 03/01/2020 6:45 PM Age: 44 years old Clinical indication: Other: HX esrd on dialysis; Additional info: Covid infection, shortness of breath TECHNIQUE: Imaging protocol: XR of the chest Views: 1 view. COMPARISON: CR Chest 1V Frontal 01/10/2020 5:40 PM FINDINGS: Tubes, catheters and devices: Left-sided central catheter is in place with the tip overlying the right atrium. Lungs: Atelectatic and/or early infiltrative changes noted within both lung bases. Pleural space: Unremarkable. No pleural effusion. No pneumothorax. Heart/Mediastinum: The heart demonstrates mild diffuse enlargement. Bones/joints: Unremarkable. IMPRESSION: Atelectatic and/or early infiltrative changes noted within both lung bases.
--- NOTE | 2020-03-01 19:20 | EDM.PDOC ---
ED HPI GENERAL MEDICAL PROBLEM - General Chief Complaint: Respiratory Problem Stated Complaint: COVID POS Time Seen by Provider: 03/01/20 19:17 Source of Information: Reports: Patient, RN Notes Reviewed History Limitations: Reports: No Limitations - History of Present Illness INITIAL COMMENTS - FREE TEXT/NARRATIVE: ED with c/o feeling SOB, Sent from dialysis. Known COVID positive, tested on Wednesday. Reports weakness and SOB with activity. No fever, Diarrhea, vomited x 2 today. Taking tylenol for discomfort. Had full dialysis run today. Middle Back Pain Score (Numeric/FACES): 4 - Related Data Allergies Allergy/AdvReac Type Severity Reaction Status Date / Time aspirin Allergy Hives Verified 11/06/19 06:30 naproxen [From Naprosyn] Allergy Rash Verified 11/06/19 06:30 Penicillins Allergy Rash Verified 11/06/19 06:30 propoxyphene napsylate Allergy Rash Verified 11/06/19 06:30 [From Darvocet-N 100] Home Meds: Home Meds Losartan [Cozaar] 25 mg PO DAILY 01/07/18 [History] Calcium Acetate [PhosLo] 4 cap PO TID 03/12/18 [History] Calcium Carbonate 3 gm PO TID 02/22/19 [History] Sodium Polystyrene Sulfonate [Kayexalate] 15 gm PO ASDIRECTED 02/22/19 [History] Past Medical History HEENT History: Reports: None, Impaired Vision Other HEENT History: wears glasses Cardiovascular History: Reports: Heart Failure, Heart Murmur, High Cholesterol, Hypertension Respiratory History: Reports: PE Gastrointestinal History: Reports: GERD Genitourinary History: Reports: Acute Renal Failure, Chronic Renal Insuffiency, Dialysis, 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: Neurological History: Reports: Neuropathy, Diabetic Psychiatric History: Reports: Anxiety Endocrine/Metabolic History: Reports: Diabetes, Type II, Obesity/BMI 30+ Hematologic History: Reports: Blood Transfusion(s) Immunologic History: Reports: None Oncologic (Cancer) History: Reports: None Dermatologic History: Reports: Other (See Below) Other Dermatologic History: boil - Infectious Disease History Infectious Disease History: Reports: MRSA - Past Surgical History Female Surgical History: Reports: Section Musculoskeletal Surgical History: Reports: Other (See Below) Other Musculoskeletal Surgeries/Procedures:: Ankle surgery Social & Family History - Family History Family Medical History: Noncontributory Endocrine/Metabolic: Reports: Diabetes, type II - Tobacco Use Smoking Status *Q: Current Every Day Smoker Years of Tobacco use: 20 Packs/Tins Daily: 0.5 - Caffeine Use Caffeine Use: Reports: None - Recreational Drug Use Recreational Drug Use: Yes Drug Use in Last 12 Months: Yes Recreational Drug Type: Reports: Marijuana/Hashish Recreational Drug Use Frequency: Rarely - Living Situation & Occupation Living situation: Reports: with Family Occupation: Disabled ED ROS GENERAL - Review of Systems Review Of Systems: Comprehensive ROS is negative, except as noted in HPI. ED EXAM, GENERAL - Physical Exam Exam: See Below Exam Limited By: No Limitations General Appearance: Alert, No Apparent Distress Eye Exam: Bilateral Eye: EOMI Ears: Normal External Exam, Normal TMs Nose: Normal Inspection Throat/Mouth: Normal Inspection, Normal Lips, Normal Voice, No Airway Compromise Head: Atraumatic, Normocephalic Neck: Normal Inspection Respiratory/Chest: No Respiratory Distress, No Accessory Muscle Use, Chest Non- Tender, Decreased Breath Sounds (bilateral bases), Wheezing (end pahse right base after coughing episode) Cardiovascular: Normal Peripheral Pulses, Regular Rate, Rhythm GI/Abdominal: Normal Bowel Sounds, Soft Neurological: Alert, Oriented Psychiatric: Normal Affect, Normal Mood Skin Exam: Warm, Dry, Intact, Normal Color Course - Vital Signs Last Recorded V/S: Last Vital Signs Temp 97.9 F 03/01/20 17:58 Pulse 74 03/01/20 17:58 Resp 18 03/01/20 17:58 BP 184/93 H 03/01/20 17:58 Pulse Ox 98 03/01/20 17:58 - Orders/Labs/Meds Labs: Laboratory Tests 03/01/20 03/01/20 03/01/20 Range/Units 18:35 18:35 18:35 WBC 4.9 L (5.0-10.0) 10^3/uL RBC 4.56 (4.2-5.4) 10^6/uL Hgb 13.9 (12.0-16.0) g/dL Hct 42.8 (37.0-47.0) % MCV 93.9 D (80-100) fL MCH 30.5 (27.0-34.0) pg MCHC 32.5 L (33.0-35.0) g/dL Plt Count 172 (150-450) 10^3/uL Neut % (Auto) 66.8 (42.2-75.2) % Lymph % (Auto) 19.1 L (20.5-50.1) % [place] % (Auto) 11.5 H (2-8) % Eos % (Auto) 2.0 (1.0-3.0) % Baso % (Auto) 0.6 (0.0-1.0) % Sodium 135 L (136-145) mmol/L Potassium 4.5 (3.5-5.1) mmol/L Chloride 97 L (98-107) mmol/L Carbon Dioxide 22 (21-32) mmol/L Anion Gap 20.5 H (7-13) mEq/L BUN 34 H (7-18) mg/dL Creatinine 9.62 H* D (0.55-1.02) mg/dL Est Cr Clr Drug Dosing 6.84 mL/min Estimated GFR (MDRD) 4 BUN/Creatinine Ratio 3.5 (No establ ref range) Glucose 161 H (74-99) mg/dL Calcium 8.4 L (8.5-10.1) mg/dL Total Bilirubin 0.5 (0.2-1.0) mg/dL AST 21 (15-37) U/L ALT 17 (14-59) U/L Alkaline Phosphatase 103 (46-116) U/L C-Reactive Protein 5.7 H (0.0-0.9) mg/dL B-Natriuretic Peptide 313 H (0-100) pg/ml Total Protein 7.3 (6.4-8.2) g/dL Albumin 3.0 L (3.4-5.0) g/dL Globulin 4.3 g/dL Albumin/Globulin Ratio 0.70 Meds: Medications Discontinued Medications Generic Name Dose Route Start Last Admin Trade Name Freq PRN Reason Stop Dose Admin Ondansetron HCl Confirm 03/01/20 21:00 Zofran Odt Administered 03/01/20 21:01 Dose 12 mg .ROUTE .STK-MED ONE - Re-Assessments/Exams Free Text/Narrative Re-Assessment/Exam: 03/02/20 03:49 oxygenation maintained in upper 90's. Does not drop with activity. Discussed symptom management. Continue tylenol, zofran for nausea vomiting, follow up if symptoms worsen. Departure - Departure Time of Disposition: 20:51 Disposition: Home, Self-Care 01 Condition: Fair Clinical Impression: ESRD on hemodialysis, COVID-19 Vomiting Qualifiers: Vomiting type: bilious vomiting Nausea presence: with nausea Qualified Code(s): R11.14 - Bilious vomiting - Discharge Information *PRESCRIPTION DRUG MONITORING PROGRAM REVIEWED*: No *COPY OF PRESCRIPTION DRUG MONITORING REPORT IN PATIENT LATHA: No Instructions: Nausea and Vomiting, Adult, COVID-19: How to Protect Yourself and Others - [facility] Referrals: PCP,None [Primary Care Provider] - Forms: ED Department Discharge Additional Instructions: rest tylenol every 4 hours as needed for fever/ discomfort follow up symptoms worsen zofran 4mg OD one every 4 hours as needed for nausea #13 Sepsis Event Note (ED) - Evaluation Sepsis Screening Result: No Definite Risk - Focused Exam Vital Signs: Vital Signs Temp Pulse Resp BP Pulse Ox 03/01/20 17:58 97.9 F 74 18 184/93 H 98
[2020-03-01 19:43] LABS: ANION GAP 20.5 mEq/L (7-13)
[2020-03-01] MEDS ORDERED: Ondansetron 4 MG Tab.DIS ONE (21:00)
== END 2020-03-01 21:20 | disposition home or self-care (01) ==
LOC: DL.ED 17:47
DX: U07.1 COVID-19 (principal); I13.2 Hypertensive heart and chronic kidney disease with heart failure and with stage 5 chronic kidney disease, or end stage renal disease; E11.22 Type 2 diabetes mellitus with diabetic chronic kidney disease; N18.6 End stage renal disease; I50.9 Heart failure, unspecified; E11.40 Type 2 diabetes mellitus with diabetic neuropathy, unspecified; R11.14 Bilious vomiting; F17.210 Nicotine dependence, cigarettes, uncomplicated; E66.9 Obesity, unspecified; Z68.42 Body mass index [BMI] 45.0-49.9, adult; Z88.0 Allergy status to penicillin; Z88.8 Allergy status to other drugs, medicaments and biological substances; Z88.6 Allergy status to analgesic agent; Z99.2 Dependence on renal dialysis; Z98.890 Other specified postprocedural states
CPT/HCPCS: 36415; 71045; 80053; 83880; 85025; 86140; 99285-25; A9270-GY

== ENCOUNTER 2020-03-04 14:36 | Emergency (ER) | payer MEDICARE, OTHER ==
[2020-03-04 14:48] VITALS: BP 158/59; PULSE 64
--- NOTE | 2020-03-04 14:55 | EDM.PDOC ---
ED HPI GENERAL MEDICAL PROBLEM - General Chief Complaint: Chest Pain Stated Complaint: From dialysis, CHEST PAIN, COVID + Time Seen by Provider: 03/04/20 14:51 Source of Information: Reports: Patient, Old Records, RN, RN Notes Reviewed History Limitations: Reports: No Limitations - History of Present Illness INITIAL COMMENTS - FREE TEXT/NARRATIVE: Pt sent from dialysis with c/o chest pain off and on since yesterday. She states that she had one episode of sharp central chest pain yesterday, then today while at dialysis the pain returned. Pt states she thinks the chest pain was caused by she walking from the car into dialysis to quickly today. Dialysis was stopped after one hour and pt was sent to the ER. Pt tested COVID positive on 02/26/20. Denies fevers, chills, or rash. Admits to shortness of breath, but states it is chronic. Onset Date: 03/03/20 Duration: Recurring Location: Reports: Chest Quality: Reports: Same as Previous Episode, Sharp Severity: Severe Improves with: Reports: None Worsens with: Reports: Other (Exertion) Associated Symptoms: Reports: No Other Symptoms Chest Pain Score (Numeric/FACES): 4 - Related Data Allergies Allergy/AdvReac Type Severity Reaction Status Date / Time aspirin Allergy Hives Verified 03/04/20 14:40 naproxen [From Naprosyn] Allergy Rash Verified 03/04/20 14:40 Penicillins Allergy Rash Verified 03/04/20 14:40 propoxyphene napsylate Allergy Rash Verified 03/04/20 14:40 [From Darvocet-N 100] Home Meds: Home Meds Losartan [Cozaar] 25 mg PO DAILY 01/07/18 [History] Calcium Acetate [PhosLo] 4 cap PO TID 03/12/18 [History] Calcium Carbonate 3 gm PO TID 02/22/19 [History] Sodium Polystyrene Sulfonate [Kayexalate] 15 gm PO ASDIRECTED 02/22/19 [History] Metoprolol Succinate 100 mg PO DAILY 03/04/20 [History] amLODIPine [Norvasc] 7.5 mg PO DAILY 03/04/20 [History] Past Medical History HEENT History: Reports: None, Impaired Vision Other HEENT History: wears glasses Cardiovascular History: Reports: Heart Failure, Heart Murmur, High Cholesterol, Hypertension Respiratory History: Reports: PE Gastrointestinal History: Reports: GERD Genitourinary History: Reports: Acute Renal Failure, Chronic Renal Insuffiency, Dialysis, Renal Disease 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: Neurological History: Reports: Neuropathy, Diabetic Psychiatric History: Reports: Anxiety Endocrine/Metabolic History: Reports: Diabetes, Type II, Obesity/BMI 30+ Hematologic History: Reports: Blood Transfusion(s) Immunologic History: Reports: None Oncologic (Cancer) History: Reports: None Dermatologic History: Reports: Other (See Below) Other Dermatologic History: boil - Infectious Disease History Infectious Disease History: Reports: MRSA - Past Surgical History Female Surgical History: Reports: Section Musculoskeletal Surgical History: Reports: Other (See Below) Other Musculoskeletal Surgeries/Procedures:: Ankle surgery Social & Family History - Family History Family Medical History: Noncontributory Endocrine/Metabolic: Reports: Diabetes, type II - Caffeine Use Caffeine Use: Reports: None - Living Situation & Occupation Living situation: Reports: with Family Occupation: Disabled ED ROS GENERAL - Review of Systems Review Of Systems: Comprehensive ROS is negative, except as noted in HPI. ED EXAM, GENERAL - Physical Exam Exam: See Below Exam Limited By: No Limitations General Appearance: Alert, No Apparent Distress, Anxious, Other (Chronically ill appearing) Throat/Mouth: Normal Voice, No Airway Compromise Head: Atraumatic, Normocephalic Neck: Normal Inspection Respiratory/Chest: No Respiratory Distress, Lungs Clear, No Accessory Muscle Use, Decreased Breath Sounds. No: Rales, Rhonchi, Wheezing, Stridor Cardiovascular: Regular Rate, Rhythm, No Edema GI/Abdominal: Normal Bowel Sounds, Soft, Non-Tender Extremities: Normal Range of Motion, Non-Tender, No Pedal Edema Neurological: Alert, Oriented, Normal Cognition, No Motor/Sensory Deficits Psychiatric: Anxious, Flat Affect Skin Exam: Warm, Dry, Intact, Normal Color, No Rash EKG INTERPRETATION EKG Date: 03/04/20 Time: 15:03 Rhythm: Other (SR) Rate (Beats/Min): 64 [place]: LAD-Left [place] Deviation P-Wave: Present QRS: Other (LVH) ST-T: Normal QT: Normal Comparison: No Change Course - Vital Signs Last Recorded V/S: Last Vital Signs Temp 97.1 F 03/04/20 14:43 Pulse 64 08/10/20 14:43 Resp 16 03/04/20 14:43 BP 158/59 H 03/04/20 14:43 Pulse Ox 100 03/04/20 14:43 - Orders/Labs/Meds Orders: Active Orders 24 hr Category Date Time Status EKG 12 Lead [EKG Documentation Completion] [RC] STAT Care 03/04/20 14:55 Active Azithromycin [Zithromax] Med 03/04/20 16:41 Once 500 mg PO ONETIME ONE dexAMETHasone Med 03/04/20 16:41 Once 4 mg PO ONETIME ONE Labs: Laboratory Tests 03/04/20 03/04/20 03/04/20 Range/Units 15:00 15:50 15:50 WBC 6.7 (5.0-10.0) 10^3/uL RBC 4.86 (4.2-5.4) 10^6/uL Hgb 14.9 (12.0-16.0) g/dL Hct 45.3 (37.0-47.0) % MCV 93.2 (80-100) fL MCH 30.7 (27.0-34.0) pg MCHC 32.9 L (33.0-35.0) g/dL Plt Count 201 (150-450) 10^3/uL Neut % (Auto) 70.4 (42.2-75.2) % Lymph % (Auto) 17.4 L (20.5-50.1) % [place] % (Auto) 7.6 (2-8) % Eos % (Auto) 4.3 H (1.0-3.0) % Baso % (Auto) 0.3 (0.0-1.0) % Sodium 133 L (136-145) mmol/L Potassium 5.1 (3.5-5.1) mmol/L Chloride 96 L (98-107) mmol/L Carbon Dioxide 24 (21-32) mmol/L Anion Gap 18.1 H (7-13) mEq/L BUN 50 H (7-18) mg/dL Creatinine 13.66 H* D (0.55-1.02) mg/dL Est Cr Clr Drug Dosing 4.82 mL/min Estimated GFR (MDRD) 3 BUN/Creatinine Ratio 3.7 (No establ ref range) Glucose 132 H (74-99) mg/dL Calcium 7.8 L (8.5-10.1) mg/dL Total Bilirubin 0.6 (0.2-1.0) mg/dL AST 18 (15-37) U/L ALT 14 (14-59) U/L Alkaline Phosphatase 95 (46-116) U/L Troponin I < 0.017 (0.000-0.056) ng/mL B-Natriuretic Peptide 1050 H (0-100) pg/ml Total Protein 8.5 H (6.4-8.2) g/dL Albumin 3.2 L (3.4-5.0) g/dL Globulin 5.3 Albumin/Globulin Ratio 0.60 COVID-19 (KIESHA) Positive H (NEGATIVE) - Radiology Interpretation Free Text/Narrative:: XR Chest: Mild cardiomegaly new since December 2019. Subtle patchy new lung dens ities compared to 03/01/20 plain film per Rad. report. Departure - Departure Time of Disposition: 16:42 Disposition: Home, Self-Care 01 Condition: Good Clinical Impression: Pleuritic chest pain, COVID-19, End stage renal disease on dialysis Instructions: Prevent the Spread of COVID-19 if You Are Sick - CDC, Pleurodynia Forms: ED Department Discharge Additional Instructions: Rx: Zithromax 500mg Rx: Dexamethasone 4mg Follow up in clinic in 1 week for recheck. Sepsis Event Note (ED) - Evaluation Sepsis Screening Result: No Definite Risk - Focused Exam Vital Signs: Vital Signs Temp Pulse Resp BP Pulse Ox 03/04/20 14:43 97.1 F 64 16 158/59 H 100 - My Orders Last 24 Hours: My Active Orders 03/04/20 14:55 EKG 12 Lead [EKG Documentation Completion] [RC] STAT 03/04/20 16:41 Azithromycin [Zithromax] 500 mg PO ONETIME ONE dexAMETHasone 4 mg PO ONETIME ONE - Assessment/Plan Last 24 Hours: My Active Orders 03/04/20 14:55 EKG 12 Lead [EKG Documentation Completion] [RC] STAT 03/04/20 16:41 Azithromycin [Zithromax] 500 mg PO ONETIME ONE dexAMETHasone 4 mg PO ONETIME ONE
--- NOTE | 2020-03-04 15:27 | CR ---
EXAMINATION: Chest 1V Frontal SEX: Female AGE: 44 years CLINICAL HISTORY: 44-year-old extremely high risk (large central renal dialysis catheter) obese diabetic female complaining of CHEST PAIN (COVID positive on 02/26/20). INTERPRETATION: Large heart (left ventricular configuration) as noted on 01 March 2020 exam (increased since 10 January 2020 upright AP film). Large bore left supraclavicular, central venous line that crosses the mediastinum down to the right heart. External desk monitor leads. No increased pulmonary venous congestion, new signs of alveolar edema or dependent pleural effusion. Subtle, scattered, patchy new bibasilar infiltrates (atelectasis?). No new lung mass or hilar lymphadenopathy. CONCLUSION: Mild cardiomegaly new since December. Subtle patchy new lung densities.
[2020-03-04 16:30] LABS: ANION GAP 18.1 mEq/L (7-13); CHLORIDE,CL 96 mmol/L (98-107); SODIUM,NA 133 mmol/L (136-145)
[2020-03-04] MEDS ORDERED: Azithromycin 250 MG Tab PO ONE (16:41)
[2020-03-04] MEDS ORDERED: Dexamethasone 4 MG Tab PO ONE (16:41)
[2020-03-04] MEDS ORDERED: Dexamethasone 2 MG Tab ONE (16:52)
== END 2020-03-04 17:00 | disposition home or self-care (01) ==
LOC: DL.ED 14:36
DX: U07.1 COVID-19 (principal); R07.81 Pleurodynia; I13.2 Hypertensive heart and chronic kidney disease with heart failure and with stage 5 chronic kidney disease, or end stage renal disease; E11.22 Type 2 diabetes mellitus with diabetic chronic kidney disease; N18.6 End stage renal disease; I50.9 Heart failure, unspecified; Z99.2 Dependence on renal dialysis; E11.40 Type 2 diabetes mellitus with diabetic neuropathy, unspecified; E66.9 Obesity, unspecified; Z88.0 Allergy status to penicillin; Z88.8 Allergy status to other drugs, medicaments and biological substances
CPT/HCPCS: 36415; 71045; 80053; 83880; 84484; 85025; 93005; 99285-25; A9270-GY; J8540; U0002

== ENCOUNTER 2020-03-16 09:15 | Emergency (ER) | payer MEDICARE, OTHER ==
[2020-03-16 09:24] VITALS: BP 166/78; PULSE 73
--- NOTE | 2020-03-16 10:54 | CR ---
PROCEDURE INFORMATION: Exam: XR Chest, 1 View Exam date and time: 03/16/2020 10:42 AM Age: 44 years old Clinical indication: Chest pain; Type not specified TECHNIQUE: Imaging protocol: XR of the chest Views: 1 view. COMPARISON: CR Chest 1V Frontal 03/04/2020 3:13 PM FINDINGS: Tubes, catheters and devices: Left IJ central line is in place. The tip terminates at the cavoatrial junction, unchanged from the previous exam. Lungs: Unremarkable. No consolidation. Pleural space: Unremarkable. No pleural effusion. No pneumothorax. Heart/Mediastinum: There is mild cardiomegaly. Bones/joints: Unremarkable. IMPRESSION: No acute findings.
[2020-03-16 11:36] LABS: ANION GAP 19.8 mEq/L (7-13); CHLORIDE,CL 99 mmol/L (98-107); SODIUM,NA 134 mmol/L (136-145)
--- NOTE | 2020-03-16 12:30 | EDM.PDOC ---
Scribed by Suzy Adam 03/16/20 [id number] for Telma Rouse MD ED HPI GENERAL MEDICAL PROBLEM - General Chief Complaint: Respiratory Problem Stated Complaint: HARD TIME BREATHING Time Seen by Provider: 03/16/20 10:29 Source of Information: Reports: Patient, RN, RN Notes Reviewed History Limitations: Reports: No Limitations - History of Present Illness INITIAL COMMENTS - FREE TEXT/NARRATIVE: Patient presents to ER stating she woke up with stuffy nose and feels like it is hard to breath. She felt like she couldn't catch her breath. No back pain any more. No rashes. No change in cough. She has little chest pressure 4/10. She has not taken anything for it. She feels clearance coordinator face and throat. 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 Mid-Sternal Chest Pain Score (Numeric/FACES): 4 - Related Data Allergies Allergy/AdvReac Type Severity Reaction Status Date / Time aspirin Allergy Hives Verified 03/16/20 09:36 naproxen [From Naprosyn] Allergy Rash Verified 03/16/20 09:36 Penicillins Allergy Rash Verified 03/16/20 09:36 propoxyphene napsylate Allergy Rash Verified 03/16/20 09:36 [From Darvocet-N 100] Home Meds: Home Meds Losartan [Cozaar] 25 mg PO DAILY 01/07/18 [History] Calcium Acetate [PhosLo] 4 cap PO TID 03/12/18 [History] Calcium Carbonate 3 gm PO TID 02/22/19 [History] Sodium Polystyrene Sulfonate [Kayexalate] 15 gm PO ASDIRECTED 02/22/19 [History] Metoprolol Succinate 100 mg PO DAILY 03/04/20 [History] amLODIPine [Norvasc] 7.5 mg PO DAILY 03/04/20 [History] Acetaminophen [Tylenol] 325 mg PO Q6H PRN 03/16/20 [History] Past Medical History HEENT History: Reports: None, Impaired Vision Other HEENT History: wears glasses Cardiovascular History: Reports: Heart Failure, Heart Murmur, High Cholesterol, Hypertension Respiratory History: Reports: PE Gastrointestinal History: Reports: GERD Genitourinary History: Reports: Acute Renal Failure, Chronic Renal Insuffiency, Dialysis, 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 Disease 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: Neurological History: Reports: Neuropathy, Diabetic Psychiatric History: Reports: Anxiety Endocrine/Metabolic History: Reports: Diabetes, Type II, Obesity/BMI 30+ Hematologic History: Reports: Blood Transfusion(s) Immunologic History: Reports: None Oncologic (Cancer) History: Reports: None Dermatologic History: Reports: Other (See Below) Other Dermatologic History: boil - Infectious Disease History Infectious Disease History: Reports: MRSA - Past Surgical History Female Surgical History: Reports: Section Musculoskeletal Surgical History: Reports: Other (See Below) Other Musculoskeletal Surgeries/Procedures:: Ankle surgery Social & Family History - Family History Family Medical History: Noncontributory Endocrine/Metabolic: Reports: Diabetes, type II - Tobacco Use Smoking Status *Q: Light Tobacco Smoker Years of Tobacco use: 5 Packs/Tins Daily: 0.5 Used Tobacco, but Quit: No Second Hand Smoke Exposure: No - Caffeine Use Caffeine Use: Reports: Coffee - Recreational Drug Use Recreational Drug Use: No - Living Situation & Occupation Living situation: Reports: with Family Occupation: Disabled ED ROS GENERAL - Review of Systems Review Of Systems: Comprehensive ROS is negative, except as noted in HPI. ED EXAM, GENERAL - Physical Exam Exam: See Below Exam Limited By: No Limitations General Appearance: Alert, WD/WN, No Apparent Distress Eye Exam: Bilateral Eye: EOMI, Normal Inspection, PERRL Ears: Normal External Exam, Normal Canal, Hearing Grossly Normal, Normal TMs Nose: Normal Inspection, Normal Mucosa, No Blood Throat/Mouth: Normal Inspection, Normal Lips, Normal Teeth, Normal Gums, Normal Oropharynx, Normal Voice, No Airway Compromise Head: Atraumatic, Normocephalic Neck: Normal Inspection, Supple, Non-Tender, Full Range of Motion Respiratory/Chest: No Respiratory Distress, Lungs Clear, Normal Breath Sounds, No Accessory Muscle Use, Chest Non-Tender Cardiovascular: Normal Peripheral Pulses, Regular Rate, Rhythm, No Edema, No Gallop, No JVD, No Murmur, No Rub GI/Abdominal: Normal Bowel Sounds, Soft, Non-Tender, No Organomegaly, No Distention, No Abnormal Bruit, No Mass (Female) Exam: Deferred Rectal (Female) Exam: Deferred Back Exam: Normal Inspection, Full Range of Motion, NT Extremities: Normal Inspection, Normal Range of Motion, Non-Tender, Normal Capillary Refill, No Pedal Edema Neurological: Alert, Oriented, CN II-XII Intact, Normal Cognition, Normal Gait, Normal Reflexes, No Motor/Sensory Deficits Psychiatric: Normal Affect, Normal Mood Skin Exam: Warm, Dry, Intact, Normal Color, No Rash Lymphatic: No Adenopathy EKG INTERPRETATION EKG Date: 03/16/20 Rhythm: NSR [place]: Normal P-Wave: Present QRS: Normal ST-T: Normal QT: Normal Comparison: No Change Course - Vital Signs Last Recorded V/S: Last Vital Signs Temp 98.0 F 03/16/20 09:22 Pulse 73 03/16/20 09:22 Resp 20 03/16/20 09:22 BP 166/78 H 03/16/20 09:22 Pulse Ox 100 03/16/20 09:22 - Orders/Labs/Meds Orders: Active Orders 24 hr Category Date Time Status EKG Documentation Completion [RC] STAT Care 03/16/20 10:34 Active Labs: Laboratory Tests 03/16/20 03/16/20 03/16/20 Range/Units 10:04 11:03 11:49 WBC 9.9 (5.0-10.0) 10^3/uL RBC 3.50 L (4.2-5.4) 10^6/uL Hgb 10.7 L D (12.0-16.0) g/dL Hct 32.0 L (37.0-47.0) % MCV 91.4 (80-100) fL MCH 30.6 (27.0-34.0) pg MCHC 33.4 (33.0-35.0) g/dL Plt Count 140 L (150-450) 10^3/uL Neut % (Auto) 70.0 (42.2-75.2) % Lymph % (Auto) 16.0 L (20.5-50.1) % [place] % (Auto) 9.3 H (2-8) % Eos % (Auto) 4.3 H (1.0-3.0) % Baso % (Auto) 0.4 (0.0-1.0) % Sodium 134 L (136-145) mmol/L Potassium 4.8 (3.5-5.1) mmol/L Chloride 99 (98-107) mmol/L Carbon Dioxide 20 L (21-32) mmol/L Anion Gap 19.8 H (7-13) mEq/L BUN 51 H (7-18) mg/dL Creatinine 8.68 H* D (0.55-1.02) mg/dL Est Cr Clr Drug Dosing 7.58 mL/min Estimated GFR (MDRD) 5 BUN/Creatinine Ratio 5.9 (No establ ref range) Glucose 238 H (74-99) mg/dL Calcium 7.0 L (8.5-10.1) mg/dL Total Bilirubin 0.7 (0.2-1.0) mg/dL AST 15 (15-37) U/L ALT 19 (14-59) U/L Alkaline Phosphatase 107 (46-116) U/L Troponin I < 0.017 (0.000-0.056) ng/mL Total Protein 6.9 (6.4-8.2) g/dL Albumin 3.1 L (3.4-5.0) g/dL Globulin 3.8 Albumin/Globulin Ratio 0.82 COVID-19 ([facility]IES[facility]) Negative (NEGATIVE) Departure - Departure Time of Disposition: 12:20 Disposition: Home, Self-Care 01 Condition: Good Clinical Impression: Anxiety about health, ESRD on hemodialysis, Non compliance with medical treatment Diabetes Qualifiers: Diabetes mellitus type: type 2 Diabetes mellitus terminal supervisor insulin use: without terminal supervisor use Diabetes mellitus complication status: with kidney complications Diabetes mellitus complication detail: with chronic kidney disease Chronic kidney disease stage: on chronic dialysis Qualified Code(s): E11.22 - Type 2 diabetes mellitus with diabetic chronic kidney disease; N18.6 - End stage renal disease; Z99.2 - Dependence on renal dialysis - Discharge Information *PRESCRIPTION DRUG MONITORING PROGRAM REVIEWED*: Not Applicable *COPY OF PRESCRIPTION DRUG MONITORING REPORT IN PATIENT LATHA: Not Applicable Instructions: Type 2 Diabetes Mellitus, Self Care, Adult, [id number] Forms: ED Department Discharge Additional Instructions: Take ALL your medications as prescribed and keep your clinic appointments with your primary care physician. Sepsis Event Note (ED) - Evaluation Sepsis Screening Result: No Definite Risk - Focused Exam Vital Signs: Vital Signs Temp Pulse Resp BP Pulse Ox 03/16/20 09:22 98.0 F 73 20 166/78 H 100 - Problem List & Annotations (1) Non compliance with medical treatment SNOMED Code(s): 5745021 Code(s): Z91.19 - PATIENT'S NONCOMPLIANCE W OTH MEDICAL TREATMENT AND REGIMEN Status: Acute (2) Diabetes mellitus SNOMED Code(s): 52620493 Code(s): E11.9 - TYPE 2 DIABETES MELLITUS WITHOUT COMPLICATIONS Status: Acute (3) ESRD on hemodialysis SNOMED Code(s): 955708559 Code(s): N18.6 - END STAGE RENAL DISEASE; Z99.2 - DEPENDENCE ON RENAL DIALYSIS Status: Acute - My Orders Last 24 Hours: My Active Orders 03/16/20 10:34 EKG Documentation Completion [RC] STAT - Assessment/Plan Last 24 Hours: My Active Orders 03/16/20 10:34 EKG Documentation Completion [RC] STAT Assessment:: 44 yo female with diabetes on renal dialysis who presented with concerns of shortness of breath, facial swelling and chest pain who is stable and feeling better Plan: Reassured patient the labs, EKG and CXR were unremarkable. Advised patient to take ALL her medications as prescribed by her physician Reassured pt that her throat was not swollen on exam and her oxygen saturations remained normal, even during her nap in the ER Follow up with primary care physician in 3-5 days. I have read and agree with the documentation that has been completed regarding this visit. By signing this record, I attest that the documentation was completed in my physical presence and is an accurate record of the encounter.
== END 2020-03-16 13:08 | disposition home or self-care (01) ==
LOC: DL.ED 09:15
DX: I13.2 Hypertensive heart and chronic kidney disease with heart failure and with stage 5 chronic kidney disease, or end stage renal disease (principal); E11.22 Type 2 diabetes mellitus with diabetic chronic kidney disease; N18.6 End stage renal disease; I50.9 Heart failure, unspecified; Z99.2 Dependence on renal dialysis; F41.9 Anxiety disorder, unspecified; E11.40 Type 2 diabetes mellitus with diabetic neuropathy, unspecified; F17.210 Nicotine dependence, cigarettes, uncomplicated; E66.9 Obesity, unspecified; Z68.42 Body mass index [BMI] 45.0-49.9, adult; Z91.15 Patient's noncompliance with renal dialysis; Z20.828 Contact with and (suspected) exposure to other viral communicable diseases; Z88.6 Allergy status to analgesic agent; Z88.0 Allergy status to penicillin; Z88.8 Allergy status to other drugs, medicaments and biological substances; Z79.899 Other long term (current) drug therapy; Z98.890 Other specified postprocedural states
CPT/HCPCS: 36415; 71045; 80053; 84484; 85025; 93005; 99285-25; U0002

== ENCOUNTER 2020-04-06 21:51 | Emergency (ER) | payer MEDICARE, OTHER ==
--- NOTE | 2020-04-06 21:58 | EDM.PDOC ---
ED HPI GENERAL MEDICAL PROBLEM - General Chief Complaint: IV Access Related Time Seen by Provider: 04/06/20 21:56 Source of Information: Reports: Patient History Limitations: Reports: No Limitations - History of Present Illness INITIAL COMMENTS - FREE TEXT/NARRATIVE: states accidentally pulled out dialysis port tonight. c/o some chest discomfort when lying down feels better sitting. - Related Data Allergies Allergy/AdvReac Type Severity Reaction Status Date / Time aspirin Allergy Hives Verified 03/16/20 09:36 naproxen [From Naprosyn] Allergy Rash Verified 03/16/20 09:36 Penicillins Allergy Rash Verified 03/16/20 09:36 propoxyphene napsylate Allergy Rash Verified 03/16/20 09:36 [From Darvocet-N 100] Home Meds: Home Meds Losartan [Cozaar] 25 mg PO DAILY 01/07/18 [History] Calcium Acetate [PhosLo] 4 cap PO TID 03/12/18 [History] Calcium Carbonate 3 gm PO TID 02/22/19 [History] Sodium Polystyrene Sulfonate [Kayexalate] 15 gm PO ASDIRECTED 02/22/19 [History] Metoprolol Succinate 100 mg PO DAILY 03/04/20 [History] amLODIPine [Norvasc] 7.5 mg PO DAILY 03/04/20 [History] Acetaminophen [Tylenol] 325 mg PO Q6H PRN 03/16/20 [History] Past Medical History HEENT History: Reports: None, Impaired Vision Other HEENT History: wears glasses Cardiovascular History: Reports: Heart Failure, Heart Murmur, High Cholesterol, Hypertension Respiratory History: Reports: PE Gastrointestinal History: Reports: GERD Genitourinary History: Reports: Acute Renal Failure, Chronic Renal Insuffiency, Dialysis, 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: Neurological History: Reports: Neuropathy, Diabetic Psychiatric History: Reports: Anxiety Endocrine/Metabolic History: Reports: Diabetes, Type II, Obesity/BMI 30+ Hematologic History: Reports: Blood Transfusion(s) Immunologic History: Reports: None Oncologic (Cancer) History: Reports: None Dermatologic History: Reports: Other (See Below) Other Dermatologic History: boil - Infectious Disease History Infectious Disease History: Reports: MRSA - Past Surgical History Female Surgical History: Reports: Section Musculoskeletal Surgical History: Reports: Other (See Below) Other Musculoskeletal Surgeries/Procedures:: Ankle surgery Social & Family History - Family History Family Medical History: Noncontributory Endocrine/Metabolic: Reports: Diabetes, type II - Caffeine Use Caffeine Use: Reports: Coffee - Living Situation & Occupation Living situation: Reports: with Family Occupation: Disabled ED ROS GENERAL - Review of Systems Review Of Systems: Comprehensive ROS is negative, except as noted in HPI. ED EXAM, GENERAL - Physical Exam Exam: See Below Exam Limited By: No Limitations General Appearance: Alert, WD/WN, Mild Distress, Other (discomfort) Ears: Hearing Grossly Normal Throat/Mouth: Normal Voice, No Airway Compromise Head: Atraumatic Neck: Non-Tender, Full Range of Motion Respiratory/Chest: No Respiratory Distress, Other (left port access no acitve bleeding, old clots) Cardiovascular: Regular Rate, Rhythm GI/Abdominal: Soft, Non-Tender Neurological: Alert, Oriented, Normal Cognition, No Motor/Sensory Deficits Psychiatric: Flat Affect Skin Exam: Warm, Dry, Normal Color Lymphatic: No Adenopathy Course - Vital Signs Last Recorded V/S: Last Vital Signs Temp 36.8 C 04/06/20 22:15 Pulse 77 04/06/20 22:15 Resp 18 04/06/20 22:15 BP 180/131 H 04/06/20 22:15 Pulse Ox 100 04/06/20 22:15 - Re-Assessments/Exams Free Text/Narrative Re-Assessment/Exam: 04/06/20 22:[address] Zepeda @ who rec' pt to be seen by her Pie Icer Machine Dr Agudelo Wednesday her usual dialysis appt, to have port reinserted by IR. Pt agreed. Departure - Departure Time of Disposition: 22:27 Disposition: Home, Self-Care 01 Condition: Good Clinical Impression: Encounter for care related to Port-a-Cath - Discharge Information Forms: ED Department Discharge Additional Instructions: 1) see Dr Agudelo Wednesday at nephrology clinic for port reinsertion. 2) recheck if there is any change or concern Sepsis Event Note (ED) - Focused Exam Vital Signs: Vital Signs Temp Pulse Resp BP Pulse Ox 04/06/20 22:15 36.8 C 77 18 180/131 H 100
--- NOTE | 2020-04-06 22:16 | CR ---
PROCEDURE INFORMATION: Exam: XR Chest, 1 View Exam date and time: 04/06/2020 10:04 PM Age: 44 years old Clinical indication: Device placement; Other: Dialysis port dislodgement left chest area TECHNIQUE: Imaging protocol: XR of the chest Views: 1 view. COMPARISON: CR Chest 1V Frontal 03/16/2020 10:42 AM FINDINGS: Tubes, catheters and devices: Left-sided central line is no longer present. Lungs: No suspicious pulmonary nodules or areas of lung consolidation. Pleural space: Costophrenic angles are sharp. No pneumothorax. Heart/Mediastinum: There is mild cardiomediastinal silhouette enlargement. Bones/joints: Age appropriate. Soft tissues: No foreign body is seen. IMPRESSION: 1. No acute pulmonary findings. 2. There is mild cardiomediastinal silhouette enlargement. This is stable. 3. Left-sided central line is no longer present.
[2020-04-06 22:31] VITALS: BP 173/92; PULSE 75
== END 2020-04-06 22:33 | disposition home or self-care (01) ==
LOC: DL.ED 21:51
DX: Z49.01 Encounter for fitting and adjustment of extracorporeal dialysis catheter (principal); I13.2 Hypertensive heart and chronic kidney disease with heart failure and with stage 5 chronic kidney disease, or end stage renal disease; E11.22 Type 2 diabetes mellitus with diabetic chronic kidney disease; N18.6 End stage renal disease; I50.9 Heart failure, unspecified; E11.40 Type 2 diabetes mellitus with diabetic neuropathy, unspecified; E66.9 Obesity, unspecified; Z68.42 Body mass index [BMI] 45.0-49.9, adult; Z98.890 Other specified postprocedural states; Z88.8 Allergy status to other drugs, medicaments and biological substances; Z88.0 Allergy status to penicillin; Z79.899 Other long term (current) drug therapy
CPT/HCPCS: 71045; 99283

== ENCOUNTER 2020-04-08 22:34 | Emergency (ER) | payer MEDICARE, OTHER ==
[2020-04-08 22:47] VITALS: BP 158/82; PULSE 73
--- NOTE | 2020-04-08 23:04 | CR ---
PROCEDURE INFORMATION: Exam: XR Chest, 1 View Exam date and time: 04/08/2020 10:51 PM Age: 44 years old Clinical indication: Pain; Other: Neck; Additional info: New port neck pain TECHNIQUE: Imaging protocol: XR of the chest Views: 1 view. COMPARISON: CR Chest 1V Frontal 04/06/2020 10:04 PM FINDINGS: Tubes, catheters and devices: Left IJ catheter tip is located at the SVC RA junction. Lungs: Clear lungs. Pleural space: Unremarkable. No pleural effusion. No pneumothorax. Heart/Mediastinum: Cardiomegaly. Bones/joints: Unremarkable. IMPRESSION: 1. Tip of left IJ large-bore catheter at the SVC RA junction. 2. No pneumothorax.
--- NOTE | 2020-04-09 00:08 | EDM.PDOC ---
ED HPI GENERAL MEDICAL PROBLEM - General Chief Complaint: IV Access Related Stated Complaint: AMBULANCE Time Seen by Provider: 04/08/20 22:40 Source of Information: Reports: Patient, EMS History Limitations: Reports: No Limitations - History of Present Illness INITIAL COMMENTS - FREE TEXT/NARRATIVE: ED via [facility] with report of bleeding around Central Line. Newly replaced today at 1pm, then dialysis. Home approximately 30minutes. and noticed bleeding under dressing. Left Neck Pain Score (Numeric/FACES): 6 Left Upper Back Pain Score (Numeric/FACES): 6 - Related Data Allergies Allergy/AdvReac Type Severity Reaction Status Date / Time aspirin Allergy Hives Verified 03/16/20 09:36 naproxen [From Naprosyn] Allergy Rash Verified 03/16/20 09:36 Penicillins Allergy Rash Verified 03/16/20 09:36 propoxyphene napsylate Allergy Rash Verified 03/16/20 09:36 [From Darvocet-N 100] Home Meds: Home Meds Losartan [Cozaar] 25 mg PO DAILY 01/07/18 [History] Calcium Acetate [PhosLo] 4 cap PO TID 03/12/18 [History] Calcium Carbonate 3 gm PO TID 02/22/19 [History] Sodium Polystyrene Sulfonate [Kayexalate] 15 gm PO ASDIRECTED 02/22/19 [History] Metoprolol Succinate 100 mg PO DAILY 03/04/20 [History] amLODIPine [Norvasc] 7.5 mg PO DAILY 03/04/20 [History] Acetaminophen [Tylenol] 325 mg PO Q6H PRN 03/16/20 [History] Past Medical History HEENT History: Reports: None, Impaired Vision Other HEENT History: wears glasses Cardiovascular History: Reports: Heart Failure, Heart Murmur, High Cholesterol, Hypertension Respiratory History: Reports: PE Gastrointestinal History: Reports: GERD Genitourinary History: Reports: Acute Renal Failure, Chronic Renal Insuffiency, Dialysis, Renal Disease 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: Neurological History: Reports: Neuropathy, Diabetic Psychiatric History: Reports: Anxiety Endocrine/Metabolic History: Reports: Diabetes, Type II, Obesity/BMI 30+ Hematologic History: Reports: Blood Transfusion(s) Immunologic History: Reports: None Oncologic (Cancer) History: Reports: None Dermatologic History: Reports: Other (See Below) Other Dermatologic History: boil - Infectious Disease History Infectious Disease History: Reports: MRSA - Past Surgical History Female Surgical History: Reports: Section Musculoskeletal Surgical History: Reports: Other (See Below) Other Musculoskeletal Surgeries/Procedures:: Ankle surgery Social & Family History - Family History Family Medical History: Noncontributory Endocrine/Metabolic: Reports: Diabetes, type II - Tobacco Use Smoking Status *Q: Current Status Unknown - Caffeine Use Caffeine Use: Reports: Soda - Alcohol Use Date of Last Drink: 03/18/20 - Recreational Drug Use Recreational Drug Use: Yes Drug Use in Last 12 Months: Yes Recreational Drug Type: Reports: Marijuana/Hashish Recreational Drug Use Frequency: Socially - Living Situation & Occupation Living situation: Reports: with Family Occupation: Disabled ED ROS GENERAL - Review of Systems Review Of Systems: Comprehensive ROS is negative, except as noted in HPI. ED EXAM, GENERAL - Physical Exam Exam: See Below Exam Limited By: No Limitations General Appearance: Alert, No Apparent Distress Eye Exam: Bilateral Eye: EOMI Ears: Normal External Exam, Hearing Grossly Normal Nose: Normal Inspection Throat/Mouth: Normal Inspection Head: Atraumatic, Normocephalic Neck: Normal Inspection Respiratory/Chest: No Respiratory Distress, Lungs Clear, Normal Breath Sounds Cardiovascular: Normal Peripheral Pulses, Regular Rate, Rhythm GI/Abdominal: Normal Bowel Sounds, Soft Extremities: Normal Inspection Neurological: Alert, Oriented Skin Exam: Other (Central line left upper chest, small amount bleeding below dressing,No active gross bleeding) Course - Vital Signs Last Recorded V/S: Last Vital Signs Temp 97.7 F 04/08/20 22:38 Pulse 73 04/08/20 22:38 Resp 19 04/08/20 22:38 BP 158/82 H 04/08/20 22:38 Pulse Ox 99 04/08/20 22:38 - Re-Assessments/Exams Free Text/Narrative Re-Assessment/Exam: 04/09/20 05:40 Dressing change. No further bleeding Departure - Departure Time of Disposition: 00:06 Disposition: Home, Self-Care 01 Condition: Good Clinical Impression: Encounter for central line care, Dialysis patient - Discharge Information *PRESCRIPTION DRUG MONITORING PROGRAM REVIEWED*: No *COPY OF PRESCRIPTION DRUG MONITORING REPORT IN PATIENT LATHA: No Instructions: Central Line, Adult, [id number] Referrals: PCP,None [Primary Care Provider] - Forms: ED Department Discharge Additional Instructions: rest follow up if recurrent bleeding at catheter site or fever Sepsis Event Note (ED) - Evaluation Sepsis Screening Result: No Definite Risk - Focused Exam Vital Signs: Vital Signs Temp Pulse Resp BP Pulse Ox 04/08/20 22:38 97.7 F 73 19 158/82 H 99
== END 2020-04-09 00:13 | disposition home or self-care (01) ==
LOC: DL.ED 22:34
DX: T82.837A Hemorrhage due to cardiac prosthetic devices, implants and grafts, initial encounter (principal); I13.0 Hypertensive heart and chronic kidney disease with heart failure and stage 1 through stage 4 chronic kidney disease, or unspecified chronic kidney disease; E11.22 Type 2 diabetes mellitus with diabetic chronic kidney disease; N18.9 Chronic kidney disease, unspecified; N17.9 Acute kidney failure, unspecified; E66.9 Obesity, unspecified; Z68.42 Body mass index [BMI] 45.0-49.9, adult; Z99.2 Dependence on renal dialysis; Z79.899 Other long term (current) drug therapy; Z88.6 Allergy status to analgesic agent; Z88.0 Allergy status to penicillin; Z88.3 Allergy status to other anti-infective agents
CPT/HCPCS: 71045; 99282; 99284-25

== ENCOUNTER 2020-04-17 16:55 | Emergency (ER) | payer MEDICARE, OTHER ==
[2020-04-17 17:20] VITALS: BP 141/71; PULSE 100
[2020-04-17 18:32] LABS: ANION GAP 10.7 mEq/L (7-13)
--- NOTE | 2020-04-18 04:52 | EDM.PDOC ---
Scribed by Suzy Adam 04/17/201952 for Gisele Chance PA-C ED HPI GENERAL MEDICAL PROBLEM - General Chief Complaint: IV Access Related Stated Complaint: AMBULANCE Time Seen by Provider: 04/17/20 17:38 Source of Information: Reports: Patient, RN, RN Notes Reviewed History Limitations: Reports: No Limitations - History of Present Illness INITIAL COMMENTS - FREE TEXT/NARRATIVE: Patient to ER per [facility] with complaint of swelling to the left side of the neck. States a new dialysis catheter placed last . Wednesday she began having swelling. States the swelling is up to the left side of neck, pain in jaw and left ear. Denies fever and chills. States warmth to the area of catheter. Denies shortness of breath, chest pain, nausea, vomiting and diarrhea. States dialysis had to run slower. Onset: Gradual Duration: Getting Worse Location: Reports: Neck Quality: Reports: Ache Severity: Moderate Improves with: Reports: None Worsens with: Reports: None Associated Symptoms: Reports: No Other Symptoms Left Neck Pain Score (Numeric/FACES): 7 - Related Data Allergies Allergy/AdvReac Type Severity Reaction Status Date / Time aspirin Allergy Hives Verified 04/17/20 17:10 naproxen [From Naprosyn] Allergy Rash Verified 04/17/20 17:10 Penicillins Allergy Rash Verified 04/17/20 17:10 propoxyphene napsylate Allergy Rash Verified 04/17/20 17:10 [From Darvocet-N 100] Home Meds: Home Meds Losartan [Cozaar] 25 mg PO DAILY 01/07/18 [History] Calcium Acetate [PhosLo] 4 cap PO TID 03/12/18 [History] Calcium Carbonate 3 gm PO TID 02/22/19 [History] Sodium Polystyrene Sulfonate [Kayexalate] 15 gm PO ASDIRECTED 02/22/19 [History] Metoprolol Succinate 100 mg PO DAILY 03/04/20 [History] amLODIPine [Norvasc] 7.5 mg PO DAILY 03/04/20 [History] Acetaminophen [Tylenol] 500 mg PO Q6H PRN 03/16/20 [History] Past Medical History HEENT History: Reports: None, Impaired Vision Other HEENT History: wears glasses Cardiovascular History: Reports: Heart Failure, Heart Murmur, High Cholesterol, Hypertension Respiratory History: Reports: PE Gastrointestinal History: Reports: GERD Genitourinary History: Reports: Acute Renal Failure, Chronic Renal Insuffiency, Dialysis, Renal Disease [employer]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: Neurological History: Reports: Neuropathy, Diabetic Psychiatric History: Reports: Anxiety Endocrine/Metabolic History: Reports: Diabetes, Type II, Obesity/BMI 30+ Hematologic History: Reports: Blood Transfusion(s) Immunologic History: Reports: None Oncologic (Cancer) History: Reports: None Dermatologic History: Reports: Other (See Below) Other Dermatologic History: boil - Infectious Disease History Infectious Disease History: Reports: MRSA - Past Surgical History Female Surgical History: Reports: Section Musculoskeletal Surgical History: Reports: Other (See Below) Other Musculoskeletal Surgeries/Procedures:: Ankle surgery Social & Family History - Family History Family Medical History: Noncontributory Endocrine/Metabolic: Reports: Diabetes, type II - Tobacco Use Smoking Status *Q: Current Every Day Smoker Years of Tobacco use: 20 Packs/Tins Daily: 1 - Caffeine Use Caffeine Use: Reports: Coffee - Recreational Drug Use Recreational Drug Use: No - Living Situation & Occupation Living situation: Reports: with Family Occupation: Disabled ED ROS GENERAL - Review of Systems Review Of Systems: Comprehensive ROS is negative, except as noted in HPI. ED EXAM, GENERAL - Physical Exam Exam: See Below Exam Limited By: No Limitations General Appearance: Alert, WD/WN, No Apparent Distress, Obese Eye Exam: Bilateral Eye: Normal Inspection Ears: Other (ears packed with cerumen bilateral) Nose: Normal Inspection, Normal Mucosa, No Blood Throat/Mouth: Normal Inspection, Normal Lips, Normal Teeth, Normal Gums, Normal Oropharynx, Normal Voice, No Airway Compromise, Other (Increased pain in left jaw with opening and closing which is similar to primary c/o. ) Head: Atraumatic, Normocephalic Neck: Other (tender and swollen left side.) Respiratory/Chest: Decreased Breath Sounds, Crackles (bases bilateral) Cardiovascular: Normal Peripheral Pulses, Regular Rate, Rhythm, No Edema, No Gallop, No JVD, No Murmur, No Rub GI/Abdominal: Normal Bowel Sounds, Soft, Non-Tender, No Organomegaly, No Distention, No Abnormal Bruit, No Mass (Female) Exam: Deferred Rectal (Female) Exam: Deferred Back Exam: Normal Inspection, Full Range of Motion, NT Extremities: Normal Inspection, Normal Range of Motion, Non-Tender, Normal Capillary Refill, No Pedal Edema Neurological: Alert, Oriented, CN II-XII Intact, Normal Cognition, Normal Gait, Normal Reflexes, No Motor/Sensory Deficits Psychiatric: Normal Affect, Normal Mood Skin Exam: Other (swelling, tender and warmth left neck. ) Course - Vital Signs Last Recorded V/S: Last Vital Signs Temp 98 F 04/17/20 17:13 Pulse 100 04/17/20 17:13 Resp 20 04/17/20 17:13 BP 141/71 H 04/17/20 17:13 Pulse Ox 100 04/17/20 17:13 - Orders/Labs/Meds Orders: Active Orders 24 hr Category Date Time Status CULTURE BLOOD [BC] Stat Lab 04/17/20 18:00 Results CULTURE BLOOD [BC] Stat Lab 04/17/20 18:05 Received Blood Culture x2 Reflex Set [OM.PC] Stat Oth 04/17/20 17:46 Ordered Labs: Laboratory Tests 04/17/20 04/17/20 04/17/20 Range/Units 18:05 18:05 18:05 WBC 8.7 (5.0-10.0) 10^3/uL RBC 2.97 L (4.2-5.4) 10^6/uL Hgb 9.3 L (12.0-16.0) g/dL Hct 28.7 L (37.0-47.0) % MCV 96.6 D (80-100) fL MCH 31.3 (27.0-34.0) pg MCHC 32.4 L (33.0-35.0) g/dL Plt Count 279 D (150-450) 10^3/uL Neut % (Auto) 69.9 (42.2-75.2) % Lymph % (Auto) 15.4 L (20.5-50.1) % Wake % (Auto) 9.0 H (2-8) % Eos % (Auto) 5.2 H (1.0-3.0) % Baso % (Auto) 0.5 (0.0-1.0) % Sodium 137 (136-145) mmol/L Potassium 4.7 (3.5-5.1) mmol/L Chloride 101 (98-107) mmol/L Carbon Dioxide 30 (21-32) mmol/L Anion Gap 10.7 (7-13) mEq/L BUN 21 H D (7-18) mg/dL Creatinine 5.29 H* D (0.55-1.02) mg/dL Est Cr Clr Drug Dosing 12.44 mL/min Estimated GFR (MDRD) 9 BUN/Creatinine Ratio 4.0 (No establ ref range) Glucose 285 H (74-99) mg/dL Lactic Acid 0.6 (0.4-2.0) mmol/L Calcium 8.4 L (8.5-10.1) mg/dL Total Bilirubin 0.3 (0.2-1.0) mg/dL AST 10 L (15-37) U/L ALT 14 (14-59) U/L Alkaline Phosphatase 123 H (46-116) U/L Total Protein 7.3 (6.4-8.2) g/dL Albumin 2.7 L (3.4-5.0) g/dL Globulin 4.6 Albumin/Globulin Ratio 0.59 - Re-Assessments/Exams Free Text/Narrative Re-Assessment/Exam: 04/18/20 04:[address] Henao Interventional Radiology. Recommend Patient call to schedule appointment tomorrow am. Nothing to eat or drink 6 hours Prior to appointment. Patient to call [facility] at [phone]. Patient instructed nothing to eat or drink after 0600. May adjust after appointment time provided. Patient's Central line site does not appear changed from previous eval last week. No major swelling in area or crepitus. Departure - Departure Time of Disposition: 19:44 Disposition: Home, Self-Care 01 Condition: Good Clinical Impression: Neck pain on left side - Discharge Information *PRESCRIPTION DRUG MONITORING PROGRAM REVIEWED*: No *COPY OF PRESCRIPTION DRUG MONITORING REPORT IN PATIENT LATHA: No Instructions: Central Line, Adult, [id number] Forms: ED Department Discharge Additional Instructions: Follow up tomorrow morning with phone call to [place] [facility] call [phone] to schedule appointment with Interventional Radiology to evaluate port Nothing to eat or drink 6 hours prior to appointment tylenol 650mg every 4-6 hours as needed for discomfort urgent follow up severe swelling increase or sever shortness of breath Sepsis Event Note (ED) - Evaluation Sepsis Screening Result: No Definite Risk - Focused Exam Vital Signs: Vital Signs Temp Pulse Resp BP Pulse Ox 04/17/20 17:13 98 F 100 20 141/71 H 100 I have read and agree with the documentation that has been completed regarding this visit. By signing this record, I attest that the documentation was completed in my physical presence and is an accurate record of the encounter.
== END 2020-04-17 19:51 | disposition home or self-care (01) ==
LOC: DL.ED 16:55
DX: M54.2 Cervicalgia (principal); I11.0 Hypertensive heart disease with heart failure; I50.9 Heart failure, unspecified; E11.40 Type 2 diabetes mellitus with diabetic neuropathy, unspecified; E66.9 Obesity, unspecified; F17.210 Nicotine dependence, cigarettes, uncomplicated; H61.23 Impacted cerumen, bilateral; Z68.36 Body mass index [BMI] 36.0-36.9, adult; Z88.6 Allergy status to analgesic agent; Z88.0 Allergy status to penicillin; Z79.899 Other long term (current) drug therapy; Z86.711 Personal history of pulmonary embolism
CPT/HCPCS: 36415; 80053; 83605; 85025; 87040; 99283

== ENCOUNTER 2020-06-13 21:57 | Emergency (ER) | payer MEDICARE, OTHER ==
--- NOTE | 2020-06-13 22:56 | CR ---
PROCEDURE INFORMATION: Exam: XR Chest, 1 View Exam date and time: 06/13/2020 10:48 PM Age: 44 years old Clinical indication: Shortness of breath; Additional info: SOB TECHNIQUE: Imaging protocol: XR of the chest Views: 1 view. COMPARISON: CR Chest 1V Frontal 04/08/2020 10:51 PM FINDINGS: Tubes, catheters and devices: Left venous catheter the region of the SVC right atrial junction. Lungs: Unremarkable. No consolidation. Pleural space: Unremarkable. No pleural effusion. No pneumothorax. Heart/Mediastinum: Moderate enlargement of the cardiopericardial silhouette. Bones/joints: Unremarkable. IMPRESSION: No acute process.
[2020-06-13] MEDS ORDERED: Nitroglycerin 0.4 MG Tab.SL SL ONE (23:16)
[2020-06-13 23:47] LABS: ANION GAP 14.8 mEq/L (7-13); CHLORIDE,CL 93 mmol/L (98-107); SODIUM,NA 128 mmol/L (136-145)
[2020-06-14] MEDS ORDERED: Insulin Regular, Human 100 Units/ML 3 ML Vial IV ONE
[2020-06-14] MEDS ORDERED: 50% Dextrose in Water 50 ML Syringe IV PRN ×3 (00:19→01:20)
[2020-06-14] MEDS ORDERED: Insulin Regular, Human 100 Units/ML 3 ML Vial SUBCUT ONE ×2 (00:19→01:20)
[2020-06-14] MEDS ORDERED: Glucagon,Human Recombinant 1 MG Vial IM PRN ×3 (00:19→01:20)
[2020-06-14] MEDS ORDERED: amLODIPine 5 MG Tab PO ONE (00:27)
--- NOTE | 2020-06-14 02:33 | EDM.PDOC ---
ED HPI GENERAL MEDICAL PROBLEM - General Chief Complaint: Respiratory Problem Stated Complaint: AMBULANCE Time Seen by Provider: 06/13/20 22:15 Source of Information: Reports: Patient History Limitations: Reports: No Limitations - History of Present Illness INITIAL COMMENTS - FREE TEXT/NARRATIVE: ED with c/o exertional dyspnea, orthopnea for past 2 weeks, tolerable until tonight when wosre when sitting up in recliner. Reports compliance with dialysis. Scheduled for run at 0600. Has not taken Norvasc for past few days as not in bag when meds picked up and not gotten back to pharmacy to get. Anterior Chest Pain Score (Numeric/FACES): 5 - Related Data Allergies Allergy/AdvReac Type Severity Reaction Status Date / Time aspirin Allergy Hives Verified 06/13/20 22:19 naproxen [From Naprosyn] Allergy Rash Verified 06/13/20 22:19 Penicillins Allergy Rash Verified 06/13/20 22:19 propoxyphene napsylate Allergy Rash Verified 06/13/20 22:19 [From Darvocet-N 100] Home Meds: Home Meds Losartan [Cozaar] 25 mg PO DAILY 01/07/18 [History] Calcium Acetate [PhosLo] 4 cap PO TID 03/12/18 [History] Calcium Carbonate 3 gm PO TID 02/22/19 [History] Sodium Polystyrene Sulfonate [Kayexalate] 15 gm PO ASDIRECTED 02/22/19 [History] Metoprolol Succinate 100 mg PO DAILY 03/04/20 [History] amLODIPine [Norvasc] 7.5 mg PO DAILY 03/04/20 [History] Acetaminophen [Tylenol] 500 mg PO Q6H PRN 03/16/20 [History] Insulin Detemir [Levemir] 10 unit SQ BEDTIME 06/14/20 [History] Past Medical History HEENT History: Reports: None, Impaired Vision Other HEENT History: wears glasses Cardiovascular History: Reports: Heart Failure, Heart Murmur, High Cholesterol, Hypertension Respiratory History: Reports: PE Gastrointestinal History: Reports: GERD Genitourinary History: Reports: Acute Renal Failure, Chronic Renal Insuffiency, Dialysis, Renal Disease [employer]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: 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: Neurological History: Reports: Neuropathy, Diabetic Psychiatric History: Reports: Anxiety Endocrine/Metabolic History: Reports: Diabetes, Type II, Obesity/BMI 30+ Hematologic History: Reports: Blood Transfusion(s) Immunologic History: Reports: None Oncologic (Cancer) History: Reports: None Dermatologic History: Reports: Other (See Below) Other Dermatologic History: boil - Infectious Disease History Infectious Disease History: Reports: MRSA - Past Surgical History HEENT Surgical History: Reports: None Cardiovascular Surgical History: Reports: None Female Surgical History: Reports: Section Musculoskeletal Surgical History: Reports: Other (See Below) Other Musculoskeletal Surgeries/Procedures:: Ankle surgery Social & Family History - Family History Family Medical History: No Pertinent Family History Endocrine/Metabolic: Reports: Diabetes, type II - Tobacco Use Tobacco Use Status *Q: Never Tobacco User Second Hand Smoke Exposure: No - Caffeine Use Caffeine Use: Reports: Coffee, Soda - Living Situation & Occupation Living situation: Reports: with Family Occupation: Disabled ED ROS GENERAL - Review of Systems Review Of Systems: Comprehensive ROS is negative, except as noted in HPI. ED EXAM, GENERAL - Physical Exam Exam: See Below Exam Limited By: No Limitations General Appearance: Alert, No Apparent Distress, Obese Eye Exam: Bilateral Eye: EOMI Ears: Normal External Exam, Hearing Grossly Normal Nose: Normal Mucosa Throat/Mouth: Normal Lips Head: Normocephalic Neck: Full Range of Motion Respiratory/Chest: Normal Breath Sounds Cardiovascular: Regular Rate, Rhythm GI/Abdominal: Normal Bowel Sounds, Soft, Non-Tender Back Exam: Full Range of Motion Extremities: Pedal Edema (1-2+) Neurological: Alert, Oriented, Normal Cognition Psychiatric: Normal Affect, Normal Mood Skin Exam: Warm, Dry, Intact, Pallor Course - Vital Signs Last Recorded V/S: Last Vital Signs Temp 98.9 F 06/14/20 04:40 Pulse 73 06/14/20 04:40 Resp 18 06/14/20 04:40 BP 149/74 H 06/14/20 04:40 Pulse Ox 100 06/14/20 04:40 - Orders/Labs/Meds Orders: Active Orders 24 hr Category Date Time Status Blood Glucose Check, Bedside [RC] ONETIME Care 06/14/20 00:30 Active Blood Glucose Check, Bedside [RC] ONETIME Care 06/14/20 01:30 Active Blood Glucose Check, Bedside [RC] ONETIME Care 06/14/20 02:32 Active Blood Glucose Check, Bedside [RC] ONETIME Care 06/14/20 03:54 Active EKG Documentation Completion [RC] URGENT Care 06/13/20 22:14 Active GLUCOSE,POC [POC] Routine Lab 06/14/20 05:27 Received Acetaminophen [TylenoL] Med 06/14/20 04:26 Active 650 mg PO ONETIME PRN Dextrose 50% in Water Med 06/14/20 01:20 Active 50 ml IV ASDIRECTED PRN Glucagon,Human Recombinant [GlucaGen] Med 06/14/20 00:00 Active 1 mg IM ASDIRECTED PRN Glucagon,Human Recombinant [GlucaGen] Med 06/14/20 01:20 Active 1 mg IM ASDIRECTED PRN Insulin Regular in 0.9 % NACL [Myxredlin 100 UNIT/100 Med 06/14/20 03:00 Active ML] 100 unit in 100 ml IV TITRATE Medication Orders Acetaminophen (Tylenol) 650 mg PO ONETIME PRN PRN Reason: Pain/Fever Last Admin: 06/14/20 04:39 Dose: 650 mg Documented by: WALTER Dextrose/Water (Dextrose 50% In Water) 50 ml IV ASDIRECTED PRN PRN Reason: Hypoglycemia Glucagon (Glucagen) 1 mg IM ASDIRECTED PRN PRN Reason: Hypoglycemia Glucagon (Glucagen) 1 mg IM ASDIRECTED PRN PRN Reason: Hypoglycemia Insulin Regular in 0.9 % NACL (Myxredlin 100 Unit/100 Ml) 100 unit in 100 mls @ 15.422 mls/hr IV TITRATE SREEKANTH; Protocol Last Admin: 06/14/20 03:06 Dose: 0.1 units/kg/hr, 15.422 mls/hr Documented by: WALTER Cosigned by: MATT Labs: Laboratory Tests 06/13/20 06/13/20 06/13/20 Range/Units 23:18 23:18 23:18 WBC 9.3 (5.0-10.0) 10^3/uL RBC 3.01 L (4.2-5.4) 10^6/uL Hgb 9.8 L (12.0-16.0) g/dL Hct 28.8 L (37.0-47.0) % MCV 95.7 (80-100) fL MCH 32.6 (27.0-34.0) pg MCHC 34.0 (33.0-35.0) g/dL Plt Count 258 (150-450) 10^3/uL Neut % (Auto) 71.6 (42.2-75.2) % Lymph % (Auto) 15.7 L (20.5-50.1) % [place] % (Auto) 6.6 (2-8) % Eos % (Auto) 5.6 H (1.0-3.0) % Baso % (Auto) 0.5 (0.0-1.0) % PT 8.8 L D (9.0-12.0) SEC INR 0.9 (0.9-1.2) Sodium 128 L (136-145) mmol/L Potassium 4.8 (3.5-5.1) mmol/L Chloride 93 L (98-107) mmol/L Carbon Dioxide 25 (21-32) mmol/L Anion Gap 14.8 H (7-13) mEq/L BUN 37 H (7-18) mg/dL Creatinine 7.42 H* D (0.55-1.02) mg/dL Est Cr Clr Drug Dosing 8.87 mL/min Estimated GFR (MDRD) 6 BUN/Creatinine Ratio 5.0 (No establ ref range) Glucose 665 H* (74-99) mg/dL POC Glucose (70-105) mg/dl Calcium 7.5 L (8.5-10.1) mg/dL Magnesium 1.9 (1.8-2.4) mg/dL Total Bilirubin 0.4 (0.2-1.0) mg/dL AST 11 L (15-37) U/L ALT 15 (14-59) U/L Alkaline Phosphatase 210 H (46-116) U/L Troponin I < 0.017 (0.000-0.056) ng/mL B-Natriuretic Peptide 789 H (0-100) pg/ml Total Protein 6.9 (6.4-8.2) g/dL Albumin 2.9 L (3.4-5.0) g/dL Globulin 4.0 Albumin/Globulin Ratio 0.73 06/14/20 06/14/20 06/14/20 Range/Units 00:48 01:20 02:04 WBC (5.0-10.0) 10^3/uL RBC (4.2-5.4) 10^6/uL Hgb (12.0-16.0) g/dL Hct (37.0-47.0) % MCV (80-100) fL MCH (27.0-34.0) pg MCHC (33.0-35.0) g/dL Plt Count (150-450) 10^3/uL Neut % (Auto) (42.2-75.2) % Lymph % (Auto) (20.5-50.1) % [place] % (Auto) (2-8) % Eos % (Auto) (1.0-3.0) % Baso % (Auto) (0.0-1.0) % PT (9.0-12.0) SEC INR (0.9-1.2) Sodium (136-145) mmol/L Potassium (3.5-5.1) mmol/L Chloride (98-107) mmol/L Carbon Dioxide (21-32) mmol/L Anion Gap (7-13) mEq/L BUN (7-18) mg/dL Creatinine (0.55-1.02) mg/dL Est Cr Clr Drug Dosing mL/min Estimated GFR (MDRD) BUN/Creatinine Ratio (No establ ref range) Glucose (74-99) mg/dL POC Glucose > 500 H* > 500 H* > 500 H* (70-105) mg/dl Calcium (8.5-10.1) mg/dL Magnesium (1.8-2.4) mg/dL Total Bilirubin (0.2-1.0) mg/dL AST (15-37) U/L ALT (14-59) U/L Alkaline Phosphatase (46-116) U/L Troponin I (0.000-0.056) ng/mL B-Natriuretic Peptide (0-100) pg/ml Total Protein (6.4-8.2) g/dL Albumin (3.4-5.0) g/dL Globulin Albumin/Globulin Ratio 06/14/20 06/14/20 Range/Units 02:42 04:04 WBC (5.0-10.0) 10^3/uL RBC (4.2-5.4) 10^6/uL Hgb (12.0-16.0) g/dL Hct (37.0-47.0) % MCV (80-100) fL MCH (27.0-34.0) pg MCHC (33.0-35.0) g/dL Plt Count (150-450) 10^3/uL Neut % (Auto) (42.2-75.2) % Lymph % (Auto) (20.5-50.1) % [place] % (Auto) (2-8) % Eos % (Auto) (1.0-3.0) % Baso % (Auto) (0.0-1.0) % PT (9.0-12.0) SEC INR (0.9-1.2) Sodium (136-145) mmol/L Potassium (3.5-5.1) mmol/L Chloride (98-107) mmol/L Carbon Dioxide (21-32) mmol/L Anion Gap (7-13) mEq/L BUN (7-18) mg/dL Creatinine (0.55-1.02) mg/dL Est Cr Clr Drug Dosing mL/min Estimated GFR (MDRD) BUN/Creatinine Ratio (No establ ref range) Glucose (74-99) mg/dL POC Glucose > 500 H* 271 H (70-105) mg/dl Calcium (8.5-10.1) mg/dL Magnesium (1.8-2.4) mg/dL Total Bilirubin (0.2-1.0) mg/dL AST (15-37) U/L ALT (14-59) U/L Alkaline Phosphatase (46-116) U/L Troponin I (0.000-0.056) ng/mL B-Natriuretic Peptide (0-100) pg/ml Total Protein (6.4-8.2) g/dL Albumin (3.4-5.0) g/dL Globulin Albumin/Globulin Ratio Meds: Medications Generic Name Dose Route Start Last Admin Trade Name Freq PRN Reason Stop Dose Admin Acetaminophen 650 mg 06/14/20 04:26 06/14/20 04:39 Tylenol PO 650 mg ONETIME PRN Administration Pain/Fever Dextrose/Water 50 ml 06/14/20 01:20 Dextrose 50% In Water IV ASDIRECTED PRN Hypoglycemia Glucagon 1 mg 06/14/20 00:00 Glucagen IM ASDIRECTED PRN Hypoglycemia Glucagon 1 mg 06/14/20 01:20 Glucagen IM ASDIRECTED PRN Hypoglycemia Insulin Regular in 0.9 % NACL 100 unit in 100 mls @ 15.422 mls/hr 06/14/20 03:00 06/14/20 03:06 Myxredlin 100 Unit/100 Ml IV 0.1 units/kg/hr TITRATE SREEKANTH 15.422 mls/hr Administration Protocol 0.1 UNITS/KG/HR Discontinued Medications Generic Name Dose Route Start Last Admin Trade Name Freq PRN Reason Stop Dose Admin Amlodipine Besylate 5 mg 06/14/20 00:27 06/14/20 00:46 Norvasc PO 06/14/20 00:28 5 mg ONETIME ONE Administration Dextrose/Water 50 ml 06/14/20 00:00 Dextrose 50% In Water IV ASDIRECTED PRN Hypoglycemia Dextrose/Water 50 ml 06/14/20 00:19 Dextrose 50% In Water IV ASDIRECTED PRN Hypoglycemia Glucagon 1 mg 06/14/20 00:19 Glucagen IM ASDIRECTED PRN Hypoglycemia Insulin Regular in 0.9 % NACL Confirm 06/14/20 03:02 06/14/20 03:11 Myxredlin 100 Unit/100 Ml Administered 06/14/20 03:03 Not Given Dose 100 mls @ as directed .ROUTE .STK-MED ONE Insulin Human Regular 14 unit 06/14/20 00:00 Humulin R IV 06/14/20 00:01 ONETIME ONE Insulin Human Regular 14 unit 06/14/20 00:19 06/14/20 00:22 Humulin R SUBCUT 06/14/20 00:20 14 unit ONETIME ONE Administration Insulin Human Regular 5 unit 06/14/20 01:20 06/14/20 01:26 Humulin R SUBCUT 06/14/20 01:21 5 unit ONETIME ONE Administration Nitroglycerin 0.4 mg 06/13/20 23:16 06/13/20 23:22 Nitrostat SL 06/13/20 23:17 0.4 mg ONETIME ONE Administration - Re-Assessments/Exams Free Text/Narrative Re-Assessment/Exam: Admits not taken insulin for a couple weeks states she forgets it . Intermittent light dozig, denies c/o at present. Difficult IV , multiple attempts unsuccessful. Departure - Departure Time of Disposition: 05:28 Disposition: Home, Self-Care 01 Condition: Good Clinical Impression: Hyperglycemia due to diabetes mellitus, Noncompliance with medication regimen HTN (hypertension) Qualifiers: Hypertension type: unspecified Qualified Code(s): I10 - Essential (primary) hypertension - Discharge Information *PRESCRIPTION DRUG MONITORING PROGRAM REVIEWED*: No *COPY OF PRESCRIPTION DRUG MONITORING REPORT IN PATIENT LATHA: No Instructions: Insulin Treatment for Diabetes Mellitus Referrals: Lokesh Nesbitt MD [Primary Care Provider] - Forms: ED Department Discharge Additional Instructions: take medication as prescribed get norvasc filled take insulin as prescribed. Sepsis Event Note (ED) - Evaluation Sepsis Screening Result: No Definite Risk - Focused Exam Vital Signs: Vital Signs Temp Pulse Resp BP BP Pulse Ox 06/14/20 04:40 98.9 F 73 18 149/74 H 100 06/14/20 03:17 97.8 F 65 17 159/74 H 96 06/14/20 00:46 170/79 H 06/14/20 00:30 97.7 F 67 18 175/82 H 100 06/13/20 23:27 97.7 F 75 20 194/89 H 99 06/13/20 23:22 204/99 H 06/13/20 22:07 98.3 F 81 18 187/85 H 100 - My Orders Last 24 Hours: My Active Orders 06/13/20 22:14 EKG Documentation Completion [RC] URGENT 06/14/20 00:00 Glucagon,Human Recombinant [GlucaGen] 1 mg IM ASDIRECTED PRN 06/14/20 00:30 Blood Glucose Check, Bedside [RC] ONETIME 06/14/20 01:20 Dextrose 50% in Water 50 ml IV ASDIRECTED PRN Glucagon,Human Recombinant [GlucaGen] 1 mg IM ASDIRECTED PRN 06/14/20 01:30 Blood Glucose Check, Bedside [RC] ONETIME 06/14/20 02:32 Blood Glucose Check, Bedside [RC] ONETIME 06/14/20 03:00 Insulin Regular in 0.9 % NACL [Myxredlin 100 UNIT/100 ML] 100 unit in 100 ml IV TITRATE 06/14/20 03:54 Blood Glucose Check, Bedside [RC] ONETIME 06/14/20 04:26 Acetaminophen [TylenoL] 650 mg PO ONETIME PRN 06/14/20 05:27 GLUCOSE,POC [POC] Routine - Assessment/Plan Last 24 Hours: My Active Orders 06/13/20 22:14 EKG Documentation Completion [RC] URGENT 06/14/20 00:00 Glucagon,Human Recombinant [GlucaGen] 1 mg IM ASDIRECTED PRN 06/14/20 00:30 Blood Glucose Check, Bedside [RC] ONETIME 06/14/20 01:20 Dextrose 50% in Water 50 ml IV ASDIRECTED PRN Glucagon,Human Recombinant [GlucaGen] 1 mg IM ASDIRECTED PRN 06/14/20 01:30 Blood Glucose Check, Bedside [RC] ONETIME 06/14/20 02:32 Blood Glucose Check, Bedside [RC] ONETIME 06/14/20 03:00 Insulin Regular in 0.9 % NACL [Myxredlin 100 UNIT/100 ML] 100 unit in 100 ml IV TITRATE 06/14/20 03:54 Blood Glucose Check, Bedside [RC] ONETIME 06/14/20 04:26 Acetaminophen [TylenoL] 650 mg PO ONETIME PRN 06/14/20 05:27 GLUCOSE,POC [POC] Routine
[2020-06-14] MEDS ORDERED: Insulin Regular in 0.9 % NACL 100 ML ONE (03:02)
[2020-06-14] MEDS ORDERED: Acetaminophen 325 MG Tab PO PRN (04:26)
[2020-06-14 04:40] VITALS: BP 149/74; PULSE 73
== END 2020-06-14 05:45 | disposition home or self-care (01) ==
LOC: DL.ED 21:57
DX: E11.65 Type 2 diabetes mellitus with hyperglycemia (principal); I13.2 Hypertensive heart and chronic kidney disease with heart failure and with stage 5 chronic kidney disease, or end stage renal disease; E11.22 Type 2 diabetes mellitus with diabetic chronic kidney disease; N18.6 End stage renal disease; I50.9 Heart failure, unspecified; E11.40 Type 2 diabetes mellitus with diabetic neuropathy, unspecified; E66.9 Obesity, unspecified; Z68.43 Body mass index [BMI] 50.0-59.9, adult; Z99.2 Dependence on renal dialysis; Z91.14 Patient's other noncompliance with medication regimen; Z88.6 Allergy status to analgesic agent; Z88.8 Allergy status to other drugs, medicaments and biological substances; Z88.0 Allergy status to penicillin; Z79.899 Other long term (current) drug therapy; Z79.4 Long term (current) use of insulin
CPT/HCPCS: 36415; 71045; 80053; 82962; 83735; 83880; 84484; 85025; 85610; 93005; 99283; 99285-25; A9270-GY; J1815-GY

== ENCOUNTER 2020-09-02 09:56 | Emergency (ER) | payer MEDICARE, OTHER ==
--- NOTE | 2020-09-02 10:08 | EDM.PDOC ---
ED HPI GENERAL MEDICAL PROBLEM - General Chief Complaint: Respiratory Problem Stated Complaint: DIALYSIS SENT FOR PNEUMONIA Time Seen by Provider: 09/02/20 10:07 Source of Information: Reports: Patient, Old Records, RN, RN Notes Reviewed History Limitations: Reports: No Limitations - History of Present Illness INITIAL COMMENTS - FREE TEXT/NARRATIVE: Pt presents to ED via POV with c/o SOB. Pt states that she was at dialysis this morning and they advised her to be seen because she could possibly have pneumonia. Pt states she had her full dialysis run. Pt states that she has been having increased SOB and cough since Wednesday. Pt states she has been coughing up yellow phlegm. Pt also has c/o chest pain when coughing. Pt states she had a "slight fever of 100" at dialysis and was given tylenol approx 1.5 hours ago. Pt rates her chest pain at a 7/10. Onset: Gradual Duration: Getting Worse Location: Reports: Chest Severity: Moderate Improves with: Reports: None Worsens with: Reports: None Associated Symptoms: Reports: No Other Symptoms Bilateral Mid-Anterior Chest Pain Score (Numeric/FACES): 7 - Related Data Allergies Allergy/AdvReac Type Severity Reaction Status Date / Time aspirin Allergy Hives Verified 09/02/20 10:07 naproxen [From Naprosyn] Allergy Rash Verified 09/02/20 10:07 Penicillins Allergy Rash Verified 09/02/20 10:07 propoxyphene napsylate Allergy Rash Verified 09/02/20 10:07 [From Darvocet-N 100] Home Meds: Home Meds Losartan [Cozaar] 25 mg PO DAILY 01/07/18 [History] Calcium Acetate [PhosLo] 4 cap PO TID 03/12/18 [History] Calcium Carbonate 3 gm PO TID 02/22/19 [History] Sodium Polystyrene Sulfonate [Kayexalate] 15 gm PO ASDIRECTED 02/22/19 [History] Metoprolol Succinate 100 mg PO DAILY 03/04/20 [History] amLODIPine [Norvasc] 7.5 mg PO DAILY 03/04/20 [History] Acetaminophen [Tylenol] 500 mg PO Q6H PRN 03/16/20 [History] Insulin Detemir [Levemir] 10 unit SQ BEDTIME 06/14/20 [History] Past Medical History HEENT History: Reports: None, Impaired Vision Other HEENT History: wears glasses Cardiovascular History: Reports: Heart Failure, Heart Murmur, High Cholesterol, Hypertension Respiratory History: Reports: PE Gastrointestinal History: Reports: GERD Genitourinary History: Reports: Acute Renal Failure, Chronic Renal Insuffiency, Dialysis, Renal Disease [employer] IR[employer]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: Neurological History: Reports: Neuropathy, Diabetic Psychiatric History: Reports: Anxiety Endocrine/Metabolic History: Reports: Diabetes, Type II, Obesity/BMI 30+ Hematologic History: Reports: Blood Transfusion(s) Immunologic History: Reports: None Oncologic (Cancer) History: Reports: None Dermatologic History: Reports: Other (See Below) Other Dermatologic History: boil - Infectious Disease History Infectious Disease History: Reports: MRSA - Past Surgical History HEENT Surgical History: Reports: None Cardiovascular Surgical History: Reports: None Female Surgical History: Reports: Section Musculoskeletal Surgical History: Reports: Other (See Below) Other Musculoskeletal Surgeries/Procedures:: Ankle surgery Social & Family History - Family History Family Medical History: No Pertinent Family History Endocrine/Metabolic: Reports: Diabetes, type II - Caffeine Use Caffeine Use: Reports: Coffee, Soda - Living Situation & Occupation Living situation: Reports: with Family Occupation: Disabled ED ROS GENERAL - Review of Systems Review Of Systems: Comprehensive ROS is negative, except as noted in HPI. ED EXAM, GENERAL - Physical Exam Exam: See Below Exam Limited By: No Limitations General Appearance: Alert, No Apparent Distress, Obese, Other (chronically ill appearing) Eye Exam: Bilateral Eye: Normal Inspection Nose: Normal Inspection, Normal Mucosa, No Blood Throat/Mouth: Normal Inspection, Normal Lips, Normal Oropharynx, Normal Voice, No Airway Compromise Head: Atraumatic, Normocephalic Neck: Normal Inspection, Supple, Non-Tender, Full Range of Motion Respiratory/Chest: No Respiratory Distress, No Accessory Muscle Use, Chest Non- Tender, Rhonchi (Faint intermittent rhonchi at left base). No: Crackles, Rales, Wheezing, Stridor Cardiovascular: Regular Rate, Rhythm, No Edema GI/Abdominal: Normal Bowel Sounds, Soft, Non-Tender, No Organomegaly, No Distention, No Abnormal Bruit, No Mass Back Exam: Normal Inspection Extremities: Normal Inspection, Normal Range of Motion, Non-Tender, Normal Capillary Refill, No Pedal Edema Neurological: Alert, Oriented, CN II-XII Intact, Normal Cognition, Normal Gait, No Motor/Sensory Deficits Psychiatric: Normal Affect, Normal Mood Skin Exam: Warm, Dry, Intact, Normal Color, No Rash Course - Vital Signs Last Recorded V/S: Last Vital Signs Temp 98.7 F 09/02/20 10:07 Pulse 74 09/02/20 10:07 Resp 22 H 09/02/20 10:07 BP 170/76 H 09/02/20 10:07 Pulse Ox 96 09/02/20 10:07 - Orders/Labs/Meds Orders: Active Orders 24 hr Category Date Time Status CULTURE BLOOD [BC] Stat Lab 09/02/20 10:26 Results Labs: Laboratory Tests 09/02/20 09/02/20 09/02/20 Range/Units 10:26 10:54 12:20 WBC 12.5 H (5.0-10.0) 10^3/uL RBC 3.70 L (4.2-5.4) 10^6/uL Hgb 11.3 L D (12.0-16.0) g/dL Hct 33.7 L (37.0-47.0) % MCV 91.1 D (80-100) fL MCH 30.5 (27.0-34.0) pg MCHC 33.5 (33.0-35.0) g/dL Plt Count 239 (150-450) 10^3/uL Neut % (Auto) 80.7 H (42.2-75.2) % Lymph % (Auto) 11.8 L (20.5-50.1) % [place] % (Auto) 3.4 (2-8) % Eos % (Auto) 3.5 H (1.0-3.0) % Baso % (Auto) 0.6 (0.0-1.0) % Sodium 135 L (136-145) mmol/L Potassium 3.5 (3.5-5.1) mmol/L Chloride 97 L (98-107) mmol/L Carbon Dioxide 30 (21-32) mmol/L Anion Gap 11.5 (7-13) mEq/L BUN 19 H (7-18) mg/dL Creatinine 4.98 H* D (0.55-1.02) mg/dL Est Cr Clr Drug Dosing 14.24 mL/min Estimated GFR (MDRD) 9 BUN/Creatinine Ratio 3.8 (No establ ref range) Glucose 259 H (74-99) mg/dL Lactic Acid 1.0 (0.4-2.0) mmol/L Calcium 7.8 L (8.5-10.1) mg/dL Phosphorus 2.6 (2.6-4.7) mg/dL Magnesium 1.6 L (1.8-2.4) mg/dL Total Bilirubin 0.7 (0.2-1.0) mg/dL AST 14 L (15-37) U/L ALT 17 (14-59) U/L Alkaline Phosphatase 118 H (46-116) U/L B-Natriuretic Peptide 1600 H (0-100) pg/ml Total Protein 7.7 (6.4-8.2) g/dL Albumin 3.1 L (3.4-5.0) g/dL Globulin 4.6 Albumin/Globulin Ratio 0.67 Meds: Medications Discontinued Medications Generic Name Dose Route Start Last Admin Trade Name Freq PRN Reason Stop Dose Admin Benzonatate 200 mg 09/02/20 11:02 09/02/20 11:13 Tessalon Perles PO 09/02/20 11:03 200 mg ONETIME ONE Administration Levofloxacin/Dextrose 500 mg/ 100 mls @ 100 mls/hr 09/02/20 11:00 09/02/20 11:12 Premix IV 09/02/20 11:59 100 mls/hr ONETIME ONE Administration - Radiology Interpretation Free Text/Narrative:: [facility] Final Radiology Report Call: [phone] assistance Online chat: [email or web address] Name: LATOYA JUNE Age: 44Years F Date: 09/02/2020 SSN: -- : [id number] Study: CR CHEST 2V Requesting Physician: CHAD CLEMENTS Images: 2 Addl Studies: Provided Clinical History: cough, suspected pneumonia, dialysis pt Contrast: Contrast Medium: Contrast Amount: Contrast Method: CONFIDENTIALITY STATEMENT This report is intended only for use by the referring physician, and only in accordance with law. If you received this in error, call [phone]. Page 1 of 1 PROCEDURE INFORMATION: Exam: XR Chest, 2 Views Exam date and time: 09/02/2020 10:26 AM Age: 44 years old Clinical indication: Other: Cough, suspected pneumonia, dialysis PT TECHNIQUE: Imaging protocol: XR of the chest Views: 2 views. COMPARISON: CR Chest 1V Frontal 06/13/2020 10:48 PM and older studies. FINDINGS: Tubes, catheters and devices: Unchanged left-sided dialysis catheter terminating in right atrium. Lungs: New diffuse ground-glass opacification throughout the left lower lobe. Pleural spaces: Unremarkable. No pleural effusion. No pneumothorax. Heart/Mediastinum: Normal heart and cardiomediastinal silhouette. Vasculature: Normal pulmonary vessel caliber. Normal aorta. Bones/joints: The bones are intact. IMPRESSION: New left lung infiltrate highly suspicious for pneumonia given the history of cough. No pleural effusion or acute pulmonary edema. Thank you for allowing us to participate in the care of your patient. Dictated and Authenticated by: Mulugeta Arzate MD 09/02/2020 10:41 AM Central Time ([place] & [place]) Departure - Departure Time of Disposition: 12:54 Disposition: Home, Self-Care 01 Condition: Good Clinical Impression: End stage renal disease on dialysis Pneumonia Qualifiers: Pneumonia type: due to unspecified organism Laterality: left Lung location: lower lobe of lung Qualified Code(s): J18.9 - Pneumonia, unspecified organism - Discharge Information *PRESCRIPTION DRUG MONITORING PROGRAM REVIEWED*: Not Applicable *COPY OF PRESCRIPTION DRUG MONITORING REPORT IN PATIENT LATHA: Not Applicable Instructions: Community-Acquired Pneumonia, Adult, [id number] Forms: ED Department Discharge Additional Instructions: Rx: Levaquin 250mg Follow up in clinic in 3 to 4 days for recheck. Return to ER if you develop any difficulty breathing, or fever. Sepsis Event Note (ED) - Focused Exam Vital Signs: Vital Signs Temp Pulse Resp BP Pulse Ox 09/02/20 10:07 98.7 F 74 22 H 170/76 H 96 - My Orders Last 24 Hours: My Active Orders 09/02/20 10:26 CULTURE BLOOD [BC] Stat - Assessment/Plan Last 24 Hours: My Active Orders 09/02/20 10:26 CULTURE BLOOD [BC] Stat
[2020-09-02 10:10] VITALS: BP 170/76; PULSE 74
--- NOTE | 2020-09-02 10:41 | CR ---
PROCEDURE INFORMATION: Exam: XR Chest, 2 Views Exam date and time: 09/02/2020 10:26 AM Age: 44 years old Clinical indication: Other: Cough, suspected pneumonia, dialysis PT TECHNIQUE: Imaging protocol: XR of the chest Views: 2 views. COMPARISON: CR Chest 1V Frontal 06/13/2020 10:48 PM and older studies. FINDINGS: Tubes, catheters and devices: Unchanged left-sided dialysis catheter terminating in right atrium. Lungs: New diffuse ground-glass opacification throughout the left lower lobe. Pleural spaces: Unremarkable. No pleural effusion. No pneumothorax. Heart/Mediastinum: Normal heart and cardiomediastinal silhouette. Vasculature: Normal pulmonary vessel caliber. Normal aorta. Bones/joints: The bones are intact. IMPRESSION: New left lung infiltrate highly suspicious for pneumonia given the history of cough. No pleural effusion or acute pulmonary edema.
[2020-09-02] MEDS ORDERED: Levofloxacin/Dextrose 5%-Water 500 MG in Premix Bag 1 BAG IV ONE (11:00)
[2020-09-02] MEDS ORDERED: Benzonatate 100 MG Cap PO ONE (11:02)
[2020-09-02 12:49] LABS: ANION GAP 11.5 mEq/L (7-13)
== END 2020-09-02 13:07 | disposition home or self-care (01) ==
LOC: DL.ED 09:56
DX: J18.9 Pneumonia, unspecified organism (principal); I13.2 Hypertensive heart and chronic kidney disease with heart failure and with stage 5 chronic kidney disease, or end stage renal disease; E11.22 Type 2 diabetes mellitus with diabetic chronic kidney disease; N18.6 End stage renal disease; I50.9 Heart failure, unspecified; E11.40 Type 2 diabetes mellitus with diabetic neuropathy, unspecified; E66.9 Obesity, unspecified; Z68.41 Body mass index [BMI] 40.0-44.9, adult; Z99.2 Dependence on renal dialysis; Z88.8 Allergy status to other drugs, medicaments and biological substances; Z88.0 Allergy status to penicillin; Z79.4 Long term (current) use of insulin; Z79.899 Other long term (current) drug therapy
CPT/HCPCS: 36415; 71046; 80053; 83605; 83735; 83880; 84100; 85025; 87040; 96365; 99285; A9270; J1956; 99284

== ENCOUNTER 2020-09-29 22:42 | Emergency (ER) | payer MEDICARE, MEDICAID ==
[2020-09-29 22:55] VITALS: PULSE 96
--- NOTE | 2020-09-29 22:57 | EDM.PDOC ---
ED HPI GENERAL MEDICAL PROBLEM - General Chief Complaint: Respiratory Problem Stated Complaint: TROUBLE BREATHING Time Seen by Provider: 09/29/20 22:55 Source of Information: Reports: Patient History Limitations: Reports: No Limitations - History of Present Illness INITIAL COMMENTS - FREE TEXT/NARRATIVE: ED per w/c perports sister left window open last and today feeling SOB, cough and has fever tonight. Last dialysis on Wednesday and due Wednesday am. - Related Data Allergies Allergy/AdvReac Type Severity Reaction Status Date / Time aspirin Allergy Hives Verified 09/02/20 10:07 naproxen [From Naprosyn] Allergy Rash Verified 09/02/20 10:07 Penicillins Allergy Rash Verified 09/02/20 10:07 propoxyphene napsylate Allergy Rash Verified 09/02/20 10:07 [From Darvocet-N 100] Home Meds: Home Meds Losartan [Cozaar] 25 mg PO DAILY 01/07/18 [History] Calcium Acetate [PhosLo] 4 cap PO TID 03/12/18 [History] Calcium Carbonate 3 gm PO TID 02/22/19 [History] Sodium Polystyrene Sulfonate [Kayexalate] 15 gm PO ASDIRECTED 02/22/19 [History] Metoprolol Succinate 100 mg PO DAILY 03/04/20 [History] amLODIPine [Norvasc] 7.5 mg PO DAILY 03/04/20 [History] Acetaminophen [Tylenol] 500 mg PO Q6H PRN 03/16/20 [History] Insulin Detemir [Levemir] 10 unit SQ BEDTIME 06/14/20 [History] Past Medical History HEENT History: Reports: None, Impaired Vision Other HEENT History: wears glasses Cardiovascular History: Reports: Heart Failure, Heart Murmur, High Cholesterol, Hypertension Respiratory History: Reports: PE Gastrointestinal History: Reports: GERD Genitourinary History: Reports: Acute Renal Failure, Chronic Renal Insuffiency, Dialysis, Renal Disease 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: Neurological History: Reports: Neuropathy, Diabetic Psychiatric History: Reports: Anxiety Endocrine/Metabolic History: Reports: Diabetes, Type II, Obesity/BMI 30+ Hematologic History: Reports: Blood Transfusion(s) Immunologic History: Reports: None Oncologic (Cancer) History: Reports: None Dermatologic History: Reports: Other (See Below) Other Dermatologic History: boil - Infectious Disease History Infectious Disease History: Reports: MRSA, Novel Coronavirus - Past Surgical History HEENT Surgical History: Reports: None Cardiovascular Surgical History: Reports: None Female Surgical History: Reports: Section Musculoskeletal Surgical History: Reports: Other (See Below) Other Musculoskeletal Surgeries/Procedures:: Ankle surgery Social & Family History - Family History Family Medical History: No Pertinent Family History Endocrine/Metabolic: Reports: Diabetes, type II - Caffeine Use Caffeine Use: Reports: Coffee - Living Situation & Occupation Living situation: Reports: with Family Occupation: Disabled ED ROS GENERAL - Review of Systems Review Of Systems: Comprehensive ROS is negative, except as noted in HPI. ED EXAM, GENERAL - Physical Exam Exam: See Below Exam Limited By: No Limitations General Appearance: Alert, Mild Distress Ears: Normal External Exam, Hearing Grossly Normal Nose: Normal Inspection, Normal Mucosa Throat/Mouth: Normal Inspection, Normal Voice Neck: Normal Inspection, Full Range of Motion Respiratory/Chest: No Respiratory Distress, Lungs Clear, Decreased Breath Sounds (bases) Cardiovascular: Normal Peripheral Pulses, Regular Rate, Rhythm GI/Abdominal: Normal Bowel Sounds (Female) Exam: Normal External Exam Back Exam: Normal Inspection, Full Range of Motion Extremities: Normal Inspection Neurological: Alert, Oriented, CN II-XII Intact, Normal Cognition Psychiatric: Anxious Skin Exam: Warm, Dry, Intact, Other (dialysis catheter anterior chest) Course - Vital Signs Last Recorded V/S: Last Vital Signs Temp 99.3 F 09/29/20 22:51 Pulse 96 09/29/20 22:51 Resp 26 H 09/29/20 22:51 BP Pulse Ox 93 L 09/29/20 22:55 - Orders/Labs/Meds Orders: Active Orders 24 hr Category Date Time Status DD [D-DIMER QUANTITATIVE] [COAG] Stat Lab 09/29/20 23:55 Results INR,PT,PROTHROMBIN TIME [COAG] Stat Lab 09/29/20 23:55 Results LORazepam [Ativan] Med 09/29/20 23:17 Active 1 mg IM ONETIME PRN Medication Orders Lorazepam (Ativan) 1 mg IM ONETIME PRN PRN Reason: Anxiety Last Admin: 09/29/20 23:23 Dose: 1 mg Documented by: PELON Labs: Laboratory Tests 09/29/20 09/29/20 09/29/20 Range/Units 23:45 23:55 23:55 WBC 13.5 H (5.0-10.0) 10^3/uL RBC 3.64 L (4.2-5.4) 10^6/uL Hgb 11.6 L (12.0-16.0) g/dL Hct 34.2 L (37.0-47.0) % MCV 94.0 (80-100) fL MCH 31.9 (27.0-34.0) pg MCHC 33.9 (33.0-35.0) g/dL Plt Count 175 (150-450) 10^3/uL Neut % (Auto) 78.4 H (42.2-75.2) % Lymph % (Auto) 12.3 L (20.5-50.1) % [place] % (Auto) 4.6 (2-8) % Eos % (Auto) 4.2 H (1.0-3.0) % Baso % (Auto) 0.5 (0.0-1.0) % D-Dimer, Quantitative 2170 H (0-400) ng/mL Sodium 135 L (136-145) mmol/L Potassium 6.5 H D (3.5-5.1) mmol/L Chloride 100 (98-107) mmol/L Carbon Dioxide 17 L D (21-32) mmol/L Anion Gap 24.5 H (7-13) mEq/L BUN 67 H D (7-18) mg/dL Creatinine 9.85 H* D (0.55-1.02) mg/dL Est Cr Clr Drug Dosing 6.68 mL/min Estimated GFR (MDRD) 4 BUN/Creatinine Ratio 6.8 (No establ ref range) Glucose 358 H (74-99) mg/dL Calcium 7.7 L (8.5-10.1) mg/dL Total Bilirubin 0.6 (0.2-1.0) mg/dL AST 23 (15-37) U/L ALT 16 (14-59) U/L Alkaline Phosphatase 189 H (46-116) U/L Troponin I < 0.017 (0.000-0.056) ng/mL B-Natriuretic Peptide 2090 H (0-100) pg/ml Total Protein 8.4 H (6.4-8.2) g/dL Albumin 3.3 L (3.4-5.0) g/dL Globulin 5.1 Albumin/Globulin Ratio 0.65 Meds: Medications Generic Name Dose Route Start Last Admin Trade Name Freq PRN Reason Stop Dose Admin Lorazepam 1 mg 09/29/20 23:17 09/29/20 23:23 Ativan IM 1 mg ONETIME PRN Administration Anxiety Discontinued Medications Generic Name Dose Route Start Last Admin Trade Name Freq PRN Reason Stop Dose Admin Benzonatate 100 mg 09/30/20 00:45 09/30/20 00:53 Tessalon Perles PO 09/30/20 00:46 100 mg ONETIME ONE Administration Furosemide 40 mg 09/29/20 23:08 Lasix IVPUSH 09/29/20 23:09 NOW ONE Furosemide 40 mg 09/29/20 23:17 09/29/20 23:24 Lasix IM 09/29/20 23:18 40 mg NOW ONE Administration Levofloxacin 250 mg 09/30/20 00:39 09/30/20 00:54 Levaquin PO 09/30/20 00:40 250 mg ONETIME ONE Administration Lorazepam 1 mg 09/29/20 23:08 Ativan IVPUSH ONETIME PRN Agitation Ondansetron HCl 4 mg 09/29/20 23:39 09/29/20 23:45 Zofran Odt PO 09/29/20 23:40 4 mg ONETIME ONE Administration - Re-Assessments/Exams Free Text/Narrative Re-Assessment/Exam: 09/30/20 01:01 Reports breathing improved, decreased cough. dialysis scheduled later this am. 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 and take medications as ordered tesselon pearles 100mg one every 8 hours as needed for cough Sepsis Event Note (ED) - Focused Exam Vital Signs: Vital Signs Temp Pulse Resp Pulse Ox 09/29/20 22:55 93 L 09/29/20 22:51 99.3 F 96 26 H 84 L - My Orders Last 24 Hours: My Active Orders 09/29/20 23:17 LORazepam [Ativan] 1 mg IM ONETIME PRN 09/29/20 23:55 DD [D-DIMER QUANTITATIVE] [COAG] Stat INR,PT,PROTHROMBIN TIME [COAG] Stat - Assessment/Plan Last 24 Hours: My Active Orders 09/29/20 23:17 LORazepam [Ativan] 1 mg IM ONETIME PRN 09/29/20 23:55 DD [D-DIMER QUANTITATIVE] [COAG] Stat INR,PT,PROTHROMBIN TIME [COAG] Stat
[2020-09-29] MEDS ORDERED: Furosemide 40 MG/4 ML VIAL IVPUSH ONE (23:08)
[2020-09-29] MEDS ORDERED: LORazepam 2 MG/ML SDV IVPUSH PRN (23:08)
[2020-09-29] MEDS ORDERED: LORazepam 2 MG/ML SDV IM PRN (23:17)
[2020-09-29] MEDS ORDERED: Furosemide 40 MG/4 ML VIAL IM ONE (23:17)
[2020-09-29] MEDS ORDERED: Ondansetron 4 MG Tab.DIS PO ONE (23:39)
--- NOTE | 2020-09-29 23:55 | CR ---
PROCEDURE INFORMATION: Exam: XR Chest Exam date and time: 09/29/2020 11:50 PM Age: 44 years old Clinical indication: Cough and fever and shortness of breath; Additional info: SOB cough fever TECHNIQUE: Imaging protocol: XR of the chest Views: 1 view. COMPARISON: CR Chest 2V 09/02/2020 10:26 AM FINDINGS: Tubes, catheters and devices: A central line is been placed by the left jugular approach. The catheter tip projects over the expected location of the superior vena cava. This appears to be a dual lumen dialysis catheter. Lungs: There is mild nonspecific prominence of the pulmonary vasculature. Ill-defined infiltrate left lower lung lung. The right lung is clear. Pleural spaces: No pleural effusion. No pneumothorax. Pleural spaces Heart/Mediastinum: Moderate cardiomegaly. Bones/joints: No acute bony findings are identified. IMPRESSION: 1. Findings suggest an element of pulmonary venous hypertension. There is no overt sign of pulmonary edema. Volume overload cannot be excluded. 2. Ill-defined infiltrate left lower lung, question pneumonia.Consider viral etiologies, bacterial etiologies, and atypical etiologies. Asymmetric pulmonary edema is considered less likely.
[2020-09-30 00:22] LABS: ANION GAP 24.5 mEq/L (7-13); CHLORIDE,CL 100 mmol/L (98-107); SODIUM,NA 135 mmol/L (136-145)
[2020-09-30] MEDS ORDERED: Levofloxacin 250 MG Tab PO ONE (00:39)
[2020-09-30] MEDS ORDERED: Benzonatate 100 MG Cap PO ONE (00:45)
== END 2020-09-30 00:59 | disposition home or self-care (01) ==
LOC: DL.ED 22:42
DX: E87.5 Hyperkalemia (principal); F41.9 Anxiety disorder, unspecified; J06.9 Acute upper respiratory infection, unspecified; I13.2 Hypertensive heart and chronic kidney disease with heart failure and with stage 5 chronic kidney disease, or end stage renal disease; I50.9 Heart failure, unspecified; N18.6 End stage renal disease; E78.00 Pure hypercholesterolemia, unspecified; E11.40 Type 2 diabetes mellitus with diabetic neuropathy, unspecified; E11.22 Type 2 diabetes mellitus with diabetic chronic kidney disease; E66.9 Obesity, unspecified; Z68.42 Body mass index [BMI] 45.0-49.9, adult; Z99.2 Dependence on renal dialysis; Z88.6 Allergy status to analgesic agent; Z88.8 Allergy status to other drugs, medicaments and biological substances; Z88.0 Allergy status to penicillin; Z79.899 Other long term (current) drug therapy; Z79.4 Long term (current) use of insulin
CPT/HCPCS: 36415; 71045; 80053; 83880; 84484; 85025; 85379; 93005; 93010; 96372; 99283; 99285; A9270; J1940; J2060

== ENCOUNTER 2020-11-04 10:09 | Emergency (ER) | payer MEDICARE, OTHER ==
[2020-11-04] MEDS ORDERED: Sodium Chloride 0.9% 10 ML Syringe FLUSH PRN (10:21)
--- NOTE | 2020-11-04 10:21 | EDM.PDOC ---
ED HPI GENERAL MEDICAL PROBLEM - General Chief Complaint: Cardiovascular Problem Stated Complaint: CHEST PAINS TROUBLE BREATHING Time Seen by Provider: 11/04/20 10:20 Source of Information: Reports: Patient, Old Records, RN, RN Notes Reviewed History Limitations: Reports: No Limitations - History of Present Illness INITIAL COMMENTS - FREE TEXT/NARRATIVE: Pt sent to ER from dialysis by wheelchair with c/o being slightly sob at rest and feeling edematous. Pt's BP was "high" all through her dialysis. Pt states that intermittent chest pain started yesterday and that she has been short of breath constantly since. She denies chest pain currently. She states her temp was 99.9 last night and she felt chills. She has taken her norvasc and coozar today. She has c/o edema which is more than her usual. She has had cough, cannot see what color sputum. She had full dilaysis run today and they took off [address] Bliss on November 01 and was very hypertensive. She was prescribed hydralazine, but did not tow picker the prescription. Duration: Chronic Location: Reports: Generalized Severity: Severe Improves with: Reports: None Worsens with: Reports: None Associated Symptoms: Reports: No Other Symptoms - Related Data Allergies Allergy/AdvReac Type Severity Reaction Status Date / Time aspirin Allergy Hives Verified 11/04/20 10:50 naproxen [From Naprosyn] Allergy Rash Verified 11/04/20 10:50 Penicillins Allergy Rash Verified 11/04/20 10:50 propoxyphene napsylate Allergy Rash Verified 11/04/20 10:50 [From Darvocet-N 100] Home Meds: Home Meds Losartan [Cozaar] 100 mg PO DAILY 01/07/18 [History] Calcium Acetate [PhosLo] 4 cap PO TID 03/12/18 [History] Calcium Carbonate 3 gm PO TID 02/22/19 [History] Sodium Polystyrene Sulfonate [Kayexalate] 15 gm PO ASDIRECTED 02/22/19 [History] Metoprolol Succinate 200 mg PO DAILY 03/04/20 [History] amLODIPine [Norvasc] 7.5 mg PO DAILY 03/04/20 [History] Acetaminophen [Tylenol] 500 mg PO Q6H PRN 03/16/20 [History] Insulin Detemir [Levemir] 10 unit SQ BEDTIME 06/14/20 [History] Apixaban [Eliquis] 10 mg PO BID 11/04/20 [History] Cyanocobalamin/Folic AC/Vit B6 [B Complex-Folic Acid] 1 tab PO DAILY 11/04/20 [History] hydrALAZINE [Apresoline] 100 mg PO BID 11/04/20 [History] Past Medical History HEENT History: Reports: None, Impaired Vision Other HEENT History: wears glasses Cardiovascular History: Reports: Heart Failure, Heart Murmur, High Cholesterol, Hypertension Respiratory History: Reports: PE Gastrointestinal History: Reports: GERD Genitourinary History: Reports: Acute Renal Failure, Chronic Renal Insuffiency, Dialysis, 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: Neurological History: Reports: Neuropathy, Diabetic Psychiatric History: Reports: Anxiety Endocrine/Metabolic History: Reports: Diabetes, Type II, Obesity/BMI 30+ Hematologic History: Reports: Blood Transfusion(s) Immunologic History: Reports: None Oncologic (Cancer) History: Reports: None Dermatologic History: Reports: Other (See Below) Other Dermatologic History: boil - Infectious Disease History Infectious Disease History: Reports: MRSA, Novel Coronavirus - Past Surgical History HEENT Surgical History: Reports: None Cardiovascular Surgical History: Reports: None Female Surgical History: Reports: Section Musculoskeletal Surgical History: Reports: Other (See Below) Other Musculoskeletal Surgeries/Procedures:: Ankle surgery Social & Family History - Family History Family Medical History: No Pertinent Family History Endocrine/Metabolic: Reports: Diabetes, type II - Caffeine Use Caffeine Use: Reports: None - Living Situation & Occupation Living situation: Reports: with Family Occupation: Disabled ED ROS GENERAL - Review of Systems Review Of Systems: Comprehensive ROS is negative, except as noted in HPI. ED EXAM, GENERAL - Physical Exam Exam: See Below Exam Limited By: No Limitations General Appearance: Alert, WD/WN, No Apparent Distress, Obese Eye Exam: Bilateral Eye: Normal Inspection Nose: Normal Inspection Throat/Mouth: Normal Lips, Normal Voice, No Airway Compromise Head: Atraumatic, Normocephalic Neck: Normal Inspection, Non-Tender, Full Range of Motion Respiratory/Chest: No Respiratory Distress, Lungs Clear, No Accessory Muscle Use, Chest Non-Tender, Decreased Breath Sounds Cardiovascular: Regular Rate, Rhythm, Systolic Murmur, Other (+2 pitting edema to B/L knees) GI/Abdominal: Normal Bowel Sounds, Soft, Non-Tender Back Exam: Normal Inspection Extremities: Non-Tender, Pedal Edema Neurological: Alert, Oriented, No Motor/Sensory Deficits Psychiatric: Depressed Mood, Flat Affect Skin Exam: Warm, Dry, Intact, Normal Color, No Rash #1 Interpretation EKG Date: 11/04/20 Time: 10:18 Rhythm: Other (SR) Rate (Beats/Min): 67 [place]: LAD-Left [place] Deviation P-Wave: Present QRS: Other (LVH with nonspecific IVCD) ST-T: Normal QT: Normal Comparison: No Change Course - Vital Signs Last Recorded V/S: Last Vital Signs Temp 97.6 F 11/04/20 10:21 Pulse 74 11/04/20 10:21 Resp 16 11/04/20 10:21 BP 196/83 H 11/04/20 10:21 Pulse Ox 96 11/04/20 10:21 - Orders/Labs/Meds Orders: Active Orders 24 hr Category Date Time Status EKG 12 Lead [EKG Documentation Completion] [RC] STAT Care 11/04/20 10:21 Active Peripheral IV Care [RC] . DIRECTED Care 11/04/20 10:21 Active CULTURE BLOOD [] Stat Lab 11/04/20 10:35 Received CULTURE BLOOD [] Stat Lab 11/04/20 10:56 Results CULTURE STREP A CONFIRMATION [] Stat Lab 11/04/20 11:18 Results STREP SCRN A RAPID W CULT CONF [] Stat Lab 11/04/20 11:18 Results Sodium Chloride 0.9% [Saline Flush] Med 11/04/20 10:21 Active 10 ml FLUSH ASDIRECTED PRN Blood Culture x2 Reflex Set [OM.PC] Stat Oth 11/04/20 10:21 Ordered Peripheral IV Insertion Adult [OM.PC] Stat Oth 11/04/20 10:21 Ordered Medication Orders Sodium Chloride (Sodium Chloride 0.9% 10 Ml Syringe) 10 ml FLUSH ASDIRECTED PRN PRN Reason: Keep Vein Open Labs: Laboratory Tests 11/04/20 11/04/20 11/04/20 Range/Units 10:19 10:35 10:35 WBC 10.0 (5.0-10.0) 10^3/uL RBC 2.70 L (4.2-5.4) 10^6/uL Hgb 8.6 L D (12.0-16.0) g/dL Hct 25.7 L (37.0-47.0) % MCV 95.2 (80-100) fL MCH 31.9 (27.0-34.0) pg MCHC 33.5 (33.0-35.0) g/dL Plt Count 258 D (150-450) 10^3/uL Neut % (Auto) 77.2 H (42.2-75.2) % Lymph % (Auto) 14.1 L (20.5-50.1) % [place] % (Auto) 3.3 (2-8) % Eos % (Auto) 5.0 H (1.0-3.0) % Baso % (Auto) 0.4 (0.0-1.0) % PT 10.4 (9.0-12.0) SEC INR 1.0 (0.9-1.2) APTT 90.4 H* (22.0-34.0) SEC Sodium (136-145) mmol/L Potassium (3.5-5.1) mmol/L Chloride (98-107) mmol/L Carbon Dioxide (21-32) mmol/L Anion Gap (7-13) mEq/L BUN (7-18) mg/dL Creatinine (0.55-1.02) mg/dL Est Cr Clr Drug Dosing Estimated GFR (MDRD) BUN/Creatinine Ratio (No establ ref range) Glucose (70-99) mg/dL Lactic Acid (0.4-2.0) mmol/L Calcium (8.5-10.1) mg/dL Phosphorus (2.6-4.7) mg/dL Magnesium (1.8-2.4) mg/dL Total Bilirubin (0.2-1.0) mg/dL AST (15-37) U/L ALT (14-59) U/L Alkaline Phosphatase (46-116) U/L Troponin I (0.000-0.056) ng/mL C-Reactive Protein (0.0-0.9) mg/dL B-Natriuretic Peptide (0-100) pg/ml Total Protein (6.4-8.2) g/dL Albumin (3.4-5.0) g/dL Globulin Albumin/Globulin Ratio Influenza Type A RNA Negative (NEGATIVE) Influenza Type B RNA Negative (NEGATIVE) SARS-CoV-2 RNA (KIESHA) Negative (NEGATIVE) 11/04/20 11/04/20 Range/Units 10:35 10:35 WBC (5.0-10.0) 10^3/uL RBC (4.2-5.4) 10^6/uL Hgb (12.0-16.0) g/dL Hct (37.0-47.0) % MCV (80-100) fL MCH (27.0-34.0) pg MCHC (33.0-35.0) g/dL Plt Count (150-450) 10^3/uL Neut % (Auto) (42.2-75.2) % Lymph % (Auto) (20.5-50.1) % [place] % (Auto) (2-8) % Eos % (Auto) (1.0-3.0) % Baso % (Auto) (0.0-1.0) % PT (9.0-12.0) SEC INR (0.9-1.2) APTT (22.0-34.0) SEC Sodium 137 (136-145) mmol/L Potassium 3.3 L D (3.5-5.1) mmol/L Chloride 98 (98-107) mmol/L Carbon Dioxide 28 D (21-32) mmol/L Anion Gap 14.3 H (7-13) mEq/L BUN 19 H D (7-18) mg/dL Creatinine 3.97 H D (0.55-1.02) mg/dL Est Cr Clr Drug Dosing TNP Estimated GFR (MDRD) 12 BUN/Creatinine Ratio 4.8 (No establ ref range) Glucose 180 H (70-99) mg/dL Lactic Acid 0.7 (0.4-2.0) mmol/L Calcium 8.6 (8.5-10.1) mg/dL Phosphorus 2.9 (2.6-4.7) mg/dL Magnesium 1.5 L (1.8-2.4) mg/dL Total Bilirubin 1.0 (0.2-1.0) mg/dL AST 15 (15-37) U/L ALT 19 (14-59) U/L Alkaline Phosphatase 116 (46-116) U/L Troponin I 0.022 (0.000-0.056) ng/mL C-Reactive Protein 3.1 H (0.0-0.9) mg/dL B-Natriuretic Peptide 1030 H (0-100) pg/ml Total Protein 8.0 (6.4-8.2) g/dL Albumin 3.2 L (3.4-5.0) g/dL Globulin 4.8 Albumin/Globulin Ratio 0.67 Influenza Type A RNA (NEGATIVE) Influenza Type B RNA (NEGATIVE) SARS-CoV-2 RNA (KIESHA) (NEGATIVE) Meds: Medications Generic Name Dose Route Start Last Admin Trade Name Freq PRN Reason Stop Dose Admin Sodium Chloride 10 ml 11/04/20 10:21 Sodium Chloride 0.9% 10 Ml Syringe FLUSH ASDIRECTED PRN Keep Vein Open - Radiology Interpretation Free Text/Narrative:: [facility] [place] [facility] Final Radiology Report Call: [phone] assistance Online chat: [email or web address] Name: LATOYA JUNE Age: 45Years F Date: 11/04/2020 SSN: -- : 1975 Study: CR CHEST 1V FRONTAL Requesting Physician: CHAD CLEMENTS Images: 1 Addl Studies: Provided Clinical History: chest pain Contrast: Contrast Medium: Contrast Amount: Contrast Method: Page 1 of 2 PROCEDURE INFORMATION: Exam: XR Chest Exam date and time: 11/04/2020 10:44 AM Age: 45 years old Clinical indication: Chest pain TECHNIQUE: Imaging protocol: XR of the chest. Views: 1 view. COMPARISON: CR Chest 1V Frontal 09/29/2020 11:50 PM FINDINGS: Tubes, catheters and devices: Left internal jugular central line with dual lumen dialysis catheter tip at the atrial caval junction. Lungs: Unremarkable. No consolidation. Pleural spaces: Unremarkable. No pleural effusion. No pneumothorax. Heart/Mediastinum: There is stable moderate cardiomegaly. Stable mediastinal contour is upper limits in size. Bones/joints: Unremarkable. IMPRESSION: 1. No acute infiltrates. 2. Stable moderate cardiomegaly Thank you for allowing us to participate in the care of your patient. Dictated and Authenticated by: Amada Aguirre MD - Re-Assessments/Exams Free Text/Narrative Re-Assessment/Exam: 11/04/20 11:[address] Bliss via [employer] to review the case. Dr. Bliss is very familiar with the pt, and recommends only that the pt go and tow picker the Hydralazine Rx, take it as directed, and be compliant with her renal diet and fluid restriction. Dr. Bliss did not feel the pt needed to be admitted at this time. Departure - Departure Time of Disposition: 11:56 Disposition: Home, Self-Care 01 Condition: Fair Clinical Impression: Uncontrolled hypertension, ESRD on hemodialysis Fluid overload Qualifiers: Hypervolemia type: other Qualified Code(s): E87.79 - Other fluid overload Anemia Qualifiers: Anemia type: due to chronic kidney disease Chronic kidney disease stage: on chronic dialysis Qualified Code(s): N18.6 - End stage renal disease; D63.1 - Anemia in chronic kidney disease; Z99.2 - Dependence on renal dialysis - Discharge Information *PRESCRIPTION DRUG MONITORING PROGRAM REVIEWED*: Not Applicable *COPY OF PRESCRIPTION DRUG MONITORING REPORT IN PATIENT LATHA: Not Applicable Instructions: Hypertension, Adult, [id number], Shortness of Breath, Adult, [id number] Forms: ED Department Discharge Additional Instructions: 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 Follow your renal diet and fluid restriction as Dr. Bliss has instructed. Call Dr. Bliss's office if any further problems. Sepsis Event Note (ED) - Focused Exam Vital Signs: Vital Signs Temp Pulse Resp BP Pulse Ox 11/04/20 10:21 97.6 F 74 16 196/83 H 96 - My Orders Last 24 Hours: My Active Orders 11/04/20 10:21 EKG 12 Lead [EKG Documentation Completion] [RC] STAT Peripheral IV Care [RC] . DIRECTED Sodium Chloride 0.9% [Saline Flush] 10 ml FLUSH ASDIRECTED PRN Blood Culture x2 Reflex Set [OM.PC] Stat Peripheral IV Insertion Adult [OM.PC] Stat 11/04/20 10:35 CULTURE BLOOD [BC] Stat 11/04/20 10:56 CULTURE BLOOD [BC] Stat 11/04/20 11:18 CULTURE STREP A CONFIRMATION [RM] Stat STREP SCRN A RAPID W CULT CONF [RM] Stat - Assessment/Plan Last 24 Hours: My Active Orders 11/04/20 10:21 EKG 12 Lead [EKG Documentation Completion] [RC] STAT Peripheral IV Care [RC] . DIRECTED Sodium Chloride 0.9% [Saline Flush] 10 ml FLUSH ASDIRECTED PRN Blood Culture x2 Reflex Set [OM.PC] Stat Peripheral IV Insertion Adult [OM.PC] Stat 11/04/20 10:35 CULTURE BLOOD [BC] Stat 11/04/20 10:56 CULTURE BLOOD [BC] Stat 11/04/20 11:18 CULTURE STREP A CONFIRMATION [RM] Stat STREP SCRN A RAPID W CULT CONF [RM] Stat
[2020-11-04 10:22] VITALS: BP 196/83; PULSE 74
--- NOTE | 2020-11-04 10:56 | CR ---
PROCEDURE INFORMATION: Exam: XR Chest Exam date and time: 11/04/2020 10:44 AM Age: 45 years old Clinical indication: Chest pain TECHNIQUE: Imaging protocol: XR of the chest. Views: 1 view. COMPARISON: CR Chest 1V Frontal 09/29/2020 11:50 PM FINDINGS: Tubes, catheters and devices: Left internal jugular central line with dual lumen dialysis catheter tip at the atrial caval junction. Lungs: Unremarkable. No consolidation. Pleural spaces: Unremarkable. No pleural effusion. No pneumothorax. Heart/Mediastinum: There is stable moderate cardiomegaly. Stable mediastinal contour is upper limits in size. Bones/joints: Unremarkable. IMPRESSION: 1. No acute infiltrates. 2. Stable moderate cardiomegaly
[2020-11-04 11:03] LABS: CORONAVIRUS COVID-19 NAA NEGATIVE (NEGATIVE)
[2020-11-04 11:06] LABS: ANION GAP 14.3 mEq/L (7-13); CHLORIDE,CL 98 mmol/L (98-107); SODIUM,NA 137 mmol/L (136-145)
[2020-11-04 11:16] LABS: PTT,PARTIAL THROMBOPLSTIN TIME 90.4 SEC (22.0-34.0)
== END 2020-11-04 12:22 | disposition home or self-care (01) ==
LOC: DL.ED 10:09
DX: I13.2 Hypertensive heart and chronic kidney disease with heart failure and with stage 5 chronic kidney disease, or end stage renal disease (principal); I50.9 Heart failure, unspecified; N18.6 End stage renal disease; D63.1 Anemia in chronic kidney disease; E11.22 Type 2 diabetes mellitus with diabetic chronic kidney disease; E11.40 Type 2 diabetes mellitus with diabetic neuropathy, unspecified; E87.79 Other fluid overload; E66.9 Obesity, unspecified; Z99.2 Dependence on renal dialysis; Z88.6 Allergy status to analgesic agent; Z88.8 Allergy status to other drugs, medicaments and biological substances; Z88.0 Allergy status to penicillin; Z79.4 Long term (current) use of insulin; Z79.01 Long term (current) use of anticoagulants; Z79.899 Other long term (current) drug therapy; Z86.711 Personal history of pulmonary embolism; Z20.822 Contact with and (suspected) exposure to COVID-19
CPT/HCPCS: 0240U; 36415; 71045; 80053; 83605; 83735; 83880; 84100; 84484; 85025; 85610; 85730; 86140; 87040; 87081; 87430; 93005; 93010; 99284; 99285-25

== ENCOUNTER 2020-11-14 01:33 | Emergency (ER) | payer MEDICARE, MEDICAID ==
[2020-11-14 01:38] VITALS: BP 149/66; PULSE 76
--- NOTE | 2020-11-14 01:49 | CR ---
PROCEDURE INFORMATION: Exam: XR Chest Exam date and time: 11/14/2020 1:35 AM Age: 45 years old Clinical indication: Shortness of breath; Additional info: SOB TECHNIQUE: Imaging protocol: XR of the chest. Views: 1 view. COMPARISON: CR Chest 1V Frontal 11/04/2020 10:44 AM FINDINGS: Tubes, catheters and devices: A double lumen catheter is placed via the left internal jugular vein with its tip at the level of the right atrium. Lungs: There is mild indistinctness of the pulmonary vasculature, findings could represent mild pulmonary edema. Pleural spaces: Unremarkable. No pleural effusion. No pneumothorax. Heart/Mediastinum: Unremarkable. No cardiomegaly. Bones/joints: Unremarkable. IMPRESSION: 1. Dialysis catheter placed into the left internal jugular vein with its tip at the level of the right atrium. 2. Mild indistinctness of the pulmonary vasculature may represent mild pulmonary edema.
[2020-11-14] MEDS ORDERED: Acetaminophen 325 MG Tab PO ONE (02:09)
[2020-11-14 02:22] LABS: ANION GAP 16.2 mEq/L (7-13)
[2020-11-14] MEDS ORDERED: Insulin Regular, Human 100 Units/ML 3 ML Vial SUBCUT ONE (02:39)
--- NOTE | 2020-11-14 02:44 | EDM.PDOC ---
ED HPI GENERAL MEDICAL PROBLEM - General Chief Complaint: ENT Problem Stated Complaint: [facility] Time Seen by Provider: 11/14/20 01:40 Source of Information: Reports: Patient History Limitations: Reports: No Limitations - History of Present Illness INITIAL COMMENTS - FREE TEXT/NARRATIVE: ED via [facility] with c/o sinus congestion x 5nights. Woke tonight feeling SOB and face pressure. no cough No fever. No chest pain, No GI sx. Dialysis yesterday. Transfusion yesterday. - Related Data Allergies Allergy/AdvReac Type Severity Reaction Status Date / Time aspirin Allergy Hives Verified 11/13/20 12:58 naproxen [From Naprosyn] Allergy Rash Verified 11/13/20 12:58 Penicillins Allergy Rash Verified 11/13/20 12:58 propoxyphene napsylate Allergy Rash Verified 11/13/20 12:58 [From Darvocet-N 100] Home Meds: Home Meds Losartan [Cozaar] 100 mg PO BEDTIME 01/07/18 [History] Calcium Acetate [PhosLo] 2,668 mg PO TIDMEALS 03/12/18 [History] Sodium Polystyrene Sulfonate [Kayexalate] 15 gm PO ASDIRECTED 02/22/19 [History] Metoprolol Succinate 200 mg PO DAILY 03/04/20 [History] amLODIPine [Norvasc] 7.5 mg PO BEDTIME 03/04/20 [History] Acetaminophen [Tylenol] 650 mg PO Q6H PRN 03/16/20 [History] Insulin Detemir [Levemir] 10 unit SQ BEDTIME 06/14/20 [History] Apixaban [Eliquis] 10 mg PO BID 11/04/20 [History] Cyanocobalamin/Folic AC/Vit B6 [B Complex-Folic Acid] 1 tab PO BEDTIME 11/04/20 [History] hydrALAZINE [Apresoline] 100 mg PO BID 11/04/20 [History] Calcium Carbonate [Tums Extra Strength] 1,500 mg PO TIDMEALS 11/13/20 [History] Past Medical History HEENT History: Reports: None, Impaired Vision Other HEENT History: wears glasses Cardiovascular History: Reports: Heart Failure, Heart Murmur, High Cholesterol, Hypertension Respiratory History: Reports: PE Gastrointestinal History: Reports: GERD Genitourinary History: Reports: Acute Renal Failure, Chronic Renal Insuffiency, Dialysis, Renal Disease [employer] LEAD History: Reports: Musculoskeletal History: Reports: Fracture Neurological History: Reports: Neuropathy, Diabetic Psychiatric History: Reports: Anxiety Endocrine/Metabolic History: Reports: Diabetes, Type II, Obesity/BMI 30+ Hematologic History: Reports: Blood Transfusion(s) Immunologic History: Reports: None Oncologic (Cancer) History: Reports: None Dermatologic History: Reports: Other (See Below) Other Dermatologic History: boil - Infectious Disease History Infectious Disease History: Reports: MRSA, Novel Coronavirus - Past Surgical History HEENT Surgical History: Reports: None Cardiovascular Surgical History: Reports: None Respiratory Surgical History: Reports: None GI Surgical History: Reports: None Female Surgical History: Reports: Section, Other (See Below) Other Female Surgeries/Procedures: IUD placed Endocrine Surgical History: Reports: None Neurological Surgical History: Reports: None Musculoskeletal Surgical History: Reports: Other (See Below) Other Musculoskeletal Surgeries/Procedures:: Ankle surgery Social & Family History - Family History Family Medical History: No Pertinent Family History Endocrine/Metabolic: Reports: Diabetes, type II - Tobacco Use Tobacco Use Status *Q: Current Every Day Tobacco User Years of Tobacco use: 29 Packs/Tins Daily: 0.1 Second Hand Smoke Exposure: Yes - Caffeine Use Caffeine Use: Reports: None - Recreational Drug Use Recreational Drug Use: Yes Drug Use in Last 12 Months: Yes Recreational Drug Type: Reports: Marijuana/Hashish - Living Situation & Occupation Living situation: Reports: with Family Occupation: Disabled ED ROS ENT - Review of Systems Review Of Systems: Comprehensive ROS is negative, except as noted in HPI. ED EXAM, ENT - Physical Exam Exam: See Below Exam Limited By: No Limitations General Appearance: Alert, No Apparent Distress Eye Exam: Bilateral Eye: EOMI Ears: Normal External Exam Nose: Normal Inspection Mouth/Throat: Normal Inspection, Normal Teeth Head: Atraumatic, Normocephalic Neck: Normal Inspection, Full Range of Motion Respiratory/Chest: No Respiratory Distress, Lungs Clear, Normal Breath Sounds Rectal (Female) Exam: Normal Exam Extremities: Normal Inspection, Normal Range of Motion Neurological: Alert, Oriented Psychiatric: Normal Affect, Flat Affect Skin: Warm Course - Vital Signs Last Recorded V/S: Last Vital Signs Temp 98.1 F 11/14/20 01:34 Pulse 76 11/14/20 01:34 Resp 18 04/22/21 01:34 BP 149/66 H 11/14/20 01:34 Pulse Ox 100 11/14/20 01:34 - Orders/Labs/Meds Labs: Laboratory Tests 11/14/20 11/14/20 11/14/20 Range/Units 01:45 01:45 01:45 WBC 7.7 (5.0-10.0) 10^3/uL RBC 2.79 L (4.2-5.4) 10^6/uL Hgb 8.8 L (12.0-16.0) g/dL Hct 26.9 L (37.0-47.0) % MCV 96.4 (80-100) fL MCH 31.5 (27.0-34.0) pg MCHC 32.7 L (33.0-35.0) g/dL Plt Count 235 (150-450) 10^3/uL Neut % (Auto) 61.9 (42.2-75.2) % Lymph % (Auto) 24.9 (20.5-50.1) % [place] % (Auto) 8.7 H (2-8) % Eos % (Auto) 3.8 H (1.0-3.0) % Baso % (Auto) 0.7 (0.0-1.0) % D-Dimer, Quantitative 518 H (0-400) ng/mL Sodium 135 L (136-145) mmol/L Potassium 4.2 (3.5-5.1) mmol/L Chloride 98 (98-107) mmol/L Carbon Dioxide 25 (21-32) mmol/L Anion Gap 16.2 H (7-13) mEq/L BUN 27 H (7-18) mg/dL Creatinine 6.29 H* D (0.55-1.02) mg/dL Est Cr Clr Drug Dosing 10.35 mL/min Estimated GFR (MDRD) 7 BUN/Creatinine Ratio 4.3 (No establ ref range) Glucose 398 H (70-99) mg/dL Calcium 7.8 L (8.5-10.1) mg/dL Total Bilirubin 0.4 (0.2-1.0) mg/dL AST 14 L (15-37) U/L ALT 16 (14-59) U/L Alkaline Phosphatase 136 H (46-116) U/L Total Protein 6.7 (6.4-8.2) g/dL Albumin 3.0 L (3.4-5.0) g/dL Globulin 3.7 Albumin/Globulin Ratio 0.81 Amylase 26 (25-115) U/L Lipase 155 (73-393) U/L Meds: Medications Discontinued Medications Generic Name Dose Route Start Last Admin Trade Name Martinq PRN Reason Stop Dose Admin Acetaminophen 650 mg 11/14/20 02:09 11/14/20 02:14 Acetaminophen 325 Mg Tab PO 11/14/20 02:10 650 mg NOW ONE Administration Insulin Human Regular 5 unit 11/14/20 02:39 11/14/20 03:05 Insulin Regular, Human 100 Units/Ml 3 Ml Vial SUBCUT 11/14/20 02:40 5 units ONETIME ONE Administration Sodium Chloride 2 ml 11/14/20 02:54 11/14/20 03:04 Sodium Chloride 0.65% Nasal [place] 45 Ml Bottle MACHO 11/14/20 02:55 2 ml ONETIME ONE Administration Departure - Departure Time of Disposition: 02:40 Disposition: Home, Self-Care 01 Condition: Good Clinical Impression: Sinus congestion, Hyperglycemia, End stage renal disease on dialysis - Discharge Information *PRESCRIPTION DRUG MONITORING PROGRAM REVIEWED*: No *COPY OF PRESCRIPTION DRUG MONITORING REPORT IN PATIENT LATHA: No Instructions: How to Perform a Sinus Rinse, [id number], Hyperglycemia, [id number] Forms: ED Department Discharge Care Plan Goals: saline nasal spray one spray each side of nose three times daily clinic follow up one week if not improving sooner if develop nasal discharge monitor blod sugars dialysis as scheduled Sepsis Event Note (ED) - Evaluation Sepsis Screening Result: No Definite Risk - Focused Exam Vital Signs: Vital Signs Temp Pulse Resp BP Pulse Ox 11/14/20 01:34 98.1 F 76 18 149/66 H 100
[2020-11-14] MEDS ORDERED: Sodium Chloride 0.65% Nasal Spray 45 ML Bottle NAS ONE (02:54)
== END 2020-11-14 03:11 | disposition home or self-care (01) ==
LOC: DL.ED 01:33
DX: I13.2 Hypertensive heart and chronic kidney disease with heart failure and with stage 5 chronic kidney disease, or end stage renal disease (principal); N18.6 End stage renal disease; I50.9 Heart failure, unspecified; J34.89 Other specified disorders of nose and nasal sinuses; E66.9 Obesity, unspecified; E78.00 Pure hypercholesterolemia, unspecified; Z86.16 Personal history of COVID-19; Z79.01 Long term (current) use of anticoagulants; Z79.4 Long term (current) use of insulin; Z72.0 Tobacco use; Z99.2 Dependence on renal dialysis; Z79.899 Other long term (current) drug therapy; Z68.42 Body mass index [BMI] 45.0-49.9, adult; Z88.0 Allergy status to penicillin; Z88.8 Allergy status to other drugs, medicaments and biological substances; Z88.5 Allergy status to narcotic agent
CPT/HCPCS: 36415; 71045; 80053; 82150; 83690; 85025; 85379; 99283; 99284; A9270; J1815

== ENCOUNTER 2020-11-17 19:12 | Emergency (ER) | payer MEDICARE, MEDICAID ==
[2020-11-17 19:41] VITALS: BP 146/64; PULSE 76
[2020-11-17] MEDS ORDERED: Apixaban 5 MG Tab PO ONE (19:42)
--- NOTE | 2020-11-17 19:49 | EDM.PDOC ---
ED HPI GENERAL MEDICAL PROBLEM - General Chief Complaint: General Stated Complaint: NEW MEDS=FEELS NUMB AND ITS HARD TO BREATHE Time Seen by Provider: 11/17/20 19:35 Source of Information: Reports: Patient History Limitations: Reports: No Limitations - History of Present Illness INITIAL COMMENTS - FREE TEXT/NARRATIVE: This 45 yo female patient reports to the ED due to increased shortness of breath and chest pain. The patient repots she has also been feeling "body numbness" throughout the day. The patient reports she has noticed that when she closes her eyes and opens them she sees "green". The patient reports she ran out of her medication (Eliquis) yesterday morning (last dose). The patient reports she was in [place] this morning when she noticed her symptoms, but they have been getting worse throughout the day. The patient is a dialysis patient (MWF) with her last run being on Wednesday. Onset: Today Duration: Constant Location: Reports: Generalized Quality: Reports: Other Severity: Moderate Improves with: Reports: None Worsens with: Reports: None Context: Reports: Other Associated Symptoms: Reports: Chest Pain, Shortness of Breath, Weakness - Related Data Allergies Allergy/AdvReac Type Severity Reaction Status Date / Time aspirin Allergy Hives Verified 11/17/20 20:34 naproxen [From Naprosyn] Allergy Rash Verified 11/17/20 20:34 Penicillins Allergy Rash Verified 11/17/20 20:34 propoxyphene napsylate Allergy Rash Verified 11/17/20 20:34 [From Darvocet-N 100] Home Meds: Home Meds Losartan [Cozaar] 100 mg PO DAILY 01/07/18 [History] Calcium Acetate [PhosLo] 1,334 mg PO TIDMEALS 03/12/18 [History] Sodium Polystyrene Sulfonate [Kayexalate] 60 ml PO ASDIRECTED 02/22/19 [History] Metoprolol Succinate 200 mg PO DAILY 03/04/20 [History] amLODIPine [Norvasc] 10 mg PO BEDTIME 03/04/20 [History] Acetaminophen [Tylenol] 650 mg PO Q6H PRN 03/16/20 [History] Insulin Detemir [Levemir] 10 unit SQ BEDTIME 06/14/20 [History] Apixaban [Eliquis] 5 mg PO BID 11/04/20 [History] hydrALAZINE [Apresoline] 100 mg PO BID 11/04/20 [History] Calcium Carbonate [Tums Extra Strength] 1,000 mg PO TIDMEALS 11/13/20 [History] Biotin/FA/Vit C/Vit B Complex [Nephrocaps] 1 tab PO DAILY 11/17/20 [History] levonorgestreL [Mirena] 1 each IY ONETIME 11/17/20 [History] metroNIDAZOLE [Metronidazole] 500 mg PO BID 11/17/20 [History] Past Medical History HEENT History: Reports: None, Impaired Vision Other HEENT History: wears glasses Cardiovascular History: Reports: Heart Failure, Heart Murmur, High Cholesterol, Hypertension Respiratory History: Reports: PE Gastrointestinal History: Reports: GERD Genitourinary History: Reports: Acute Renal Failure, Chronic Renal Insuffiency, Dialysis, Renal Disease [employer] 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: Musculoskeletal History: Reports: Fracture Neurological History: Reports: Neuropathy, Diabetic Psychiatric History: Reports: Anxiety Endocrine/Metabolic History: Reports: Diabetes, Type II, Obesity/BMI 30+ Hematologic History: Reports: Blood Transfusion(s) Immunologic History: Reports: None Oncologic (Cancer) History: Reports: None Dermatologic History: Reports: Other (See Below) Other Dermatologic History: boil - Infectious Disease History Infectious Disease History: Reports: MRSA, Novel Coronavirus - Past Surgical History HEENT Surgical History: Reports: None Cardiovascular Surgical History: Reports: None Respiratory Surgical History: Reports: None GI Surgical History: Reports: None Female Surgical History: Reports: Section, Other (See Below) Other Female Surgeries/Procedures: IUD placed Endocrine Surgical History: Reports: None Neurological Surgical History: Reports: None Musculoskeletal Surgical History: Reports: Other (See Below) Other Musculoskeletal Surgeries/Procedures:: Ankle surgery Social & Family History - Family History Family Medical History: No Pertinent Family History Endocrine/Metabolic: Reports: Diabetes, type II - Tobacco Use Tobacco Use Status *Q: Never Tobacco User Second Hand Smoke Exposure: No - Caffeine Use Caffeine Use: Reports: None - Recreational Drug Use Recreational Drug Use: Yes Drug Use in Last 12 Months: Yes Recreational Drug Type: Reports: Marijuana/Hashish - Living Situation & Occupation Living situation: Reports: with Family Occupation: Disabled ED ROS GENERAL - Review of Systems Review Of Systems: Comprehensive ROS is negative, except as noted in HPI. ED EXAM, GENERAL - Physical Exam Exam: See Below Exam Limited By: No Limitations General Appearance: Alert, WD/WN, Moderate Distress Eye Exam: Bilateral Eye: EOMI, Normal Inspection, PERRL Ears: Normal External Exam, Normal Canal, Hearing Grossly Normal, Normal TMs Nose: Normal Inspection, Normal Mucosa, No Blood Throat/Mouth: Normal Inspection, Normal Lips, Normal Teeth, Normal Gums, Normal Oropharynx, Normal Voice, No Airway Compromise Head: Atraumatic, Normocephalic Neck: Normal Inspection, Supple, Non-Tender, Full Range of Motion Respiratory/Chest: No Respiratory Distress, Lungs Clear, Normal Breath Sounds, No Accessory Muscle Use, Chest Non-Tender Cardiovascular: Normal Peripheral Pulses, Regular Rate, Rhythm, No Gallop, No JVD, No Murmur, No Rub GI/Abdominal: Normal Bowel Sounds, Soft, Non-Tender, No Organomegaly, No Distention, No Abnormal Bruit, No Mass (Female) Exam: Deferred Rectal (Female) Exam: Deferred Back Exam: Normal Inspection, Full Range of Motion, NT Extremities: Normal Inspection, Normal Range of Motion, Non-Tender, Normal Capillary Refill, Pedal Edema Neurological: Alert, Oriented, CN II-XII Intact, Normal Cognition, Normal Gait, Normal Reflexes, No Motor/Sensory Deficits Psychiatric: Normal Affect, Normal Mood Skin Exam: Warm, Dry, Intact, Normal Color, No Rash Lymphatic: No Adenopathy #1 Interpretation EKG Date: 11/17/20 Time: 19:22 Rhythm: NSR [place]: Normal P-Wave: Present QRS: Normal ST-T: Normal QT: Normal Comparison: No Change Course - Vital Signs Last Recorded V/S: Last Vital Signs Temp 36.4 C 11/17/20 19:32 Pulse 76 11/17/20 19:32 Resp 16 11/17/20 19:32 BP 146/64 H 11/17/20 19:32 Pulse Ox 100 11/17/20 19:32 - Orders/Labs/Meds Orders: Active Orders 24 hr Category Date Time Status EKG Documentation Completion [RC] STAT Care 11/17/20 19:19 Active CULTURE BLOOD [BC] Stat Lab 11/17/20 19:55 Results DRUG SCREEN URINE BIORAD [URCHEM] Stat Lab 11/17/20 19:20 Ordered UA RFX GHAZAL AND CULT IF INDIC [URIN] Urgent Lab 11/17/20 19:20 Ordered Labs: Laboratory Tests 11/17/20 11/17/20 11/17/20 Range/Units 19:23 20:04 20:04 WBC 8.4 (5.0-10.0) 10^3/uL RBC 2.66 L (4.2-5.4) 10^6/uL Hgb 8.6 L (12.0-16.0) g/dL Hct 25.8 L (37.0-47.0) % MCV 97.0 (80-100) fL MCH 32.3 (27.0-34.0) pg MCHC 33.3 (33.0-35.0) g/dL Plt Count 227 (150-450) 10^3/uL Neut % (Auto) 62.2 (42.2-75.2) % Lymph % (Auto) 22.3 (20.5-50.1) % [place] % (Auto) 8.0 (2-8) % Eos % (Auto) 6.7 H (1.0-3.0) % Baso % (Auto) 0.8 (0.0-1.0) % Sodium 129 L (136-145) mmol/L Potassium 5.5 H (3.5-5.1) mmol/L Chloride 94 L (98-107) mmol/L Carbon Dioxide 22 (21-32) mmol/L Anion Gap 18.5 H (7-13) mEq/L BUN 52 H D (7-18) mg/dL Creatinine 9.37 H* D (0.55-1.02) mg/dL Est Cr Clr Drug Dosing 6.95 mL/min Estimated GFR (MDRD) 4 BUN/Creatinine Ratio 5.5 (No establ ref range) Glucose 523 H* (70-99) mg/dL Lactic Acid (0.4-2.0) mmol/L Calcium 7.4 L (8.5-10.1) mg/dL Total Bilirubin 0.4 (0.2-1.0) mg/dL AST 10 L (15-37) U/L ALT 19 (14-59) U/L Alkaline Phosphatase 189 H (46-116) U/L Troponin I 0.024 (0.000-0.056) ng/mL B-Natriuretic Peptide 615 H (0-100) pg/ml Total Protein 6.9 (6.4-8.2) g/dL Albumin 3.2 L (3.4-5.0) g/dL Globulin 3.7 Albumin/Globulin Ratio 0.86 Ethyl Alcohol < 3 (0) mg/dL Influenza Type A RNA Negative (NEGATIVE) Influenza Type B RNA Negative (NEGATIVE) SARS-CoV-2 RNA (KIESHA) Negative (NEGATIVE) 11/17/20 Range/Units 20:04 WBC (5.0-10.0) 10^3/uL RBC (4.2-5.4) 10^6/uL Hgb (12.0-16.0) g/dL Hct (37.0-47.0) % MCV (80-100) fL MCH (27.0-34.0) pg MCHC (33.0-35.0) g/dL Plt Count (150-450) 10^3/uL Neut % (Auto) (42.2-75.2) % Lymph % (Auto) (20.5-50.1) % [place] % (Auto) (2-8) % Eos % (Auto) (1.0-3.0) % Baso % (Auto) (0.0-1.0) % Sodium (136-145) mmol/L Potassium (3.5-5.1) mmol/L Chloride (98-107) mmol/L Carbon Dioxide (21-32) mmol/L Anion Gap (7-13) mEq/L BUN (7-18) mg/dL Creatinine (0.55-1.02) mg/dL Est Cr Clr Drug Dosing mL/min Estimated GFR (MDRD) BUN/Creatinine Ratio (No establ ref range) Glucose (70-99) mg/dL Lactic Acid 1.1 (0.4-2.0) mmol/L Calcium (8.5-10.1) mg/dL Total Bilirubin (0.2-1.0) mg/dL AST (15-37) U/L ALT (14-59) U/L Alkaline Phosphatase (46-116) U/L Troponin I (0.000-0.056) ng/mL B-Natriuretic Peptide (0-100) pg/ml Total Protein (6.4-8.2) g/dL Albumin (3.4-5.0) g/dL Globulin Albumin/Globulin Ratio Ethyl Alcohol (0) mg/dL Influenza Type A RNA (NEGATIVE) Influenza Type B RNA (NEGATIVE) SARS-CoV-2 RNA (KIESHA) (NEGATIVE) Meds: Medications Discontinued Medications Generic Name Dose Route Start Last Admin Trade Name Freq PRN Reason Stop Dose Admin Apixaban 5 mg 11/17/20 19:42 11/17/20 20:28 Apixaban 5 Mg Tab PO 11/17/20 19:43 5 mg ONETIME ONE Administration - Radiology Interpretation Free Text/Narrative:: [facility] [place] [facility] Final Radiology Report Call: [phone] assistance Online chat: [email or web address] Name: LATOYA JUNE Age: 45Years F Date: 11/17/2020 SSN: -- : 1975 Study: CR CHEST 1V FRONTAL Requesting Physician: Candelario Jiménez Images: 1 Addl Studies: Provided Clinical History: chest pressure Contrast: Contrast Medium: Contrast Amount: Contrast Method: Page 1 of 2 PROCEDURE INFORMATION: Exam: XR Chest Exam date and time: 11/17/2020 8:25 PM Age: 45 years old Clinical indication: Other: Pain; Additional info: Chest pressure TECHNIQUE: Imaging protocol: XR of the chest. Views: 1 view. COMPARISON: CR Chest 1V Frontal 11/14/2020 1:35 AM FINDINGS: Tubes, catheters and devices: A central line is been placed by the left jugular approach. The catheter tip projects over the expected location of the superior vena cava. This appears to be a dual lumen dialysis catheter. Lungs: The lungs are clear. Pleural spaces: No pleural effusion. No pneumothorax. Heart/Mediastinum: Mild cardiomegaly. Bones/joints: No acute bony findings are identified. IMPRESSION: 1. No change. 2. Stable cardiomegaly. Thank you for allowing us to participate in the care of your patient. Dictated and Authenticated by: Ryley Baltazar MD LONGIE LATOYA | Final Radiology Report CONFIDENTIALITY STATEMENT This report is intended only for use by the referring physician, and only in accordance with law. If you received this in error, call [phone]. Page 2 of 2 11/17/2020 8:40 PM Central Time ([place] & [place]) - Re-Assessments/Exams Free Text/Narrative Re-Assessment/Exam: 11/17/20 21:23 The patient was advised of the lab results. The patient reports she is feeling better at this time. Departure - Departure Time of Disposition: 21:24 Disposition: Home, Self-Care 01 Condition: Fair Clinical Impression: Nonspecific chest pain - Discharge Information *PRESCRIPTION DRUG MONITORING PROGRAM REVIEWED*: Not Applicable *COPY OF PRESCRIPTION DRUG MONITORING REPORT IN PATIENT LATHA: Not Applicable Instructions: Nonspecific Chest Pain, Adult, [id number] Forms: ED Department Discharge Care Plan Goals: The patient was advised of the examination, lab, EKG and x-ray results during the visit. The patient was encouraged to go to dialysis as scheduled tomorrow. If the patient has any additional symptoms or concerns, the patient should either return to the emergency department or visit her primary care facility. Sepsis Event Note (ED) - Evaluation Sepsis Screening Result: No Definite Risk - Focused Exam Vital Signs: Vital Signs Temp Pulse Resp BP Pulse Ox 11/17/20 19:32 36.4 C 76 16 146/64 H 100 - My Orders Last 24 Hours: My Active Orders 11/17/20 19:19 EKG Documentation Completion [RC] STAT 11/17/20 19:20 DRUG SCREEN URINE BIORAD [URCHEM] Stat UA RFX GHAZAL AND CULT IF INDIC [URIN] Urgent 11/17/20 19:55 CULTURE BLOOD [BC] Stat - Assessment/Plan Last 24 Hours: My Active Orders 11/17/20 19:19 EKG Documentation Completion [RC] STAT 11/17/20 19:20 DRUG SCREEN URINE BIORAD [URCHEM] Stat UA RFX GHAZAL AND CULT IF INDIC [URIN] Urgent 11/17/20 19:55 CULTURE BLOOD [BC] Stat
--- NOTE | 2020-11-17 20:40 | CR ---
PROCEDURE INFORMATION: Exam: XR Chest Exam date and time: 11/17/2020 8:25 PM Age: 45 years old Clinical indication: Other: Pain; Additional info: Chest pressure TECHNIQUE: Imaging protocol: XR of the chest. Views: 1 view. COMPARISON: CR Chest 1V Frontal 11/14/2020 1:35 AM FINDINGS: Tubes, catheters and devices: A central line is been placed by the left jugular approach. The catheter tip projects over the expected location of the superior vena cava. This appears to be a dual lumen dialysis catheter. Lungs: The lungs are clear. Pleural spaces: No pleural effusion. No pneumothorax. Heart/Mediastinum: Mild cardiomegaly. Bones/joints: No acute bony findings are identified. IMPRESSION: 1. No change. 2. Stable cardiomegaly.
[2020-11-17 20:42] LABS: ANION GAP 18.5 mEq/L (7-13); CHLORIDE,CL 94 mmol/L (98-107); SODIUM,NA 129 mmol/L (136-145)
[2020-11-17 20:50] LABS: CORONAVIRUS COVID-19 NAA NEGATIVE (NEGATIVE)
== END 2020-11-17 21:28 | disposition home or self-care (01) ==
LOC: DL.ED 19:12
DX: R07.9 Chest pain, unspecified (principal); I13.0 Hypertensive heart and chronic kidney disease with heart failure and stage 1 through stage 4 chronic kidney disease, or unspecified chronic kidney disease; E11.22 Type 2 diabetes mellitus with diabetic chronic kidney disease; N18.9 Chronic kidney disease, unspecified; I50.9 Heart failure, unspecified; K21.9 Gastro-esophageal reflux disease without esophagitis; E78.00 Pure hypercholesterolemia, unspecified; E66.9 Obesity, unspecified; E11.40 Type 2 diabetes mellitus with diabetic neuropathy, unspecified; Z68.42 Body mass index [BMI] 45.0-49.9, adult; Z20.822 Contact with and (suspected) exposure to COVID-19; Z88.0 Allergy status to penicillin; Z88.8 Allergy status to other drugs, medicaments and biological substances; Z88.5 Allergy status to narcotic agent; Z79.4 Long term (current) use of insulin; Z79.01 Long term (current) use of anticoagulants; Z79.899 Other long term (current) drug therapy
CPT/HCPCS: 0240U; 36415; 71045; 80053; 80307; 83605; 83880; 84484; 85025; 87040; 93005; 93010; 99284; 99285; A9270

== ENCOUNTER 2021-01-27 04:15 | Emergency (ER) | payer MEDICAID, MEDICARE ==
--- NOTE | 2021-01-27 04:35 | EDM.PDOC ---
ED HPI GENERAL MEDICAL PROBLEM - General Chief Complaint: Respiratory Problem Stated Complaint: AMBULANCE Time Seen by Provider: 01/27/21 04:35 Source of Information: Reports: Patient, EMS, EMS Notes Reviewed, RN, RN Notes Reviewed History Limitations: Reports: No Limitations - History of Present Illness INITIAL COMMENTS - FREE TEXT/NARRATIVE: Patient is a 45-year-old female who presents to ER per [facility] with complaint of shortness of breath, chest pains, cough. Patient states she just began having a fever last evening, upon arrival to the ER temperature is 102. Patient states she runs hemodialysis on Mondays, Wednesdays, Fridays. She states she was to take an extra run on Wednesday but she ended up going to [place] to see her brother who received a kidney. Patient states she feels she is overloaded on fluid. Patient states cough began on Wednesday, shortness of breath just began last evening. Denies nausea or vomiting, admits to recent diarrhea. Admits to shaking chills. EMS reports oxygen saturation on room air upon arrival to the patient's home was mid 80s. Patient placed on a nonrebreather mask at that time. Patient states she has had Covid, and has had her first Covid vaccination. Onset: Gradual Left Anterior Chest Pain Score (Numeric/FACES): 4 Bilateral Shoulder Pain Score (Numeric/FACES): 6 - Related Data Allergies Allergy/AdvReac Type Severity Reaction Status Date / Time aspirin Allergy Hives Verified 01/27/21 04:50 naproxen [From Naprosyn] Allergy Rash Verified 01/27/21 04:50 Penicillins Allergy Rash Verified 01/27/21 04:50 propoxyphene napsylate Allergy Rash Verified 01/27/21 04:50 [From Darvocet-N 100] Home Meds: Home Meds Losartan [Cozaar] 100 mg PO DAILY 01/07/18 [History] Calcium Acetate [PhosLo] 1,334 mg PO TIDMEALS 03/12/18 [History] Sodium Polystyrene Sulfonate [Kayexalate] 60 ml PO ASDIRECTED 02/22/19 [History] Metoprolol Succinate 200 mg PO DAILY 03/04/20 [History] amLODIPine [Norvasc] 10 mg PO BEDTIME 03/04/20 [History] Acetaminophen [Tylenol] 650 mg PO Q6H PRN 03/16/20 [History] Insulin Detemir [Levemir] 10 unit SQ BEDTIME 06/14/20 [History] Apixaban [Eliquis] 5 mg PO BID 11/04/20 [History] hydrALAZINE [Apresoline] 100 mg PO BID 11/04/20 [History] Calcium Carbonate [Tums Extra Strength] 1,000 mg PO TIDMEALS 11/13/20 [History] Biotin/FA/Vit C/Vit B Complex [Nephrocaps] 1 tab PO DAILY 11/17/20 [History] levonorgestreL [Mirena] 1 each IY ONETIME 11/17/20 [History] metroNIDAZOLE [Metronidazole] 500 mg PO BID 11/17/20 [History] Past Medical History HEENT History: Reports: None, Impaired Vision Other HEENT History: wears glasses Cardiovascular History: Reports: Heart Failure, Heart Murmur, High Cholesterol, Hypertension Respiratory History: Reports: PE Gastrointestinal History: Reports: GERD Genitourinary History: Reports: Acute Renal Failure, Chronic Renal Insuffiency, Dialysis, Renal Disease 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 HAND History: Reports: Musculoskeletal History: Reports: Fracture Neurological History: Reports: Neuropathy, Diabetic Psychiatric History: Reports: Anxiety Endocrine/Metabolic History: Reports: Diabetes, Type II, Obesity/BMI 30+ Hematologic History: Reports: Blood Transfusion(s) Immunologic History: Reports: None Oncologic (Cancer) History: Reports: None Dermatologic History: Reports: Other (See Below) Other Dermatologic History: boil - Infectious Disease History Infectious Disease History: Reports: MRSA, Novel Coronavirus - Past Surgical History HEENT Surgical History: Reports: None Cardiovascular Surgical History: Reports: None Respiratory Surgical History: Reports: None GI Surgical History: Reports: None Female Surgical History: Reports: Section, Other (See Below) Other Female Surgeries/Procedures: IUD placed Endocrine Surgical History: Reports: None Neurological Surgical History: Reports: None Musculoskeletal Surgical History: Reports: Other (See Below) Other Musculoskeletal Surgeries/Procedures:: Ankle surgery Social & Family History - Family History Family Medical History: No Pertinent Family History Endocrine/Metabolic: Reports: Diabetes, type II - Caffeine Use Caffeine Use: Reports: None - Living Situation & Occupation Living situation: Reports: with Family Occupation: Disabled ED ROS GENERAL - Review of Systems Review Of Systems: Comprehensive ROS is negative, except as noted in HPI. ED EXAM, GENERAL - Physical Exam Exam: See Below Exam Limited By: Respiratory Distress General Appearance: Alert, WD/WN, Moderate Distress Eye Exam: Bilateral Eye: EOMI, Normal Inspection Ears: Normal External Exam, Hearing Grossly Normal Nose: Normal Inspection Throat/Mouth: Normal Inspection, Normal Voice, No Airway Compromise Head: Atraumatic, Normocephalic Neck: Normal Inspection, Supple, Non-Tender, Full Range of Motion Respiratory/Chest: Decreased Breath Sounds, Crackles (Throughout), Wheezing (Throughout) Cardiovascular: Normal Peripheral Pulses, Regular Rate, Rhythm, No Gallop, No JVD, No Murmur, No Rub, Other (Pedal edema +1-2) Peripheral Pulses: 2+: Radial (L), Radial (R) GI/Abdominal: Normal Bowel Sounds, Soft, Non-Tender (Female) Exam: Deferred Rectal (Female) Exam: Deferred Back Exam: Normal Inspection, Full Range of Motion Extremities: Normal Inspection, Normal Range of Motion, Non-Tender, No Pedal Edema, Normal Capillary Refill, Other (Fistulas in the arms bilaterally) Neurological: Alert, Oriented, CN II-XII Intact, Normal Cognition, Normal Gait, Normal Reflexes, No Motor/Sensory Deficits Psychiatric: Normal Affect, Normal Mood, Anxious Skin Exam: Warm, Dry, Intact, Normal Color, No Rash Lymphatic: No Adenopathy #1 Interpretation EKG Date: 01/27/21 Time: 04:37 Rhythm: NSR Rate (Beats/Min): 88 [place]: Normal P-Wave: Present QRS: Normal ST-T: Normal QT: Normal Comparison: No Change Course - Vital Signs Last Recorded V/S: Last Vital Signs Temp 99.2 F 01/27/21 06:24 Pulse 84 01/27/21 06:24 Resp 22 H 01/27/21 06:24 BP 188/95 H 01/27/21 06:24 Pulse Ox 95 01/27/21 06:24 - Orders/Labs/Meds Orders: Active Orders 24 hr Category Date Time Status EKG Documentation Completion [RC] STAT Care 01/27/21 04:35 Active CULTURE BLOOD [BC] Stat Lab 01/27/21 04:49 Received CULTURE BLOOD [BC] Stat Lab 01/27/21 05:03 Received REFLEX LACTIC ACID YES OR NO [CHEM] Routine Lab 01/27/21 05:55 Received Dextrose 50% in Water Med 01/27/21 06:03 Active 50 ml IVPUSH Q15M PRN Glucagon,Human Recombinant [GlucaGen] Med 01/27/21 06:03 Active 1 mg IM Q15M PRN Insulin Regular in 0.9 % NACL [Myxredlin in NS 100 UNIT Med 01/27/21 06:15 Active /100 ML] 100 unit in 100 ml IV TITRATE Sodium Chloride 0.9% [Normal Saline] 1,000 ml Med 01/27/21 06:03 Active IV .BOLUS Blood Culture x2 Reflex Set [OM.PC] Stat Oth 01/27/21 04:35 Ordered Medication Orders Dextrose/Water (50% Dextrose In Water 50 Ml Syringe) 50 ml IVPUSH Q15M PRN PRN Reason: Hypoglycemia Glucagon (Glucagon,Human Recombinant 1 Mg Vial) 1 mg IM Q15M PRN PRN Reason: Hypoglycemia Insulin Regular in 0.9 % NACL (Myxredlin In Ns 100 Unit/100 Ml) 100 unit in 100 mls @ 14.651 mls/hr IV TITRATE SREEKANTH; Protocol Last Admin: 01/27/21 06:52 Dose: 0.1 units/kg/hr, 14.651 mls/hr Documented by: WALTER Cosigned by: ÁNGEL Sodium Chloride (Normal Saline) 1,000 mls @ 999 mls/hr IV .BOLUS ONE Stop: 01/27/21 07:03 Last Admin: 01/27/21 06:38 Dose: 999 mls/hr Documented by: WALTER Labs: Laboratory Tests 01/27/21 01/27/21 01/27/21 Range/Units 04:49 05:03 05:03 WBC 14.9 H (5.0-10.0) 10^3/uL RBC 3.44 L (4.2-5.4) 10^6/uL Hgb 10.8 L D (12.0-16.0) g/dL Hct 31.8 L (37.0-47.0) % MCV 92.4 D (80-100) fL MCH 31.4 (27.0-34.0) pg MCHC 34.0 (33.0-35.0) g/dL Plt Count 223 (150-450) 10^3/uL Neut % (Auto) 80.3 H (42.2-75.2) % Lymph % (Auto) 7.9 L (20.5-50.1) % [place] % (Auto) 11.6 H (2-8) % Eos % (Auto) 0.1 L (1.0-3.0) % Baso % (Auto) 0.1 (0.0-1.0) % PT 9.9 (9.0-12.0) SEC INR 1.0 (0.9-1.2) Sodium (136-145) mmol/L Potassium (3.5-5.1) mmol/L Chloride (98-107) mmol/L Carbon Dioxide (21-32) mmol/L Anion Gap (7-13) mEq/L BUN (7-18) mg/dL Creatinine (0.55-1.02) mg/dL Est Cr Clr Drug Dosing mL/min Estimated GFR (MDRD) BUN/Creatinine Ratio (No establ ref range) Glucose (70-99) mg/dL POC Glucose (70-99) mg/dL Lactic Acid 2.1 H* (0.4-2.0) mmol/L Calcium (8.5-10.1) mg/dL Total Bilirubin (0.2-1.0) mg/dL AST (15-37) U/L ALT (14-59) U/L Alkaline Phosphatase (46-116) U/L Troponin I High Sens (<=51) pg/mL C-Reactive Protein (0.0-0.9) mg/dL B-Natriuretic Peptide (0-100) pg/ml Total Protein (6.4-8.2) g/dL Albumin (3.4-5.0) g/dL Globulin Albumin/Globulin Ratio Ketones Influenza Type A RNA (NEGATIVE) Influenza Type B RNA (NEGATIVE) SARS-CoV-2 RNA (KIESHA) (NEGATIVE) 01/27/21 01/27/21 01/27/21 Range/Units 05:03 05:03 05:05 WBC (5.0-10.0) 10^3/uL RBC (4.2-5.4) 10^6/uL Hgb (12.0-16.0) g/dL Hct (37.0-47.0) % MCV (80-100) fL MCH (27.0-34.0) pg MCHC (33.0-35.0) g/dL Plt Count (150-450) 10^3/uL Neut % (Auto) (42.2-75.2) % Lymph % (Auto) (20.5-50.1) % [place] % (Auto) (2-8) % Eos % (Auto) (1.0-3.0) % Baso % (Auto) (0.0-1.0) % PT (9.0-12.0) SEC INR (0.9-1.2) Sodium 116 L* D (136-145) mmol/L Potassium 5.8 H (3.5-5.1) mmol/L Chloride 82 L D (98-107) mmol/L Carbon Dioxide 19 L (21-32) mmol/L Anion Gap 20.8 H (7-13) mEq/L BUN 89 H D (7-18) mg/dL Creatinine 9.31 H* (0.55-1.02) mg/dL Est Cr Clr Drug Dosing 6.99 mL/min Estimated GFR (MDRD) 5 BUN/Creatinine Ratio 9.6 (No establ ref range) Glucose 1001 H* (70-99) mg/dL POC Glucose (70-99) mg/dL Lactic Acid (0.4-2.0) mmol/L Calcium 7.9 L (8.5-10.1) mg/dL Total Bilirubin 0.6 (0.2-1.0) mg/dL AST 24 (15-37) U/L ALT 38 (14-59) U/L Alkaline Phosphatase 260 H (46-116) U/L Troponin I High Sens 17 (<=51) pg/mL C-Reactive Protein 1.0 H (0.0-0.9) mg/dL B-Natriuretic Peptide 1820 H (0-100) pg/ml Total Protein 7.8 (6.4-8.2) g/dL Albumin 3.5 (3.4-5.0) g/dL Globulin 4.3 Albumin/Globulin Ratio 0.8 Ketones Negative Influenza Type A RNA Negative (NEGATIVE) Influenza Type B RNA Negative (NEGATIVE) SARS-CoV-2 RNA (KIESHA) Negative (NEGATIVE) 01/27/21 Range/Units 06:47 WBC (5.0-10.0) 10^3/uL RBC (4.2-5.4) 10^6/uL Hgb (12.0-16.0) g/dL Hct (37.0-47.0) % MCV (80-100) fL MCH (27.0-34.0) pg MCHC (33.0-35.0) g/dL Plt Count (150-450) 10^3/uL Neut % (Auto) (42.2-75.2) % Lymph % (Auto) (20.5-50.1) % [place] % (Auto) (2-8) % Eos % (Auto) (1.0-3.0) % Baso % (Auto) (0.0-1.0) % PT (9.0-12.0) SEC INR (0.9-1.2) Sodium (136-145) mmol/L Potassium (3.5-5.1) mmol/L Chloride (98-107) mmol/L Carbon Dioxide (21-32) mmol/L Anion Gap (7-13) mEq/L BUN (7-18) mg/dL Creatinine (0.55-1.02) mg/dL Est Cr Clr Drug Dosing mL/min Estimated GFR (MDRD) BUN/Creatinine Ratio (No establ ref range) Glucose (70-99) mg/dL POC Glucose > 600 H* (70-99) mg/dL Lactic Acid (0.4-2.0) mmol/L Calcium (8.5-10.1) mg/dL Total Bilirubin (0.2-1.0) mg/dL AST (15-37) U/L ALT (14-59) U/L Alkaline Phosphatase (46-116) U/L Troponin I High Sens (<=51) pg/mL C-Reactive Protein (0.0-0.9) mg/dL B-Natriuretic Peptide (0-100) pg/ml Total Protein (6.4-8.2) g/dL Albumin (3.4-5.0) g/dL Globulin Albumin/Globulin Ratio Ketones Influenza Type A RNA (NEGATIVE) Influenza Type B RNA (NEGATIVE) SARS-CoV-2 RNA (KIESHA) (NEGATIVE) Meds: Medications Generic Name Dose Route Start Last Admin Trade Name Freq PRN Reason Stop Dose Admin Dextrose/Water 50 ml 01/27/21 06:03 50% Dextrose In Water 50 Ml Syringe IVPUSH Q15M PRN Hypoglycemia Glucagon 1 mg 01/27/21 06:03 Glucagon,Human Recombinant 1 Mg Vial IM Q15M PRN Hypoglycemia Insulin Regular in 0.9 % NACL 100 unit in 100 mls @ 14.651 mls/hr 01/27/21 06:15 01/27/21 06:52 Myxredlin In Ns 100 Unit/100 Ml IV 0.1 units/kg/hr TITRATE SREEKANTH 14.651 mls/hr Administration Protocol 0.1 UNITS/KG/HR Sodium Chloride 1,000 mls @ 999 mls/hr 01/27/21 06:03 01/27/21 06:38 Normal Saline IV 01/27/21 07:03 999 mls/hr .BOLUS ONE Administration Discontinued Medications Generic Name Dose Route Start Last Admin Trade Name Freq PRN Reason Stop Dose Admin Acetaminophen 650 mg 01/27/21 06:50 01/27/21 06:57 Acetaminophen 325 Mg Tab PO 01/27/21 06:51 650 mg NOW ONE Administration Acetaminophen 650 mg 01/27/21 06:45 01/27/21 06:58 Acetaminophen 325 Mg Tab PO 01/27/21 06:46 Not Given NOW ONE Amlodipine Besylate 10 mg 01/27/21 06:47 Amlodipine 5 Mg Tab PO 01/27/21 06:48 ONETIME ONE Hydralazine HCl 100 mg 01/27/21 06:46 Hydralazine 25 Mg Tab PO 01/27/21 06:47 ONETIME ONE Insulin Human Regular 10 unit 01/27/21 06:03 01/27/21 06:36 Insulin Regular, Human 100 Units/Ml 3 Ml Vial IV 01/27/21 06:04 10 unit ONETIME ONE Administration Losartan Potassium 100 mg 01/27/21 06:52 Losartan 50 Mg Tab PO 01/27/21 06:53 ONETIME ONE - Radiology Interpretation Free Text/Narrative:: Chest xray: PROCEDURE INFORMATION: Exam: XR Chest Exam date and time: 01/27/2021 5:07 AM Age: 45 years old Clinical indication: Other: Chest pain TECHNIQUE: Imaging protocol: XR of the chest. Views: 1 view. COMPARISON: CR Chest 1V Frontal 11/17/2020 8:25 PM FINDINGS: Tubes, catheters and devices: Right-sided central venous catheter is stable. Lungs: There is enlargement of the pulmonary vascularity. There is thickening of the interstitial markings. Pleural spaces: Unremarkable. No pleural effusion. No pneumothorax. Heart/Mediastinum: The heart is mildly enlarged. Bones/joints: Unremarkable. IMPRESSION: Congestive heart failure. Thank you for allowing us to participate in the care of your patient. Dictated and Authenticated by: José Miguel Atkins DO 01/27/2021 5:40 AM Central Time ([place] & [place]) See rad report - Re-Assessments/Exams Free Text/Narrative Re-Assessment/Exam: 01/27/21 07:02 Discussed patient case with Dr. Calixto who agreed to accept the patient for transfer to [facility]. Departure - Departure Time of Disposition: 07:02 Disposition: DC/Tfer to Acute Hospital 02 Condition: Serious Clinical Impression: CHF, Congestive heart failure, Diabetes mellitus, CKD (chronic kidney disease) requiring chronic dialysis, Respiratory distress Fluid overload Qualifiers: Hypervolemia type: other Qualified Code(s): E87.79 - Other fluid overload Diabetic ketoacidosis Qualifiers: Diabetes mellitus type: type 2 Diabetes mellitus complication detail: without coma Qualified Code(s): E11.10 - Type 2 diabetes mellitus with ketoacidosis without coma - Discharge Information *PRESCRIPTION DRUG MONITORING PROGRAM REVIEWED*: No *COPY OF PRESCRIPTION DRUG MONITORING REPORT IN PATIENT LATHA: No Forms: ED Department Discharge, [facility]fac[facility] Sepsis Event Note (ED) - Focused Exam Vital Signs: Vital Signs Temp Pulse Resp BP Pulse Ox 01/27/21 06:24 99.2 F 84 22 H 188/95 H 95 01/27/21 04:32 100 F 89 22 H 100 - My Orders Last 24 Hours: My Active Orders 01/27/21 04:35 EKG Documentation Completion [RC] STAT Blood Culture x2 Reflex Set [OM.PC] Stat 01/27/21 04:49 CULTURE BLOOD [BC] Stat 01/27/21 05:03 CULTURE BLOOD [BC] Stat 01/27/21 05:55 REFLEX LACTIC ACID YES OR NO [CHEM] Routine 01/27/21 06:03 Dextrose 50% in Water 50 ml IVPUSH Q15M PRN Glucagon,Human Recombinant [GlucaGen] 1 mg IM Q15M PRN Sodium Chloride 0.9% [Normal Saline] 1,000 ml IV .BOLUS 01/27/21 06:15 Insulin Regular in 0.9 % NACL [Myxredlin in NS 100 UNIT/100 ML] 100 unit in 100 ml IV TITRATE - Assessment/Plan Last 24 Hours: My Active Orders 01/27/21 04:35 EKG Documentation Completion [RC] STAT Blood Culture x2 Reflex Set [OM.PC] Stat 01/27/21 04:49 CULTURE BLOOD [BC] Stat 01/27/21 05:03 CULTURE BLOOD [BC] Stat 01/27/21 05:55 REFLEX LACTIC ACID YES OR NO [CHEM] Routine 01/27/21 06:03 Dextrose 50% in Water 50 ml IVPUSH Q15M PRN Glucagon,Human Recombinant [GlucaGen] 1 mg IM Q15M PRN Sodium Chloride 0.9% [Normal Saline] 1,000 ml IV .BOLUS 01/27/21 06:15 Insulin Regular in 0.9 % NACL [Myxredlin in NS 100 UNIT/100 ML] 100 unit in 100 ml IV TITRATE
--- NOTE | 2021-01-27 05:40 | CR ---
PROCEDURE INFORMATION: Exam: XR Chest Exam date and time: 01/27/2021 5:07 AM Age: 45 years old Clinical indication: Other: Chest pain TECHNIQUE: Imaging protocol: XR of the chest. Views: 1 view. COMPARISON: CR Chest 1V Frontal 11/17/2020 8:25 PM FINDINGS: Tubes, catheters and devices: Right-sided central venous catheter is stable. Lungs: There is enlargement of the pulmonary vascularity. There is thickening of the interstitial markings. Pleural spaces: Unremarkable. No pleural effusion. No pneumothorax. Heart/Mediastinum: The heart is mildly enlarged. Bones/joints: Unremarkable. IMPRESSION: Congestive heart failure.
[2021-01-27 05:42] LABS: ANION GAP 20.8 mEq/L (7-13)
[2021-01-27] MEDS ORDERED: Insulin Regular, Human 100 Units/ML 3 ML Vial IV ONE (06:03)
[2021-01-27] MEDS ORDERED: Glucagon,Human Recombinant 1 MG Vial IM PRN (06:03)
[2021-01-27] MEDS ORDERED: 50% Dextrose in Water 50 ML Syringe IVPUSH PRN (06:03)
[2021-01-27] MEDS ORDERED: Sodium Chloride 0.9% 1,000 ML IV ONE (06:03)
[2021-01-27 06:12] LABS: CORONAVIRUS COVID-19 NAA NEGATIVE (NEGATIVE)
[2021-01-27 06:24] VITALS: PULSE 84
[2021-01-27] MEDS ORDERED: Acetaminophen 325 MG Tab PO ONE ×2 (06:45→06:50)
[2021-01-27] MEDS ORDERED: hydrALAZINE 25 MG Tab PO ONE (06:46)
[2021-01-27] MEDS ORDERED: amLODIPine 5 MG Tab PO ONE (06:47)
[2021-01-27] MEDS ORDERED: Losartan 50 MG Tab PO ONE (06:52)
[2021-01-27 07:10] VITALS: BP 205/101
== END 2021-01-27 07:43 ==
LOC: DL.ED 04:15
DX: I13.0 Hypertensive heart and chronic kidney disease with heart failure and stage 1 through stage 4 chronic kidney disease, or unspecified chronic kidney disease (principal); R06.03 Acute respiratory distress; E11.22 Type 2 diabetes mellitus with diabetic chronic kidney disease; E11.10 Type 2 diabetes mellitus with ketoacidosis without coma; N18.9 Chronic kidney disease, unspecified; I50.9 Heart failure, unspecified; E66.9 Obesity, unspecified; Z99.2 Dependence on renal dialysis; Z20.822 Contact with and (suspected) exposure to COVID-19; Z68.43 Body mass index [BMI] 50.0-59.9, adult; Z79.4 Long term (current) use of insulin; Z79.899 Other long term (current) drug therapy; Z88.0 Allergy status to penicillin; Z88.5 Allergy status to narcotic agent; Z88.8 Allergy status to other drugs, medicaments and biological substances
CPT/HCPCS: 0240U; 36415; 71045; 80053; 82009; 82947; 83605; 83880; 84484; 85025; 85610; 86140; 87040; 87077; 87186; 93005; 99285; A9270; J1815; J7030

== ENCOUNTER 2021-03-03 12:15 | Emergency (ER) | payer MEDICARE ==
[2021-03-03] MEDS ORDERED: Sodium Chloride 0.9% 10 ML Syringe FLUSH PRN (12:24)
[2021-03-03 12:51] VITALS: BP 157/71; PULSE 66
--- NOTE | 2021-03-03 13:20 | CR ---
PROCEDURE INFORMATION: Exam: XR Chest Exam date and time: 03/03/2021 12:32 PM Age: 45 years old Clinical indication: Pain; Chest pressure; Additional info: Chest pain TECHNIQUE: Imaging protocol: XR of the chest. Views: 1 view. COMPARISON: CR Chest 1V Frontal 01/27/2021 5:07 AM FINDINGS: Tubes, catheters and devices: A left central line is stable in position. Lungs: There is decreased pulmonary vascular congestion. The lungs are otherwise clear. Pleural spaces: Unremarkable. No pleural effusion. No pneumothorax. Heart/Mediastinum: The cardiomediastinal silhouette is fairly stable in appearance, with similar cardiomegaly. Bones/joints: Unremarkable. IMPRESSION: Cardiomegaly, as on 01/27/2021, with decreased pulmonary vascular congestion.
[2021-03-03 13:56] LABS: ANION GAP 22.3 mEq/L (7-13); CHLORIDE,CL 99 mmol/L (98-107); SODIUM,NA 133 mmol/L (136-145)
[2021-03-03] MEDS ORDERED: Sodium Polystyrene Sulfonate 15 GM/60 ML Susp 60 ML Bot PO ONE (14:01)
[2021-03-03] MEDS ORDERED: Albuterol 0.083% 2.5 MG/3 ML Neb Soln NEB ONE (14:03)
[2021-03-03] MEDS ORDERED: Calcium Chloride 10% 1 GM/10 ML Syringe IVPUSH ONE (14:04)
[2021-03-03] MEDS ORDERED: 50% Dextrose in Water 50 ML Syringe IVPUSH ONE (14:09)
[2021-03-03] MEDS ORDERED: Insulin Regular, Human 100 Units/ML 3 ML Vial IV ONE (14:09)
--- NOTE | 2021-03-03 15:41 | EDM.PDOC ---
Scribed by Suzy Adam 03/03/21 [id number] for Chad Dunlap MD ED HPI GENERAL MEDICAL PROBLEM - General Chief Complaint: General Stated Complaint: IN BY AMBULANCE Time Seen by Provider: 03/03/21 12:45 Source of Information: Reports: Patient History Limitations: Reports: No Limitations - History of Present Illness INITIAL COMMENTS - FREE TEXT/NARRATIVE: 45 y/o F c/o fatigue, cp and sob since this morning. CP is center chest non radiating initially a 5 out of 10 but is now a 2/10 without intervention. DB is constant and does not change with positioning. Pt missed her dialysis today due to severe diarrhea. Has dialysis 3 x a week. Denies fever, cough, chills, drugs, alcohol, abd pn, neck/back pain, pelvic pain, extremity pain. Onset: Today Duration: Hour(s): Location: Reports: Chest Quality: Reports: Ache Severity: Mild Improves with: Reports: None Worsens with: Reports: None Associated Symptoms: Reports: Shortness of Breath, Other (diarrhea) - Related Data Allergies Allergy/AdvReac Type Severity Reaction Status Date / Time aspirin Allergy Hives Verified 03/03/21 12:44 naproxen [From Naprosyn] Allergy Rash Verified 03/03/21 12:44 Penicillins Allergy Rash Verified 03/03/21 12:44 propoxyphene napsylate Allergy Rash Verified 03/03/21 12:44 [From Darvocet-N 100] Home Meds: Home Meds Losartan [Cozaar] 100 mg PO DAILY 01/07/18 [History] Calcium Acetate [PhosLo] 1,334 mg PO TIDMEALS 03/12/18 [History] Sodium Polystyrene Sulfonate [Kayexalate] 60 ml PO ASDIRECTED 02/22/19 [History] Metoprolol Succinate 200 mg PO DAILY 03/04/20 [History] amLODIPine [Norvasc] 10 mg PO BEDTIME 03/04/20 [History] Acetaminophen [Tylenol] 650 mg PO Q6H PRN 03/16/20 [History] Insulin Detemir [Levemir] 10 unit SQ BEDTIME 06/14/20 [History] Apixaban [Eliquis] 5 mg PO BID 11/04/20 [History] hydrALAZINE [Apresoline] 100 mg PO BID 11/04/20 [History] Calcium Carbonate [Tums Extra Strength] 1,000 mg PO TIDMEALS 11/13/20 [History] Biotin/FA/Vit C/Vit B Complex [Nephrocaps] 1 tab PO DAILY 11/17/20 [History] levonorgestreL [Mirena] 1 each IY ONETIME 11/17/20 [History] metroNIDAZOLE [Metronidazole] 500 mg PO BID 11/17/20 [History] Past Medical History HEENT History: Reports: None, Impaired Vision Other HEENT History: wears glasses Cardiovascular History: Reports: Heart Failure, Heart Murmur, High Cholesterol, Hypertension Respiratory History: Reports: PE Gastrointestinal History: Reports: GERD Genitourinary History: Reports: Acute Renal Failure, Chronic Renal Insuffiency, Dialysis, Renal Disease 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: Musculoskeletal History: Reports: Fracture Neurological History: Reports: Neuropathy, Diabetic Psychiatric History: Reports: Anxiety Endocrine/Metabolic History: Reports: Diabetes, Type II, Obesity/BMI 30+ Hematologic History: Reports: Blood Transfusion(s) Immunologic History: Reports: None Oncologic (Cancer) History: Reports: None Dermatologic History: Reports: Other (See Below) Other Dermatologic History: boil - Infectious Disease History Infectious Disease History: Reports: MRSA, Novel Coronavirus - Past Surgical History HEENT Surgical History: Reports: None Cardiovascular Surgical History: Reports: None Respiratory Surgical History: Reports: None GI Surgical History: Reports: None Female Surgical History: Reports: Section, Other (See Below) Other Female Surgeries/Procedures: IUD placed Endocrine Surgical History: Reports: None Neurological Surgical History: Reports: None Musculoskeletal Surgical History: Reports: Other (See Below) Other Musculoskeletal Surgeries/Procedures:: Ankle surgery Social & Family History - Family History Family Medical History: No Pertinent Family History Endocrine/Metabolic: Reports: Diabetes, type II - Caffeine Use Caffeine Use: Reports: Coffee - Living Situation & Occupation Living situation: Reports: with Family Occupation: Disabled ED ROS GENERAL - Review of Systems Review Of Systems: Comprehensive ROS is negative, except as noted in HPI. ED EXAM, GENERAL - Physical Exam Exam: See Below Exam Limited By: No Limitations General Appearance: Alert, WD/WN, No Apparent Distress Eye Exam: Bilateral Eye: PERRL Ears: Normal External Exam, Normal Canal, Hearing Grossly Normal, Normal TMs Nose: Normal Inspection, Normal Mucosa, No Blood Throat/Mouth: Normal Inspection, Normal Lips, Normal Teeth, Normal Gums, Normal Oropharynx, Normal Voice, No Airway Compromise Head: Atraumatic, Normocephalic Neck: Normal Inspection, Supple, Non-Tender, Full Range of Motion Respiratory/Chest: No Respiratory Distress, Lungs Clear, Normal Breath Sounds, No Accessory Muscle Use, Chest Non-Tender Cardiovascular: Normal Peripheral Pulses, Regular Rate, Rhythm, No Edema, No Gallop, No JVD, No Murmur, No Rub GI/Abdominal: Normal Bowel Sounds, Soft, Non-Tender, No Organomegaly, No Distention, No Abnormal Bruit, No Mass (Female) Exam: Deferred Rectal (Female) Exam: Deferred Back Exam: Normal Inspection, Full Range of Motion, NT Extremities: Normal Inspection, Normal Range of Motion, Non-Tender, Normal Capillary Refill, No Pedal Edema Neurological: Alert, Oriented, CN II-XII Intact, Normal Cognition, Normal Gait, Normal Reflexes, No Motor/Sensory Deficits Psychiatric: Normal Affect, Normal Mood Skin Exam: Warm, Dry, Intact, Normal Color, No Rash #2 Interpretation EKG Date: 03/03/21 Time: 12:22 Rhythm: Other (SR) Rate (Beats/Min): 77 [place]: LAD-Left [place] Deviation P-Wave: Present QRS: Normal ST-T: Normal QT: Prolonged (borderline) EKG Interpretation Comments: sinus rhythm rate 65, physiologic left axis, poor R wave progression, borderline QT prolongation, normal T waves with boderline peak in v3-v4. Course - Vital Signs Last Recorded V/S: Last Vital Signs Temp 97.5 F 03/03/21 12:49 Pulse 66 03/03/21 12:49 Resp 20 03/03/21 12:49 BP 157/71 H 03/03/21 12:49 Pulse Ox 99 03/03/21 12:49 - Orders/Labs/Meds Orders: Active Orders 24 hr Category Date Time Status Blood Glucose Check, Bedside [RC] ONETIME Care 03/03/21 15:02 Active EKG 12 Lead [EKG Documentation Completion] [RC] STAT Care 03/03/21 12:23 Active Peripheral IV Care [RC] . DIRECTED Care 03/03/21 12:24 Active RT Aerosol Therapy [RC] ASDIRECTED Care 03/03/21 14:04 Active CULTURE BLOOD [BC] Stat Lab 03/03/21 12:24 Ordered CULTURE BLOOD [BC] Stat Lab 03/03/21 13:15 Received DRUG SCREEN URINE BIORAD [URCHEM] Stat Lab 03/03/21 12:23 Ordered Sodium Chloride 0.9% [Saline Flush] Med 03/03/21 12:24 Active 10 ml FLUSH ASDIRECTED PRN Blood Culture x2 Reflex Set [OM.PC] Stat Oth 03/03/21 12:23 Ordered Peripheral IV Insertion Adult [OM.PC] Stat Oth 03/03/21 12:24 Ordered Medication Orders Sodium Chloride (Sodium Chloride 0.9% 10 Ml Syringe) 10 ml FLUSH ASDIRECTED PRN PRN Reason: Keep Vein Open Last Admin: 03/03/21 14:29 Dose: 10 ml Documented by: YUNIEL Labs: Laboratory Tests 03/03/21 03/03/21 03/03/21 Range/Units 13:15 13:15 13:15 WBC 9.9 (5.0-10.0) 10^3/uL RBC 3.37 L (4.2-5.4) 10^6/uL Hgb 10.2 L (12.0-16.0) g/dL Hct 31.4 L (37.0-47.0) % MCV 93.2 (80-100) fL MCH 30.3 (27.0-34.0) pg MCHC 32.5 L (33.0-35.0) g/dL Plt Count 214 (150-450) 10^3/uL Neut % (Auto) 70.5 (42.2-75.2) % Lymph % (Auto) 15.3 L (20.5-50.1) % Mayes % (Auto) 8.4 H (2-8) % Eos % (Auto) 5.3 H (1.0-3.0) % Baso % (Auto) 0.5 (0.0-1.0) % PT 9.9 (9.0-12.0) SEC INR 1.0 (0.9-1.2) Sodium 133 L D (136-145) mmol/L Potassium 7.3 H* D (3.5-5.1) mmol/L Chloride 99 D (98-107) mmol/L Carbon Dioxide 19 L (21-32) mmol/L Anion Gap 22.3 H (7-13) mEq/L BUN 103 H (7-18) mg/dL Creatinine 9.97 H* (0.55-1.02) mg/dL Est Cr Clr Drug Dosing TNP Estimated GFR (MDRD) 4 BUN/Creatinine Ratio 10.3 (No establ ref range) Glucose 241 H (70-99) mg/dL POC Glucose (70-99) mg/dL Lactic Acid (0.4-2.0) mmol/L Calcium 7.6 L (8.5-10.1) mg/dL Phosphorus 6.0 H (2.6-4.7) mg/dL Magnesium 2.4 (1.8-2.4) mg/dL Total Bilirubin 0.5 (0.2-1.0) mg/dL AST 16 (15-37) U/L ALT 19 (14-59) U/L Alkaline Phosphatase 140 H (46-116) U/L Troponin I High Sens 15 (<=51) pg/mL B-Natriuretic Peptide 619 H (0-100) pg/ml Total Protein 7.5 (6.4-8.2) g/dL Albumin 3.2 L (3.4-5.0) g/dL Globulin 4.3 Albumin/Globulin Ratio 0.74 Amylase 45 (25-115) U/L Lipase 197 (73-393) U/L Ethyl Alcohol < 3 (0) mg/dL 03/03/21 03/03/21 Range/Units 13:15 14:59 WBC (5.0-10.0) 10^3/uL RBC (4.2-5.4) 10^6/uL Hgb (12.0-16.0) g/dL Hct (37.0-47.0) % MCV (80-100) fL MCH (27.0-34.0) pg MCHC (33.0-35.0) g/dL Plt Count (150-450) 10^3/uL Neut % (Auto) (42.2-75.2) % Lymph % (Auto) (20.5-50.1) % Mayes % (Auto) (2-8) % Eos % (Auto) (1.0-3.0) % Baso % (Auto) (0.0-1.0) % PT (9.0-12.0) SEC INR (0.9-1.2) Sodium (136-145) mmol/L Potassium (3.5-5.1) mmol/L Chloride (98-107) mmol/L Carbon Dioxide (21-32) mmol/L Anion Gap (7-13) mEq/L BUN (7-18) mg/dL Creatinine (0.55-1.02) mg/dL Est Cr Clr Drug Dosing Estimated GFR (MDRD) BUN/Creatinine Ratio (No establ ref range) Glucose (70-99) mg/dL POC Glucose 186 H (70-99) mg/dL Lactic Acid 0.9 (0.4-2.0) mmol/L Calcium (8.5-10.1) mg/dL Phosphorus (2.6-4.7) mg/dL Magnesium (1.8-2.4) mg/dL Total Bilirubin (0.2-1.0) mg/dL AST (15-37) U/L ALT (14-59) U/L Alkaline Phosphatase (46-116) U/L Troponin I High Sens (<=51) pg/mL B-Natriuretic Peptide (0-100) pg/ml Total Protein (6.4-8.2) g/dL Albumin (3.4-5.0) g/dL Globulin Albumin/Globulin Ratio Amylase (25-115) U/L Lipase (73-393) U/L Ethyl Alcohol (0) mg/dL Meds: Medications Generic Name Dose Route Start Last Admin Trade Name Freq PRN Reason Stop Dose Admin Sodium Chloride 10 ml 03/03/21 12:24 03/03/21 14:29 Sodium Chloride 0.9% 10 Ml Syringe FLUSH 10 ml ASDIRECTED PRN Administration Keep Vein Open Discontinued Medications Generic Name Dose Route Start Last Admin Trade Name Freq PRN Reason Stop Dose Admin Albuterol 10 mg 03/03/21 14:03 03/03/21 14:23 Albuterol 0.083% 2.5 Mg/3 Ml Neb Soln NEB 03/03/21 14:04 10 mg ONETIME ONE Administration Calcium Chloride 1 gm 03/03/21 14:04 03/03/21 14:20 Calcium Chloride 10% 1 Gm/10 Ml Syringe IVPUSH 03/03/21 14:05 1 gm ONETIME ONE Administration Dextrose/Water 50 ml 03/03/21 14:09 03/03/21 14:18 50% Dextrose In Water 50 Ml Syringe IVPUSH 03/03/21 14:10 50 ml ONETIME ONE Administration Insulin Human Regular 10 unit 03/03/21 14:09 03/03/21 14:21 Insulin Regular, Human 100 Units/Ml 3 Ml Vial IV 03/03/21 14:10 10 units ONETIME ONE Administration Sodium Polystyrene Sulfonate 45 gm 03/03/21 14:01 03/03/21 14:22 Sodium Polystyrene Sulfonate 15 Gm/60 Ml Susp 60 Ml Bot PO 03/03/21 14:02 45 gm NOW ONE Administration - Radiology Interpretation Free Text/Narrative:: e: LATOYA UJNE Age: 45Years F Date: 03/03/2021 SSN: -- : [id number] Study: CR CHEST 1V FRONTAL Requesting Physician: CHAD DUNLAP Images: 1 Addl Studies: Provided Clinical History: chest pain Contrast: Contrast Medium: Contrast Amount: Contrast Method: CONFIDENTIALITY STATEMENT This report is intended only for use by the referring physician, and only in accordance with law. If you received this in error, call [phone]. Page 1 of 1 PROCEDURE INFORMATION: Exam: XR Chest Exam date and time: 03/03/2021 12:32 PM Age: 45 years old Clinical indication: Pain; Chest pressure; Additional info: Chest pain TECHNIQUE: Imaging protocol: XR of the chest. Views: 1 view. COMPARISON: CR Chest 1V Frontal 01/27/2021 5:07 AM FINDINGS: Tubes, catheters and devices: A left central line is stable in position. Lungs: There is decreased pulmonary vascular congestion. The lungs are otherwise clear. Pleural spaces: Unremarkable. No pleural effusion. No pneumothorax. Heart/Mediastinum: The cardiomediastinal silhouette is fairly stable in appearance, with similar cardiomegaly. Bones/joints: Unremarkable. IMPRESSION: Cardiomegaly, as on 01/27/2021, with decreased pulmonary vascular congestion. Thank you for allowing us to participate in the care of your patient. Dictated and Authenticated by: Gibran Ribeiro MD 03/03/2021 1:19 PM Central Time ([place] & [place]) - Re-Assessments/Exams Free Text/Narrative Re-Assessment/Exam: 03/03/21 14:59 No inpatient dialysis available in [place]. No beds available at [facility]. No beds available at [facility]. Call out to [facility] awaiting call back. 03/03/21 15:[address] [facility]. Departure - Departure Time of Disposition: 15:40 Disposition: DC/Tfer to Acute Hospital 02 Condition: Serious Clinical Impression: Hyperkalemia, ESRD on hemodialysis, Missed dialysis - Discharge Information *PRESCRIPTION DRUG MONITORING PROGRAM REVIEWED*: Not Applicable *COPY OF PRESCRIPTION DRUG MONITORING REPORT IN PATIENT LATHA: Not Applicable Forms: ED Department Discharge, Interfacility Transfer EMTALA Sepsis Event Note (ED) - Evaluation Sepsis Screening Result: No Definite Risk - Focused Exam Vital Signs: Vital Signs Temp Pulse Resp BP Pulse Ox 03/03/21 12:49 97.5 F 66 20 157/71 H 99 - My Orders Last 24 Hours: My Active Orders 03/03/21 12:23 EKG 12 Lead [EKG Documentation Completion] [RC] STAT DRUG SCREEN URINE BIORAD [URCHEM] Stat Blood Culture x2 Reflex Set [OM.PC] Stat 03/03/21 12:24 Peripheral IV Care [RC] . DIRECTED CULTURE BLOOD [BC] Stat Sodium Chloride 0.9% [Saline Flush] 10 ml FLUSH ASDIRECTED PRN Peripheral IV Insertion Adult [OM.PC] Stat 03/03/21 13:15 CULTURE BLOOD [BC] Stat 03/03/21 14:04 RT Aerosol Therapy [RC] ASDIRECTED 03/03/21 15:02 Blood Glucose Check, Bedside [RC] ONETIME - Assessment/Plan Last 24 Hours: My Active Orders 03/03/21 12:23 EKG 12 Lead [EKG Documentation Completion] [RC] STAT DRUG SCREEN URINE BIORAD [URCHEM] Stat Blood Culture x2 Reflex Set [OM.PC] Stat 03/03/21 12:24 Peripheral IV Care [RC] . DIRECTED CULTURE BLOOD [BC] Stat Sodium Chloride 0.9% [Saline Flush] 10 ml FLUSH ASDIRECTED PRN Peripheral IV Insertion Adult [OM.PC] Stat 03/03/21 13:15 CULTURE BLOOD [BC] Stat 03/03/21 14:04 RT Aerosol Therapy [RC] ASDIRECTED 08/09/21 15:02 Blood Glucose Check, Bedside [RC] ONETIME I have read and agree with the documentation that has been completed regarding this visit. By signing this record, I attest that the documentation was completed in my physical presence and is an accurate record of the encounter.
== END 2021-03-03 16:33 ==
LOC: DL.ED 12:15
DX: E87.5 Hyperkalemia (principal); I13.2 Hypertensive heart and chronic kidney disease with heart failure and with stage 5 chronic kidney disease, or end stage renal disease; E11.22 Type 2 diabetes mellitus with diabetic chronic kidney disease; N18.6 End stage renal disease; I50.9 Heart failure, unspecified; N17.9 Acute kidney failure, unspecified; E11.40 Type 2 diabetes mellitus with diabetic neuropathy, unspecified; E66.9 Obesity, unspecified; Z68.41 Body mass index [BMI] 40.0-44.9, adult; Z99.2 Dependence on renal dialysis; Z88.6 Allergy status to analgesic agent; Z88.0 Allergy status to penicillin; Z88.8 Allergy status to other drugs, medicaments and biological substances; Z79.01 Long term (current) use of anticoagulants; Z79.4 Long term (current) use of insulin; Z79.899 Other long term (current) drug therapy
CPT/HCPCS: 36415; 71045; 80053; 80307; 82150; 82947; 83605; 83690; 83735; 83880; 84100; 84484; 85025; 85610; 87040; 93005; 94640; 96374; 96375; 99285; A9270; J1815; J7613-GY

== ENCOUNTER 2021-03-17 01:50 | Emergency (ER) | payer MEDICARE ==
[2021-03-17] MEDS ORDERED: Sodium Chloride 0.9% 10 ML Syringe FLUSH PRN (02:19)
--- NOTE | 2021-03-17 02:22 | EDM.PDOC ---
ED HPI GENERAL MEDICAL PROBLEM - General Chief Complaint: General Stated Complaint: [facility] Time Seen by Provider: 03/17/21 02:20 Source of Information: Reports: Patient, EMS History Limitations: Reports: No Limitations - History of Present Illness INITIAL COMMENTS - FREE TEXT/NARRATIVE: Patient is unfortunate 45-year-old female who presents emerged part today with complaint of chills and shortness of breath. The patient reports that symptoms started approximately 6 PM this evening and the symptoms are similar to previous episodes where she had an elevated potassium and needed dialysis. The patient reports that she did not miss dialysis last week she got dialysis on Wednesday she reports that she is has have mild shortness of breath she has no tachypnea no retractions SPO2 of 99% on room air, the patient was concerned so she called EMS and they brought her to the emergency department for further evaluation Generalized Pain Score (Numeric/FACES): 6 - Related Data Allergies Allergy/AdvReac Type Severity Reaction Status Date / Time aspirin Allergy Hives Verified 03/03/21 12:44 naproxen [From Naprosyn] Allergy Rash Verified 03/03/21 12:44 Penicillins Allergy Rash Verified 03/03/21 12:44 propoxyphene napsylate Allergy Rash Verified 03/03/21 12:44 [From Darvocet-N 100] Home Meds: Home Meds Losartan [Cozaar] 100 mg PO DAILY 01/07/18 [History] Calcium Acetate [PhosLo] 1,334 mg PO TIDMEALS 03/12/18 [History] Sodium Polystyrene Sulfonate [Kayexalate] 60 ml PO ASDIRECTED 02/22/19 [History] Metoprolol Succinate 200 mg PO DAILY 03/04/20 [History] amLODIPine [Norvasc] 10 mg PO BEDTIME 03/04/20 [History] Acetaminophen [Tylenol] 650 mg PO Q6H PRN 03/16/20 [History] Insulin Detemir [Levemir] 10 unit SQ BEDTIME 06/14/20 [History] Apixaban [Eliquis] 5 mg PO BID 11/04/20 [History] hydrALAZINE [Apresoline] 100 mg PO BID 11/04/20 [History] Calcium Carbonate [Tums Extra Strength] 1,000 mg PO TIDMEALS 11/13/20 [History] Biotin/FA/Vit C/Vit B Complex [Nephrocaps] 1 tab PO DAILY 11/17/20 [History] levonorgestreL [Mirena] 1 each IY ONETIME 11/17/20 [History] metroNIDAZOLE [Metronidazole] 500 mg PO BID 11/17/20 [History] Past Medical History HEENT History: Reports: None, Impaired Vision Other HEENT History: wears glasses Cardiovascular History: Reports: Heart Failure, Heart Murmur, High Cholesterol, Hypertension Respiratory History: Reports: PE Gastrointestinal History: Reports: GERD Genitourinary History: Reports: Acute Renal Failure, Chronic Renal Insuffiency, Dialysis, Renal Disease 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: Musculoskeletal History: Reports: Fracture Neurological History: Reports: Neuropathy, Diabetic Psychiatric History: Reports: Anxiety Endocrine/Metabolic History: Reports: Diabetes, Type II, Obesity/BMI 30+ Hematologic History: Reports: Blood Transfusion(s) Immunologic History: Reports: None Oncologic (Cancer) History: Reports: None Dermatologic History: Reports: Other (See Below) Other Dermatologic History: boil - Infectious Disease History Infectious Disease History: Reports: MRSA, Novel Coronavirus - Past Surgical History HEENT Surgical History: Reports: None Cardiovascular Surgical History: Reports: None Respiratory Surgical History: Reports: None GI Surgical History: Reports: None Female Surgical History: Reports: Section, Other (See Below) Other Female Surgeries/Procedures: IUD placed Endocrine Surgical History: Reports: None Neurological Surgical History: Reports: None Musculoskeletal Surgical History: Reports: Other (See Below) Other Musculoskeletal Surgeries/Procedures:: Ankle surgery Social & Family History - Family History Family Medical History: No Pertinent Family History Endocrine/Metabolic: Reports: Diabetes, type II - Tobacco Use Tobacco Use Status *Q: Light Tobacco User Years of Tobacco use: 1 Packs/Tins Daily: 0.1 - Caffeine Use Caffeine Use: Reports: Coffee, Tea - Recreational Drug Use Recreational Drug Use: Yes Drug Use in Last 12 Months: Yes Recreational Drug Type: Reports: Marijuana/Hashish - Living Situation & Occupation Living situation: Reports: with Family Occupation: Disabled ED ROS GENERAL - Review of Systems Review Of Systems: See Below Constitutional: Reports: Chills Respiratory: Reports: Shortness of Breath ED EXAM, GENERAL - Physical Exam Exam: See Below Exam Limited By: No Limitations General Appearance: Alert, WD/WN, Mild Distress Throat/Mouth: Normal Inspection, Normal Lips, Normal Teeth, Normal Gums, Normal Oropharynx, Normal Voice, No Airway Compromise Head: Atraumatic, Normocephalic Neck: Normal Inspection, Supple, Non-Tender, Full Range of Motion Respiratory/Chest: No Respiratory Distress, Lungs Clear, Normal Breath Sounds, No Accessory Muscle Use, Chest Non-Tender Cardiovascular: Normal Peripheral Pulses, Regular Rate, Rhythm, No Edema, No Gallop, No JVD, No Murmur, No Rub GI/Abdominal: Normal Bowel Sounds, Soft, Non-Tender, No Organomegaly, No Distention, No Abnormal Bruit, No Mass Back Exam: Normal Inspection, Full Range of Motion, NT Extremities: Normal Inspection, Normal Range of Motion, Non-Tender, Normal Capillary Refill, No Pedal Edema Neurological: Alert, Oriented, CN II-XII Intact, Normal Cognition, Normal Gait, Normal Reflexes, No Motor/Sensory Deficits Skin Exam: Warm, Dry, Intact, No Rash #1 Interpretation EKG Date: 03/17/21 Time: 02:42 Rhythm: NSR [place]: Normal P-Wave: Present QRS: Normal ST-T: Other (Calcium changes) EKG Interpretation Comments: No acute ischemic changes Course - Vital Signs Text/Narrative:: Work-up today is reassuring, potassium was 5.4, the patient has mild failure on her chest x-ray, the patient has dialysis at 6 AM this morning the patient will be discharged home encouraged to go to dialysis as previously scheduled - Orders/Labs/Meds Orders: Active Orders 24 hr Category Date Time Status Chest 1V Frontal [CR] Urgent Exams 03/17/21 02:19 Taken Sodium Chloride 0.9% [Saline Flush] Med 03/17/21 02:19 Active 10 ml FLUSH ASDIRECTED PRN Saline Lock Insert [OM.PC] Stat Oth 03/17/21 02:19 Ordered Medication Orders Sodium Chloride (Sodium Chloride 0.9% 10 Ml Syringe) 10 ml FLUSH ASDIRECTED PRN PRN Reason: Keep Vein Open Labs: Laboratory Tests 03/17/21 03/17/21 Range/Units 02:15 02:15 WBC 9.2 (5.0-10.0) 10^3/uL RBC 3.10 L (4.2-5.4) 10^6/uL Hgb 9.4 L (12.0-16.0) g/dL Hct 29.3 L (37.0-47.0) % MCV 94.5 (80-100) fL MCH 30.3 (27.0-34.0) pg MCHC 32.1 L (33.0-35.0) g/dL Plt Count 237 (150-450) 10^3/uL Neut % (Auto) 61.7 (42.2-75.2) % Lymph % (Auto) 23.8 (20.5-50.1) % Nash % (Auto) 8.1 H (2-8) % Eos % (Auto) 5.9 H (1.0-3.0) % Baso % (Auto) 0.5 (0.0-1.0) % Sodium 136 (136-145) mmol/L Potassium 5.4 H D (3.5-5.1) mmol/L Chloride 99 (98-107) mmol/L Carbon Dioxide 23 (21-32) mmol/L Anion Gap 19.4 H (7-13) mEq/L BUN 58 H D (7-18) mg/dL Creatinine 9.94 H* (0.55-1.02) mg/dL Est Cr Clr Drug Dosing 6.55 mL/min Estimated GFR (MDRD) 4 BUN/Creatinine Ratio 5.8 (No establ ref range) Glucose 166 H (70-99) mg/dL Calcium 7.8 L (8.5-10.1) mg/dL Total Bilirubin 0.4 (0.2-1.0) mg/dL AST 17 (15-37) U/L ALT 17 (14-59) U/L Alkaline Phosphatase 120 H (46-116) U/L Troponin I High Sens 14 (<=51) pg/mL B-Natriuretic Peptide 480 H (0-100) pg/ml Total Protein 7.3 (6.4-8.2) g/dL Albumin 3.3 L (3.4-5.0) g/dL Globulin 4.0 Albumin/Globulin Ratio 0.83 Meds: Medications Generic Name Dose Route Start Last Admin Trade Name Freq PRN Reason Stop Dose Admin Sodium Chloride 10 ml 03/17/21 02:19 Sodium Chloride 0.9% 10 Ml Syringe FLUSH ASDIRECTED PRN Keep Vein Open Departure - Departure Time of Disposition: 02:47 Disposition: Home, Self-Care 01 Condition: Good Clinical Impression: Mild congestive heart failure - Discharge Information Forms: ED Department Discharge Additional Instructions: Home, rest, adequate fluids, up your dialysis appointment this morning, return as needed for any worsening condition - My Orders Last 24 Hours: My Active Orders 03/17/21 02:19 Chest 1V Frontal [CR] Urgent Sodium Chloride 0.9% [Saline Flush] 10 ml FLUSH ASDIRECTED PRN Saline Lock Insert [OM.PC] Stat - Assessment/Plan Last 24 Hours: My Active Orders 03/17/21 02:19 Chest 1V Frontal [CR] Urgent Sodium Chloride 0.9% [Saline Flush] 10 ml FLUSH ASDIRECTED PRN Saline Lock Insert [OM.PC] Stat
[2021-03-17 02:40] LABS: ANION GAP 19.4 mEq/L (7-13)
--- NOTE | 2021-03-17 03:11 | CR ---
PROCEDURE INFORMATION: Exam: XR Chest Exam date and time: 03/17/2021 2:31 AM Age: 45 years old Clinical indication: Dyspnea; Additional info: Dysp TECHNIQUE: Imaging protocol: XR of the chest. Views: 1 view. COMPARISON: CR Chest 1V Frontal 03/03/2021 12:32 PM FINDINGS: Tubes, catheters and devices: Large bore left IJ catheter tip is at the cavoatrial junction. Lungs: Clear lungs. Pleural spaces: Unremarkable. No pleural effusion. No pneumothorax. Heart/Mediastinum: Cardiomegaly. Bones/joints: Unremarkable. IMPRESSION: 1. Cardiomegaly. 2. No acute chest findings.
[2021-03-17 05:26] VITALS: BP 137/63; PULSE 65
== END 2021-03-17 05:25 | disposition home or self-care (01) ==
LOC: DL.ED 01:50
DX: I11.0 Hypertensive heart disease with heart failure (principal); I50.9 Heart failure, unspecified; E78.00 Pure hypercholesterolemia, unspecified; K21.9 Gastro-esophageal reflux disease without esophagitis; E11.40 Type 2 diabetes mellitus with diabetic neuropathy, unspecified; E66.9 Obesity, unspecified; Z68.30 Body mass index [BMI] 30.0-30.9, adult; Z88.0 Allergy status to penicillin; Z88.5 Allergy status to narcotic agent; Z88.8 Allergy status to other drugs, medicaments and biological substances; Z79.4 Long term (current) use of insulin; Z79.899 Other long term (current) drug therapy; Z86.16 Personal history of COVID-19
CPT/HCPCS: 36415; 71045; 80053; 83880; 84484; 85025; 93005; 99285-25

== ENCOUNTER 2021-04-21 08:45 | Emergency (ER) | payer MEDICARE ==
[2021-04-21 09:04] VITALS: BP 121/73; PULSE 64
--- NOTE | 2021-04-21 09:17 | EDM.PDOC ---
ED HPI GENERAL MEDICAL PROBLEM - General Stated Complaint: CHEST PAIN Time Seen by Provider: 04/21/21 09:10 Source of Information: Reports: Patient History Limitations: Reports: No Limitations - History of Present Illness INITIAL COMMENTS - FREE TEXT/NARRATIVE: 45 y/o F c/o an episode of CP and seeing black spots that started while she was in dialysis this morning. Pt states she was sitting down mcfp through dialysis when symptoms began. The Cp was sharp in nature over the left chest and non radiating, resovling without intervention after 5 min. During the CP the pt experienced seeing black spots in her vision but reports no blurry vision, light headedness, LOC. The black spots resolved when the CP subsided. She reports that she had 3kg taken off dialysis today. She has been having some trouble at home with her son which is causing some stress in her life but she reports she still feels safe at home. At the present the pt has mild sharp cp 2/10, non radiating. She denies fever, cough, chills, covid exposure, abd pn, constipation, extremity pn, drugs, etoh. Onset: Today, Sudden Duration: Minutes: Location: Reports: Head, Chest Chest Pain Score (Numeric/FACES): 2 - Related Data Allergies Allergy/AdvReac Type Severity Reaction Status Date / Time aspirin Allergy Hives Verified 03/03/21 12:44 chlorhexidine Allergy Rash Verified 04/21/21 09:11 naproxen [From Naprosyn] Allergy Rash Verified 03/03/21 12:44 Penicillins Allergy Rash Verified 03/03/21 12:44 propoxyphene napsylate Allergy Rash Verified 03/03/21 12:44 [From Darvocet-N 100] Home Meds: Home Meds Losartan [Cozaar] 100 mg PO DAILY 01/07/18 [History] Calcium Acetate [PhosLo] 1,334 mg PO TIDMEALS 03/12/18 [History] Sodium Polystyrene Sulfonate [Kayexalate] 60 ml PO .TUE,CARRIE,SAT 02/22/19 [History] Metoprolol Succinate 200 mg PO BEDTIME 03/04/20 [History] amLODIPine [Norvasc] 10 mg PO BEDTIME 03/04/20 [History] Acetaminophen [Tylenol] 650 mg PO Q6H PRN 03/16/20 [History] Insulin Detemir [Levemir] 10 unit SQ BEDTIME 06/14/20 [History] Apixaban [Eliquis] 5 mg PO BID 11/04/20 [History] hydrALAZINE [Apresoline] 100 mg PO BID 11/04/20 [History] Calcium Carbonate [Tums Extra Strength] 1,000 mg PO TIDMEALS 11/13/20 [History] Biotin/FA/Vit C/Vit B Complex [Nephrocaps] 1 tab PO DAILY 11/17/20 [History] levonorgestreL [Mirena] 1 each IY ONETIME 11/17/20 [History] Past Medical History HEENT History: Reports: Impaired Vision Other HEENT History: wears glasses Cardiovascular History: Reports: Heart Failure, Heart Murmur, High Cholesterol, Hypertension Respiratory History: Reports: PE Gastrointestinal History: Reports: GERD Genitourinary History: Reports: Acute Renal Failure, Chronic Renal Insuffiency, Dialysis, Renal Disease 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: Musculoskeletal History: Reports: Fracture Neurological History: Reports: Neuropathy, Diabetic Psychiatric History: Reports: Anxiety Endocrine/Metabolic History: Reports: Diabetes, Type II, Obesity/BMI 30+ Hematologic History: Reports: Blood Transfusion(s) Immunologic History: Reports: None Oncologic (Cancer) History: Reports: None Dermatologic History: Reports: Other (See Below) Other Dermatologic History: boil - Infectious Disease History Infectious Disease History: Reports: MRSA, Novel Coronavirus - Past Surgical History HEENT Surgical History: Reports: None Cardiovascular Surgical History: Reports: None Respiratory Surgical History: Reports: None GI Surgical History: Reports: None Female Surgical History: Reports: Section, Other (See Below) Other Female Surgeries/Procedures: IUD placed Endocrine Surgical History: Reports: None Neurological Surgical History: Reports: None Musculoskeletal Surgical History: Reports: Arthroscopic Knee, Other (See Below) Other Musculoskeletal Surgeries/Procedures:: Ankle surgery Social & Family History - Family History Family Medical History: No Pertinent Family History Endocrine/Metabolic: Reports: Diabetes, type II - Tobacco Use Tobacco Use Status *Q: Current Some Day Tobacco User Years of Tobacco use: 29 Packs/Tins Daily: 0.5 - Caffeine Use Caffeine Use: Reports: Coffee - Recreational Drug Use Recreational Drug Use: Yes Drug Use in Last 12 Months: Yes Recreational Drug Type: Reports: Marijuana/Hashish - Living Situation & Occupation Living situation: Reports: with Family Occupation: Disabled ED ROS GENERAL - Review of Systems Review Of Systems: Comprehensive ROS is negative, except as noted in HPI. ED EXAM, GENERAL - Physical Exam Exam: See Below Exam Limited By: No Limitations General Appearance: Alert, No Apparent Distress Eye Exam: Bilateral Eye: PERRL Ears: Normal External Exam, Normal Canal, Hearing Grossly Normal, Normal TMs Nose: Normal Inspection, Normal Mucosa, No Blood Throat/Mouth: Normal Inspection, Normal Lips, Normal Teeth, Normal Gums, Normal Oropharynx, Normal Voice, No Airway Compromise Head: Atraumatic, Normocephalic Neck: Normal Inspection, Supple, Non-Tender, Full Range of Motion Respiratory/Chest: No Respiratory Distress, Lungs Clear, Normal Breath Sounds, No Accessory Muscle Use, Chest Non-Tender Cardiovascular: Normal Peripheral Pulses, No JVD GI/Abdominal: Soft, Non-Tender (Female) Exam: Deferred Rectal (Female) Exam: Deferred Back Exam: Normal Inspection, Full Range of Motion Extremities: Normal Inspection, Normal Range of Motion, Non-Tender, Normal Capillary Refill, No Pedal Edema Neurological: Alert, Oriented Psychiatric: Normal Affect, Normal Mood Skin Exam: Warm, Dry, Intact #1 Interpretation EKG Date: 04/21/21 Time: 09:25 Rhythm: NSR [place]: Normal P-Wave: Present QRS: Normal ST-T: Normal QT: Normal Course - Vital Signs Last Recorded V/S: Last Vital Signs Temp 97.6 F 04/21/21 09:00 Pulse 64 04/21/21 09:00 Resp 18 04/21/21 09:00 BP 121/73 04/21/21 09:00 Pulse Ox 100 04/21/21 09:00 - Orders/Labs/Meds Labs: Laboratory Tests 04/21/21 04/21/21 Range/Units 09:38 09:38 WBC 7.2 (5.0-10.0) 10^3/uL RBC 3.71 L (4.2-5.4) 10^6/uL Hgb 11.3 L D (12.0-16.0) g/dL Hct 34.2 L (37.0-47.0) % MCV 92.2 (80-100) fL MCH 30.5 (27.0-34.0) pg MCHC 33.0 (33.0-35.0) g/dL Plt Count 238 (150-450) 10^3/uL Neut % (Auto) 81.7 H (42.2-75.2) % Lymph % (Auto) 9.1 L (20.5-50.1) % [place] % (Auto) 5.7 (2-8) % Eos % (Auto) 3.1 H (1.0-3.0) % Baso % (Auto) 0.4 (0.0-1.0) % Sodium 136 (136-145) mmol/L Potassium 4.3 (3.5-5.1) mmol/L Chloride 98 (98-107) mmol/L Carbon Dioxide 25 (21-32) mmol/L Anion Gap 17.3 H (7-13) mEq/L BUN 47 H (7-18) mg/dL Creatinine 6.57 H* D (0.55-1.02) mg/dL Est Cr Clr Drug Dosing 9.91 mL/min Estimated GFR (MDRD) 7 BUN/Creatinine Ratio 7.2 (No establ ref range) Glucose 231 H (70-99) mg/dL Calcium 8.2 L (8.5-10.1) mg/dL Magnesium 1.8 (1.8-2.4) mg/dL Total Bilirubin 0.6 (0.2-1.0) mg/dL AST 13 L (15-37) U/L ALT 15 (14-59) U/L Alkaline Phosphatase 131 H (46-116) U/L Troponin I High Sens 10 (<=51) pg/mL Total Protein 7.9 (6.4-8.2) g/dL Albumin 3.3 L (3.4-5.0) g/dL Globulin 4.6 Albumin/Globulin Ratio 0.72 Amylase 32 (25-115) U/L Lipase 162 (73-393) U/L - Re-Assessments/Exams Free Text/Narrative Re-Assessment/Exam: 04/21/21 10:29 I discussed the labs, exam, xray and ekg findings with pt and expalined to her that there is no acute finginds that could exaplin her symptoms. The pt is currently pain free without intervention and reports normal vision. She feels like her symptoms may be related to the stress in her life. She feels safe to go home. Departure - Departure Time of Disposition: 10:31 Disposition: Home, Self-Care 01 Condition: Good Clinical Impression: Vision abnormalities Chest pain, unspecified Qualifiers: Chest pain type: chest pain due to myocardial ischemia Qualified Code(s): I20.9 - Angina pectoris, unspecified Instructions: Nonspecific Chest Pain, Adult, [id number], Stress, Adult Additional Instructions: If any new symptoms or concerns develop contact your primary care facility or return to the ER. Sepsis Event Note (ED) - Focused Exam Vital Signs: Vital Signs Temp Pulse Resp BP Pulse Ox 04/21/21 09:00 97.6 F 64 18 121/73 100
[2021-04-21 10:08] LABS: ANION GAP 17.3 mEq/L (7-13)
--- NOTE | 2021-04-21 10:10 | CR ---
PROCEDURE INFORMATION: Exam: XR Chest Exam date and time: 04/21/2021 9:30 AM Age: 45 years old Clinical indication: Pain; Chest pressure; Additional info: Cp TECHNIQUE: Imaging protocol: XR of the chest. Views: 1 view. COMPARISON: CR Chest 1V Frontal 03/17/2021 2:31 AM FINDINGS: Tubes, catheters and devices: Central venous catheter tip in SVC. Lungs: Unremarkable. No consolidation. Pleural spaces: Unremarkable. No pleural effusion. No pneumothorax. Heart/Mediastinum: Unremarkable. No cardiomegaly. Bones/joints: Unremarkable. Other findings: Shallow inspiration. IMPRESSION: No acute findings
== END 2021-04-21 10:46 | disposition home or self-care (01) ==
LOC: DL.ED 08:45
DX: I20.9 Angina pectoris, unspecified (principal); H53.8 Other visual disturbances; I13.0 Hypertensive heart and chronic kidney disease with heart failure and stage 1 through stage 4 chronic kidney disease, or unspecified chronic kidney disease; E11.22 Type 2 diabetes mellitus with diabetic chronic kidney disease; N18.9 Chronic kidney disease, unspecified; I50.9 Heart failure, unspecified; Z72.0 Tobacco use; Z86.16 Personal history of COVID-19; Z88.0 Allergy status to penicillin; Z88.6 Allergy status to analgesic agent; Z88.8 Allergy status to other drugs, medicaments and biological substances; Z79.01 Long term (current) use of anticoagulants; Z79.4 Long term (current) use of insulin; Z79.899 Other long term (current) drug therapy
CPT/HCPCS: 36415; 71045; 80053; 82150; 83690; 83735; 84484; 85025; 93005; 99285-25

== ENCOUNTER 2021-10-13 05:12 | Emergency (ER) | payer MEDICARE ==
[2021-10-13 05:33] VITALS: PULSE 75
[2021-10-13 06:12] VITALS: BP 158/62
[2021-10-13 06:25] LABS: ANION GAP 20.6 mEq/L (7-13)
[2021-10-13] MEDS ORDERED: Acetaminophen 325 MG Tab PO ONE (06:38)
== END 2021-10-13 06:53 | disposition home or self-care (01) ==
LOC: DL.ED 05:12
DX: R07.9 Chest pain, unspecified (principal); E78.00 Pure hypercholesterolemia, unspecified; I12.9 Hypertensive chronic kidney disease with stage 1 through stage 4 chronic kidney disease, or unspecified chronic kidney disease; E11.22 Type 2 diabetes mellitus with diabetic chronic kidney disease; N18.4 Chronic kidney disease, stage 4 (severe); E66.9 Obesity, unspecified; Z68.42 Body mass index [BMI] 45.0-49.9, adult; Z88.0 Allergy status to penicillin; Z88.5 Allergy status to narcotic agent; Z88.8 Allergy status to other drugs, medicaments and biological substances; Z79.899 Other long term (current) drug therapy; Z79.01 Long term (current) use of anticoagulants; Z79.4 Long term (current) use of insulin; Z99.2 Dependence on renal dialysis; Z91.09 Other allergy status, other than to drugs and biological substances
CPT/HCPCS: 36415; 71045; 80053; 83605; 83880; 84484; 85025; 85610; 87040; 93005; 99285; A9270

== ENCOUNTER 2021-10-26 21:38 | Emergency (ER) | payer MEDICARE ==
[2021-10-26 22:14] VITALS: BP 135/71; PULSE 84
[2021-10-26 22:33] LABS: ANION GAP 18.1 mEq/L (7-13); CHLORIDE,CL 96 mmol/L (98-107); SODIUM,NA 135 mmol/L (136-145)
[2021-10-26 23:08] LABS: RESPIRATORY SYNCYTIAL VIR NAA NEGATIVE (NEGATIVE)
[2021-10-26 23:18] LABS: CORONAVIRUS COVID-19 NAA POSITIVE (NEGATIVE)
[2021-10-27] MEDS ORDERED: Dexamethasone 4 MG/ML SDV IVPUSH ONE (00:09)
== END 2021-10-27 01:00 | disposition home or self-care (01) ==
LOC: DL.ED 21:38
DX: U07.1 COVID-19 (principal); I13.2 Hypertensive heart and chronic kidney disease with heart failure and with stage 5 chronic kidney disease, or end stage renal disease; E11.22 Type 2 diabetes mellitus with diabetic chronic kidney disease; N18.6 End stage renal disease; E11.40 Type 2 diabetes mellitus with diabetic neuropathy, unspecified; E66.9 Obesity, unspecified; Z99.2 Dependence on renal dialysis; Z68.42 Body mass index [BMI] 45.0-49.9, adult; Z86.16 Personal history of COVID-19; Z88.0 Allergy status to penicillin; Z88.2 Allergy status to sulfonamides; Z88.6 Allergy status to analgesic agent; Z88.5 Allergy status to narcotic agent; Z79.899 Other long term (current) drug therapy; Z79.4 Long term (current) use of insulin
CPT/HCPCS: 0241U; 36415; 71045; 80053; 80307; 82150; 83605; 83690; 83880; 84484; 85025; 86140; 93005; 93010; 96374; 99285; 99285-25; J1100

== ENCOUNTER 2021-10-28 14:33 | Emergency (ER) | payer MEDICARE ==
[2021-10-28 14:43] VITALS: BP 148/66; PULSE 80
[2021-10-28 16:30] LABS: ANION GAP 20.9 mEq/L (7-13)
[2021-10-28] MEDS ORDERED: 50% Dextrose in Water 50 ML Syringe IVPUSH PRN (16:38)
[2021-10-28] MEDS ORDERED: Insulin Regular, Human 100 Units/ML 3 ML Vial SUBCUT ONE (16:38)
[2021-10-28] MEDS ORDERED: Glucagon,Human Recombinant 1 MG Vial IM PRN (16:38)
[2021-10-28] MEDS ORDERED: Sodium Polystyrene Sulfonate 15 GM/60 ML Susp 60 ML Bot PO ONE (16:55)
== END 2021-10-28 17:21 | disposition home or self-care (01) ==
LOC: DL.ED 14:33
DX: U07.1 COVID-19 (principal); J45.40 Moderate persistent asthma, uncomplicated; I10 Essential (primary) hypertension; E78.00 Pure hypercholesterolemia, unspecified; K21.9 Gastro-esophageal reflux disease without esophagitis; E11.9 Type 2 diabetes mellitus without complications; E66.9 Obesity, unspecified; Z68.34 Body mass index [BMI] 34.0-34.9, adult; Z79.4 Long term (current) use of insulin; Z79.899 Other long term (current) drug therapy; Z88.0 Allergy status to penicillin; Z88.8 Allergy status to other drugs, medicaments and biological substances
CPT/HCPCS: 36415; 71250; 80053; 83880; 85025; 99285; A9270; J1815

== ENCOUNTER 2021-10-29 10:00 | Emergency (ER) | payer MEDICARE ==
[2021-10-29 10:13] VITALS: BP 174/89; PULSE 73
[2021-10-29] MEDS ORDERED: LORazepam 1 MG Tab PO ONE (10:20)
== END 2021-10-29 10:40 | disposition home or self-care (01) ==
LOC: DL.ED 10:00
DX: U07.1 COVID-19 (principal); F41.9 Anxiety disorder, unspecified; E78.00 Pure hypercholesterolemia, unspecified; E11.22 Type 2 diabetes mellitus with diabetic chronic kidney disease; I12.0 Hypertensive chronic kidney disease with stage 5 chronic kidney disease or end stage renal disease; N18.6 End stage renal disease; K21.9 Gastro-esophageal reflux disease without esophagitis; E66.9 Obesity, unspecified; Z68.42 Body mass index [BMI] 45.0-49.9, adult; Z88.0 Allergy status to penicillin; Z88.5 Allergy status to narcotic agent; Z88.8 Allergy status to other drugs, medicaments and biological substances; Z79.899 Other long term (current) drug therapy; Z86.16 Personal history of COVID-19; Z79.01 Long term (current) use of anticoagulants
CPT/HCPCS: 99284; A9270

== ENCOUNTER 2021-11-10 10:00 | Emergency (ER) | payer MEDICARE | END 2021-11-10 11:11 | LOC: DL.ED 10:00 | DX: Z53.21 Procedure and treatment not carried out due to patient leaving prior to being seen by health care provider (principal) ==

== ENCOUNTER 2021-11-10 14:43 | Emergency (ER) | payer MEDICARE ==
[2021-11-10 17:01] VITALS: BP 137/75; PULSE 80
[2021-11-10 18:20] LABS: ANION GAP 13.1 mEq/L (7-13)
== END 2021-11-10 20:52 ==
LOC: DL.ED 14:43
DX: E87.79 Other fluid overload (principal); E11.9 Type 2 diabetes mellitus without complications; K21.9 Gastro-esophageal reflux disease without esophagitis; E78.00 Pure hypercholesterolemia, unspecified; I10 Essential (primary) hypertension; E66.9 Obesity, unspecified; Z68.42 Body mass index [BMI] 45.0-49.9, adult; Z79.4 Long term (current) use of insulin; Z79.01 Long term (current) use of anticoagulants; Z79.899 Other long term (current) drug therapy; Z86.16 Personal history of COVID-19; Z99.2 Dependence on renal dialysis
CPT/HCPCS: 36415; 71045; 80053; 82947; 83605; 83880; 84484; 85025; 87040; 93005; 93010; 99284; 99285-25

== ENCOUNTER 2021-12-17 16:10 | Emergency (ER) | payer MEDICAID, MEDICARE ==
[2021-12-17 16:34] VITALS: BP 146/74; PULSE 64
== END 2021-12-17 17:50 | disposition home or self-care (01) ==
LOC: DL.ED 16:10
DX: R07.9 Chest pain, unspecified (principal); E78.00 Pure hypercholesterolemia, unspecified; E11.22 Type 2 diabetes mellitus with diabetic chronic kidney disease; I13.0 Hypertensive heart and chronic kidney disease with heart failure and stage 1 through stage 4 chronic kidney disease, or unspecified chronic kidney disease; N18.9 Chronic kidney disease, unspecified; I50.9 Heart failure, unspecified; K21.9 Gastro-esophageal reflux disease without esophagitis; E66.9 Obesity, unspecified; Z68.30 Body mass index [BMI] 30.0-30.9, adult; Z86.16 Personal history of COVID-19; Z99.2 Dependence on renal dialysis; Z88.5 Allergy status to narcotic agent; Z88.0 Allergy status to penicillin; Z88.8 Allergy status to other drugs, medicaments and biological substances; Z79.899 Other long term (current) drug therapy; Z79.01 Long term (current) use of anticoagulants; Z79.4 Long term (current) use of insulin
CPT/HCPCS: 36415; 80053; 82947; 83605; 84484; 85025; 85379; 93005; 93010; 99284; 99285-25

== ENCOUNTER 2022-01-10 22:54 | Emergency (ER) | payer MEDICARE, OTHER ==
[~2022-01-10 22:54] MED LIST changes: -HYDROmorphone 0.5 MG/0.5 ML Syringe IVPUSH ONE; -Ondansetron 8 MG in Sodium Chloride 0.9% 50 ML IV ONE
[2022-01-10 23:51] LABS: ANION GAP 13.9 mEq/L (7-13); CHLORIDE,CL 97 mmol/L (98-107); SODIUM,NA 135 mmol/L (136-145)
[2022-01-11] LABS: ESTIMATED GFR 6 mL/min (>=60)
[2022-01-11] MEDS ORDERED: Ciprofloxacin in D5W 400 MG in Premix Bag 1 BAG IV ONE ×2 (00:24)
[2022-01-11] MEDS ORDERED: Acetaminophen 500 MG Tab PO ONE (00:27)
[2022-01-11] MEDS ORDERED: Ondansetron 4 MG/2 ML SDV IVPUSH ONE (02:17)
[2022-01-11 02:41] VITALS: BP 160/136; PULSE 112
== END 2022-01-11 02:30 | disposition home or self-care (01) ==
LOC: DL.ED 22:54
DX: A41.9 Sepsis, unspecified organism (principal); K21.9 Gastro-esophageal reflux disease without esophagitis; E11.22 Type 2 diabetes mellitus with diabetic chronic kidney disease; I13.0 Hypertensive heart and chronic kidney disease with heart failure and stage 1 through stage 4 chronic kidney disease, or unspecified chronic kidney disease; N18.9 Chronic kidney disease, unspecified; I50.9 Heart failure, unspecified; F17.210 Nicotine dependence, cigarettes, uncomplicated; E66.9 Obesity, unspecified; Z88.0 Allergy status to penicillin; Z88.5 Allergy status to narcotic agent; Z88.8 Allergy status to other drugs, medicaments and biological substances; Z79.899 Other long term (current) drug therapy; Z86.16 Personal history of COVID-19; Z99.2 Dependence on renal dialysis; Z20.822 Contact with and (suspected) exposure to COVID-19; Z68.42 Body mass index [BMI] 45.0-49.9, adult
CPT/HCPCS: 36410; 36415; 80053; 80307; 82947; 83605; 83880; 84484; 85025; 87040; 87077; 87086; 87186; 93005; 96365; 96375; 99285; A9270; J0744; J2405; J3490; U0002

== ENCOUNTER 2022-03-01 22:24 | Emergency (ER) | payer MEDICARE, OTHER ==
[2022-03-01 22:13] VITALS: BP 157/81; PULSE 82
[2022-03-01 23:26] LABS: CHLORIDE,CL 93 mmol/L (98-107)
[2022-03-01 23:35] LABS: ANION GAP 16.9 mEq/L (7-13); SODIUM,NA 131 mmol/L (136-145)
[2022-03-01 23:37] LABS: ESTIMATED GFR 5 mL/min (>=60)
[2022-03-01] MEDS ORDERED: Insulin Regular, Human 100 Units/ML 3 ML Vial IV ONE (23:52)
[2022-03-01] MEDS ORDERED: Glucagon,Human Recombinant 1 MG Vial IM PRN (23:52)
[2022-03-01] MEDS ORDERED: 50% Dextrose in Water 50 ML Syringe IVPUSH PRN (23:52)
[2022-03-01] MEDS ORDERED: Albuterol 0.083% 2.5 MG/3 ML Neb Soln NEB ONE (23:53)
[2022-03-01] MEDS ORDERED: Sodium Bicarbonate 8.4% 50 MEQ/50 ML Syringe IVPUSH ONE (23:54)
[2022-03-01] MEDS ORDERED: Calcium Chloride 10% 1 GM/10 ML Syringe IVPUSH ONE (23:54)
== END 2022-03-02 02:10 | disposition home or self-care (01) ==
LOC: DL.ED 22:24
DX: E87.70 Fluid overload, unspecified (principal); E11.22 Type 2 diabetes mellitus with diabetic chronic kidney disease; I13.0 Hypertensive heart and chronic kidney disease with heart failure and stage 1 through stage 4 chronic kidney disease, or unspecified chronic kidney disease; N18.9 Chronic kidney disease, unspecified; I50.9 Heart failure, unspecified; E66.9 Obesity, unspecified; Z68.30 Body mass index [BMI] 30.0-30.9, adult; Z88.0 Allergy status to penicillin; Z88.8 Allergy status to other drugs, medicaments and biological substances; Z86.16 Personal history of COVID-19; Z79.4 Long term (current) use of insulin; Z79.899 Other long term (current) drug therapy; Z20.822 Contact with and (suspected) exposure to COVID-19; Z99.2 Dependence on renal dialysis
CPT/HCPCS: 36415; 71045; 80053; 82947; 83605; 83880; 84484; 85025; 86140; 87210; 93005; 93010; 94640; 96374; 96375; 99284; 99285; J1815; J3490; U0002; J7613-GY

== ENCOUNTER 2022-03-22 22:47 | Emergency (ER) | payer MEDICARE, OTHER ==
[2022-03-22 23:08] VITALS: BP 164/83; PULSE 99
[2022-03-23 00:13] LABS: ANION GAP 18.7 mEq/L (7-13); CHLORIDE,CL 101 mmol/L (98-107); SODIUM,NA 140 mmol/L (136-145)
[2022-03-23 00:18] LABS: ESTIMATED GFR 4 mL/min (>=60)
== END 2022-03-23 03:48 | disposition home or self-care (01) ==
LOC: DL.ED 22:47
DX: K52.9 Noninfective gastroenteritis and colitis, unspecified (principal); E11.22 Type 2 diabetes mellitus with diabetic chronic kidney disease; I13.0 Hypertensive heart and chronic kidney disease with heart failure and stage 1 through stage 4 chronic kidney disease, or unspecified chronic kidney disease; N18.9 Chronic kidney disease, unspecified; I50.9 Heart failure, unspecified; E78.00 Pure hypercholesterolemia, unspecified; K21.9 Gastro-esophageal reflux disease without esophagitis; E66.01 Morbid (severe) obesity due to excess calories; Z68.30 Body mass index [BMI] 30.0-30.9, adult; Z88.0 Allergy status to penicillin; Z88.8 Allergy status to other drugs, medicaments and biological substances; Z79.899 Other long term (current) drug therapy
CPT/HCPCS: 36415; 74176; 80053; 82150; 83605; 83690; 85025; 87040; 99283; 99285

== ENCOUNTER 2022-03-30 11:34 | Emergency (ER) | payer MEDICARE, OTHER ==
[2022-03-30] MEDS ORDERED: Sodium Chloride 0.9% 10 ML Syringe FLUSH PRN (11:36)
[2022-03-30 11:46] VITALS: BP 171/79; PULSE 98
[2022-03-30] MEDS ORDERED: Levofloxacin/Dextrose 5%-Water 500 MG in Premix Bag 1 BAG IV ONE (12:29)
[2022-03-30 12:35] LABS: ANION GAP 15.4 mEq/L (7-13); PTT,PARTIAL THROMBOPLSTIN TIME 21.5 SEC (22.0-34.0)
[2022-03-30 13:15] LABS: CORONAVIRUS COVID-19 NAA NEGATIVE (NEGATIVE); RESPIRATORY SYNCYTIAL VIR NAA NEGATIVE (NEGATIVE)
[2022-03-30] MEDS ORDERED: Ondansetron 4 MG/2 ML SDV IV ONE (13:37)
[2022-03-30] MEDS ORDERED: Morphine 2 MG/ML SYRINGE IVPUSH ONE (13:37)
== END 2022-03-30 14:18 ==
LOC: DL.ED 11:34
DX: J18.9 Pneumonia, unspecified organism (principal); E87.70 Fluid overload, unspecified; E11.40 Type 2 diabetes mellitus with diabetic neuropathy, unspecified; E11.22 Type 2 diabetes mellitus with diabetic chronic kidney disease; I13.2 Hypertensive heart and chronic kidney disease with heart failure and with stage 5 chronic kidney disease, or end stage renal disease; N18.6 End stage renal disease; I50.9 Heart failure, unspecified; Z99.2 Dependence on renal dialysis; F41.9 Anxiety disorder, unspecified; E66.9 Obesity, unspecified; Z68.41 Body mass index [BMI] 40.0-44.9, adult; Z20.822 Contact with and (suspected) exposure to COVID-19; Z88.0 Allergy status to penicillin; Z88.6 Allergy status to analgesic agent; Z88.8 Allergy status to other drugs, medicaments and biological substances
CPT/HCPCS: 0241U; 36410; 36415; 71045; 80053; 83605; 83735; 83880; 84100; 84484; 85025; 85610; 85730; 87040; 93005; 96365; 96375; 99285; J1956; J2270; J2405; 93010

== ENCOUNTER → 2022-05-26 | Day surgery (SDC) | payer MEDICARE, OTHER ==
[~2022-05-26] MED LIST changes: +Midazolam 1 MG/ML 2 ML SDV IV ONE; +Midazolam 1 MG/ML 2 ML SDV ONE; +Sodium Chloride 0.9% 10 ML Syringe FLUSH SCH; +fentaNYL 100 MCG/2 ML SDV IV ONE; +fentaNYL 100 MCG/2 ML SDV ONE
[2022-05-26] MEDS: Dextrose 5%-0.45% NaCl 1,000 ML IV SCH (06:56)
[2022-05-26] MEDS: fentaNYL 100 MCG/2 ML SDV IV ONE ×2 (07:50)
[2022-05-26] MEDS: Midazolam 1 MG/ML 2 ML SDV IV ONE ×2 (07:51→07:52)
[2022-05-26 10:44] VITALS: BP 160/66; PULSE 79
== END | disposition home or self-care (01) ==
LOC: DL.ENDO 06:21
PROVIDERS: ATTEND Internal Medicine Gastroenterology
DX: K29.50 Unspecified chronic gastritis without bleeding (principal); K31.89 Other diseases of stomach and duodenum; D50.9 Iron deficiency anemia, unspecified; K31.7 Polyp of stomach and duodenum; E11.43 Type 2 diabetes mellitus with diabetic autonomic (poly)neuropathy; K31.84 Gastroparesis; E66.01 Morbid (severe) obesity due to excess calories; E11.22 Type 2 diabetes mellitus with diabetic chronic kidney disease; N18.6 End stage renal disease; I13.11 Hypertensive heart and chronic kidney disease without heart failure, with stage 5 chronic kidney disease, or end stage renal disease; I50.9 Heart failure, unspecified; Z98.890 Other specified postprocedural states; Z99.2 Dependence on renal dialysis
CPT/HCPCS: 43239; 87077; 88305; 88342; J2250; J3010; J7042

== ENCOUNTER 2022-05-28 06:27 | Day surgery (SDC) | payer MEDICARE, OTHER ==
[~2022-05-28 06:27] MED LIST changes: +Dextrose 5%-0.45% NaCl 1,000 ML IV SCH; -Midazolam 1 MG/ML 2 ML SDV IV ONE; -Sodium Chloride 0.9% 10 ML Syringe FLUSH SCH; -fentaNYL 100 MCG/2 ML SDV IV ONE
[2022-05-28] MEDS ORDERED: fentaNYL 100 MCG/2 ML SDV IV ONE ×3 (06:28→07:44)
[2022-05-28] MEDS ORDERED: Midazolam 1 MG/ML 2 ML SDV IV ONE ×6 (06:28→07:53)
[2022-05-28] MEDS ORDERED: Sodium Chloride 0.9% 10 ML Syringe FLUSH SCH (09:00)
[2022-05-28 13:54] VITALS: BP 141/87; PULSE 70
== END 2022-05-28 10:28 | disposition home or self-care (01) ==
LOC: DL.ENDO 06:27
PROVIDERS: ATTEND Internal Medicine Gastroenterology
DX: K62.5 Hemorrhage of anus and rectum (principal); E66.01 Morbid (severe) obesity due to excess calories; E11.22 Type 2 diabetes mellitus with diabetic chronic kidney disease; N18.6 End stage renal disease; D64.9 Anemia, unspecified; I13.2 Hypertensive heart and chronic kidney disease with heart failure and with stage 5 chronic kidney disease, or end stage renal disease; I50.9 Heart failure, unspecified; I34.0 Nonrheumatic mitral (valve) insufficiency; Z99.2 Dependence on renal dialysis; Z68.41 Body mass index [BMI] 40.0-44.9, adult
CPT/HCPCS: 45378; J2250; J3010; J7042

== ENCOUNTER 2022-07-07 01:22 | Emergency (ER) | payer MEDICARE, OTHER ==
[2022-07-07 01:26] VITALS: BP 126/57; PULSE 72
[2022-07-07] MEDS ORDERED: Butorphanol 2 MG/ML SDV IM ONE (01:30)
== END 2022-07-07 02:54 | disposition home or self-care (01) ==
LOC: DL.ED 01:22
DX: M79.661 Pain in right lower leg (principal); I13.0 Hypertensive heart and chronic kidney disease with heart failure and stage 1 through stage 4 chronic kidney disease, or unspecified chronic kidney disease; E11.22 Type 2 diabetes mellitus with diabetic chronic kidney disease; N18.9 Chronic kidney disease, unspecified; I50.9 Heart failure, unspecified; J45.909 Unspecified asthma, uncomplicated; E11.40 Type 2 diabetes mellitus with diabetic neuropathy, unspecified; E66.9 Obesity, unspecified; Z68.41 Body mass index [BMI] 40.0-44.9, adult; Z88.0 Allergy status to penicillin; Z88.8 Allergy status to other drugs, medicaments and biological substances; Z79.899 Other long term (current) drug therapy; Z79.01 Long term (current) use of anticoagulants
CPT/HCPCS: 73590; 96372; 99283; J0595

== ENCOUNTER 2022-11-12 23:41 | Emergency (ER) | payer MEDICAID, MEDICARE ==
[2022-11-12 19:54] LABS: ANION GAP 20.8 mEq/L (7-13)
[2022-11-12 22:12] VITALS: BP 158/80; PULSE 77
[~2022-11-12 23:41] MED LIST changes: +50% Dextrose in Water 50 ML Syringe IVPUSH ONE; +50% Dextrose in Water 50 ML Syringe IVPUSH PRN; -Dextrose 5%-0.45% NaCl 1,000 ML IV SCH; +Glucagon,Human Recombinant 1 MG Vial IM PRN; +Insulin Regular, Human 100 Units/ML 3 ML Vial IV ONE; -Midazolam 1 MG/ML 2 ML SDV ONE; +Sodium Polystyrene Sulfonate 15 GM/60 ML Susp 60 ML Bot PO ONE; -fentaNYL 100 MCG/2 ML SDV ONE
== END 2022-11-12 23:54 | disposition home or self-care (01) ==
LOC: DL.ED 23:41
DX: A08.4 Viral intestinal infection, unspecified (principal); E87.5 Hyperkalemia; E11.22 Type 2 diabetes mellitus with diabetic chronic kidney disease; I12.9 Hypertensive chronic kidney disease with stage 1 through stage 4 chronic kidney disease, or unspecified chronic kidney disease; I50.9 Heart failure, unspecified; N18.9 Chronic kidney disease, unspecified; J45.909 Unspecified asthma, uncomplicated; E11.40 Type 2 diabetes mellitus with diabetic neuropathy, unspecified; E66.9 Obesity, unspecified; Z91.158 Patient's noncompliance with renal dialysis for other reason; Z86.16 Personal history of COVID-19; Z88.0 Allergy status to penicillin; Z88.6 Allergy status to analgesic agent; Z88.8 Allergy status to other drugs, medicaments and biological substances; Z99.2 Dependence on renal dialysis; Z68.41 Body mass index [BMI] 40.0-44.9, adult; Z86.711 Personal history of pulmonary embolism; Z79.01 Long term (current) use of anticoagulants; Z79.899 Other long term (current) drug therapy
CPT/HCPCS: 36415; 80053; 84132; 85025; 93005; 93010; 96374; 99284-25; 99285; J1815-GY; J3490

== ENCOUNTER 2023-01-28 16:59 | Emergency (ER) | payer MEDICARE, OTHER ==
[2023-01-28 17:24] LABS: BASOPHILS PERCENT AUTO 0.4 % (0.0-1.0); EOSINOPHILS PERCENT AUTO 4.5 % (1.0-3.0); HEMATOCRIT 32.1 % (37.0-47.0); HEMOGLOBIN 10.8 g/dL (12.0-16.0); LYMPHOCYTES PERCENT AUTO 17.2 % (20.5-50.1); MEAN CORPUSCULAR HEMOGLOBIN 31.2 pg (27.0-34.0); MEAN CORPUSCULAR HGB CONC 33.6 g/dL (33.0-35.0); MEAN CORPUSCULAR VOLUME 92.8 fL (80-100); MONOCYTES PERCENT AUTO 7.5 % (2-8); NEUTROPHILS PERCENT AUTO 70.4 % (42.2-75.2); PLATELET COUNT,PLT 187 10^3/uL (150-450); RED BLOOD CELL COUNT 3.46 10^6/uL (4.2-5.4); WHITE BLOOD CELL COUNT,WBC 9.1 10^3/uL (5.0-10.0)
[2023-01-28 17:49] LABS: ALANINE AMINOTRANSFERASE,ALT 14 U/L (14-59); ALBUMIN 3.2 g/dL (3.4-5.0); ALKALINE PHOSPHATASE 227 U/L (46-116); ANION GAP 23.8 mEq/L (7-13); ASPARTATE AMNIOTRANSFERASE,AST 29 U/L (15-37); BILIRUBIN TOTAL 0.6 mg/dL (0.2-1.0); BLOOD UREA NITROGEN,BUN 95 mg/dL (7-18); CALCIUM 6.6 mg/dL (8.5-10.1); CARBON DIOXIDE,CO2 20 mmol/L (21-32); CHLORIDE,CL 99 mmol/L (98-107); GLUCOSE RANDOM 146 mg/dL (70-99); LACTIC ACID 1.3 mmol/L (0.4-2.0); MAGNESIUM 2.3 mg/dL (1.8-2.4); PROTEIN TOTAL,TP 8.1 g/dL (6.4-8.2); SODIUM,NA 136 mmol/L (136-145)
[2023-01-28 17:54] LABS: A/G RATIO 0.65; CREATININE 10.51 mg/dL (0.55-1.02); ESTIMATED GFR 4 mL/min (>=60); ETHANOL BLOOD MEDICAL < 3 mg/dL (0); PHOSPHORUS 8.6 mg/dL (2.6-4.7); POTASSIUM,K 6.8 mmol/L (3.5-5.1)
[2023-01-28] MEDS ORDERED: Calcium Chloride 10% 1 GM/10 ML Syringe IVPUSH ONE (17:54)
[2023-01-28] MEDS ORDERED: Albuterol 0.083% 2.5 MG/3 ML Neb Soln NEB ONE (17:54)
[2023-01-28] MEDS ORDERED: Sodium Polystyrene Sulfonate 15 GM/60 ML Susp 60 ML Bot PO ONE (17:54)
[2023-01-28 17:55] LABS: B-TYPE NATRIURETIC PEPTIDE,BNP 1200 pg/ml (0-100)
[2023-01-28] MEDS ORDERED: Insulin Regular, Human 100 Units/ML 3 ML Vial IV ONE (17:55)
[2023-01-28] MEDS ORDERED: 50% Dextrose in Water 50 ML Syringe IVPUSH ONE (17:55)
[2023-01-28] MEDS ORDERED: 50% Dextrose in Water 50 ML Syringe IVPUSH PRN (17:55)
[2023-01-28] MEDS ORDERED: Glucagon,Human Recombinant 1 MG Vial IM PRN (17:55)
[2023-01-28] MEDS: Sodium Chloride 0.9% 10 ML Syringe FLUSH PRN ×3 (19:04→19:12)
[2023-01-28] MEDS ORDERED: Acetaminophen 500 MG Tab PO ONE (19:45)
[2023-01-28 21:32] VITALS: BP 130/76; PULSE 80
== END 2023-01-28 22:13 ==
LOC: DL.ED 16:59
DX: I13.2 Hypertensive heart and chronic kidney disease with heart failure and with stage 5 chronic kidney disease, or end stage renal disease (principal); E11.22 Type 2 diabetes mellitus with diabetic chronic kidney disease; N18.6 End stage renal disease; I50.43 Acute on chronic combined systolic (congestive) and diastolic (congestive) heart failure; J45.909 Unspecified asthma, uncomplicated; E11.40 Type 2 diabetes mellitus with diabetic neuropathy, unspecified; E66.9 Obesity, unspecified; Z99.2 Dependence on renal dialysis; Z88.8 Allergy status to other drugs, medicaments and biological substances; Z88.0 Allergy status to penicillin; Z79.899 Other long term (current) drug therapy; Z79.01 Long term (current) use of anticoagulants; Z86.16 Personal history of COVID-19
CPT/HCPCS: 36415; 71045; 80053; 80307; 82947; 83605; 83735; 83880; 84100; 84145; 84484; 85025; 93005; 94640; 96374; 96375; 99285-25; A9270-GY; J1815-GY; J3490; J7613-GY

== ENCOUNTER 2023-02-26 20:47 | Emergency (ER) | payer MEDICARE, OTHER ==
[2023-02-26 21:10] VITALS: BP 179/79; PULSE 76
[2023-02-26] MEDS: Acetaminophen 325 MG Tab PO ONE (21:41)
== END 2023-02-26 21:57 | disposition home or self-care (01) ==
LOC: DL.ED 20:47
DX: S93.401A Sprain of unspecified ligament of right ankle, initial encounter (principal); K21.9 Gastro-esophageal reflux disease without esophagitis; J45.909 Unspecified asthma, uncomplicated; E11.22 Type 2 diabetes mellitus with diabetic chronic kidney disease; I13.0 Hypertensive heart and chronic kidney disease with heart failure and stage 1 through stage 4 chronic kidney disease, or unspecified chronic kidney disease; N18.9 Chronic kidney disease, unspecified; I50.9 Heart failure, unspecified; E66.9 Obesity, unspecified; W22.8XXA Striking against or struck by other objects, initial encounter
CPT/HCPCS: 73610-RT; 99283; A9270-GY

== ENCOUNTER 2023-04-03 18:48 | Emergency (ER) | payer MEDICARE, OTHER ==
[2023-04-03] MEDS ORDERED: Ondansetron 4 MG/2 ML SDV IVPUSH ONE (19:16)
[2023-04-03 19:20] LABS: BASOPHILS PERCENT AUTO 0.3 % (0.0-1.0); HEMATOCRIT 34.9 % (37.0-47.0); HEMOGLOBIN 11.7 g/dL (12.0-16.0); LYMPHOCYTES PERCENT AUTO 10.7 % (20.5-50.1); MEAN CORPUSCULAR HEMOGLOBIN 31.5 pg (27.0-34.0); MEAN CORPUSCULAR HGB CONC 33.5 g/dL (33.0-35.0); MEAN CORPUSCULAR VOLUME 93.8 fL (80-100); PLATELET COUNT,PLT 230 10^3/uL (150-450); RED BLOOD CELL COUNT 3.72 10^6/uL (4.2-5.4); WHITE BLOOD CELL COUNT,WBC 7.7 10^3/uL (5.0-10.0)
[2023-04-03] MEDS: Sodium Chloride 0.9% 10 ML Syringe FLUSH PRN ×2 (19:20→19:25)
[2023-04-03 19:36] LABS: A/G RATIO 0.7; ALANINE AMINOTRANSFERASE,ALT 12 U/L (14-59); ALBUMIN 3.4 g/dL (3.4-5.0); ALKALINE PHOSPHATASE 132 U/L (46-116); ANION GAP 21.3 mEq/L (7-13); ASPARTATE AMNIOTRANSFERASE,AST 18 U/L (15-37); BILIRUBIN TOTAL 0.6 mg/dL (0.2-1.0); BLOOD UREA NITROGEN,BUN 39 mg/dL (7-18); BUN/CREATININE RATIO 5.7 (No establ ref range); C-REACTIVE PROTEIN 2.69 ng/dL (<=0.30); CALCIUM 8.2 mg/dL (8.5-10.1); CARBON DIOXIDE,CO2 24 mmol/L (21-32); CHLORIDE,CL 94 mmol/L (98-107); GLUCOSE RANDOM 200 mg/dL (70-99); MAGNESIUM 1.8 mg/dL (1.8-2.4); PHOSPHORUS 4.4 mg/dL (2.6-4.7); POTASSIUM,K 4.3 mmol/L (3.5-5.1); PROTEIN TOTAL,TP 8.6 g/dL (6.4-8.2); SODIUM,NA 135 mmol/L (136-145)
[2023-04-03 19:40] LABS: LACTIC ACID 1.9 mmol/L (0.4-2.0)
[2023-04-03 19:42] LABS: ESTIMATED GFR 7 mL/min (>=60)
[2023-04-03] MEDS ORDERED: Take Home: Ondansetron 4 MG Tab.DIS, 5 Tab Pack PO ONE (20:07)
[2023-04-03 21:18] VITALS: BP 125/78; PULSE 88
== END 2023-04-03 21:45 | disposition home or self-care (01) ==
LOC: DL.ED 18:48
DX: U07.1 COVID-19 (principal); I13.0 Hypertensive heart and chronic kidney disease with heart failure and stage 1 through stage 4 chronic kidney disease, or unspecified chronic kidney disease; E11.22 Type 2 diabetes mellitus with diabetic chronic kidney disease; N18.9 Chronic kidney disease, unspecified; I50.9 Heart failure, unspecified; N17.9 Acute kidney failure, unspecified; J45.909 Unspecified asthma, uncomplicated; E11.40 Type 2 diabetes mellitus with diabetic neuropathy, unspecified; E66.9 Obesity, unspecified; Z68.41 Body mass index [BMI] 40.0-44.9, adult; Z86.16 Personal history of COVID-19; Z99.2 Dependence on renal dialysis; Z79.01 Long term (current) use of anticoagulants; Z79.899 Other long term (current) drug therapy; Z88.0 Allergy status to penicillin; Z88.8 Allergy status to other drugs, medicaments and biological substances
CPT/HCPCS: 36415; 71045; 80053; 83605; 83735; 84100; 85025; 86140; 87804; 96374; 99284; 99284-25; J2405; J3490; Q0162; U0002

== ENCOUNTER 2023-04-11 16:54 | Emergency (ER) | payer MEDICARE, OTHER ==
[2023-04-11] MEDS ORDERED: Sodium Chloride 0.9% 10 ML Syringe FLUSH PRN (17:02)
[2023-04-11 17:22] VITALS: BP 146/63; PULSE 72
[2023-04-11 17:57] LABS: BASOPHILS PERCENT AUTO 0.6 % (0.0-1.0); HEMATOCRIT 30.7 % (37.0-47.0); LYMPHOCYTES PERCENT AUTO 21.9 % (20.5-50.1); MEAN CORPUSCULAR HEMOGLOBIN 30.7 pg (27.0-34.0); MEAN CORPUSCULAR HGB CONC 32.6 g/dL (33.0-35.0); MEAN CORPUSCULAR VOLUME 94.2 fL (80-100); MONOCYTES PERCENT AUTO 8.9 % (2-8); NEUTROPHILS PERCENT AUTO 62.6 % (42.2-75.2); PLATELET COUNT,PLT 266 10^3/uL (150-450); RED BLOOD CELL COUNT 3.26 10^6/uL (4.2-5.4)
[2023-04-11 18:16] LABS: PROTHROMBIN TIME 9.8 SEC (9.0-12.0); PTT,PARTIAL THROMBOPLSTIN TIME 28.8 SEC (22.0-34.0)
[2023-04-11 18:18] LABS: LACTIC ACID 0.9 mmol/L (0.4-2.0)
[2023-04-11 18:20] LABS: B-TYPE NATRIURETIC PEPTIDE,BNP 344 pg/ml (0-100)
[2023-04-11 18:38] LABS: A/G RATIO 0.62; ALBUMIN 2.9 g/dL (3.4-5.0); BILIRUBIN TOTAL 0.4 mg/dL (0.2-1.0); BUN/CREATININE RATIO 7.3 (No establ ref range); EST CRCL DRUG DOSING (CG) 6.54 mL/min; PROTEIN TOTAL,TP 7.6 g/dL (6.4-8.2)
[2023-04-11 18:39] LABS: CREATININE 8.61 mg/dL (0.55-1.02)
== END 2023-04-11 22:04 | disposition home or self-care (01) ==
LOC: DL.ED 16:54
DX: U07.1 COVID-19 (principal); I20.9 Angina pectoris, unspecified; I13.0 Hypertensive heart and chronic kidney disease with heart failure and stage 1 through stage 4 chronic kidney disease, or unspecified chronic kidney disease; I50.9 Heart failure, unspecified; N18.9 Chronic kidney disease, unspecified; E66.9 Obesity, unspecified; E78.00 Pure hypercholesterolemia, unspecified; E11.40 Type 2 diabetes mellitus with diabetic neuropathy, unspecified; Z86.16 Personal history of COVID-19; Z79.01 Long term (current) use of anticoagulants; Z79.899 Other long term (current) drug therapy; Z88.8 Allergy status to other drugs, medicaments and biological substances; Z88.0 Allergy status to penicillin; Z88.6 Allergy status to analgesic agent; Z88.1 Allergy status to other antibiotic agents
CPT/HCPCS: 36415; 71045; 80053; 83605; 83735; 83880; 84145; 84484; 85025; 85379; 85610; 85730; 93005; 93010; 99285

== ENCOUNTER 2023-04-12 14:52 | Emergency (ER) | payer MEDICARE, OTHER ==
[2023-04-12 15:06] VITALS: BP 129/71; PULSE 68
[2023-04-12 16:35] LABS: BASOPHILS PERCENT AUTO 0.7 % (0.0-1.0); HEMATOCRIT 33.9 % (37.0-47.0); HEMOGLOBIN 11.1 g/dL (12.0-16.0); LYMPHOCYTES PERCENT AUTO 19.8 % (20.5-50.1); MEAN CORPUSCULAR HEMOGLOBIN 30.7 pg (27.0-34.0); MEAN CORPUSCULAR HGB CONC 32.7 g/dL (33.0-35.0); MEAN CORPUSCULAR VOLUME 93.6 fL (80-100); MONOCYTES PERCENT AUTO 8.8 % (2-8); NEUTROPHILS PERCENT AUTO 65.7 % (42.2-75.2); PLATELET COUNT,PLT 260 10^3/uL (150-450); RED BLOOD CELL COUNT 3.62 10^6/uL (4.2-5.4)
[2023-04-12 16:59] LABS: ALBUMIN 3.1 g/dL (3.4-5.0); BILIRUBIN TOTAL 0.5 mg/dL (0.2-1.0); BUN/CREATININE RATIO 7.4 (No establ ref range); C-REACTIVE PROTEIN 0.82 ng/dL (<=0.30); CALCIUM 8.2 mg/dL (8.5-10.1); EST CRCL DRUG DOSING (CG) 6.38 mL/min; MAGNESIUM 2.4 mg/dL (1.8-2.4); PROTEIN TOTAL,TP 8.1 g/dL (6.4-8.2)
[2023-04-12 17:00] LABS: LACTIC ACID 0.7 mmol/L (0.4-2.0)
[2023-04-12 17:04] LABS: PTT,PARTIAL THROMBOPLSTIN TIME 25.7 SEC (22.0-34.0)
[2023-04-12 17:14] LABS: A/G RATIO 0.62
[2023-04-12 17:16] LABS: CREATININE 9.99 mg/dL (0.55-1.02)
== END 2023-04-12 16:54 ==
LOC: DL.ED 14:52
DX: R07.89 Other chest pain (principal); R79.1 Abnormal coagulation profile; E87.5 Hyperkalemia; R74.8 Abnormal levels of other serum enzymes; I13.2 Hypertensive heart and chronic kidney disease with heart failure and with stage 5 chronic kidney disease, or end stage renal disease; E11.22 Type 2 diabetes mellitus with diabetic chronic kidney disease; N18.6 End stage renal disease; I50.9 Heart failure, unspecified; Z99.2 Dependence on renal dialysis; J45.909 Unspecified asthma, uncomplicated; E11.40 Type 2 diabetes mellitus with diabetic neuropathy, unspecified; E66.9 Obesity, unspecified; Z68.41 Body mass index [BMI] 40.0-44.9, adult; Z86.16 Personal history of COVID-19; Z88.0 Allergy status to penicillin; Z88.8 Allergy status to other drugs, medicaments and biological substances; Z79.899 Other long term (current) drug therapy; Z79.01 Long term (current) use of anticoagulants
CPT/HCPCS: 36415; 71045; 80053; 83605; 83735; 83880; 84100; 84145; 84484; 85025; 85379; 85610; 85730; 86140; 93005; 99285

== ENCOUNTER 2023-05-05 19:20 | Emergency (ER) | payer MEDICARE, OTHER ==
[2023-05-05 19:59] LABS: BASOPHILS PERCENT AUTO 0.7 % (0.0-1.0); EOSINOPHILS PERCENT AUTO 3.3 % (1.0-3.0); HEMATOCRIT 29.3 % (37.0-47.0); HEMOGLOBIN 9.8 g/dL (12.0-16.0); LYMPHOCYTES PERCENT AUTO 10.3 % (20.5-50.1); MEAN CORPUSCULAR HEMOGLOBIN 31.6 pg (27.0-34.0); MEAN CORPUSCULAR HGB CONC 33.4 g/dL (33.0-35.0); MEAN CORPUSCULAR VOLUME 94.5 fL (80-100); NEUTROPHILS PERCENT AUTO 80.7 % (42.2-75.2); PLATELET COUNT,PLT 213 10^3/uL (150-450); WHITE BLOOD CELL COUNT,WBC 11.6 10^3/uL (5.0-10.0)
[2023-05-05] MEDS: Sodium Chloride 0.9% 10 ML Syringe FLUSH PRN ×6 (20:17→21:08)
[2023-05-05 20:20] LABS: A/G RATIO 0.7; ALANINE AMINOTRANSFERASE,ALT 12 U/L (14-59); ALBUMIN 3.4 g/dL (3.4-5.0); ALKALINE PHOSPHATASE 122 U/L (46-116); ANION GAP 24.5 mEq/L (7-13); ASPARTATE AMNIOTRANSFERASE,AST 15 U/L (15-37); BILIRUBIN TOTAL 0.8 mg/dL (0.2-1.0); BLOOD UREA NITROGEN,BUN 120 mg/dL (7-18); BUN/CREATININE RATIO 8.3 (No establ ref range); C-REACTIVE PROTEIN 2.46 ng/dL (<=0.30); CALCIUM 8.1 mg/dL (8.5-10.1); CARBON DIOXIDE,CO2 21 mmol/L (21-32); CHLORIDE,CL 98 mmol/L (98-107); EST CRCL DRUG DOSING (CG) 4.56 mL/min; GLUCOSE RANDOM 166 mg/dL (70-99); MAGNESIUM 2.1 mg/dL (1.8-2.4); POTASSIUM,K 6.5 mmol/L (3.5-5.1); SODIUM,NA 137 mmol/L (136-145)
[2023-05-05 20:23] LABS: ESTIMATED GFR 3 mL/min (>=60)
[2023-05-05 20:24] LABS: LACTIC ACID 0.8 mmol/L (0.4-2.0)
[2023-05-05 20:26] LABS: HCG QUALITATIVE,SERUM NEGATIVE (NEGATIVE)
[2023-05-05] MEDS ORDERED: Calcium Chloride 10% 1 GM/10 ML Syringe IVPUSH ONE (20:35)
[2023-05-05] MEDS ORDERED: Insulin Regular, Human 100 Units/ML 3 ML Vial IV ONE (20:36)
[2023-05-05] MEDS ORDERED: 50% Dextrose in Water 50 ML Syringe IVPUSH ONE (20:36)
[2023-05-05] MEDS ORDERED: 50% Dextrose in Water 50 ML Syringe IVPUSH PRN (20:36)
[2023-05-05] MEDS ORDERED: Glucagon,Human Recombinant 1 MG Vial IM PRN (20:36)
[2023-05-05] MEDS ORDERED: Sodium Bicarbonate 8.4% 50 MEQ/50 ML Syringe IVPUSH ONE (20:37)
[2023-05-05] MEDS ORDERED: Sodium Polystyrene Sulfonate 15 GM/60 ML Susp 60 ML Bot PO ONE (20:48)
[2023-05-05] MEDS ORDERED: Labetalol 20 MG/4 ML Syringe IVPUSH ONE (20:58)
[2023-05-05 21:10] VITALS: BP 180/94; PULSE 94
[2023-05-05] MEDS ORDERED: Acetaminophen 500 MG Tab PO ONE (21:11)
[2023-05-05] MEDS ORDERED: cefTRIAXone 2 GM Vial IVPUSH ONE (21:11)
[2023-05-05 21:17] LABS: CORONAVIRUS COVID-19 NAA NEGATIVE (NEGATIVE); INFLUENZA A NAA NEGATIVE (NEGATIVE); INFLUENZA B NAA NEGATIVE (NEGATIVE)
== END 2023-05-05 21:23 ==
LOC: DL.ED 19:20
DX: N17.9 Acute kidney failure, unspecified (principal); E87.5 Hyperkalemia; E87.70 Fluid overload, unspecified; I11.0 Hypertensive heart disease with heart failure; I50.9 Heart failure, unspecified; E11.9 Type 2 diabetes mellitus without complications; E66.9 Obesity, unspecified; Z68.41 Body mass index [BMI] 40.0-44.9, adult; Z86.16 Personal history of COVID-19; Z88.0 Allergy status to penicillin; Z88.6 Allergy status to analgesic agent; Z88.8 Allergy status to other drugs, medicaments and biological substances; Z79.899 Other long term (current) drug therapy; Z20.822 Contact with and (suspected) exposure to COVID-19
CPT/HCPCS: 0240U; 36415; 71045; 80053; 80307; 83605; 83735; 83880; 84703; 85025; 86140; 87040; 93005; 96374; 96375; 99285; A9270; J0696; J1815; J3490

== ENCOUNTER 2023-05-13 05:43 | Day surgery (SDC) | payer MEDICARE, OTHER ==
[2023-05-13] MEDS ORDERED: Dextrose 5%-0.45% NaCl 1,000 ML IV SCH (06:00)
[2023-05-13] MEDS ORDERED: fentaNYL 100 MCG/2 ML SDV ONE (06:16)
[2023-05-13] MEDS ORDERED: Midazolam 1 MG/ML 2 ML SDV ONE (06:16)
[2023-05-13] MEDS ORDERED: fentaNYL 100 MCG/2 ML SDV IV ONE ×2 (07:24→07:25)
[2023-05-13] MEDS ORDERED: Midazolam 1 MG/ML 2 ML SDV IV ONE ×2 (07:25→07:26)
[2023-05-13 09:09] VITALS: BP 161/66; PULSE 67
== END 2023-05-13 08:52 | disposition home or self-care (01) ==
LOC: DL.ENDO 05:43
PROVIDERS: ATTEND Internal Medicine Gastroenterology
DX: K31.7 Polyp of stomach and duodenum (principal); I13.2 Hypertensive heart and chronic kidney disease with heart failure and with stage 5 chronic kidney disease, or end stage renal disease; I50.9 Heart failure, unspecified; E11.22 Type 2 diabetes mellitus with diabetic chronic kidney disease; N18.6 End stage renal disease; Z99.2 Dependence on renal dialysis; E11.42 Type 2 diabetes mellitus with diabetic polyneuropathy; E66.09 Other obesity due to excess calories; Z68.41 Body mass index [BMI] 40.0-44.9, adult; D63.1 Anemia in chronic kidney disease; Z98.51 Tubal ligation status; Z88.0 Allergy status to penicillin; Z88.6 Allergy status to analgesic agent; Z88.8 Allergy status to other drugs, medicaments and biological substances
CPT/HCPCS: 87077; 88305; J2250; J3010; J7042

== ENCOUNTER 2023-06-06 13:57 | Emergency (ER) | payer MEDICARE, OTHER ==
[2023-06-06] MEDS ORDERED: Sodium Chloride 0.9% 10 ML Syringe FLUSH PRN (14:04)
[2023-06-06] MEDS ORDERED: Benzonatate 100 MG Cap PO ONE (14:06)
[2023-06-06] MEDS ORDERED: Albuterol/Ipratropium 3.0-0.5 MG/3 ML Neb Soln NEB ONE (14:07)
[2023-06-06] MEDS ORDERED: Acetaminophen 325 MG Tab PO ONE (14:11)
[2023-06-06] MEDS ORDERED: Acetaminophen 500 MG Tab PO ONE (14:35)
[2023-06-06 14:36] VITALS: BP 187/75; PULSE 93
[2023-06-06 14:45] LABS: CORONAVIRUS COVID-19 NAA NEGATIVE (NEGATIVE); INFLUENZA A NAA NEGATIVE (NEGATIVE); INFLUENZA B NAA NEGATIVE (NEGATIVE); RESPIRATORY SYNCYTIAL VIR NAA NEGATIVE (NEGATIVE)
[2023-06-06 15:44] LABS: BASOPHILS PERCENT AUTO 0.3 % (0.0-1.0); EOSINOPHILS PERCENT AUTO 0.7 % (1.0-3.0); HEMATOCRIT 25.3 % (37.0-47.0); HEMOGLOBIN 8.7 g/dL (12.0-16.0); LYMPHOCYTES PERCENT AUTO 10.2 % (20.5-50.1); MEAN CORPUSCULAR HEMOGLOBIN 31.8 pg (27.0-34.0); MEAN CORPUSCULAR HGB CONC 34.4 g/dL (33.0-35.0); MEAN CORPUSCULAR VOLUME 92.3 fL (80-100); NEUTROPHILS PERCENT AUTO 81.8 % (42.2-75.2); PLATELET COUNT,PLT 247 10^3/uL (150-450); RED BLOOD CELL COUNT 2.74 10^6/uL (4.2-5.4); WHITE BLOOD CELL COUNT,WBC 13.5 10^3/uL (5.0-10.0)
[2023-06-06] MEDS ORDERED: cefTRIAXone 1 GM Vial IVPUSH ONE (16:04)
[2023-06-06] MEDS ORDERED: Azithromycin 500 MG in Sodium Chloride 0.9% 250 ML IV ONE (16:05)
[2023-06-06 16:33] LABS: ALBUMIN 3.1 g/dL (3.4-5.0); ANION GAP 14.5 mEq/L (7-13); BUN/CREATININE RATIO 8.5 (No establ ref range); CALCIUM 7.7 mg/dL (8.5-10.1); EST CRCL DRUG DOSING (CG) 8.13 mL/min; POTASSIUM,K 3.5 mmol/L (3.5-5.1); PROTEIN TOTAL,TP 7.5 g/dL (6.4-8.2)
[2023-06-06 16:39] LABS: A/G RATIO 0.7; CREATININE 7.53 mg/dL (0.55-1.02)
[2023-06-06] MEDS ORDERED: 50% Dextrose in Water 50 ML Syringe IVPUSH PRN (16:45)
[2023-06-06] MEDS ORDERED: Glucagon,Human Recombinant 1 MG Vial IM PRN (16:45)
[2023-06-06] MEDS ORDERED: Insulin Regular, Human 100 Units/ML 3 ML Vial IV ONE (16:45)
== END 2023-06-06 18:13 ==
LOC: DL.ED 13:57
DX: J18.9 Pneumonia, unspecified organism (principal); E11.65 Type 2 diabetes mellitus with hyperglycemia; E87.79 Other fluid overload; I13.2 Hypertensive heart and chronic kidney disease with heart failure and with stage 5 chronic kidney disease, or end stage renal disease; I50.9 Heart failure, unspecified; N18.6 End stage renal disease; Z99.2 Dependence on renal dialysis; K21.9 Gastro-esophageal reflux disease without esophagitis; Z20.822 Contact with and (suspected) exposure to COVID-19; E11.40 Type 2 diabetes mellitus with diabetic neuropathy, unspecified; Z86.16 Personal history of COVID-19; E66.9 Obesity, unspecified; Z68.42 Body mass index [BMI] 45.0-49.9, adult; Z79.899 Other long term (current) drug therapy; Z88.0 Allergy status to penicillin; Z88.6 Allergy status to analgesic agent; Z88.2 Allergy status to sulfonamides; Z88.8 Allergy status to other drugs, medicaments and biological substances; Z88.5 Allergy status to narcotic agent
CPT/HCPCS: 0241U; 36415; 71045; 80053; 82947; 83605; 83880; 84145; 84484; 85025; 87040; 94640; 96374; 96375; 99285; 99285-25; A9270-GY; J0456; J0696; J1815-GY; J3490; J7050; J7620-GY

== ENCOUNTER 2023-06-11 21:16 | Emergency (ER) | payer MEDICARE, OTHER ==
[2023-06-11] MEDS ORDERED: Sodium Chloride 0.9% 10 ML Syringe FLUSH PRN (21:31)
[2023-06-11] MEDS ORDERED: Aluminum Hydroxide/Magnesium Hydroxide/Simethicone Susp 30 ML Cup PO ONE (21:45)
[2023-06-11] MEDS ORDERED: Lidocaine 2% Viscous Solution 15 ML UD PO ONE (21:45)
[2023-06-11 21:59] LABS: BASOPHILS PERCENT AUTO 0.9 % (0.0-1.0); EOSINOPHILS PERCENT AUTO 4.6 % (1.0-3.0); HEMATOCRIT 31.1 % (37.0-47.0); HEMOGLOBIN 10.3 g/dL (12.0-16.0); LYMPHOCYTES PERCENT AUTO 17.5 % (20.5-50.1); MEAN CORPUSCULAR HEMOGLOBIN 30.9 pg (27.0-34.0); MEAN CORPUSCULAR HGB CONC 33.1 g/dL (33.0-35.0); MEAN CORPUSCULAR VOLUME 93.4 fL (80-100); MONOCYTES PERCENT AUTO 6.9 % (2-8); NEUTROPHILS PERCENT AUTO 70.1 % (42.2-75.2); PLATELET COUNT,PLT 223 10^3/uL (150-450); RED BLOOD CELL COUNT 3.33 10^6/uL (4.2-5.4); WHITE BLOOD CELL COUNT,WBC 7.8 10^3/uL (5.0-10.0)
[2023-06-11 22:16] LABS: C-REACTIVE PROTEIN 1.85 ng/dL (<=0.50); MAGNESIUM 1.5 mg/dL (1.8-2.4)
[2023-06-11 22:25] LABS: A/G RATIO 0.7; ALBUMIN 3.4 g/dL (3.4-5.0); ANION GAP 14.2 mEq/L (7-13); BILIRUBIN TOTAL 0.5 mg/dL (0.2-1.0); BUN/CREATININE RATIO 4.1 (No establ ref range); CALCIUM 8.2 mg/dL (8.5-10.1); CREATININE 4.59 mg/dL (0.55-1.02); EST CRCL DRUG DOSING (CG) 13.88 mL/min; LACTIC ACID 2.2 mmol/L (0.4-2.0); POTASSIUM,K 4.2 mmol/L (3.5-5.1); PROTEIN TOTAL,TP 8.5 g/dL (6.4-8.2)
[2023-06-11 22:34] VITALS: BP 144/85; PULSE 79
[2023-06-11 22:40] LABS: INR 0.9 (0.9-1.2); PROTHROMBIN TIME 9.6 SEC (9.0-12.0); PTT,PARTIAL THROMBOPLSTIN TIME 23.1 SEC (22.0-34.0)
[2023-06-11] MEDS ORDERED: diphenhydrAMINE 25 MG Tab PO ONE (23:27)
[2023-06-11] MEDS ORDERED: Magnesium Oxide 400 MG Tab ONE (23:30)
[2023-06-12] MEDS ORDERED: Magnesium Oxide 400 MG Tab PO ONE (23:14)
== END 2023-06-11 23:44 | disposition home or self-care (01) ==
LOC: DL.ED 21:16
DX: R07.89 Other chest pain (principal); R06.02 Shortness of breath; G47.30 Sleep apnea, unspecified; I13.0 Hypertensive heart and chronic kidney disease with heart failure and stage 1 through stage 4 chronic kidney disease, or unspecified chronic kidney disease; I50.9 Heart failure, unspecified; N18.9 Chronic kidney disease, unspecified; K21.9 Gastro-esophageal reflux disease without esophagitis; E11.40 Type 2 diabetes mellitus with diabetic neuropathy, unspecified; E03.9 Hypothyroidism, unspecified; E66.9 Obesity, unspecified; Z86.16 Personal history of COVID-19; Z79.899 Other long term (current) drug therapy; Z88.0 Allergy status to penicillin; Z88.1 Allergy status to other antibiotic agents; Z88.5 Allergy status to narcotic agent; Z88.8 Allergy status to other drugs, medicaments and biological substances
CPT/HCPCS: 36415; 71045; 80053; 82150; 83605; 83690; 83735; 83880; 84484; 85025; 85610; 85730; 86140; 93005; 93010; 99284; 99285; A9270-GY; J3490

== ENCOUNTER 2023-06-17 22:40 | Emergency (ER) | payer MEDICARE, OTHER ==
[2023-06-17] MEDS ORDERED: Sodium Chloride 0.9% 10 ML Syringe FLUSH PRN (22:43)
[2023-06-17 23:38] LABS: BASOPHILS PERCENT AUTO 0.4 % (0.0-1.0); EOSINOPHILS PERCENT AUTO 3.5 % (1.0-3.0); HEMATOCRIT 28.4 % (37.0-47.0); HEMOGLOBIN 9.4 g/dL (12.0-16.0); LYMPHOCYTES PERCENT AUTO 10.2 % (20.5-50.1); MEAN CORPUSCULAR HEMOGLOBIN 31.4 pg (27.0-34.0); MEAN CORPUSCULAR HGB CONC 33.1 g/dL (33.0-35.0); MONOCYTES PERCENT AUTO 5.3 % (2-8); NEUTROPHILS PERCENT AUTO 80.6 % (42.2-75.2); PLATELET COUNT,PLT 251 10^3/uL (150-450); RED BLOOD CELL COUNT 2.99 10^6/uL (4.2-5.4)
[2023-06-17] MEDS ORDERED: Nitroglycerin/D5W 25 MG/250 ML BOTTLE IV SCH (23:45)
[2023-06-17 23:53] LABS: ALBUMIN 3.3 g/dL (3.4-5.0); ANION GAP 17.6 mEq/L (7-13); BILIRUBIN TOTAL 0.9 mg/dL (0.2-1.0); BUN/CREATININE RATIO 6.7 (No establ ref range); C-REACTIVE PROTEIN 1.01 ng/dL (<=0.50); CALCIUM 8.1 mg/dL (8.5-10.1); EST CRCL DRUG DOSING (CG) 9.65 mL/min; POTASSIUM,K 5.6 mmol/L (3.5-5.1); PROTEIN TOTAL,TP 8.2 g/dL (6.4-8.2)
[2023-06-17 23:54] LABS: A/G RATIO 0.67; CREATININE 6.86 mg/dL (0.55-1.02)
[2023-06-17] MEDS ORDERED: Nitroglycerin/D5W 25 MG/250 ML BOTTLE ONE (23:57)
[2023-06-17 23:58] LABS: LACTIC ACID 1.3 mmol/L (0.4-2.0)
[2023-06-18 00:07] LABS: BASE EXCESS VENOUS 2.7 mmol/l ((-2)-(+3)); BICARBONATE,VENOUS 26 mmol/l (19-25); O2 DELIVERY DEVICE NASAL CANNULA; O2 SATURATION VENOUS 53.5 % (60-80); PCO2 VENOUS 38 mmHg (41-51); PH,VENOUS 7.45 (7.31-7.41); PO2 VENOUS 30 mmHg (35-42)
[2023-06-18] MEDS ORDERED: Labetalol 100 MG Tab PO ONE (00:20)
[2023-06-18] MEDS ORDERED: Acetaminophen 500 MG Tab PO ONE (00:29)
[2023-06-18 00:30] VITALS: BP 190/88; PULSE 98
[2023-06-18] MEDS ORDERED: cefTRIAXone 2 GM Vial IVPUSH ONE (00:30)
[2023-06-18] MEDS ORDERED: cefTRIAXone 2 GM Vial ONE (00:31)
[2023-06-18 00:36] LABS: CORONAVIRUS COVID-19 NAA NEGATIVE (NEGATIVE); INFLUENZA A NAA NEGATIVE (NEGATIVE); INFLUENZA B NAA NEGATIVE (NEGATIVE)
== END 2023-06-18 01:12 ==
LOC: DL.ED 22:40
DX: I16.1 Hypertensive emergency (principal); J81.0 Acute pulmonary edema; I13.0 Hypertensive heart and chronic kidney disease with heart failure and stage 1 through stage 4 chronic kidney disease, or unspecified chronic kidney disease; I50.9 Heart failure, unspecified; N18.9 Chronic kidney disease, unspecified; E11.9 Type 2 diabetes mellitus without complications; E05.90 Thyrotoxicosis, unspecified without thyrotoxic crisis or storm; E66.9 Obesity, unspecified; E87.6 Hypokalemia; E83.51 Hypocalcemia; Z88.0 Allergy status to penicillin; Z88.1 Allergy status to other antibiotic agents; Z79.899 Other long term (current) drug therapy; Z88.8 Allergy status to other drugs, medicaments and biological substances; Z88.6 Allergy status to analgesic agent; Z86.16 Personal history of COVID-19; Z20.822 Contact with and (suspected) exposure to COVID-19
CPT/HCPCS: 0240U; 36415; 71046; 80053; 82803; 83605; 83880; 85025; 86140; 87040; 93005; 93010; 96365; 96375; 99284; 99285-25; A9270-GY; J0696; J2305

== ENCOUNTER 2023-06-22 23:27 | Emergency (ER) | payer MEDICARE, OTHER ==
[2023-06-22 23:34] VITALS: BP 145/74; PULSE 79
[2023-06-22 23:47] LABS: BASOPHILS PERCENT AUTO 0.7 % (0.0-1.0); HEMATOCRIT 28.5 % (37.0-47.0); HEMOGLOBIN 9.3 g/dL (12.0-16.0); LYMPHOCYTES PERCENT AUTO 30.6 % (20.5-50.1); MEAN CORPUSCULAR HEMOGLOBIN 30.8 pg (27.0-34.0); MEAN CORPUSCULAR HGB CONC 32.6 g/dL (33.0-35.0); MEAN CORPUSCULAR VOLUME 94.4 fL (80-100); MONOCYTES PERCENT AUTO 10.3 % (2-8); NEUTROPHILS PERCENT AUTO 51.4 % (42.2-75.2); PLATELET COUNT,PLT 204 10^3/uL (150-450); RED BLOOD CELL COUNT 3.02 10^6/uL (4.2-5.4); WHITE BLOOD CELL COUNT,WBC 5.6 10^3/uL (5.0-10.0)
[2023-06-23 00:08] LABS: A/G RATIO 0.68; ALBUMIN 3.2 g/dL (3.4-5.0); ANION GAP 14.5 mEq/L (7-13); BILIRUBIN TOTAL 0.5 mg/dL (0.2-1.0); BUN/CREATININE RATIO 6.1 (No establ ref range); CALCIUM 8.6 mg/dL (8.5-10.1); EST CRCL DRUG DOSING (CG) 9.44 mL/min; POTASSIUM,K 4.5 mmol/L (3.5-5.1); PROTEIN TOTAL,TP 7.9 g/dL (6.4-8.2)
[2023-06-23 00:09] LABS: CREATININE 6.75 mg/dL (0.55-1.02)
[2023-06-23] MEDS: Acetaminophen 500 MG Tab PO ONE (01:34)
== END 2023-06-23 01:40 | disposition home or self-care (01) ==
LOC: DL.ED 23:27
DX: M79.621 Pain in right upper arm (principal); I13.0 Hypertensive heart and chronic kidney disease with heart failure and stage 1 through stage 4 chronic kidney disease, or unspecified chronic kidney disease; N18.6 End stage renal disease; I50.9 Heart failure, unspecified; D63.8 Anemia in other chronic diseases classified elsewhere; E87.1 Hypo-osmolality and hyponatremia; Z99.2 Dependence on renal dialysis; K21.9 Gastro-esophageal reflux disease without esophagitis; E11.22 Type 2 diabetes mellitus with diabetic chronic kidney disease; E03.9 Hypothyroidism, unspecified; E66.9 Obesity, unspecified; Z79.01 Long term (current) use of anticoagulants; Z79.899 Other long term (current) drug therapy; Z88.0 Allergy status to penicillin; Z88.6 Allergy status to analgesic agent; Z88.8 Allergy status to other drugs, medicaments and biological substances; Z88.5 Allergy status to narcotic agent; Z68.41 Body mass index [BMI] 40.0-44.9, adult
CPT/HCPCS: 36415; 74176; 80053; 82150; 83690; 84484; 85025; 93005; 93010; 99285; A9270-GY

== ENCOUNTER 2023-07-04 23:05 | Emergency (ER) | payer MEDICARE, OTHER ==
[2023-07-04 23:27] LABS: BASOPHILS PERCENT AUTO 0.4 % (0.0-1.0); EOSINOPHILS PERCENT AUTO 5.1 % (1.0-3.0); HEMATOCRIT 26.5 % (37.0-47.0); HEMOGLOBIN 8.6 g/dL (12.0-16.0); LYMPHOCYTES PERCENT AUTO 14.5 % (20.5-50.1); MEAN CORPUSCULAR HEMOGLOBIN 30.5 pg (27.0-34.0); MEAN CORPUSCULAR HGB CONC 32.5 g/dL (33.0-35.0); MONOCYTES PERCENT AUTO 5.9 % (2-8); NEUTROPHILS PERCENT AUTO 74.1 % (42.2-75.2); PLATELET COUNT,PLT 210 10^3/uL (150-450); RED BLOOD CELL COUNT 2.82 10^6/uL (4.2-5.4); WHITE BLOOD CELL COUNT,WBC 9.3 10^3/uL (5.0-10.0)
[2023-07-04 23:50] LABS: ALBUMIN 3.2 g/dL (3.4-5.0); ANION GAP 18.2 mEq/L (7-13); BILIRUBIN TOTAL 0.7 mg/dL (0.2-1.0); BUN/CREATININE RATIO 8.4 (No establ ref range); CALCIUM 7.6 mg/dL (8.5-10.1); EST CRCL DRUG DOSING (CG) 7.35 mL/min; POTASSIUM,K 5.2 mmol/L (3.5-5.1); PROTEIN TOTAL,TP 7.7 g/dL (6.4-8.2)
[2023-07-04 23:51] LABS: A/G RATIO 0.71
[2023-07-04 23:52] LABS: CREATININE 8.67 mg/dL (0.55-1.02)
[2023-07-05 00:47] VITALS: BP 188/90; PULSE 93
== END 2023-07-05 00:44 | disposition home or self-care (01) ==
LOC: DL.ED 23:05
DX: I13.0 Hypertensive heart and chronic kidney disease with heart failure and stage 1 through stage 4 chronic kidney disease, or unspecified chronic kidney disease (principal); E11.22 Type 2 diabetes mellitus with diabetic chronic kidney disease; N18.9 Chronic kidney disease, unspecified; I50.9 Heart failure, unspecified; E66.9 Obesity, unspecified; Z68.42 Body mass index [BMI] 45.0-49.9, adult; Z99.2 Dependence on renal dialysis; Z86.16 Personal history of COVID-19; Z79.899 Other long term (current) drug therapy; Z88.0 Allergy status to penicillin; Z88.6 Allergy status to analgesic agent; Z88.2 Allergy status to sulfonamides; Z88.8 Allergy status to other drugs, medicaments and biological substances; Z88.5 Allergy status to narcotic agent
CPT/HCPCS: 36415; 71046; 80053; 84484; 85025; 93010; 99284; 99285

== ENCOUNTER 2023-09-19 08:12 | Emergency (ER) | payer MEDICARE, OTHER ==
[2023-09-19 08:18] LABS: BASOPHILS PERCENT AUTO 0.6 % (0.0-1.0); EOSINOPHILS PERCENT AUTO 4.3 % (1.0-3.0); HEMOGLOBIN 8.6 g/dL (12.0-16.0); LYMPHOCYTES PERCENT AUTO 14.3 % (20.5-50.1); MEAN CORPUSCULAR HEMOGLOBIN 29.6 pg (27.0-34.0); MEAN CORPUSCULAR HGB CONC 31.9 g/dL (33.0-35.0); MEAN CORPUSCULAR VOLUME 92.8 fL (80-100); MONOCYTES PERCENT AUTO 6.1 % (2-8); NEUTROPHILS PERCENT AUTO 74.7 % (42.2-75.2); PLATELET COUNT,PLT 214 10^3/uL (150-450); RED BLOOD CELL COUNT 2.91 10^6/uL (4.2-5.4); WHITE BLOOD CELL COUNT,WBC 10.2 10^3/uL (5.0-10.0)
[2023-09-19 08:37] LABS: A/G RATIO 0.8; ALBUMIN 3.7 g/dL (3.4-5.0); ANION GAP 17.9 mEq/L (7-13); BUN/CREATININE RATIO 8.2 (No establ ref range); CALCIUM 9.7 mg/dL (8.5-10.1); CREATININE 7.1 mg/dL (0.55-1.02); EST CRCL DRUG DOSING (CG) 8.97 mL/min; MAGNESIUM 1.9 mg/dL (1.8-2.4); POTASSIUM,K 5.9 mmol/L (3.5-5.1); PROTEIN TOTAL,TP 8.4 g/dL (6.4-8.2)
[2023-09-19 09:02] LABS: CORONAVIRUS COVID-19 NAA NEGATIVE (NEGATIVE); INFLUENZA A NAA NEGATIVE (NEGATIVE); INFLUENZA B NAA NEGATIVE (NEGATIVE); RESPIRATORY SYNCYTIAL VIR NAA NEGATIVE (NEGATIVE)
[2023-09-19] MEDS ORDERED: Glucagon,Human Recombinant 1 MG Vial IM PRN (09:48)
[2023-09-19] MEDS ORDERED: 50% Dextrose in Water 50 ML Syringe IVPUSH PRN (09:48)
[2023-09-19] MEDS: 50% Dextrose in Water 50 ML Syringe IVPUSH ONE (10:11)
[2023-09-19] MEDS: Insulin Regular, Human 100 Units/ML 3 ML Vial IV ONE (10:11)
[2023-09-19] MEDS: Sodium Polystyrene Sulfonate 15 GM/60 ML Susp 60 ML Bot PO ONE (10:12)
[2023-09-19] MEDS: Albuterol 0.083% 2.5 MG/3 ML Neb Soln NEB ONE (10:21)
[2023-09-19] MEDS: Sodium Zirconium Cyclosilicate 5 GM Packet PO ONE (10:43)
[2023-09-19] MEDS: amLODIPine 5 MG Tab PO ONE (11:55)
[2023-09-19] MEDS: Apixaban 5 MG Tab PO ONE (11:55)
[2023-09-19 11:56] VITALS: BP 198/101
[2023-09-19] MEDS: Losartan 50 MG Tab PO ONE (11:56)
[2023-09-19 12:30] VITALS: PULSE 84
== END 2023-09-19 12:00 | disposition other institution (70) ==
LOC: DL.ED 08:12
DX: I13.0 Hypertensive heart and chronic kidney disease with heart failure and stage 1 through stage 4 chronic kidney disease, or unspecified chronic kidney disease (principal); I50.9 Heart failure, unspecified; N18.9 Chronic kidney disease, unspecified; E87.5 Hyperkalemia; E11.22 Type 2 diabetes mellitus with diabetic chronic kidney disease; E66.9 Obesity, unspecified; Z68.41 Body mass index [BMI] 40.0-44.9, adult; Z79.01 Long term (current) use of anticoagulants; Z99.2 Dependence on renal dialysis; Z88.0 Allergy status to penicillin; Z88.6 Allergy status to analgesic agent; Z88.8 Allergy status to other drugs, medicaments and biological substances; Z79.899 Other long term (current) drug therapy
CPT/HCPCS: 0241U; 36415; 71046; 80053; 82947; 83735; 83880; 84484; 85025; 93005; 96374; 99285; A9270; J1815; J3490; J7613-GY

== ENCOUNTER 2023-10-31 19:56 | Emergency (ER) | payer MEDICARE, OTHER ==
[~2023-10-31 19:56] MED LIST changes: -50% Dextrose in Water 50 ML Syringe IVPUSH ONE; -50% Dextrose in Water 50 ML Syringe IVPUSH PRN; -Glucagon,Human Recombinant 1 MG Vial IM PRN; -Insulin Regular, Human 100 Units/ML 3 ML Vial IV ONE; -Sodium Polystyrene Sulfonate 15 GM/60 ML Susp 60 ML Bot PO ONE
[2023-10-31 20:13] LABS: BASOPHILS PERCENT AUTO 0.5 % (0.0-1.0); EOSINOPHILS PERCENT AUTO 2.9 % (1.0-3.0); HEMATOCRIT 33.9 % (37.0-47.0); HEMOGLOBIN 10.7 g/dL (12.0-16.0); LYMPHOCYTES PERCENT AUTO 11.2 % (20.5-50.1); MEAN CORPUSCULAR HEMOGLOBIN 28.4 pg (27.0-34.0); MEAN CORPUSCULAR HGB CONC 31.6 g/dL (33.0-35.0); MEAN CORPUSCULAR VOLUME 89.9 fL (80-100); MONOCYTES PERCENT AUTO 4.9 % (2-8); NEUTROPHILS PERCENT AUTO 80.5 % (42.2-75.2); PLATELET COUNT,PLT 124 10^3/uL (150-450); RED BLOOD CELL COUNT 3.77 10^6/uL (4.2-5.4); WHITE BLOOD CELL COUNT,WBC 11.6 10^3/uL (5.0-10.0)
[2023-10-31 20:25] LABS: CORONAVIRUS COVID-19 NAA NEGATIVE (NEGATIVE); INFLUENZA A NAA NEGATIVE (NEGATIVE); INFLUENZA B NAA NEGATIVE (NEGATIVE); RESPIRATORY SYNCYTIAL VIR NAA NEGATIVE (NEGATIVE)
[2023-10-31 20:35] LABS: BILIRUBIN TOTAL 0.8 mg/dL (0.2-1.0); BUN/CREATININE RATIO 8.3 (No establ ref range)
[2023-10-31 21:14] LABS: ALBUMIN 3.2 g/dL (3.4-5.0); CALCIUM 8.1 mg/dL (8.5-10.1); EST CRCL DRUG DOSING (CG) 8.5 mL/min; PROTEIN TOTAL,TP 8.2 g/dL (6.4-8.2)
[2023-10-31 21:15] LABS: A/G RATIO 0.64; CREATININE 8.56 mg/dL (0.55-1.02)
[2023-10-31 21:18] LABS: ANION GAP 17.1 mEq/L (7-13); POTASSIUM,K 7.1 mmol/L (3.5-5.1)
[2023-10-31] MEDS: LORazepam 1 MG Tab PO ONE (22:17)
[2023-10-31] MEDS: Sodium Polystyrene Sulfonate 15 GM/60 ML Susp 60 ML Bot PO ONE (22:18)
[2023-11-01] MEDS: Ondansetron 4 MG Tab.DIS PO ONE (03:05)
[2023-11-01 03:12] VITALS: BP 169/70; PULSE 91
== END 2023-11-01 03:30 | disposition home or self-care (01) ==
LOC: DL.ED 19:56
DX: I13.2 Hypertensive heart and chronic kidney disease with heart failure and with stage 5 chronic kidney disease, or end stage renal disease (principal); N18.6 End stage renal disease; I50.9 Heart failure, unspecified; E87.5 Hyperkalemia; E87.70 Fluid overload, unspecified; E11.22 Type 2 diabetes mellitus with diabetic chronic kidney disease; E66.9 Obesity, unspecified; Z88.0 Allergy status to penicillin; Z88.2 Allergy status to sulfonamides; Z88.8 Allergy status to other drugs, medicaments and biological substances; Z79.899 Other long term (current) drug therapy; Z79.01 Long term (current) use of anticoagulants; Z99.2 Dependence on renal dialysis; Z86.16 Personal history of COVID-19; Z68.41 Body mass index [BMI] 40.0-44.9, adult
CPT/HCPCS: 0241U; 36415; 71045; 80053; 83735; 84484; 85025; 93005; 93010; 99285; A9270

== ENCOUNTER 2023-12-04 05:04 | Emergency (ER) | payer MEDICARE, OTHER ==
[2023-12-04 05:16] VITALS: BP 142/87; PULSE 76
[2023-12-04] MEDS: Albuterol/Ipratropium 3.0-0.5 MG/3 ML Neb Soln NEB ONE ×2 (05:21→07:15)
[2023-12-04 06:27] LABS: BASOPHILS PERCENT AUTO 0.7 % (0.0-1.0); EOSINOPHILS PERCENT AUTO 5.7 % (1.0-3.0); HEMATOCRIT 32.1 % (37.0-47.0); HEMOGLOBIN 10.2 g/dL (12.0-16.0); LYMPHOCYTES PERCENT AUTO 13.9 % (20.5-50.1); MEAN CORPUSCULAR HEMOGLOBIN 27.8 pg (27.0-34.0); MEAN CORPUSCULAR HGB CONC 31.8 g/dL (33.0-35.0); MEAN CORPUSCULAR VOLUME 87.5 fL (80-100); MONOCYTES PERCENT AUTO 9.6 % (2-8); NEUTROPHILS PERCENT AUTO 70.1 % (42.2-75.2); PLATELET COUNT,PLT 184 10^3/uL (150-450); RED BLOOD CELL COUNT 3.67 10^6/uL (4.2-5.4); WHITE BLOOD CELL COUNT,WBC 7.1 10^3/uL (5.0-10.0)
[2023-12-04 06:50] LABS: A/G RATIO 0.7; ALBUMIN 3.4 g/dL (3.4-5.0); ANION GAP 18.7 mEq/L (7-13); BILIRUBIN TOTAL 0.7 mg/dL (0.2-1.0); CALCIUM 7.8 mg/dL (8.5-10.1); EST CRCL DRUG DOSING (CG) 11.39 mL/min; POTASSIUM,K 4.7 mmol/L (3.5-5.1); PROTEIN TOTAL,TP 8.1 g/dL (6.4-8.2)
[2023-12-04 06:52] LABS: CREATININE 5.53 mg/dL (0.55-1.02)
[2023-12-04] MEDS: Dexamethasone 4 MG/ML SDV PO ONE (07:14)
== END 2023-12-04 07:30 | disposition home or self-care (01) ==
LOC: DL.ED 05:04
DX: J40 Bronchitis, not specified as acute or chronic (principal); I13.0 Hypertensive heart and chronic kidney disease with heart failure and stage 1 through stage 4 chronic kidney disease, or unspecified chronic kidney disease; I50.9 Heart failure, unspecified; E11.22 Type 2 diabetes mellitus with diabetic chronic kidney disease; N18.9 Chronic kidney disease, unspecified; E66.9 Obesity, unspecified; Z88.1 Allergy status to other antibiotic agents; Z88.2 Allergy status to sulfonamides; Z88.6 Allergy status to analgesic agent; Z88.0 Allergy status to penicillin; Z88.8 Allergy status to other drugs, medicaments and biological substances; Z79.01 Long term (current) use of anticoagulants; Z79.899 Other long term (current) drug therapy; Z86.19 Personal history of other infectious and parasitic diseases; Z86.16 Personal history of COVID-19; Z68.42 Body mass index [BMI] 45.0-49.9, adult
CPT/HCPCS: 36415; 71046; 80053; 83735; 83880; 84484; 85025; 93005; 93010; 94640; 99284; 99285; J8540; J7620-GY

== ENCOUNTER 2023-12-05 06:53 | Emergency (ER) | payer MEDICARE, OTHER ==
[2023-12-05] MEDS: LORazepam 2 MG/ML SDV IM ONE (07:19)
[2023-12-05] MEDS: Sodium Chloride 0.9% 10 ML Syringe FLUSH PRN (07:53)
[2023-12-05 07:55] LABS: CORONAVIRUS COVID-19 NAA NEGATIVE (NEGATIVE); INFLUENZA A NAA NEGATIVE (NEGATIVE); INFLUENZA B NAA NEGATIVE (NEGATIVE); RESPIRATORY SYNCYTIAL VIR NAA NEGATIVE (NEGATIVE)
[2023-12-05 07:58] LABS: BASOPHILS PERCENT AUTO 0.2 % (0.0-1.0); EOSINOPHILS PERCENT AUTO 0.2 % (1.0-3.0); HEMATOCRIT 28.3 % (37.0-47.0); HEMOGLOBIN 9.2 g/dL (12.0-16.0); LYMPHOCYTES PERCENT AUTO 17.3 % (20.5-50.1); MEAN CORPUSCULAR HEMOGLOBIN 27.7 pg (27.0-34.0); MEAN CORPUSCULAR HGB CONC 32.5 g/dL (33.0-35.0); MEAN CORPUSCULAR VOLUME 85.2 fL (80-100); MONOCYTES PERCENT AUTO 13.9 % (2-8); NEUTROPHILS PERCENT AUTO 68.4 % (42.2-75.2); PLATELET COUNT,PLT 157 10^3/uL (150-450); RED BLOOD CELL COUNT 3.32 10^6/uL (4.2-5.4); WHITE BLOOD CELL COUNT,WBC 6.1 10^3/uL (5.0-10.0)
[2023-12-05 08:02] LABS: O2 DELIVERY DEVICE ROOM AIR
[2023-12-05 08:03] LABS: BASE EXCESS VENOUS -1.9 mmol/l ((-2)-(+3)); BICARBONATE,VENOUS 19 mmol/l (19-25); O2 SATURATION VENOUS 97.9 % (60-80); PCO2 VENOUS 20 mmHg (41-51); PH,VENOUS 7.58 (7.31-7.41); PO2 VENOUS 107 mmHg (35-42)
[2023-12-05] MEDS: Insulin Regular, Human 100 Units/ML 3 ML Vial SUBCUT ONE (08:13)
[2023-12-05] MEDS: Nitroglycerin/D5W 25 MG/250 ML BOTTLE IV SCH (08:14)
[2023-12-05 08:43] LABS: A/G RATIO 0.8; ALBUMIN 3.6 g/dL (3.4-5.0); ANION GAP 21.2 mEq/L (7-13); BILIRUBIN TOTAL 0.6 mg/dL (0.2-1.0); BUN/CREATININE RATIO 7.5 (No establ ref range); CALCIUM 7.6 mg/dL (8.5-10.1); EST CRCL DRUG DOSING (CG) 8.47 mL/min; MAGNESIUM 1.9 mg/dL (1.8-2.4); PHOSPHORUS 4.7 mg/dL (2.6-4.7); POTASSIUM,K 4.2 mmol/L (3.5-5.1); PROTEIN TOTAL,TP 8.2 g/dL (6.4-8.2)
[2023-12-05 08:50] LABS: CREATININE 7.44 mg/dL (0.55-1.02)
[2023-12-05 09:44] VITALS: BP 147/67; PULSE 79
== END 2023-12-05 10:06 ==
LOC: DL.ED 06:53
DX: I13.2 Hypertensive heart and chronic kidney disease with heart failure and with stage 5 chronic kidney disease, or end stage renal disease (principal); I50.33 Acute on chronic diastolic (congestive) heart failure; N18.6 End stage renal disease; E11.22 Type 2 diabetes mellitus with diabetic chronic kidney disease; E11.65 Type 2 diabetes mellitus with hyperglycemia; J96.91 Respiratory failure, unspecified with hypoxia; E66.9 Obesity, unspecified; Z99.2 Dependence on renal dialysis; Z88.1 Allergy status to other antibiotic agents; Z88.6 Allergy status to analgesic agent; Z88.0 Allergy status to penicillin; Z79.899 Other long term (current) drug therapy; Z79.01 Long term (current) use of anticoagulants; Z68.42 Body mass index [BMI] 45.0-49.9, adult
CPT/HCPCS: 0241U; 36415; 71045; 80053; 82009; 82803; 82947; 83735; 83880; 84100; 84484; 85025; 93005; 93010; 96365; 96366; 96372; 99285; J1815; J2060; J2305; J3490

== ENCOUNTER 2023-12-10 09:07 | Emergency (ER) | payer MEDICARE, OTHER ==
[2023-12-10 09:25] VITALS: BP 178/83; PULSE 83
== END 2023-12-10 10:29 | disposition home or self-care (01) ==
LOC: DL.ED 09:07
DX: M54.50 Low back pain, unspecified (principal); I12.9 Hypertensive chronic kidney disease with stage 1 through stage 4 chronic kidney disease, or unspecified chronic kidney disease; N18.9 Chronic kidney disease, unspecified; E11.22 Type 2 diabetes mellitus with diabetic chronic kidney disease; E11.21 Type 2 diabetes mellitus with diabetic nephropathy; E66.9 Obesity, unspecified; Z68.41 Body mass index [BMI] 40.0-44.9, adult; Z79.899 Other long term (current) drug therapy; Z79.01 Long term (current) use of anticoagulants; Z88.1 Allergy status to other antibiotic agents; Z88.8 Allergy status to other drugs, medicaments and biological substances; Z88.0 Allergy status to penicillin
CPT/HCPCS: 72100; 99283

== ENCOUNTER 2024-08-02 18:04 | Emergency (ER) | payer MEDICARE, OTHER ==
[2024-08-02] MEDS: Oxymetazoline 0.05% Nasal Spray 30 ML Bottle NAS ONE (18:24)
[2024-08-02 18:51] VITALS: BP 161/73; PULSE 91
== END 2024-08-02 18:36 | disposition home or self-care (01) ==
LOC: DL.ED 18:04
DX: J18.9 Pneumonia, unspecified organism (principal); I12.9 Hypertensive chronic kidney disease with stage 1 through stage 4 chronic kidney disease, or unspecified chronic kidney disease; N18.9 Chronic kidney disease, unspecified; E11.22 Type 2 diabetes mellitus with diabetic chronic kidney disease; E11.21 Type 2 diabetes mellitus with diabetic nephropathy; E66.9 Obesity, unspecified; Z79.01 Long term (current) use of anticoagulants; Z79.899 Other long term (current) drug therapy; Z88.0 Allergy status to penicillin; Z88.6 Allergy status to analgesic agent; Z88.8 Allergy status to other drugs, medicaments and biological substances; Z68.42 Body mass index [BMI] 45.0-49.9, adult
CPT/HCPCS: 99284; A9270

== ENCOUNTER 2024-08-08 15:14 | Emergency (ER) | payer MEDICARE, OTHER ==
[2024-08-08] MEDS ORDERED: Sodium Chloride 0.9% 10 ML Syringe FLUSH PRN (15:25)
[2024-08-08 16:05] LABS: HEMATOCRIT 36.6 % (37.0-47.0); HEMOGLOBIN 11.7 g/dL (12.0-16.0); MEAN CORPUSCULAR HEMOGLOBIN 29.5 pg (27.0-34.0); MEAN CORPUSCULAR VOLUME 92.2 fL (80-100); PLATELET COUNT,PLT 164 10^3/uL (150-450); RED BLOOD CELL COUNT 3.97 10^6/uL (4.2-5.4); WHITE BLOOD CELL COUNT,WBC 6.7 10^3/uL (5.0-10.0)
[2024-08-08 16:07] LABS: BASOPHILS PERCENT AUTO 0.4 % (0.0-1.0); LYMPHOCYTES PERCENT AUTO 28.8 % (20.5-50.1); MONOCYTES PERCENT AUTO 9.1 % (2-8); NEUTROPHILS PERCENT AUTO 55.7 % (42.2-75.2)
[2024-08-08 16:33] LABS: ALBUMIN 3.1 g/dL (3.4-5.0); ANION GAP 15.5 mEq/L (7-13); BILIRUBIN TOTAL 0.7 mg/dL (0.2-1.0); BUN/CREATININE RATIO 5.8 (No establ ref range); C-REACTIVE PROTEIN 1.22 ng/dL (<=0.50); CALCIUM 8.6 mg/dL (8.5-10.1); EST CRCL DRUG DOSING (CG) 9.26 mL/min; MAGNESIUM 2.3 mg/dL (1.8-2.4); POTASSIUM,K 4.5 mmol/L (3.5-5.1); PROTEIN TOTAL,TP 8.2 g/dL (6.4-8.2)
[2024-08-08 16:34] LABS: A/G RATIO 0.61; CREATININE 7.07 mg/dL (0.55-1.02)
[2024-08-08] MEDS: Acetaminophen 500 MG Tab PO ONE (16:34)
[2024-08-08 16:47] VITALS: BP 177/78; PULSE 62
[2024-08-08 17:08] LABS: EOSINOPHILS PERCENT MAN 6 % (1-3); LYMPHOCYTES % ATYPICAL MANUAL 3 %; LYMPHOCYTES PERCENT MAN 27 % (20-50); MONOCYTES PERCENT MAN 10 % (2-8); SEG NEUTROPHILS PERCENT MAN 54 % (42-75)
== END 2024-08-08 16:46 | disposition home or self-care (01) ==
LOC: DL.ED 15:14
DX: J11.1 Influenza due to unidentified influenza virus with other respiratory manifestations (principal); I12.9 Hypertensive chronic kidney disease with stage 1 through stage 4 chronic kidney disease, or unspecified chronic kidney disease; N18.9 Chronic kidney disease, unspecified; E11.22 Type 2 diabetes mellitus with diabetic chronic kidney disease; Z88.1 Allergy status to other antibiotic agents; Z88.6 Allergy status to analgesic agent; Z88.0 Allergy status to penicillin; Z88.8 Allergy status to other drugs, medicaments and biological substances; Z79.899 Other long term (current) drug therapy; Z79.01 Long term (current) use of anticoagulants; Z99.2 Dependence on renal dialysis
CPT/HCPCS: 36415; 71046; 80053; 83605; 83735; 84484; 85025; 86140; 93005; 99285; A9270; 93010; 99284

== ENCOUNTER 2024-08-30 05:23 | Observation (INO) | payer MEDICARE, OTHER ==
[2024-08-30 06:09] LABS: BASOPHILS PERCENT AUTO 0.4 % (0.0-1.0); HEMATOCRIT 28.2 % (37.0-47.0); HEMOGLOBIN 8.8 g/dL (12.0-16.0); LYMPHOCYTES PERCENT AUTO 13.1 % (20.5-50.1); MEAN CORPUSCULAR HEMOGLOBIN 29.6 pg (27.0-34.0); MEAN CORPUSCULAR HGB CONC 31.2 g/dL (33.0-35.0); MEAN CORPUSCULAR VOLUME 94.9 fL (80-100); MONOCYTES PERCENT AUTO 7.6 % (2-8); NEUTROPHILS PERCENT AUTO 73.9 % (42.2-75.2); PLATELET COUNT,PLT 159 10^3/uL (150-450); RED BLOOD CELL COUNT 2.97 10^6/uL (4.2-5.4); WHITE BLOOD CELL COUNT,WBC 9.5 10^3/uL (5.0-10.0)
[2024-08-30] MEDS: fentaNYL 100 MCG/2 ML SDV IVPUSH ONE (06:18)
[2024-08-30 06:36] LABS: BUN/CREATININE RATIO 7.1 (No establ ref range); EST CRCL DRUG DOSING (CG) 7.48 mL/min
[2024-08-30] MEDS: GI Cocktail Oral Solution 30 ML PO ONE (06:53)
[2024-08-30] MEDS: Metoprolol Tartrate 5 MG/5 ML SDV IVPUSH ONE (06:53)
[2024-08-30 06:57] LABS: ANION GAP 15.7 mEq/L (7-13)
[2024-08-30 06:58] LABS: A/G RATIO 0.67; ALBUMIN 3.1 g/dL (3.4-5.0); BILIRUBIN TOTAL 0.7 mg/dL (0.2-1.0); CALCIUM 8.1 mg/dL (8.5-10.1); PROTEIN TOTAL,TP 7.7 g/dL (6.4-8.2)
[2024-08-30 06:59] LABS: C-REACTIVE PROTEIN 3.09 ng/dL (<=0.50); MAGNESIUM 2.3 mg/dL (1.8-2.4)
[2024-08-30 07:04] LABS: CREATININE 8.42 mg/dL (0.55-1.02); POTASSIUM,K 6.7 mmol/L (3.5-5.1)
[2024-08-30] MEDS: Pantoprazole 40 MG Vial IVPUSH ONE (07:42)
[2024-08-30] MEDS ORDERED: Sodium Chloride 0.9% 10 ML Syringe FLUSH PRN (11:17)
[2024-08-30] MEDS ORDERED: Melatonin 3 MG Tab PO PRN (11:17)
[2024-08-30] MEDS ORDERED: Ondansetron 4 MG/2 ML SDV IVPUSH PRN (11:17)
[2024-08-30] MEDS ORDERED: Sennosides/Docusate Sodium 50-8.6 MG Tab PO PRN (11:17)
[2024-08-30] MEDS ORDERED: Docusate Sodium 100 MG Cap PO PRN (11:17)
[2024-08-30] MEDS ORDERED: Polyethylene Glycol 3350 Powder 17 GM Packet PO PRN (11:17)
[2024-08-30] MEDS ORDERED: Albuterol/Ipratropium 3.0-0.5 MG/3 ML Neb Soln NEB PRN (11:17)
[2024-08-30] MEDS ORDERED: Acetaminophen 325 MG Tab PO PRN (11:17)
[2024-08-30] MEDS ORDERED: Glucagon,Human Recombinant 1 MG Vial IM PRN (11:29)
[2024-08-30] MEDS ORDERED: 50% Dextrose in Water 50 ML Syringe IVPUSH PRN (11:29)
[2024-08-30] MEDS: Calcium Gluconate 10% 1 GM/10 ML SDV ONE (11:42)
[2024-08-30] MEDS: Calcium Gluconate 10% 1 GM/10 ML SDV IVPUSH ONE (11:42)
[2024-08-30] MEDS: Sodium Polystyrene Sulfonate 15 GM/60 ML Susp 60 ML Bot PO ONE (11:42)
[2024-08-30] MEDS: 50% Dextrose in Water 50 ML Syringe IVPUSH ONE (11:57)
[2024-08-30] MEDS: Insulin Lispro 100 Units/ML 3 ML Vial SUBCUT ONE (11:57)
[2024-08-30 12:04] LABS: ANION GAP 16.8 mEq/L (7-13); CALCIUM 7.9 mg/dL (8.5-10.1); EST CRCL DRUG DOSING (CG) 7.06 mL/min; POTASSIUM,K 5.8 mmol/L (3.5-5.1)
[2024-08-30 12:06] LABS: CREATININE 8.92 mg/dL (0.55-1.02)
[2024-08-30 12:19] VITALS: BP 167/68; PULSE 78
[2024-08-30] MEDS ORDERED: Sodium Chloride 0.9% 10 ML Syringe FLUSH SCH (21:00)
== END 2024-08-30 13:02 ==
LOC: DL.ED 05:23 → DL.MS 10:54
PROVIDERS: ADMIT Internal Medicine; ATTEND Internal Medicine
DX: R07.9 Chest pain, unspecified (principal); E11.22 Type 2 diabetes mellitus with diabetic chronic kidney disease; I13.2 Hypertensive heart and chronic kidney disease with heart failure and with stage 5 chronic kidney disease, or end stage renal disease; N18.6 End stage renal disease; Z99.2 Dependence on renal dialysis; F41.9 Anxiety disorder, unspecified; Z79.899 Other long term (current) drug therapy; Z88.0 Allergy status to penicillin; Z88.8 Allergy status to other drugs, medicaments and biological substances
CPT/HCPCS: 36415; 71045; 80048; 80053; 82947; 83735; 83880; 84484; 85025; 86140; 93005; 96374; 96375; 99223; 99285; A9270; J0612; J1815; J2470; J3010; J3490; G0378

== ENCOUNTER 2024-09-16 06:16 | Emergency (ER) | payer MEDICARE, MEDICAID ==
[2024-09-16 06:12] VITALS: PULSE 87
[2024-09-16] MEDS: Ketorolac 30 MG/ML SDV IM ONE (06:29)
[2024-09-16 06:39] VITALS: BP 161/68
== END 2024-09-16 07:08 | disposition home or self-care (01) ==
LOC: DL.ED 06:16
DX: R07.81 Pleurodynia (principal); I12.0 Hypertensive chronic kidney disease with stage 5 chronic kidney disease or end stage renal disease; N18.6 End stage renal disease; E11.22 Type 2 diabetes mellitus with diabetic chronic kidney disease; E66.9 Obesity, unspecified; Z79.899 Other long term (current) drug therapy; Z79.01 Long term (current) use of anticoagulants; Z88.0 Allergy status to penicillin; Z99.2 Dependence on renal dialysis; Z88.5 Allergy status to narcotic agent; Z88.8 Allergy status to other drugs, medicaments and biological substances; Z88.6 Allergy status to analgesic agent; Z68.42 Body mass index [BMI] 45.0-49.9, adult
CPT/HCPCS: 71045; 93005; 96372; 99285; J1885

== ENCOUNTER 2024-09-17 11:55 | Emergency (ER) | payer MEDICARE, MEDICAID ==
[2024-09-17] MEDS ORDERED: Sodium Chloride 0.9% 10 ML Syringe FLUSH PRN ×2 (12:27)
[2024-09-17] MEDS ORDERED: Morphine 4 MG/ML Syringe IVPUSH ONE (12:28)
[2024-09-17 13:30] LABS: BASOPHILS PERCENT AUTO 0.4 % (0.0-1.0); EOSINOPHILS PERCENT AUTO 3.9 % (1.0-3.0); HEMATOCRIT 26.8 % (37.0-47.0); HEMOGLOBIN 8.4 g/dL (12.0-16.0); MEAN CORPUSCULAR HEMOGLOBIN 30.3 pg (27.0-34.0); MEAN CORPUSCULAR HGB CONC 31.3 g/dL (33.0-35.0); MEAN CORPUSCULAR VOLUME 96.8 fL (80-100); MONOCYTES PERCENT AUTO 6.5 % (2-8); NEUTROPHILS PERCENT AUTO 79.2 % (42.2-75.2); PLATELET COUNT,PLT 223 10^3/uL (150-450); RED BLOOD CELL COUNT 2.77 10^6/uL (4.2-5.4); WHITE BLOOD CELL COUNT,WBC 10.3 10^3/uL (5.0-10.0)
[2024-09-17 13:46] LABS: PROTHROMBIN TIME 10.4 SEC (9.0-12.0)
[2024-09-17 13:53] LABS: A/G RATIO 0.7; ALBUMIN 3.4 g/dL (3.4-5.0); BILIRUBIN TOTAL 0.9 mg/dL (0.2-1.0); CALCIUM 7.7 mg/dL (8.5-10.1); EST CRCL DRUG DOSING (CG) 5.41 mL/min; PROTEIN TOTAL,TP 8.2 g/dL (6.4-8.2)
[2024-09-17] MEDS: HYDROmorphone 1 MG/ML Syringe SUBCUT ONE (13:53)
[2024-09-17 14:04] LABS: ANION GAP 20.7 mEq/L (7-13); CREATININE 11.65 mg/dL (0.55-1.02)
[2024-09-17 14:05] LABS: POTASSIUM,K 7.7 mmol/L (3.5-5.1)
[2024-09-17] MEDS ORDERED: Glucagon,Human Recombinant 1 MG Vial IM PRN (14:11)
[2024-09-17] MEDS ORDERED: 50% Dextrose in Water 50 ML Syringe IVPUSH PRN (14:11)
[2024-09-17] MEDS: Calcium Gluconate 10% 1 GM/10 ML SDV IVPUSH ONE (16:08)
[2024-09-17] MEDS: 50% Dextrose in Water 50 ML Syringe IVPUSH ONE (16:09)
[2024-09-17] MEDS: Insulin Regular, Human 100 Units/ML 10 ML Vial IV ONE (16:10)
[2024-09-17] MEDS: Sodium Bicarbonate 8.4% 50 MEQ/50 ML Syringe IVPUSH ONE (16:14)
[2024-09-17] MEDS: Sodium Zirconium Cyclosilicate 5 GM Packet PO ONE (16:56)
[2024-09-17] MEDS: Morphine 4 MG/ML Syringe IVPUSH ONE (18:07)
[2024-09-17 18:34] VITALS: BP 161/79; PULSE 76
== END 2024-09-17 19:55 ==
LOC: DL.ED 11:55
DX: R07.9 Chest pain, unspecified (principal); E87.5 Hyperkalemia; E11.22 Type 2 diabetes mellitus with diabetic chronic kidney disease; E11.21 Type 2 diabetes mellitus with diabetic nephropathy; I10 Essential (primary) hypertension; Z88.0 Allergy status to penicillin; N18.9 Chronic kidney disease, unspecified; Z88.6 Allergy status to analgesic agent; Z88.8 Allergy status to other drugs, medicaments and biological substances; Z79.82 Long term (current) use of aspirin; Z79.899 Other long term (current) drug therapy; Z68.41 Body mass index [BMI] 40.0-44.9, adult
CPT/HCPCS: 36415; 36556; 71045; 80053; 82947; 84484; 85025; 85379; 85610; 93005; 96372; 96374; 96375; 99285; A9270; C1751; J0612; J1171; J2270; J3490

== ENCOUNTER 2024-09-24 22:19 | Emergency (ER) | payer MEDICARE, OTHER ==
[2024-09-24 23:49] VITALS: BP 173/72; PULSE 81
[2024-09-24] MEDS ORDERED: Sodium Chloride 0.9% 10 ML Syringe FLUSH PRN (23:59)
[2024-09-25 00:52] LABS: BASOPHILS PERCENT AUTO 0.8 % (0.0-1.0); EOSINOPHILS PERCENT AUTO 6.9 % (1.0-3.0); HEMOGLOBIN 8.1 g/dL (12.0-16.0); LYMPHOCYTES PERCENT AUTO 22.4 % (20.5-50.1); MEAN CORPUSCULAR HEMOGLOBIN 31.2 pg (27.0-34.0); MEAN CORPUSCULAR HGB CONC 31.2 g/dL (33.0-35.0); MONOCYTES PERCENT AUTO 10.8 % (2-8); NEUTROPHILS PERCENT AUTO 59.1 % (42.2-75.2); PLATELET COUNT,PLT 242 10^3/uL (150-450); WHITE BLOOD CELL COUNT,WBC 8.7 10^3/uL (5.0-10.0)
[2024-09-25 01:11] LABS: ALANINE AMINOTRANSFERASE,ALT 23 U/L (14-59); ALBUMIN 2.9 g/dL (3.4-5.0); ALKALINE PHOSPHATASE 158 U/L (46-116); ASPARTATE AMNIOTRANSFERASE,AST 20 U/L (15-37); B-TYPE NATRIURETIC PEPTIDE,BNP 929 pg/ml (0-100); BILIRUBIN TOTAL 0.4 mg/dL (0.2-1.0); BLOOD UREA NITROGEN,BUN 96 mg/dL (7-18); BUN/CREATININE RATIO 9.4 (No establ ref range); CALCIUM 8.3 mg/dL (8.5-10.1); CARBON DIOXIDE,CO2 23 mmol/L (21-32); CHLORIDE,CL 101 mmol/L (98-107); CREATININE 10.18 mg/dL (0.55-1.02); GLUCOSE RANDOM 155 mg/dL (70-99); LIPASE 66 U/L (16-77); MAGNESIUM 2.1 mg/dL (1.8-2.4); POTASSIUM,K 5.9 mmol/L (3.5-5.1); PROTEIN TOTAL,TP 7.5 g/dL (6.4-8.2)
[2024-09-25 01:21] LABS: ANION GAP 19.9 mEq/L (7-13); SODIUM,NA 138 mmol/L (136-145)
[2024-09-25 01:23] LABS: A/G RATIO 0.63; ESTIMATED GFR 4 mL/min (>=60)
== END 2024-09-25 01:28 | disposition left against medical advice (07) ==
LOC: DL.ED 22:19
DX: I13.2 Hypertensive heart and chronic kidney disease with heart failure and with stage 5 chronic kidney disease, or end stage renal disease (principal); I50.9 Heart failure, unspecified; N18.6 End stage renal disease; D63.1 Anemia in chronic kidney disease; E11.21 Type 2 diabetes mellitus with diabetic nephropathy; E11.22 Type 2 diabetes mellitus with diabetic chronic kidney disease; E66.9 Obesity, unspecified; E87.5 Hyperkalemia; Z99.2 Dependence on renal dialysis; Z91.199 Patient's noncompliance with other medical treatment and regimen due to unspecified reason; Z88.8 Allergy status to other drugs, medicaments and biological substances; Z88.1 Allergy status to other antibiotic agents; Z88.6 Allergy status to analgesic agent; Z88.0 Allergy status to penicillin; Z79.899 Other long term (current) drug therapy; Z79.890 Hormone replacement therapy
CPT/HCPCS: 36415; 71045; 80053; 83690; 83735; 83880; 84484; 85025; 93005; 93010; 99285

== ENCOUNTER 2024-11-19 00:10 | Emergency (ER) | payer MEDICARE, MEDICAID, OTHER ==
[2024-11-19] MEDS ORDERED: Sodium Chloride 0.9% 10 ML Syringe FLUSH PRN (00:47)
[2024-11-19] MEDS: Albuterol/Ipratropium 3.0-0.5 MG/3 ML Neb Soln NEB ONE ×2 (00:51→02:31)
[2024-11-19 01:02] LABS: BASOPHILS PERCENT AUTO 0.7 % (0.0-1.0); HEMATOCRIT 25.6 % (37.0-47.0); LYMPHOCYTES PERCENT AUTO 25.6 % (20.5-50.1); MEAN CORPUSCULAR HEMOGLOBIN 30.9 pg (27.0-34.0); MEAN CORPUSCULAR HGB CONC 31.3 g/dL (33.0-35.0); MEAN CORPUSCULAR VOLUME 98.8 fL (80-100); MONOCYTES PERCENT AUTO 15.4 % (2-8); NEUTROPHILS PERCENT AUTO 51.3 % (42.2-75.2); PLATELET COUNT,PLT 192 10^3/uL (150-450); RED BLOOD CELL COUNT 2.59 10^6/uL (4.2-5.4); WHITE BLOOD CELL COUNT,WBC 7.7 10^3/uL (5.0-10.0)
[2024-11-19 01:22] LABS: ALBUMIN 3.2 g/dL (3.4-5.0); ANION GAP 16.2 mEq/L (7-13); BILIRUBIN TOTAL 0.5 mg/dL (0.2-1.0); BUN/CREATININE RATIO 8.8 (No establ ref range); CALCIUM 8.3 mg/dL (8.5-10.1); CREATININE 6.67 mg/dL (0.55-1.02); EST CRCL DRUG DOSING (CG) 9.34 mL/min; POTASSIUM,K 4.2 mmol/L (3.5-5.1); PROTEIN TOTAL,TP 7.9 g/dL (6.4-8.2)
[2024-11-19 01:23] LABS: A/G RATIO 0.68
[2024-11-19] MEDS: predniSONE 20 MG Tab PO ONE (02:31)
[2024-11-19] MEDS: Take Home: predniSONE 20 MG, 4 Tab Pack PO ONE (02:40)
[2024-11-19 03:18] VITALS: BP 155/64; PULSE 72
== END 2024-11-19 03:00 | disposition home or self-care (01) ==
LOC: DL.ED 00:10
DX: J44.1 Chronic obstructive pulmonary disease with (acute) exacerbation (principal); I10 Essential (primary) hypertension; E66.9 Obesity, unspecified; E11.21 Type 2 diabetes mellitus with diabetic nephropathy; Z88.0 Allergy status to penicillin; Z88.1 Allergy status to other antibiotic agents; Z88.8 Allergy status to other drugs, medicaments and biological substances; Z79.899 Other long term (current) drug therapy; Z68.41 Body mass index [BMI] 40.0-44.9, adult
CPT/HCPCS: 71046; 80053; 83880; 85025; 87428; 99285; A9270; J7512; 99284

== ENCOUNTER 2025-01-20 13:37 | Emergency (ER) | payer MEDICARE, MEDICAID, OTHER ==
[2025-01-20 13:54] VITALS: BP 160/73; PULSE 79
== END 2025-01-20 14:39 | disposition home or self-care (01) ==
LOC: DL.ED 13:37
DX: S00.03XA Contusion of scalp, initial encounter (principal); I12.9 Hypertensive chronic kidney disease with stage 1 through stage 4 chronic kidney disease, or unspecified chronic kidney disease; N18.9 Chronic kidney disease, unspecified; E11.22 Type 2 diabetes mellitus with diabetic chronic kidney disease; Z88.0 Allergy status to penicillin; Z88.6 Allergy status to analgesic agent; Z88.8 Allergy status to other drugs, medicaments and biological substances; Z79.01 Long term (current) use of anticoagulants; Z79.899 Other long term (current) drug therapy; W22.8XXA Striking against or struck by other objects, initial encounter
CPT/HCPCS: 70450; 99283

== ENCOUNTER 2025-04-04 01:20 | Emergency (ER) | payer MEDICARE, OTHER ==
[2025-04-04 01:48] LABS: BASOPHILS PERCENT AUTO 0.5 % (0.0-1.0); EOSINOPHILS PERCENT AUTO 4.7 % (1.0-3.0); LYMPHOCYTES PERCENT AUTO 24.9 % (20.5-50.1); MONOCYTES PERCENT AUTO 7.4 % (2-8); NEUTROPHILS PERCENT AUTO 62.5 % (42.2-75.2); PLATELET COUNT,PLT 222 10^3/uL (150-450); RED BLOOD CELL COUNT 2.99 10^6/uL (4.2-5.4); WHITE BLOOD CELL COUNT,WBC 7.7 10^3/uL (5.0-10.0)
[2025-04-04 02:05] LABS: B-TYPE NATRIURETIC PEPTIDE,BNP 363 pg/ml (0-100)
[2025-04-04 02:16] LABS: ALANINE AMINOTRANSFERASE,ALT 17 U/L (14-59); ASPARTATE AMNIOTRANSFERASE,AST 19 U/L (15-37); BILIRUBIN TOTAL 0.5 mg/dL (0.2-1.0); BLOOD UREA NITROGEN,BUN 75 mg/dL (7-18); CARBON DIOXIDE,CO2 24 mmol/L (21-32); CHLORIDE,CL 94 mmol/L (98-107); GLUCOSE RANDOM 321 mg/dL (70-99); POTASSIUM,K 5.8 mmol/L (3.5-5.1); PROTEIN TOTAL,TP 7.9 g/dL (6.4-8.2); SODIUM,NA 133 mmol/L (136-145); TSH ULTRASENSITIVE 3.26 uIU/mL (0.36-3.74)
[2025-04-04 02:19] LABS: A/G RATIO 0.65; CREATININE 8.70 mg/dL (0.55-1.02); ESTIMATED GFR 5 mL/min (>=60)
[2025-04-04 02:58] LABS: BLOOD UREA NITROGEN,BUN 76.0 mg/dL (7-18); CARBON DIOXIDE,CO2 27.0 mmol/L (21-32); CHLORIDE,CL 95.0 mmol/L (98-107); EST CRCL DRUG DOSING (CG) 7.12 mL/min; GLUCOSE RANDOM 295.0 mg/dL (70-99); POTASSIUM,K 5.8 mmol/L (3.5-5.1); SODIUM,NA 134.0 mmol/L (136-145)
[2025-04-04 03:00] LABS: CREATININE 8.75 mg/dL (0.55-1.02); ESTIMATED GFR 5.0 mL/min (>=60)
[2025-04-04] MEDS: Calcium Chloride 10% 1 GM/10 ML Syringe IVPUSH ONE (03:16)
[2025-04-04 03:54] VITALS: BP 191/79; PULSE 69
== END 2025-04-04 03:51 | disposition home or self-care (01) ==
LOC: DL.ED 01:20
DX: I13.2 Hypertensive heart and chronic kidney disease with heart failure and with stage 5 chronic kidney disease, or end stage renal disease (principal); N18.6 End stage renal disease; I50.9 Heart failure, unspecified; E87.5 Hyperkalemia; Z99.2 Dependence on renal dialysis; E11.22 Type 2 diabetes mellitus with diabetic chronic kidney disease; E11.40 Type 2 diabetes mellitus with diabetic neuropathy, unspecified; E78.00 Pure hypercholesterolemia, unspecified; Z88.0 Allergy status to penicillin; Z88.6 Allergy status to analgesic agent; Z88.8 Allergy status to other drugs, medicaments and biological substances; Z79.899 Other long term (current) drug therapy; Z79.01 Long term (current) use of anticoagulants
CPT/HCPCS: 36415; 71045; 80048; 80053; 80307; 83735; 83880; 84443; 84484; 85025; 93005; 96374; 99285; A9270; J3490

== ENCOUNTER 2025-04-08 19:32 | Emergency (ER) | payer MEDICARE, OTHER ==
[2025-04-08 21:15] LABS: BASOPHILS PERCENT AUTO 0.4 % (0.0-1.0); EOSINOPHILS PERCENT AUTO 0.9 % (1.0-3.0); LYMPHOCYTES PERCENT AUTO 14.1 % (20.5-50.1); MONOCYTES PERCENT AUTO 7.3 % (2-8); NEUTROPHILS PERCENT AUTO 77.3 % (42.2-75.2); PLATELET COUNT,PLT 225 10^3/uL (150-450); RED BLOOD CELL COUNT 3.09 10^6/uL (4.2-5.4); WHITE BLOOD CELL COUNT,WBC 12.1 10^3/uL (5.0-10.0)
[2025-04-08 21:31] LABS: ALANINE AMINOTRANSFERASE,ALT 16 U/L (14-59); ASPARTATE AMNIOTRANSFERASE,AST 15 U/L (15-37); BILIRUBIN TOTAL 0.6 mg/dL (0.2-1.0); BLOOD UREA NITROGEN,BUN 78 mg/dL (7-18); CARBON DIOXIDE,CO2 27 mmol/L (21-32); CHLORIDE,CL 87 mmol/L (98-107); CREATININE 10.37 mg/dL (0.55-1.02); EST CRCL DRUG DOSING (CG) 6.01 mL/min; GLUCOSE RANDOM 132 mg/dL (70-99); PROTEIN TOTAL,TP 8.0 g/dL (6.4-8.2); SODIUM,NA 127 mmol/L (136-145)
[2025-04-08 21:33] LABS: A/G RATIO 0.67; ESTIMATED GFR 4 mL/min (>=60); ETHANOL BLOOD MEDICAL < 3 mg/dL (0); POTASSIUM,K 6.8 mmol/L (3.5-5.1)
[2025-04-08 21:53] LABS: INR 1.0 (0.9-1.2); PTT,PARTIAL THROMBOPLSTIN TIME 25.6 SEC (22.0-34.0)
[2025-04-08] MEDS: diphenhydrAMINE 50 MG/ML SDV IVPUSH ONE (22:11)
[2025-04-08 23:54] VITALS: PULSE 82
[2025-04-08 23:55] VITALS: BP 171/79
== END 2025-04-08 23:27 | disposition home or self-care (01) ==
LOC: DL.ED 19:32
DX: F10.120 Alcohol abuse with intoxication, uncomplicated (principal); M25.561 Pain in right knee; I12.0 Hypertensive chronic kidney disease with stage 5 chronic kidney disease or end stage renal disease; N18.6 End stage renal disease; M25.461 Effusion, right knee; E87.5 Hyperkalemia; E78.00 Pure hypercholesterolemia, unspecified; K21.9 Gastro-esophageal reflux disease without esophagitis; E11.22 Type 2 diabetes mellitus with diabetic chronic kidney disease; F17.210 Nicotine dependence, cigarettes, uncomplicated; Z86.16 Personal history of COVID-19; Z88.6 Allergy status to analgesic agent; Z88.0 Allergy status to penicillin; Z88.8 Allergy status to other drugs, medicaments and biological substances; Z79.899 Other long term (current) drug therapy; Z79.01 Long term (current) use of anticoagulants
CPT/HCPCS: 36415; 73562; 80053; 80307; 83690; 83735; 84484; 85025; 85610; 85730; 93005; 93010; 96374; 99284; 99285; A9270; J1200

== ENCOUNTER 2025-05-10 01:55 | Emergency (ER) | payer MEDICARE, OTHER ==
[2025-05-10 02:30] LABS: BASOPHILS PERCENT AUTO 0.5 % (0.0-1.0); EOSINOPHILS PERCENT AUTO 2.2 % (1.0-3.0); LYMPHOCYTES PERCENT AUTO 15.4 % (20.5-50.1); MONOCYTES PERCENT AUTO 8.6 % (2-8); NEUTROPHILS PERCENT AUTO 73.3 % (42.2-75.2); PLATELET COUNT,PLT 285 10^3/uL (150-450); RED BLOOD CELL COUNT 2.82 10^6/uL (4.2-5.4); WHITE BLOOD CELL COUNT,WBC 8.6 10^3/uL (5.0-10.0)
[2025-05-10] MEDS: Ondansetron 4 MG/2 ML SDV IVPUSH ONE (02:32)
[2025-05-10 03:16] LABS: A/G RATIO 0.7; ALANINE AMINOTRANSFERASE,ALT 16 U/L (14-59); ASPARTATE AMNIOTRANSFERASE,AST 15 U/L (15-37); BILIRUBIN TOTAL 0.6 mg/dL (0.2-1.0); BLOOD UREA NITROGEN,BUN 45 mg/dL (7-18); CARBON DIOXIDE,CO2 29 mmol/L (21-32); CHLORIDE,CL 93 mmol/L (98-107); CREATININE 6.50 mg/dL (0.55-1.02); EST CRCL DRUG DOSING (CG) 9.59 mL/min; GLUCOSE RANDOM 325 mg/dL (70-99); POTASSIUM,K 5.1 mmol/L (3.5-5.1); PROTEIN TOTAL,TP 8.6 g/dL (6.4-8.2); SODIUM,NA 135 mmol/L (136-145)
[2025-05-10 03:17] LABS: ESTIMATED GFR 7 mL/min (>=60); ETHANOL BLOOD MEDICAL < 3 mg/dL (0)
[2025-05-10] MEDS: Take Home: Ondansetron 4 MG Tab.DIS, 5 Tab Pack PO ONE (03:26)
[2025-05-10 03:33] VITALS: BP 157/88; PULSE 72
== END 2025-05-10 03:31 | disposition home or self-care (01) ==
LOC: DL.ED 01:55
DX: R10.13 Epigastric pain (principal); R11.10 Vomiting, unspecified; I11.0 Hypertensive heart disease with heart failure; I50.9 Heart failure, unspecified; E11.9 Type 2 diabetes mellitus without complications; Z88.1 Allergy status to other antibiotic agents; Z88.8 Allergy status to other drugs, medicaments and biological substances; Z88.0 Allergy status to penicillin; Z79.899 Other long term (current) drug therapy; Z86.16 Personal history of COVID-19
CPT/HCPCS: 36415; 80053; 80307; 83690; 84484; 85025; 96374; 99283; 99284; J2405; Q0162

== ENCOUNTER 2025-05-23 02:24 | Emergency (ER) | payer MEDICARE, OTHER ==
[2025-05-23] MEDS ORDERED: Sodium Chloride 0.9% 10 ML Syringe FLUSH PRN (02:35)
[2025-05-23 03:45] LABS: BASOPHILS PERCENT AUTO 0.5 % (0.0-1.0); EOSINOPHILS PERCENT AUTO 4.4 % (1.0-3.0); LYMPHOCYTES PERCENT AUTO 18.7 % (20.5-50.1); MONOCYTES PERCENT AUTO 9.2 % (2-8); NEUTROPHILS PERCENT AUTO 67.2 % (42.2-75.2); PLATELET COUNT,PLT 197 10^3/uL (150-450); RED BLOOD CELL COUNT 2.46 10^6/uL (4.2-5.4); WHITE BLOOD CELL COUNT,WBC 8.2 10^3/uL (5.0-10.0)
[2025-05-23] MEDS: Nitroglycerin 0.4 MG Tab.SL SL PRN (03:55)
[2025-05-23 04:04] LABS: B-TYPE NATRIURETIC PEPTIDE,BNP 1090.0 pg/ml (0-100)
[2025-05-23 04:09] LABS: ALANINE AMINOTRANSFERASE,ALT 12.0 U/L (14-59); ASPARTATE AMNIOTRANSFERASE,AST 16.0 U/L (15-37); BILIRUBIN TOTAL 0.7 mg/dL (0.2-1.0); BLOOD UREA NITROGEN,BUN 76.0 mg/dL (7-18); CARBON DIOXIDE,CO2 25.0 mmol/L (21-32); CHLORIDE,CL 99.0 mmol/L (98-107); CREATININE 11.72 mg/dL (0.55-1.02); EST CRCL DRUG DOSING (CG) 4.9 mL/min; GLUCOSE RANDOM 169.0 mg/dL (70-99); POTASSIUM,K 4.4 mmol/L (3.5-5.1); PROTEIN TOTAL,TP 6.8 g/dL (6.4-8.2); SODIUM,NA 142.0 mmol/L (136-145)
[2025-05-23 04:10] LABS: A/G RATIO 0.79; ESTIMATED GFR 4.0 mL/min (>=60)
[2025-05-23 05:35] VITALS: BP 154/58; PULSE 73
== END 2025-05-23 05:10 | disposition home or self-care (01) ==
LOC: DL.ED 02:24
DX: I13.2 Hypertensive heart and chronic kidney disease with heart failure and with stage 5 chronic kidney disease, or end stage renal disease (principal); N18.6 End stage renal disease; I50.9 Heart failure, unspecified; E11.22 Type 2 diabetes mellitus with diabetic chronic kidney disease; E78.00 Pure hypercholesterolemia, unspecified; E11.40 Type 2 diabetes mellitus with diabetic neuropathy, unspecified; J44.9 Chronic obstructive pulmonary disease, unspecified; Z88.0 Allergy status to penicillin; Z88.6 Allergy status to analgesic agent; Z88.8 Allergy status to other drugs, medicaments and biological substances; Z79.01 Long term (current) use of anticoagulants; Z79.899 Other long term (current) drug therapy; Z99.2 Dependence on renal dialysis
CPT/HCPCS: 36415; 71045; 80053; 83735; 83880; 84484; 85025; 85379; 93005; 99285; A9270-GY